=== PATIENT | female | born 1950 | race African-American/Black ===

== ENCOUNTER 2020-11-20 15:11 | Outpatient (CLI) | payer MEDICARE, SELFPAY | END 2020-11-20 15:12 | disposition home or self-care (01) | PROVIDERS: PCP Internal Medicine Infectious Disease; Visit Provider Internal Medicine Infectious Disease | DX: H91.93 Unspecified hearing loss, bilateral (principal) | CPT/HCPCS: 92557; 92567 ==

== ENCOUNTER 2022-06-07 03:56 | Inpatient (IN) | payer OTHER, SELFPAY ==
[2022-06-07] VITALS (21 sets, daily range): BP systolic 117–186; BP diastolic 50–90; PULSE 50–75; RESP 12–22; TEMP 36.4–36.6; O2SAT 98–100
--- NOTE | ~2022-06-07 | MR_ITS ---
EXAMINATION: MR brain/brain stem wo con DATE: 06/07/2022 12:39 INDICATION: Stroke TECHNIQUE: Magnetic resonance imaging (MRI) of the brain and brainstem was performed without intraven ous contrast. Sequences included sagittal and axial T1-weighted SE, axial diffusion-weighted FS SE, a xial T2*-weighted GRE, axial T2-weighted FLAIR Propeller, and axial T2-weighted Propeller. Apparent d iffusion coefficient (ADC) maps were created. COMPARISON: CTA brain/carotid dated 06/07/2022. FINDINGS: There is a focal acute infarction posterior limb left internal capsule. No associated hemor rhage. No significant mass effect. No ventriculomegaly or midline shift. There are scattered mild per iventricular and subcortical white matter changes, most likely related to small vessel ischemic disea se (microangiopathy). Structures of the posterior fossa including 7/8th cranial nerve complexes are n ormal. Orbits are symmetric without disconjugate gaze. Midline sagittal images demonstrate a normal c orpus callosum and craniovertebral junction. No significant abnormality of the sinuses. IMPRESSION: 1. Acute left lacunar infarction involving posterior limb of the internal capsule. No associated hemo rrhage or mass effect. 2: Chronic age-related findings. Reviewed, dictated and finalized at location A. IMPRESSION: 1. Acute left lacunar infarction involving posterior limb of the internal capsu le. No associated hemorrhage or mass effect. 2: Chronic age-related findings.
--- NOTE | ~2022-06-07 | XR_ITS ---
EXAMINATION: XR chest 1V portable 06/07/2022 04:34 INDICATION: CVA PROCEDURE: AP portable chest COMPARISON: 05/11/2017 FINDINGS: The lungs are clear. The cardiomediastinal silhouette is within normal limits. There are no pleural effusions. There is no pneumothorax suspected. IMPRESSION: 1: NO ACUTE CARDIOPULMONARY DISEASE. Reviewed, dictated and finalized at location A.
--- NOTE | ~2022-06-07 | CT_ITS ---
EXAMINATION: CTA brain carotid DATE: 06/07/2022 09:07 CDT INDICATION: Stroke. TECHNIQUE: Computed tomographic angiography (CTA) of the head was performed without and with 100 mL O mnipaque-350 intravenous contrast. CTA of the neck was performed with intravenous contrast. The dose- length product was 1681.67 mGy-cm. Maximum intensity projection and volume rendered 3D-reconstruction s were created by the technologist on a separate workstation. Automated exposure control and iterativ e reconstruction technique were employed. COMPARISON: None. FINDINGS: HEAD CTA: Brain parenchymal volume is normal for age. No acute intracranial hemorrhage, infarction, m ass or mass effect. No ventriculomegaly or midline shift. Basilar cisterns are patent. No depressed s kull fractures. No large partial occlusion, significant stenosis, aneurysm or vascular malformation. NECK CTA: No significant stenosis, dissection or vascular injury. There is 0% stenosis of the proximal right internal carotid artery relative to normal distal artery l umen diameter (NASCET criteria). There is 0% stenosis of the proximal left internal carotid artery re lative to normal distal artery lumen diameter. IMPRESSION: 1: No acute intracranial abnormality. 2: No significant vascular abnormality of the neck or head. No significant carotid stenosis. Reviewed, dictated and finalized at location A. IMPRESSION: 1: No acute intracranial abnormality. 2: No significant vascular abnormality of the neck or head. No significant arthur tid stenosis.
--- NOTE | ~2022-06-07 | XR_ITS ---
Right foot Technique: AP, oblique, and lateral views were obtained. Clinical History: Foreign body Findings: No acute fracture or dislocation is seen. Osseous alignment is anatomic. Joint spaces are p reserved without erosive or degenerative change. Soft tissues are unremarkable. Impression: Unremarkable right foot radiographs. No radiopaque foreign body seen. Reviewed, dictated and finalized at [facility]. Impression: Unremarkable right foot radiographs. No radiopaque foreign body seen.
--- NOTE | ~2022-06-07 | XR_ITS ---
MODIFIED ESOPHAGRAM HISTORY: Dysphagia. TECHNIQUE: Modified barium esophagram was performed by speech pathologist under radiologist fluorosco pic guidance. This was recorded on tape. The exam was reviewed on 06/09/2022 13:05 CDT. The DAP for this procedure was 0.8 Gycm2. Fluoroscopy time is 1.3 minutes. FINDINGS: Lateral projection of the cervical spine demonstrates normal alignment. There is prominen t ventral osteophytes at C6-7. During pharyngeal stage of swallowing there is reduced tongue base ret raction with residue in the vallecula and piriform sinuses. No evidence for penetration or aspiration .. IMPRESSION: 1: No evidence for laryngeal penetration or aspiration. 2: Please refer to speech pathologist report for additional detail. Reviewed, dictated and finalized at location A.
--- NOTE | 2022-06-07 04:14 | ECG_ITS ---
Measurements Intervals [place] Rate: 62 P: 49 VA: 176 QRS: -15 QRSD: 98 T: 28 QT: 435 QTc: 443 Interpretive Statements SINUS RHYTHM POSSIBLE LEFT ATRIAL ENLARGEMENT BORDERLINE T WAVE ABNORMALITY- INFERIOR LEADS BASELINE ARTIFACT- I, II, III, AVR, AVL, AVF, V1 BORDERLINE ECG NO PREVIOUS ECG AVAILABLE FOR COMPARISON Electronically Signed On 06-07-2022 8:10:16 CDT by Derrick Rees D.O.
[2022-06-07 04:28] LABS: Basophils Percent Auto 0.7 % (0.2-1.2); Eosinophils Absolute Auto 0.2 K/mm3 (0-0.3); Eosinophils Percent Auto 4.4 % (0-4.4); Hematocrit 36.7 % (37.0-47.0); Immature Granulocyte Absolute 0.01 K/mm3 (0.00-0.031); Immature Granulocyte Percent A 0.2 % (0-0.5); Lymphocytes Absolute Auto 2.52 K/mm3 (0.9-3.2); Mean Corpuscular HGB Conc 32.7 g/dl (32-36); Mean Corpuscular Hemoglobin 26.8 pg (26-34); Mean Corpuscular Volume 82.1 fl (80-100); Mean Platelet Volume 9.3 fl (7.4-10.4); Monocytes Absolute Auto 0.4 K/mm3 (0.1-0.6); Monocytes Percent Auto 8.2 % (2.6-8.5); Neutrophils Absolute Auto 1.2 K/mm3 (1.3-6.7); Neutrophils Percent Auto 27.5 % (45.5-73.1); Platelet Count Result 233 k/mm3 (150-375); Red Blood Count 4.47 M/mm3 (4.2-5.4); Red Cell Distribution Width 13.2 % (11.5-14.5); White Blood Count 4.3 K/mm3 (4.5-10.0)
[2022-06-07 04:38] LABS: Ethanol < 10 mg/dL (<10)
[2022-06-07 04:39] LABS: Alanine Aminotransferase 19 U/L (6-35); Albumin Level 4.2 g/dL (3.5-5.1); Alkaline Phosphatase 61 U/L (38-126); Anion Gap 3 mmol/L (8-16); Aspartate Amino Transferase 33 U/L (14-36); Bilirubin,Total 0.8 mg/dL (0.2-1.3); Blood Urea Nitrogen 20 mg/dL (7-17); Calcium 9.1 mg/dL (8.4-10.2); Carbon Dioxide 33 mmol/L (22-30); Chloride 102 mmol/L (98-107); Estimated Glomerular Filt Rate > 60; Glucose 103 mg/dL (65-110); Potassium 3.9 mmol/L (3.4-5.0); Sodium 138 mmol/L (137-145)
[2022-06-07 04:42] LABS: Prothrombin Time 13.1 Seconds (11.1-14.7)
--- NOTE | 2022-06-07 04:44 | ED.GENADULT ---
HPI - General Adult General Chief complaint: Suspected CVA <Rojelio Talley MD - Last Filed: 06/07/22 19:04> Stated complaint: right sided weakness <Rojelio Talley MD - Last Filed: 06/07/22 19:04> Time Seen by Provider: 06/07/22 04:07 <Rojelio Talley MD - Last Filed: 06/07/22 19:04> History of Present Illness HPI narrative: This is a 71-year-old female presenting ED with stroke-like symptoms. Patient woke up at 2:30 a.m. and went to the restroom to get cleaned up for work. She then started to have weakness and numbness on the right side of her body and felt like she was unable to control her tongue. She then woke up her who called EMS and she was brought to hospital as a stroke activation. Patient denies any other physical planes outside of the right-sided weakness. <Rojelio Talley MD - Last Filed: 06/07/22 19:04> Related Data Home medications: Home Medications Medication Instructions Recorded Confirmed ritonavir 100 mg tablet (Norvir) 100 mg PO DAILY 04/20/19 06/07/22 darunavir ethanolate 800 mg tablet 800 mg PO DAILY 06/07/22 06/07/22 (Prezista) emtricitabine 200 mg-tenofovir 1 tablet PO DAILY 06/07/22 06/07/22 alafenamide fumarate 25 mg tablet (Descovy) escitalopram oxalate 10 mg tablet 10 mg PO DAILY 06/07/22 06/07/22 rosuvastatin 20 mg tablet 20 mg PO HS 06/07/22 06/07/22 <Rojelio Talley MD - Last Filed: 06/07/22 19:04> Allergies/adverse reactions: Allergies Allergy/AdvReac Type Severity Reaction Status Date / Time Bleach (Sodium Hypochlorite) Allergy Severe difficulty Verified 06/07/22 10:45 breathing, hoarseness and watery eyes <Rojelio Talley MD - Last Filed: 06/07/22 19:04> PMFSH Past Medical History Medical History: Medical History ASCUS with positive high risk HPV High cholesterol HIV (human immunodeficiency virus infection) <Rojelio Talley MD - Last Filed: 06/07/22 19:04> Social History Social History: Social History Smoking status: Never smoker Alcohol intake: never Substance use: never Lack of Transportation: No Lack of Food: Never True Current Housing: Decline to Answer Concerned About Future Housing: Decline to Answer Difficulty Paying Gas/Electric Bills: Decline to Answer Difficulty Paying for Meds: Decline to Answer Currently Unemployed: Decline to Answer Education: Decline to Answer Difficulty w/ Childcare or Family Care: Decline to Answer Spiritual care concerns: No <Rojelio Talley MD - Last Filed: 06/07/22 19:04> Exam Narrative: APPEARANCE: No apparent distress. Head: atraumatic. EYES: EOMI, NOSE: Atraumatic NECK: Trachea midline RESPIRATORY: No increased rate of breathing CARDIOVASCULAR: RRR, ABDOMINAL: Non-distended MUSCULOSKELETAl: No obvious deformities NEURO: Alert. Moving 4/4 extremities SKIN:: Warm, dry. Normal color PSYCHIATRIC: Normal affect NIH Stroke Scale/Score (NIHSS) from [email or web address] on 06/07/2022 All calculations should be rechecked by clinician prior to use RESULT SUMMARY: 4 points NIH Stroke Scale INPUTS: 1A: Level of consciousness ?> 0 = Alert; keenly responsive 1B: Ask month and age ?> 0 = Both questions right 1C: 'Blink eyes' & 'squeeze hands' ?> 0 = Performs both tasks 2: Horizontal extraocular movements ?> 0 = Normal 3: Visual robbins ?> 0 = No visual loss 4: Facial palsy ?> 0 = Normal symmetry 5A: Left arm motor drift ?> 0 = No drift for 10 seconds 5B: Right arm motor drift ?> 1 = Drift, but doesn't hit bed 6A: Left leg motor drift ?> 0 = No drift for 5 seconds 6B: Right leg motor drift ?> 2 = Some effort against gravity 7: Limb Ataxia ?> 0 = No ataxia 8: Sensation ?> 1 = Mild-moderate loss: less sharp/more dull 9: Language/aphasia ?> 0 = Normal; no aphasia 10: Dysarthria ?> 0 = Normal 11: Extinction
[2022-06-07 04:51] LABS: Troponin I < 0.012 ng/mL (0.000-0.034)
[2022-06-07] MEDS: ASPIRIN 81 MG CHEWABLE TABLET 324 MG PO (06:36)
--- NOTE | 2022-06-07 10:40 | ADMGEN ---
This patient, Nancy Cherry, was admitted to [facility] Surg Room 313-01. Patient/family oriented to hospital policies and general routines including ID bracelet, bed and alarms, visiting hours, pain management, procedures, bathroom and other care routines, personal items, smoking policy, room service/diet, and visiting hours. Information on how to activate the Rapid Response Team has been discussed. Patient/Family are encouraged to report perceived risks to care and to ask questions if they do not understand what they are told or what they should do.
[2022-06-07 11:44] LABS: Cholesterol 294 mg/dL (0-200); HDL Direct 78 mg/dL; Triglycerides 112 mg/dL (<150)
[2022-06-07 11:55] LABS: LDL Cholesterol Direct 159 mg/dL
--- NOTE | 2022-06-07 12:25 | PM.IMHP ---
H&P: HPI History of Present Illness Date/Time: 06/07/22 12:25 Chief Complaint: right sided weakness and slurred speech Narrative: Patient was slow to respond but noted she noticed right sided weakness and numbness at about 230 am while she woke up to prepare for work. She also noted lightheadedness and fall but denies any syncope, vomiting, abd pain, diarrhea or dysuria. Evaluation in the ER showed BP 141/81, prolonged aptt, CT head no acute intracranial abnormality and no significant vascular abnormality, LDL 159. Patient was admitted for further evaluation and care. At bedside she noted symptoms have markedly improved Review of Systems Review of Systems: All systems reviewed & are unremarkable except as noted in HPI and below PMFSH Past Medical History Medical History ASCUS with positive high risk HPV High cholesterol HIV (human immunodeficiency virus infection) Social History Social History Smoking status: Never smoker Alcohol intake: never Substance use: never Lack of Transportation: No Lack of Food: Never True Current Housing: Decline to Answer Concerned About Future Housing: Decline to Answer Difficulty Paying Gas/Electric Bills: Decline to Answer Difficulty Paying for Meds: Decline to Answer Currently Unemployed: Decline to Answer Education: Decline to Answer Difficulty w/ Childcare or Family Care: Decline to Answer Spiritual care concerns: No Meds Home Medications and Allergies Home Medications Medication Instructions Recorded Confirmed Type ritonavir 100 mg tablet (Norvir) 100 mg PO DAILY 04/20/19 06/07/22 History ibandronate 150 mg tablet 150 mg PO MONTHLY #3 tabs 02/17/22 06/07/22 Rx darunavir ethanolate 800 mg tablet 800 mg PO DAILY 06/07/22 06/07/22 History (Prezista) emtricitabine 200 mg-tenofovir 1 tablet PO DAILY 06/07/22 06/07/22 History alafenamide fumarate 25 mg tablet (Descovy) escitalopram oxalate 10 mg tablet 10 mg PO DAILY 06/07/22 06/07/22 History rosuvastatin 20 mg tablet 20 mg PO HS 06/07/22 06/07/22 History Allergies Allergy/AdvReac Type Severity Reaction Status Date / Time Bleach (Sodium Hypochlorite) Allergy Severe difficulty Verified 06/07/22 10:45 breathing, hoarseness and watery eyes Vital Signs Vital Signs - 24 hr 06/07/22 04:22 06/07/22 04:32 06/07/22 03:50 Pulse Rate 72 71 72 Respiratory Rate 22 H 17 22 H Blood Pressure 162/90 H 154/87 H 162/90 H Pulse Oximetry 100 100 100 Oxygen Delivery Room Air 06/07/22 04:00 06/07/22 04:46 06/07/22 05:01 Pulse Rate 74 75 73 Respiratory Rate 12 20 18 Blood Pressure 186/84 H 163/81 H 173/75 H Pulse Oximetry 100 100 100 Oxygen Delivery 06/07/22 05:16 06/07/22 08:27 06/07/22 08:27 Pulse Rate 65 60 60 Respiratory Rate 14 18 Blood Pressure 163/85 H 118/52 L Pulse Oximetry 100 100 Oxygen Delivery 06/07/22 07:16 06/07/22 07:31 06/07/22 07:46 Pulse Rate 60 60 60 Respiratory Rate 13 15 15 Blood Pressure 144/70 H 124/50 L 117/61 Pulse Oximetry 98 98 100 Oxygen Delivery 06/07/22 08:01 06/07/22 08:16 06/07/22 08:32 Pulse Rate 59 L 59 L 66 Respiratory Rate 13 16 17 Blood Pressure 123/51 L 118/52 L 146/78 H Pulse Oximetry 100 100 100 Oxygen Delivery 06/07/22 09:01 06/07/22 09:15 06/07/22 10:21 Pulse Rate 62 58 L 60 Respiratory Rate 15 20 20 Blood Pressure 144/86 H 141/81 H 141/81 H Pulse Oximetry 100 100 98 Oxygen Delivery 06/07/22 11:07 Pulse Rate Respiratory Rate Blood Pressure Pulse Oximetry Oxygen Delivery Room Air Exam Narrative: GEN: Healthy appearing, well-developed, NAD. PSYCH: Good Judgment. AOx3. Normal memory, mood, and affect. HEENT: -Head: NC/AT; -Eyes: No discharge or redness; -Ears: External ears are normal. -Nose: Normal nares. -Mouth and throat: MMM. Normal gums, mucosa
--- NOTE | 2022-06-07 12:36 | PCPTNOTE ---
Patient has bedrests orders, called Dr. Gramajo to get the bedrests orders cancelled, he said he would.
[2022-06-07 12:45] LABS: Hemoglobin A1C 5.4 % (<5.7)
--- NOTE | 2022-06-07 14:03 | PCSTNOTE ---
Patient seen for bedside swallowing evaluation, positioned upright in bed with head of bed elevated. present at bedside. Oral peripheral examination reveals right sided labial and lingual weakness. Range of motion WNL. Patient is able to cough and clear throat voluntarily. Trials of food and liquid given include thin liquids by spoon and straw, mildly thickened liquids by cup, and pureed by spoon. Patient able to feed self but RUE is weak. Coughing after thin liquids by straw indicating possible aspiration on thin liquids. No signs of aspiration noted with moderately thick liquids by cup or pureed food by straw. Other food consistencies were not trialed because patient stated that she wants pureed food for the time being. Communication skills noted to be impaired. Order for speech language communication evaluation requested. Recommendation: pureed diet with mildly thickened liquids (level 2). Speech therapy to address swallowing deficits. Swallowing precaution recommendations placed in chart. Thank you for the referral of this patient.
[2022-06-07] MEDS: ASPIRIN 300 MG SUPPOSITORY RECTAL (14:05)
[2022-06-08] VITALS (9 sets, daily range): BP systolic 132–141; BP diastolic 54–75; PULSE 51–65; RESP 14–16; TEMP 36.1–36.4; O2SAT 100
--- NOTE | 2022-06-08 | ECHO_ITS ---
Patient Info Name: Nancy Cherry Age: 71 years : 1950 Gender: Female Ht: 66 in Wt: 140 lbs BSA: 1.72 m2 HR: 78 bpm BP: 132 / 75 mmHg Technical Quality: Good Exam Date: 06/08/2022 1:31 PM Exam Location: [facility] Exam Room: [facility] Patient Status: Inpatient Admit Date: 06/08/2022 Staff Ordering Physician: Nella Miller DO Drawer Maker: Rachel Chang RDCS Attending Provider: Barry Cabrera MD Referring Physician: Angela MILLER; Exam Type: CA echo doppler w bubble study Study Info Indications - stroke Complete two-dimensional, color flow and Doppler transthoracic echocardiogram is performed with agitated saline. Contrast/Agitated Saline Contrast/Ag. Saline: Agitated Saline Amount: 20.00 ml Existing IV Access: Yes IV Access Condition: patent with no signs of infiltration Summary 1. Left ventricular chamber dimension is normal. 2. Left ventricular systolic function is normal, estimated at 60-65%. 3. There is mild concentric increased left ventricular wall thickness. 4. The left ventricular diastolic function is grade I diastolic dysfunction. 5. E/e' 6 is not elevated. 6. The mitral valve has mildly calcified annulus. 7. No pulmonary hypertension, estimated pulmonary arterial systolic pressure is 34 mmHg. Left Ventricle E/e' 6 is not elevated. Left ventricular chamber dimension is normal. Left ventricular systolic function is normal, estimated at 60-65%. There is mild concentric increased left ventricular wall thickness. The left ventricular diastolic function is grade I diastolic dysfunction. Right Ventricle Right ventricular chamber dimension is normal. Right ventricular systolic function is normal. Left Atria Left atrial chamber dimension is normal. Right Atria Right atrial chamber dimension is normal. Atrial Septum Agitated saline injection with and without valsalva maneuver opacified right side cardiac chambers without shunt to left side cardiac chambers. Intact interatrial septum visualized by 2D, color flow and agitated saline imaging. Aortic Valve The aortic valve is trileaflet. There is no aortic valve stenosis. There is no aortic valve regurgitation. Pulmonic Valve There is no pulmonic regurgitation. Mitral Valve The mitral valve has mildly calcified annulus. There is no mitral valve stenosis. There is no mitral valve regurgitation. Tricuspid Valve There is no tricuspid valve regurgitation. No pulmonary hypertension, estimated pulmonary arterial systolic pressure is 34 mmHg. Pericardium/Pleural There is no pericardial effusion. Inferior Vena Cava Normal inferior vena cava with >50% collapse upon inspiration consistent with normal right atrial pressure, 5 mmHg. Aorta The aortic root size at the sinus of Valsalva is normal. Left Ventricular Outflow Tract Name Value Normal LVOT 2D LVOT Diameter 2.0 cm LVOT Doppler LVOT Peak Gradient 6 mmHg LVOT Mean Gradient 3 mmHg LVOT VTI 23 cm
[2022-06-08] MEDS: ASPIRIN 81 MG CHEWABLE TABLET PO (09:44)
[2022-06-08] MEDS: ENOXAPARIN 40 MG/0.4 ML SYRINGE SUB-Q (09:44)
--- NOTE | 2022-06-08 11:23 | WPDNEURCNPN ---
Assessment and Plan Assessment and plan (1) Acute CVA (cerebrovascular accident): Code(s): I63.9 - Cerebral infarction, unspecified Status: Acute (2) HIV (human immunodeficiency virus infection): Code(s): B20 - Human immunodeficiency virus [HIV] disease Status: Acute Plan 1 left hemispheric lacunar stroke 2. History of TB and HIV with lymphadenopathy 3 MRI is negative otherwise so she will not benefit from any spinal fluid studies for definitely need a surface echocardiogram with the bubble study and also4 follow-up on long-term basis with medical doctor while started on aspirin during this hospitalization Consult date: 06/08/22 HPI: Nancy Cherry is a 71 year old female Admitted to the hospital through the emergency room with the possibility of cerebrovascular accident and complaints of right-sided weakness. As per the information available patient woke up at 2:30 a.m. and went to the restroom to get cleaned up for work when she started to have weakness and numbness on the right side of her body and felt as if she was unable to control her tongue EMS were called to the scene and she was brought to the hospital as a stroke activation. Patient has been taking decide to REM 10 mg daily, rosuvastatin 20 mg daily, descovy 25 mg daily and prezista 1 tablet daily. She does have ongoing history of 1. HIV infection in 2. Hypercholesteremia and positive HPV she is a never smoker number alcohol intaker. Her initial vital signs were stable except blood pressure 162/90. Initial CT scan of the head was negative for the bleed and CTA was also negative for any territorial involvement EKG revealed no atrial fibrillation her initial CBC was normal BMP was normal and all other routine lab studies were normal with hemoglobin A1c 5.4 triglyceride 112 but cholesterol 294 with LDL of 159 but HDL 78, MRI of the brain has been done which documented acute left lacunar infarction involving the posterior limb of the right internal capsule without any other enciso and head neck CTA as mentioned before was negative Review of Systems Review of Systems: All systems reviewed & are unremarkable except as noted in HPI and below PMFSH Past Medical History Medical History ASCUS with positive high risk HPV High cholesterol HIV (human immunodeficiency virus infection) Social History Social History Smoking status: Never smoker Alcohol intake: never Substance use: never Lack of Transportation: No Lack of Food: Never True Current Housing: Decline to Answer Concerned About Future Housing: Decline to Answer Difficulty Paying Gas/Electric Bills: Decline to Answer Difficulty Paying for Meds: Decline to Answer Currently Unemployed: Decline to Answer Education: Decline to Answer Difficulty w/ Childcare or Family Care: Decline to Answer Spiritual care concerns: No Meds Home Medications and Allergies Home Medications Medication Instructions Recorded Confirmed Type ritonavir 100 mg tablet (Norvir) 100 mg PO DAILY 04/20/19 06/07/22 History ibandronate 150 mg tablet 150 mg PO MONTHLY #3 tabs 02/17/22 06/07/22 Rx darunavir ethanolate 800 mg tablet 800 mg PO DAILY 06/07/22 06/07/22 History (Prezista) emtricitabine 200 mg-tenofovir 1 tablet PO DAILY 06/07/22 06/07/22 History alafenamide fumarate 25 mg tablet (Descovy) escitalopram oxalate 10 mg tablet 10 mg PO DAILY 06/07/22 06/07/22 History rosuvastatin 20 mg tablet 20 mg PO HS 06/07/22 06/07/22 History Allergies Allergy/AdvReac Type Severity Reaction Status Date / Time Bleach (Sodium Hypochlorite) Allergy Severe difficulty Verified 06/07/22 10:45 breathing, hoarseness and watery eyes Vital Signs Vital Signs - 24 hr 06/07/22 17:40 06/07/22 12:00 06/07/22 21:29 Temperature 36.6 C 36.4 C Pulse Rate 50 L 61 63 Respi
--- NOTE | 2022-06-08 13:23 | PM.IMPN ---
Progress Note: A&P Assessment and Plan (1) Acute CVA (cerebrovascular accident): Code(s): I63.9 - Cerebral infarction, unspecified Status: Acute Plan Assessment and plan Right-sided weakness Right facial droop Dysarthria improving MRI brain completed , ECHO completed NPO until evaluated by ST, OT, PT MBS ordered ASA and statin neurology consulted HIV start home meds ? non compliance to medications ? 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 compliant with treatment Review of Systems Review of Systems: no specific complaints Exam Narrative: GEN: Healthy appearing, well-developed CV: RRR, no m/r/g. LUNGS: CTAB, no w/r/c. ABD: Soft, NT/ND, NBS, no masses or organomegaly. : N/A SKIN: Warm, well perfused. No skin rashes or abnormal lesions. MSK: Normal gait. No deformities. EXT: No clubbing, cyanosis, or edema. NEURO: alert and oriented x 4, right facial droop. Power 4/5 right sided extremities and 5/5 left sided extremities Objective Data Vital Signs Vital Signs: Vital Signs - 24 hr 06/07/22 17:40 06/07/22 21:29 06/07/22 20:00 Temperature 36.6 C 36.4 C Pulse Rate 50 L 63 56 L Respiratory Rate 18 14 Blood Pressure 119/75 133/60 Pulse Oximetry 100 99 Oxygen Delivery 06/08/22 00:00 06/08/22 04:00 06/08/22 05:44 Temperature 36.1 C L Pulse Rate 57 L 51 L 65 Respiratory Rate 14 Blood Pressure 132/75 Pulse Oximetry 100 Oxygen Delivery 06/08/22 09:11 06/08/22 08:00 06/08/22 08:00 Temperature Pulse Rate 65 Respiratory Rate Blood Pressure Pulse Oximetry Oxygen Delivery Room Air Room Air 06/08/22 12:00 Temperature Pulse Rate 65 Respiratory Rate Blood Pressure Pulse Oximetry Oxygen Delivery Intake/Output Intake/Output: Intake & Output 06/05/22 06/06/22 06/07/22 06/08/22 23:59 23:59 23:59 23:59 Intake Total 200 Balance 200 Meds/Results Medications: Active Medications Generic Name Dose Route Start Last Admin Trade Name Freq PRN Reason Stop Dose Admin Aspirin 81 mg 06/08/22 08:00 06/08/22 09:44 Aspirin 81 Mg Chewable Tablet PO 81 mg DAILY@0800 QUOC Administration Enoxaparin Sodium 40 mg 06/08/22 09:00 06/08/22 09:44 Enoxaparin 40 Mg/0.4 Ml Syringe SUB-Q 40 mg DAILY QUOC Administration Perflutren Lipid Microsphere 0 ml 06/07/22 11:23 Perflutren Lipid Microspheres 1.5 Ml Vial Diluted To 10 Ml Total Volume IV PUSH 06/09/22 11:25 ONCE PRN adequate visualization Protocol Perflutren Lipid Microsphere 0 ml 06/07/22 20:11 Perflutren Lipid Microspheres 1.5 Ml Vial Diluted To 10 Ml Total Volume IV PUSH 06/09/22 20:11 ONCE PRN adequate visualization Protocol Radiology Results: ITS Impressions Chest X-Ray 06/07/22 07:58 IMPRESSION: 1: NO ACUTE CARDIOPULMONARY DISEASE. Head/Neck CTA 06/07/22 09:06 IMPRESSION: 1: No acute intracranial abnormality. 2: No significant vascular abnormality of the neck or head. No significant carotid stenosis. Brain MRI 06/07/22 12:48 IMPRESSION: 1. Acute left lacunar infarction involving posterior limb of the internal capsule. No associated hemorrhage or mass effect. 2: Chronic age-related findings.
[2022-06-08] MEDS: ROSUVASTATIN 10 MG TABLET 20 MG PO (21:22)
[2022-06-09] VITALS (9 sets, daily range): BP systolic 120–136; BP diastolic 60–72; PULSE 55–63; RESP 13–18; TEMP 36.3–36.7; O2SAT 99–100
[2022-06-09] MEDS: ASPIRIN 325 MG TABLET PO (09:15)
[2022-06-09] MEDS: ENOXAPARIN 40 MG/0.4 ML SYRINGE SUB-Q (09:15)
[2022-06-09] MEDS: ESCITALOPRAM OXALATE 10 MG TABLET PO (09:15)
--- NOTE | 2022-06-09 09:32 | PCSTNOTE ---
Please refer to the Modified Barium Swallow Evaluation in the EMR.
--- NOTE | 2022-06-09 09:34 | PCSTNOTE ---
Previous ST orders discontinued; new, updated, orders placed, still 3-5x weekly but addressing both dysphagia/dysarthria goals now with new goals added to plan of care.
--- NOTE | 2022-06-09 14:22 | PM.IMPN ---
Progress Note: A&P Assessment and Plan (1) Acute CVA (cerebrovascular accident): Code(s): I63.9 - Cerebral infarction, unspecified Status: Acute Assessment and Plan: see below Plan Assessment and plan Right-sided weakness ongoing Right facial droop better Dysarthria improving MRI brain completed positive or acute lacunar infarct ECHO completed ef 60 % grade1 diastolic chf MBS purred diet ordered ASA and statin neurology consulted PT/ OT /ST Skin dryness add steroid creme R foot pain order XRay of R foot ? foreign body HIV start home meds ? non compliance to medications ? 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 compliant with treatment Review of Systems Review of Systems: Pt complains of weakness in her leg other complaints of dry skin and pain in her r foot (sole of foot) Exam Narrative: GEN: Healthy appearing, well-developed CV: RRR, no m/r/g. LUNGS: CTAB, no w/r/c. ABD: Soft, NT/ND, NBS, no masses or organomegaly. : N/A SKIN: Warm, well perfused. No skin rashes or abnormal lesions. MSK: Normal gait. No deformities. EXT: No clubbing, cyanosis, or edema. NEURO: alert and oriented x 4, right facial droop. Power 4/5 right sided extremities and 5/5 left sided extremities Objective Data Vital Signs Vital Signs: Vital Signs - 24 hr 06/08/22 16:00 06/08/22 22:00 06/08/22 20:00 Temperature 36.4 C L Pulse Rate 63 64 65 Respiratory Rate 15 Blood Pressure 141/57 H Pulse Oximetry 100 Oxygen Delivery 06/09/22 00:00 06/09/22 04:00 06/09/22 06:00 Temperature 36.3 C L Pulse Rate 55 L 58 L 59 L Respiratory Rate 13 Blood Pressure 120/70 Pulse Oximetry 100 Oxygen Delivery 06/09/22 08:00 06/09/22 12:03 06/09/22 13:32 Temperature Pulse Rate 61 63 Respiratory Rate Blood Pressure Pulse Oximetry Oxygen Delivery Room Air Intake/Output Intake/Output: Intake & Output 06/06/22 06/07/22 06/08/22 06/09/22 23:59 23:59 23:59 23:59 Intake Total 200 220 480 Balance 200 220 480 Meds/Results Medications: Active Medications Generic Name Dose Route Start Last Admin Trade Name Zuri PRN Reason Stop Dose Admin Aspirin 325 mg 06/09/22 08:00 06/09/22 09:15 Aspirin 325 Mg Tablet PO 325 mg DAILY@0800 QUOC Administration Enoxaparin Sodium 40 mg 06/08/22 09:00 06/09/22 09:15 Enoxaparin 40 Mg/0.4 Ml Syringe SUB-Q 40 mg DAILY QUOC Administration Escitalopram Oxalate 10 mg 06/09/22 09:00 06/09/22 09:15 Escitalopram Oxalate 10 Mg Tablet PO 10 mg DAILY QUOC Administration Miscellaneous Information 1 each 06/08/22 00:01 [Prezista] 800 Mg Tablet Is Nonformulary. Can Patient Use Home Supply? XX 07/08/22 00:00 CLARIFY QUOC Miscellaneous Information 1 each 06/08/22 00:01 [Descovy] 200-25 Mg Tablet Is Nonformulary. Can Patient Use Home Supply? XX 07/08/22 00:00 CLARIFY QUOC Miscellaneous Information 1 each 06/08/22 00:01 (Ritonavir [Norvir] 100 Mg Tablet) Is Nonformulary. Can Patient Use Home Supply? XX 07/08/22 00:00 CLARIFY QUOC Miscellaneous Information 1 each 06/08/22 00:01 (Ibandronate 150 Mg Tablet) Is Nonformulary. Due Once A Month- When Due? Can She Use Home XX 07/08/22 00:00 CLARIFY QUOC Non-Formulary Medication 800 mg 06/09/22 09:00 Darunavir Ethanolate [Prezista] PO 07/09/22 08:59 DAILY QUOC Non-Formulary Medication 1 tablet 06/09/22 09:00 Emtricitabine-Tenofovir Alafen [Descovy] PO 07/09/22 08:59 DAILY QUOC Non-Formulary Medication 150 mg 07/08/22 09:00 Ibandronate PO 08/07/22 08:59 MONTHLY QUOC Non-Formulary Medication 100 mg 06/09/22 09:00
[2022-06-09] MEDS: ROSUVASTATIN 10 MG TABLET 20 MG PO (20:36)
[2022-06-09] MEDS: HYDROCORTISONE 1% 30 GM CREAM 1 APPLIC TOPICAL (20:37)
[2022-06-10] VITALS (7 sets, daily range): BP systolic 146; BP diastolic 67–68; PULSE 52–69; RESP 14–16; TEMP 35.8–36.6; O2SAT 99–100
--- NOTE | 2022-06-10 07:57 | PC.NURSE ---
Patient over the majority over the course of the night was slightly sinus bradycardia, sitting at approximately upper 50's for heart rate most of the night. However, at approximately 05:00 on 06/10/2022 charge Dwight (Keyanna Jordan) noticed patient's heart rate dropped to what appeared to be 24 for heart rate. Went to check and assess patient, and patient's heart rate increased to within normal limits.
[2022-06-10] MEDS: ENOXAPARIN 40 MG/0.4 ML SYRINGE SUB-Q (09:01)
[2022-06-10] MEDS: ASPIRIN 325 MG TABLET PO (09:01)
[2022-06-10] MEDS: ESCITALOPRAM OXALATE 10 MG TABLET PO (09:01)
[2022-06-10] MEDS: HYDROCORTISONE 1% 30 GM CREAM 1 APPLIC TOPICAL (09:01)
--- NOTE | 2022-06-10 13:20 | PM.DS ---
DS: Admitting Diagnosis Discharge Date 06/10/2022 Admitting Diagnosis right-sided weakness and slurred speech DS: Discharge Diagnosis Discharge Diagnosis (1) Acute CVA (cerebrovascular accident): Code(s): I63.9 - Cerebral infarction, unspecified Status: Acute DS: Summary Hospital Course Hospital Course: #Right-sided weakness ongoing #Right facial droop better #Dysarthria improving At about 2:30 a.m. I will see woke up to prepare for work associated lightheadedness and fall. Evaluation the ER with blood pressure 141/[address] head with no acute intracranial abnormality and no significant vascular abnormality. LDL 159. Patient was admitted for further evaluation. MRI brain completed positive for acute lacunar infarct In posterior limb of left internal capsule. ECHO completed ef 60 % grade1 diastolic chf MBS purred diet Continue aspirin and statin with Crestor. neurology consulted PT/ OT /ST Will continue therapy at [facility] telemetry with sinus rhythm Skin dryness add steroid creme R foot pain x-ray foot without any evidence of foreign body. She had an old injury several years ago and has a scar tissue in there. 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 foreign body #HIV continued on home medication. She reports he has been compliant with the medication. She also reports she had been undetectable for several years ? 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 non compliance to medications HLD statin DVT prophylaxis Sq lovenox # Disposition: Going to [facility] for further rehabilitation. Time Spent with Patient Time attestation: Total time spent providing and/or coordinating discharge services: 60 minutes Exam Narrative: GEN: Healthy appearing, well-developed CV: RRR, no m/r/g. LUNGS: CTAB, no w/r/c. ABD: Soft, NT/ND, NBS, no masses or organomegaly. : N/A SKIN: Warm, well perfused. No skin rashes or abnormal lesions. MSK: Normal gait. No deformities. EXT: No clubbing, cyanosis, or edema. NEURO: alert and oriented x 4, right facial droop. Power 4/5 right sided extremities and 5/5 left sided extremities DS: Data Imaging Radiologist's impression: ITS Impressions Chest X-Ray 06/07/22 07:58 IMPRESSION: 1: NO ACUTE CARDIOPULMONARY DISEASE. Head/Neck CTA 06/07/22 09:06 IMPRESSION: 1: No acute intracranial abnormality. 2: No significant vascular abnormality of the neck or head. No significant carotid stenosis. Brain MRI 06/07/22 12:48 IMPRESSION: 1. Acute left lacunar infarction involving posterior limb of the internal capsule. No associated hemorrhage or mass effect. 2: Chronic age-related findings. Modified Barium Swallow 06/09/22 13:05 IMPRESSION: 1: No evidence for laryngeal penetration or aspiration. 2: Please refer to speech pathologist report for additional detail. Foot X-Ray 06/10/22 06:26 Impression: Unremarkable right foot radiographs. No radiopaque foreign body seen. Discharge Plan Discharge Attending physician on discharge: Rajat Murray Consulting providers: Elvira Fortune Discharging Clinician: Rajat Murray Anticipated Discharge Date/Time: 06/10/22 13:18 Patient Disposition: Inpatient Rehab Facility Activity: as tolerated Diet: as tolerated, regular, other - see discharge instructions and no preference Discharge Instructions: soft and bite size level 6 diet Patient Instructions: Ischemic Stroke (DC), Self Care Measures After a Stroke (DC), Stroke (DC) Stand Alone Forms: General Discharge Information Follow-up/Referrals: Yomi,Val Machado [Primary Care Provider] - 1 Week Elvira Fortune MD [Physician] - 4 Weeks Discharge Medications: New aspirin 325 mg Tablet 325 mg PO DAILY@0800 Qty: 30 0RF Continued ritonavir [Norvir] 100 mg tablet 100 mg PO DAILY ibandronate 150 mg tablet
--- NOTE | 2022-06-10 15:30 | PC.NURSE ---
On 06/10/22, the student, Romi Anne, provided care and completed [facility] documentation on this patient. I have reviewed the student's documentation and agree with the findings.
[2022-06-15 14:37] LABS: Reference Lab Test Name Mixing Study
== END 2022-06-10 15:20 | DRG 65 ==
LOC: ANHED 07:25 → ANH3MEDSUR 09:42
PROVIDERS: Emergency Medicine; Internal Medicine; Admitting Provider Family Medicine; Emergency Provider Emergency Medicine; PCP Internal Medicine Infectious Disease; Visit Provider Internal Medicine
DX: I63.81 Other cerebral infarction due to occlusion or stenosis of small artery (principal); G81.91 Hemiplegia, unspecified affecting right dominant side; R47.1 Dysarthria and anarthria; R29.810 Facial weakness; R29.704 NIHSS score 4; Z21 Asymptomatic human immunodeficiency virus [HIV] infection status; E78.5 Hyperlipidemia, unspecified; M25.571 Pain in right ankle and joints of right foot; L85.3 Xerosis cutis; Z79.899 Other long term (current) drug therapy
CPT/HCPCS: 36415; 70496; 70498; 70551; 71045; 73630; 80053; 80061; 80307; 83036; 84484; 85025; 85610; 85730; 92522; 92610; 92611; 93005; 93306; 96372; 96374; 96375; 96376; 97110; 97112; 97116; 97162; 97165; 97530; 97535; 99285; A9270; G0378; J0131; J1650; Q9967

== ENCOUNTER 2022-07-09 19:49 | Emergency (ER) | payer OTHER, SELFPAY ==
--- NOTE | ~2022-07-09 | XR_ITS ---
EXAMINATION: XR chest 2V 07/10/2022 00:06 INDICATION: History of TB. Shortness of breath. PROCEDURE: 2 view chest COMPARISON: 06/07/2022 FINDINGS: The lungs are clear. The cardiomediastinal silhouette is within normal limits. There are no pleural effusions. There is no pneumothorax suspected. IMPRESSION: 1: NO ACUTE CARDIOPULMONARY DISEASE. Reviewed, dictated and finalized at location A.
--- NOTE | ~2022-07-09 | CT_ITS ---
EXAMINATION: CT soft tissue neck chest w DATE: 07/10/2022 00:33 INDICATION: Right axillary and supraclavicular lymphadenopathy. TECHNIQUE: Computed tomography (CT) of the neck and chest was performed with 100 cc Omnipaque 350 int ravenous contrast. The dose-length product was 418.87 mGy-cm. Automated exposure control and iterativ e reconstruction technique were employed. COMPARISON: None FINDINGS: There are enlarged right supraclavicular lymph nodes one of which is necrotic measuring 1.4 cm. No abnormality of the mucosal or parapharyngeal spaces. No significant vascular abnormality. The re are enlarged right axillary lymph nodes, largest measuring 1.9 cm. No mediastinal or hilar lymphad enopathy. No significant vascular abnormality. Heart size normal. No significant pleural or pericardi al effusion. No endobronchial lesions. Mild emphysema. No focal airspace consolidation. No pneumothor ax. No acute bone or joint abnormality. IMPRESSION: 1. Enlarged right supraclavicular and axillary lymph nodes, suspicious for metastatic disease. There is a 1.5 cm necrotic lymph node in the supraclavicular location. Correlate for history of malignancy. Reviewed, dictated and finalized at location A. IMPRESSION: 1. Enlarged right supraclavicular and axillary lymph nodes, suspicious for meta static disease. There is a 1.5 cm necrotic lymph node in the supraclavicular lo cation. Correlate for history of malignancy.
--- NOTE | ~2022-07-09 | CT_ITS ---
EXAMINATION: CT brain wo con DATE: 07/10/2022 00:31 INDICATION: Severe right-sided headache. TECHNIQUE: Computed tomography (CT) of the head was performed without intravenous contrast. The dose- length product was 605.33 mGy-cm. Automated exposure control and iterative reconstruction technique w ere employed. COMPARISON: CT dated 06/07/2022 FINDINGS: There is a subacute left lacunar infarction. No ventriculomegaly or midline shift. Basilar cisterns are patent. No evidence for acute hemorrhage, mass effect or mass. Basilar cisterns are sandoval nt. Paranasal sinuses and mastoids are pneumatized. No depressed skull fractures. IMPRESSION: 1. Maturing subacute left lacunar infarction. Reviewed, dictated and finalized at location A.
[2022-07-09 20:10] VITALS: BP 146/74; PULSE 72; RESP 18; TEMP 36.6; O2SAT 100
[2022-07-09 22:29] VITALS: BP 153/84; BP 153/85; PULSE 62; RESP 18; O2SAT 100
[2022-07-09 22:31] VITALS: BP 164/85; PULSE 67; RESP 26; O2SAT 100
--- NOTE | 2022-07-09 22:51 | ECG_ITS ---
Measurements Intervals [place] Rate: 54 P: 52 NV: 187 QRS: -5 QRSD: 98 T: 0 QT: 446 QTc: 425 Interpretive Statements SINUS BRADYCARDIA NONSPECIFIC T-WAVE ABNORMALITY BORDERLINE ECG COMPARED TO ECG 06/07/2022 04:57:28 NO SIGNIFICANT CHANGE Electronically Signed On 07-10-2022 7:22:07 CDT by Loco Membreno M.D.
--- NOTE | 2022-07-09 22:54 | ED.GENADULT ---
HPI - General Adult General Chief complaint: Unspecified Stated complaint: swollen lymph node Time Seen by Provider: 07/09/22 22:43 History of Present Illness HPI narrative: 71-year-old female here for evaluation of multiple medical complaints. Patient states that she was recently discharged from the nursing and rehab after she suffered an acute stroke at the end of May. She is still having some residual aphasia and weakness on the left side. States that she was doing well until about 3 days ago when she started to develop a right-sided headache/ear pain, pressure in her neck and back. She saw her primary care doctor who ordered carotid duplex ultrasounds but she has not yet had these completed. States that today the pain worsened, and that the lump on the right side of her neck and under her axilla increased in size and became tender to palpation which prompted her ED evaluation. She does have a history of TB? For which she was treated and hospitalized. She also has a history of HIV and does take antiretrovirals. Patient is somewhat of a poor historian. Related Data Home Medications Medication Instructions Recorded Confirmed ritonavir 100 mg tablet (Norvir) 100 mg PO DAILY 04/20/19 06/07/22 darunavir ethanolate 800 mg tablet 800 mg PO DAILY 06/07/22 06/07/22 (Prezista) emtricitabine 200 mg-tenofovir 1 tablet PO DAILY 06/07/22 06/07/22 alafenamide fumarate 25 mg tablet (Descovy) escitalopram oxalate 10 mg tablet 10 mg PO DAILY 06/07/22 06/07/22 Allergies Allergy/AdvReac Type Severity Reaction Status Date / Time Bleach (Sodium Hypochlorite) Allergy Severe difficulty Verified 06/07/22 10:45 breathing, hoarseness and watery eyes Review of Systems Review of Systems: All systems reviewed & are unremarkable except as noted in HPI and below PMFSH Past Medical History Medical History ASCUS with positive high risk HPV High cholesterol HIV (human immunodeficiency virus infection) Family History Family History Other Unknown family medical history Social History Social History Smoking status: Never smoker Alcohol intake: never Substance use: never Lack of Transportation: No Lack of Food: Never True Current Housing: Decline to Answer Concerned About Future Housing: Decline to Answer Difficulty Paying Gas/Electric Bills: Decline to Answer Difficulty Paying for Meds: Decline to Answer Currently Unemployed: Decline to Answer Education: Decline to Answer Difficulty w/ Childcare or Family Care: Decline to Answer Spiritual care concerns: No Exam Narrative: APPEARANCE: Uncomfortable appearing. Head: Normocephalic and atraumatic. EYES: PERRLA/EOMI, conjunctivae clear NOSE: No nasal drainage EARS: The right TM is cloudy in appearance, there is some tenderness to palpation to the right mastoid but no overlying cellulitis. The left TM is slightly injected, there is no mastoid tenderness on the left. External ear normal in appearance THROAT: Oropharynx is clear. Mucous membranes are moist. NECK: There is a firm, tender 2 x 2 centimeter mass in the right supraclavicular region, there is lymphadenopathy in the right axilla that is also tender to palpation RESPIRATORY: Airway patent, respirations nonlabored. Clear to auscultation bilaterally, no rales, rhonchi, wheezing. CARDIOVASCULAR: Regular rate and rhythm without murmurs, rubs, or gallops. ABDOMINAL: Normoactive bowel sounds. Soft, nontender, nondistended. No rebound tenderness or guarding. MUSCULOSKELETAL: Extremities are warm and well-perfused. Moves all extremities well. No edema. NEURO: Normal speech. No focal neurologic deficits. SKIN: Skin is warm and dry. No rashes. PSYCHIATRIC: Normal affect/mood. Course Vital Signs Vital signs: Vi
[2022-07-09 23:16] LABS: Basophils Percent Auto 0.4 % (0.2-1.2); Eosinophils Absolute Auto 0.3 K/mm3 (0-0.3); Eosinophils Percent Auto 5.7 % (0-4.4); Hematocrit 35.5 % (37.0-47.0); Hemoglobin 11.5 g/dL (12.0-15.0); Immature Granulocyte Absolute 0.01 K/mm3 (0.00-0.031); Immature Granulocyte Percent A 0.2 % (0-0.5); Lymphocytes Absolute Auto 1.69 K/mm3 (0.9-3.2); Lymphocytes Percent Auto 37.1 % (18.3-44.2); Mean Corpuscular HGB Conc 32.4 g/dl (32-36); Mean Corpuscular Volume 83.3 fl (80-100); Mean Platelet Volume 9.4 fl (7.4-10.4); Monocytes Absolute Auto 0.5 K/mm3 (0.1-0.6); Monocytes Percent Auto 9.9 % (2.6-8.5); Neutrophils Absolute Auto 2.1 K/mm3 (1.3-6.7); Neutrophils Percent Auto 46.7 % (45.5-73.1); Platelet Count Result 237 k/mm3 (150-375); Red Blood Count 4.26 M/mm3 (4.2-5.4); White Blood Count 4.6 K/mm3 (4.5-10.0)
[2022-07-09 23:27] LABS: Alanine Aminotransferase 17 U/L (6-35); Albumin Level 4.3 g/dL (3.5-5.1); Alkaline Phosphatase 63 U/L (38-126); Anion Gap 3 mmol/L (8-16); Aspartate Amino Transferase 30 U/L (14-36); Bilirubin,Total 0.7 mg/dL (0.2-1.3); Blood Urea Nitrogen 14 mg/dL (7-17); Carbon Dioxide 31 mmol/L (22-30); Chloride 104 mmol/L (98-107); Estimated CRCL calculation 65 ml/min; Estimated Glomerular Filt Rate > 60; Glucose 101 mg/dL (65-110); Magnesium 2.2 mg/dL (1.6-2.3); Potassium 4.1 mmol/L (3.4-5.0); Sodium 138 mmol/L (137-145)
[2022-07-09 23:38] LABS: Troponin I < 0.012 ng/mL (0.000-0.034)
[2022-07-10 00:08] VITALS: BP 152/83; PULSE 59; RESP 14; O2SAT 100
[2022-07-10 00:11] LABS: Monoscreen Negative (Negative); Negative Monotest Control Negative (Negative); Positive Monotest Control Positive (Positive)
[2022-07-10] MEDS: CLINDAMYCIN 600 MG/D5W 50 ML 600 MG/50 ML PIGGYBACK 100 MG IVPB (03:30)
[2022-07-10] MEDS: ACETAMINOPHEN 325 MG TABLET 650 MG PO (03:30)
[2022-07-10 03:31] VITALS: BP 128/79; PULSE 54; RESP 15; O2SAT 97
[2022-07-10 04:59] VITALS: BP 119/66; PULSE 56; RESP 14; O2SAT 99
[2022-07-10 08:22] LABS: Influenza A QL RT-PCR Negative (Negative); Influenza B QL RT-PCR Negative (Negative); SARS-CoV-2 RNA PCR Negative (Negative)
[2022-07-14 19:06] LABS: Absolute CD4 Count 281 cells/uL (490-1740); Lymphocytes, Absolute 1766 cells/uL (850-3900); Percent CD4 Cells 16 % (30-61)
== END 2022-07-10 05:00 | disposition home or self-care (01) ==
PROVIDERS: Emergency Provider Physician Assistant; PCP Internal Medicine Infectious Disease
DX: H66.91 Otitis media, unspecified, right ear (principal); I69.320 Aphasia following cerebral infarction; I69.354 Hemiplegia and hemiparesis following cerebral infarction affecting left non-dominant side; E78.00 Pure hypercholesterolemia, unspecified; Z21 Asymptomatic human immunodeficiency virus [HIV] infection status; Z79.899 Other long term (current) drug therapy; R00.1 Bradycardia, unspecified; R94.31 Abnormal electrocardiogram [ECG] [EKG]; R59.9 Enlarged lymph nodes, unspecified; R87.810 Cervical high risk human papillomavirus (HPV) DNA test positive
CPT/HCPCS: 36415; 70450; 70491; 71046; 71260; 80053; 83735; 84484; 85025; 86308; 86361; 87636; 93005; 96365; 99284; A9270; Q9967

== ENCOUNTER 2022-07-21 11:15 | Outpatient (CLI) | payer OTHER, SELFPAY ==
--- NOTE | ~2022-07-21 | US_ITS ---
EXAMINATION: US soft tissue head and neck DATE: 07/21/2022 11:36 INDICATION: Lymphadenopathy of head and neck. TECHNIQUE: Multiple grayscale and Doppler ultrasound images of the head and neck were obtained. COMPARISON: CT neck 07/09/2022, CTA neck 06/07/22 FINDINGS: There are no pathologically enlarged lymph nodes in the patient's area of concern in right neck. IMPRESSION: 1. No pathologically enlarged lymph nodes in the patient's area of concern in right neck. Reviewed, dictated and finalized at location A. IMPRESSION: 1. No pathologically enlarged lymph nodes in the patient's area of concern in r ight neck.
== END 2022-07-21 11:16 ==
LOC: MICIMG 11:15
PROVIDERS: PCP Family Medicine; Visit Provider Nurse Practitioner Family
DX: R59.0 Localized enlarged lymph nodes (principal)
CPT/HCPCS: 76536

== ENCOUNTER 2023-06-05 13:16 | Emergency (ER) | payer OTHER, SELFPAY ==
--- NOTE | ~2023-06-05 | XR_ITS ---
EXAM: XR shoulder RT min 2V, XR scapula RT DATE: 06/05/2023 14:41 HISTORY: fall, pain . COMPARISON: None available. FINDINGS: Decreased mineralization. No fracture or dislocation. No lytic or blastic lesion. Mild acr omioclavicular and glenohumeral joint osteoarthritis. No erosion or periosteal change. Soft tissues w ithin normal limits. IMPRESSION: No acute osseous finding in the right shoulder or right scapula. Reviewed, dictated and finalized at location K. IMPRESSION: No acute osseous finding in the right shoulder or right scapula.
--- NOTE | ~2023-06-05 | XR_ITS ---
EXAM: XR forearm RT 2V DATE: 06/05/2023 14:41 HISTORY: laceration to posterior forearm . COMPARISON: None available. FINDINGS: Decreased mineralization. No fracture or dislocation. No lytic or blastic lesion. Mild deg enerative changes in the wrist and elbow. No erosion or periosteal change. Posterior forearm lacerati on. IMPRESSION: No acute osseous finding in the right forearm. Reviewed, dictated and finalized at location K.
[2023-06-05 13:21] VITALS: BP 163/68; PULSE 71; RESP 18; TEMP 36.6; O2SAT 100
--- NOTE | 2023-06-05 14:27 | ED.WOUNDLAC ---
HPI - Wound/Laceration General Chief Complaint: Wound/Laceration Stated Complaint: Laceration Right Arm Time Seen by Provider: 06/05/23 14:09 History of Present Illness HPI narrative: 72-year-old female with history of hypertension, CVA, HIV presents to emergency department for laceration to right forearm. Patient states around in today she was bending over a trash can with retraction stepped up from under her and caused her to fall backwards. States she landed on a glass bottle and caused a laceration to her right forearm. States she fell back and hit her right shoulder is reporting pain behind her shoulder and her proximal humerus. Denies head injury, neck pain, back pain, other injuries acquired. Last tetanus unknown. Bleeding controlled. She is not anticoagulated. Related Data Home Medications Medication Instructions Recorded Confirmed ritonavir 100 mg tablet (Norvir) 100 mg PO DAILY 04/20/19 03/03/23 darunavir 800 mg tablet (Prezista) 800 mg PO DAILY 06/07/22 03/03/23 emtricitabine 200 mg-tenofovir 1 tablet PO DAILY 06/07/22 03/03/23 alafenamide fumarate 25 mg tablet (Descovy) Allergies Allergy/AdvReac Type Severity Reaction Status Date / Time Bleach (Sodium Hypochlorite) Allergy Severe difficulty Verified 03/03/23 10:07 breathing, hoarseness and watery eyes Review of Systems Review of Systems: CONSTITUTIONAL: Denies fever, chills, or sweats. EYES: Denies visual changes, redness, or discharge. ENT: Denies rhinorrhea, congestion, sore throat, or otalgia. CARDIOVASCULAR: Denies chest pain, palpitations, or edema. RESPIRATORY: Denies cough or dyspnea. GASTROINTESTINAL: Denies abdominal pain, nausea, vomiting, or diarrhea. GENITOURINARY: Denies dysuria or hematuria. SKIN: See HPI MUSCULOSKELETAL: Denies back pain, joint pain, or myalgia. NEUROLOGIC: Denies headache, numbness, or weakness. PSYCHIATRIC: Denies anxiety or depression. [facility] Past Medical History Medical History ASCUS with positive high risk HPV High cholesterol HIV (human immunodeficiency virus infection) Family History Family History Other Unknown family medical history Social History Social History Smoking packs per day: 0 Smoking cigarettes per day: 0.0 Smoking status: Never smoker Second hand tobacco smoke exposure: No Alcohol intake: never Substance use: never Substance use type: does not use Lack of Transportation: No Lack of Food: Never True Current Housing: I Have Housing Concerned About Future Housing: No Difficulty Paying Gas/Electric Bills: No Difficulty Paying for Meds: No Currently Unemployed: No Education: High School Diploma/GED Difficulty w/ Childcare or Family Care: No Living arrangements: with family Spiritual care concerns: No Exam Narrative: GENERAL: Well-appearing, well-nourished, and in no acute distress. HEAD: Normocephalic, atraumatic. EYES: PERRLA and EOMI. ENT: Nares clear, no rhinorrhea or epistaxis. Mucous membranes moist. NECK: Supple. CHEST: Clear to auscultation. No respiratory distress. HEART: Regular rate and rhythm. No murmur heard. Normal peripheral pulses. ABDOMEN: Soft, nontender, nondistended, normal active bowel sounds. EXTREMITIES: Tenderness to the right scapula without overlying deformity, edema or ecchymosis. Tenderness to the proximal humerus without overlying edema, ecchymosis or obvious deformity. Full active and passive range of motion of the shoulder. Radial pulse 2 +. Sensation intact. SKIN: 3 cm laceration with a skin flap to dorsum of the right proximal forearm. Bleeding controlled. No deep structures or foreign bodies visualized. NEURO: No focal deficits. Alert and oriented x3 Course Vital Signs Vital signs: Vital Signs Temp
[2023-06-05] MEDS: TETANUS,DIPHTHERIA,AC PERTUSSIS ADULT (0.5 ML) BOOSTRIX IM (16:42)
[2023-06-05] MEDS: CEPHALEXIN 500 MG CAPSULE PO (16:43)
== END 2023-06-05 16:56 | disposition home or self-care (01) ==
PROVIDERS: Emergency Provider Physician Assistant; PCP Family Medicine
DX: S51.811A Laceration without foreign body of right forearm, initial encounter (principal); S40.011A Contusion of right shoulder, initial encounter; Z23 Encounter for immunization; I10 Essential (primary) hypertension; E78.00 Pure hypercholesterolemia, unspecified; Z21 Asymptomatic human immunodeficiency virus [HIV] infection status; Z86.73 Personal history of transient ischemic attack (TIA), and cerebral infarction without residual deficits; Z79.899 Other long term (current) drug therapy; W01.110A Fall on same level from slipping, tripping and stumbling with subsequent striking against sharp glass, initial encounter
CPT/HCPCS: 12002; 73010; 73030; 73090; 90471; 90715; 99284; A9270

== ENCOUNTER 2023-07-20 08:06 | Outpatient (CLI) | payer OTHER, SELFPAY ==
[2023-07-20 08:52] LABS: LDL Cholesterol Direct 108 mg/dL
== END 2023-07-20 08:07 | disposition home or self-care (01) ==
LOC: ANHLAB 08:08
PROVIDERS: PCP Family Medicine; Visit Provider Student in an Organized Health Care Education/Training Program
DX: I63.9 Cerebral infarction, unspecified (principal)
CPT/HCPCS: 36415; 83721

== ENCOUNTER 2023-08-14 15:10 | Observation (INO) | payer OTHER, SELFPAY ==
[2023-08-14] VITALS (22 sets, daily range): BP systolic 148–176; BP diastolic 75–94; PULSE 52–68; RESP 14–22; TEMP 36.7–36.9; O2SAT 95–100; BMI 20.5; BMI 21.8
--- NOTE | ~2023-08-14 | XR_ITS ---
XR shoulder RT min 2V 08/15/2023 18:50 INDICATION: Right shoulder pain PROCEDURE: 2 views right shoulder COMPARISON: No prior studies for comparison. FINDINGS: Fracture, dislocation or subluxation is not identified. There is mild polyarticular osteoar thritis. The soft tissues appear within normal limits. No foreign bodies are identified. IMPRESSION: 1: NO ACUTE BONE OR JOINT ABNORMALITY IDENTIFIED. Reviewed, dictated and finalized at location A.
--- NOTE | ~2023-08-14 | MR_ITS ---
EXAMINATION: MR cervical spine wo con DATE: 08/17/2023 10:46 INDICATION: Neck pain. Cervical radiculopathy. TECHNIQUE: Magnetic resonance imaging (MRI) of the cervical spine was performed without intravenous c ontrast. COMPARISON: None FINDINGS: There is 8 degrees dextrocurvature of cervical spine. There is kyphosis of cervical spine. There is mild chronic anterior wedging of C7 vertebral body. There is moderately decreased disc heigh t at C2-C3, severely decreased disc height at C3-C4, and moderately decreased disc height from C4-C5 through C6-C7. The spinal cord signal intensity is normal, but motion artifact decreases sensitivity. The following disc levels are specifically discussed: C2-C3: There is a central extrusion. There is mild bilateral uncovertebral joint osteoarthritis. Ther e is moderate right and mild left facet joint osteoarthritis. There is mild bilateral neural foramina l stenosis. There is mild central canal stenosis. C3-C4: The disc is bulging. There is severe bilateral uncovertebral joint osteoarthritis. There is mi ld bilateral facet joint osteoarthritis. There is moderate bilateral neural foraminal stenosis. There is mild central canal stenosis. C4-C5: The disc is bulging. There is severe bilateral uncovertebral joint osteoarthritis. There is mi ld bilateral facet joint osteoarthritis. There is moderate bilateral neural foraminal stenosis. There is mild central canal stenosis. C5-C6: The disc is bulging. There is severe bilateral uncovertebral joint osteoarthritis. There is mi ld bilateral facet joint osteoarthritis. There is mild right and moderate left neural foraminal steno sis. There is mild central canal stenosis. C6-C7: The disc is bulging. There is severe bilateral uncovertebral joint osteoarthritis. There is mo derate right and severe left facet joint osteoarthritis. There is mild bilateral neural foraminal avel nosis. There is mild central canal stenosis. C7-T1: There is a left central extrusion. There is no uncovertebral joint osteoarthritis. There is se elaine bilateral facet joint osteoarthritis. There is mild bilateral neural foraminal stenosis. There i s mild central canal stenosis. IMPRESSION: 1. Severe cervical spondylosis. Reviewed, dictated and finalized at location A.
--- NOTE | ~2023-08-14 | MR_ITS ---
EXAMINATION: MR lumbar spine wo con DATE: 08/17/2023 10:55 INDICATION: Low back pain with radicular symptoms. TECHNIQUE: Magnetic resonance imaging (MRI) of the lumbar spine was performed without intravenous con trast. Sequences included sagittal T2-weighted FSE, sagittal T2-weighted FS FSE, sagittal T1-weighted FSE, and axial T2-weighted FSE. COMPARISON: None FINDINGS: There is 3 mm anterolisthesis of L5 on S1. Vertebral body heights are normal. There is mild ly decreased disc height at L3-L4. The distal spinal cord signal intensity is normal. The conus medul teodora is at T12. The following disc levels are specifically discussed: L1-L2: The disc does not extend beyond the endplate margin. There is moderate bilateral facet joint o steoarthritis. There is no neural foraminal stenosis. There is no central canal stenosis. L2-L3: There is a right foraminal protrusion. There is mild bilateral facet joint osteoarthritis. The re is mild right neural foraminal stenosis. There is no central canal stenosis. L3-L4: The disc is bulging and has an annular fissure. There is severe right and mild left facet join t osteoarthritis. There is moderate right and mild left neural foraminal stenosis. There is mild cent ral canal stenosis. L4-L5: The disc is bulging and has an annular fissure. There is severe bilateral facet joint osteoart hritis. There is moderate bilateral neural foraminal stenosis. There is mild central canal stenosis. L5-S1: The disc is bulging. There is severe bilateral facet joint osteoarthritis. There is mild bilat eral neural foraminal stenosis. There is mild central canal stenosis. There is moderate stenosis of t he lateral recesses. IMPRESSION: 1. Moderate lumbar spondylosis. Reviewed, dictated and finalized at location A.
--- NOTE | ~2023-08-14 | CT_ITS ---
CT ANGIOGRAM NECK AND HEAD History: Strokelike symptoms. Technique: Axial noncontrast imaging of the brain was performed. Serial spiral axial images through t he head and neck were then obtained during arterial phase IV injection of 100 cc of Omnipaque 350. 3- D postprocessing and MIP images were then reconstructed on the remote workstation. Dose reduction elzbieta hnique was used on this scan by utilizing automated exposure control and iterative reconstruction elzbieta hnique. The dose-length product (DLP) was 1579.84 mGy-cm. COMPARISON: 07/09/2022 CTA neck findings: Bilateral vertebral arteries are patent. Bilateral common carotid, internal carot id, and external carotid arteries are patent. No stenosis or large vessel occlusion. No aneurysm. The proximal right internal carotid artery demonstrates 0% stenosis relative to the normal distal artery lumen diameter. The proximal left internal carotid artery demonstrates 0% stenosis relative to the n ormal distal artery lumen diameter. CTA head findings: Distal vertebral arteries, basilar artery, and posterior cerebral arteries are pat ent. Distal internal carotid arteries, middle cerebral arteries, and anterior cerebral arteries are p atent. No stenosis or large vessel occlusion. No aneurysm seen. Axial noncontrast imaging of the brain is unremarkable. No acute infarct, internal hemorrhage or mass lesion. Celestin-white differentiation preserved. No mass effect or midline shift. Ventricles and subara chnoid spaces are nondilated. Paranasal sinuses and mastoid air cells are clear. Calvarium intact. Impression: No significant abnormality seen. Reviewed, dictated and finalized at [facility]. Impression: No significant abnormality seen.
--- NOTE | ~2023-08-14 | MR_ITS ---
EXAMINATION: MR brain/brain stem wo/w con DATE: 08/15/2023 12:12 INDICATION: Strokelike symptoms. TECHNIQUE: Magnetic resonance imaging (MRI) of the brain and brainstem was performed without and with 11 mL MultiHance intravenous contrast. COMPARISON: Brain MRI 06/07/2022, head CT 08/14/2023 FINDINGS: There are punctate foci of old microhemorrhage in right frontal lobe and right temporal occ ipital region. There are scattered areas of nonspecific increased T2-weighted signal intensity in the cerebral white matter. There is no intracranial hemorrhage or abnormal mass lesion. The orbits are n ormal. The paranasal sinuses are clear. There are trace mastoid effusions. IMPRESSION: 1. Mild nonspecific cerebral white matter disease, which likely represents chronic small vessel ische karla disease. 2. Punctate foci of old microhemorrhage in the brain, which may be seen with amyloid angiopathy or ch ronic hypertensive encephalopathy. Reviewed, dictated and finalized at location E. IMPRESSION: 1. Mild nonspecific cerebral white matter disease, which likely represents flat sheet maker cate small vessel ischemic disease. 2. Punctate foci of old microhemorrhage in the brain, which may be seen with am yloid angiopathy or chronic hypertensive encephalopathy.
--- NOTE | ~2023-08-14 | XR_ITS ---
Clinical Indication: Right-sided weakness PA and lateral views of the chest: Comparison: 07/10/2022 Findings: The lungs are clear, without evidence of focal consolidation or pleural effusion. Cardiome diastinal silhouette is within normal limits. Bones and soft tissues are unremarkable. Impression: Normal chest. Reviewed, dictated and finalized at [facility]. Impression: Normal chest.
--- NOTE | 2023-08-14 16:37 | ECG_ITS ---
SEE SCANNED COPY FOR CONFIRMED REPORT MTDD
--- NOTE | 2023-08-14 16:40 | ED.NEUROSD ---
HPI - Neuro Symptoms/Deficit General Chief Complaint: Neuro Symptoms/Deficit Stated Complaint: Right Side Tingling Time Seen by Provider: 08/14/23 15:42 History of Present Illness HPI Narrative: Patient is a 72-year-old female with history of HIV, prior CVA with right-sided deficits here today with concern for new neurologic deficits on her right side. History is somewhat difficult to obtain however she states that 5 days ago she started having some shooting pain sensation in her right lower leg. She noted that over the last 5 days she has had progressive worsening episodes of these symptoms which progressed to involve both her right arm and her right neck. She additionally notes that she is having some numbness and heaviness on her right arm and leg. She does note that from her prior stroke she has had some continued heaviness in her right leg however does not believe she had any sensory deficits at that time. She has seen Dr. Fortune in the past for her prior stroke. She currently denies headache but has experienced 1 throughout the week this week. Related Data Home Medications Medication Instructions Recorded Confirmed ritonavir 100 mg tablet (Norvir) 100 mg PO DAILY 04/20/19 03/03/23 darunavir 800 mg tablet (Prezista) 800 mg PO DAILY 06/07/22 03/03/23 emtricitabine 200 mg-tenofovir 1 tablet PO DAILY 06/07/22 03/03/23 alafenamide fumarate 25 mg tablet (Descovy) ibandronate 150 mg tablet mg PO 08/14/23 Allergies Allergy/AdvReac Type Severity Reaction Status Date / Time Bleach (Sodium Hypochlorite) Allergy Severe difficulty Verified 08/14/23 15:18 breathing, hoarseness and watery eyes Review of Systems Review of Systems: All systems reviewed & are unremarkable except as noted in HPI and below PMFSH Past Medical History Medical History ASCUS with positive high risk HPV High cholesterol HIV (human immunodeficiency virus infection) Family History Family History Other Unknown family medical history Social History Social History Smoking packs per day: 0 Smoking cigarettes per day: 0.0 Smoking status: Never smoker Second hand tobacco smoke exposure: No Alcohol intake: never Substance use: never Substance use type: does not use Lack of Transportation: No Lack of Food: Never True Current Housing: I Have Housing Concerned About Future Housing: No Difficulty Paying Gas/Electric Bills: No Difficulty Paying for Meds: No Currently Unemployed: No Education: High School Diploma/GED Difficulty w/ Childcare or Family Care: No Living arrangements: with family Spiritual care concerns: No Exam Narrative: GENERAL: Well-appearing, well-nourished, and in no acute distress. HEAD: Normocephalic, atraumatic. EYES: PERRLA and EOMI. ENT: Nares clear. Mucous membranes moist. NECK: Supple. CHEST: Clear to auscultation. No respiratory distress. HEART: Regular rate and rhythm. Normal peripheral pulses. ABDOMEN: Soft, nontender, nondistended. EXTREMITIES: Normal range of motion. No edema. SKIN: Warm, dry, no rash. NEURO: No facial droop, no sensory deficits over the face. Subjective decrease in sensation over the right arm and right leg compared to the left side. No upper or lower extremity drift is appreciated. Subjective weakness present in the right leg which is at her baseline. Alert and oriented x3. PSYCH: Normal mood and affect. Course Course Emergency Course: Chart review performed, patient here with right-sided numbness and tingling for the last 2 days as well as a headache. Stroke in May, was admitted to this facility at that time. Triage vitals show hypertension, otherwise within normal limits. Reviewed a note from Dr. Fortune from 03/03/23, at that time they described right
[2023-08-14 17:01] LABS: Basophils Percent Auto 0.7 % (0.2-1.2); Eosinophils Absolute Auto 0.2 K/mm3 (0-0.3); Hematocrit 38.1 % (37.0-47.0); Hemoglobin 12.3 g/dL (12.0-15.0); Lymphocytes Absolute Auto 2.22 K/mm3 (0.9-3.2); Lymphocytes Percent Auto 52.5 % (18.3-44.2); Mean Corpuscular HGB Conc 32.3 g/dl (32-36); Mean Corpuscular Hemoglobin 27.3 pg (26-34); Mean Corpuscular Volume 84.5 fl (80-100); Mean Platelet Volume 9.7 fl (7.4-10.4); Monocytes Absolute Auto 0.3 K/mm3 (0.1-0.6); Monocytes Percent Auto 7.6 % (2.6-8.5); Neutrophils Absolute Auto 1.5 K/mm3 (1.3-6.7); Neutrophils Percent Auto 35.2 % (45.5-73.1); Platelet Count Result 234 k/mm3 (150-375); Red Blood Count 4.51 M/mm3 (4.2-5.4); Red Cell Distribution Width 13.2 % (11.5-14.5); White Blood Count 4.2 K/mm3 (4.5-10.0)
[2023-08-14 17:02] LABS: Appearance Urine Clear (Clear); Bilirubin Urine Negative (Negative); Blood Urine Negative (Negative); Color Urine Yellow (Yellow); Glucose Urine UA Negative (Negative); Ketones Urine Negative (Negative); Leukocyte Esterase Ur Negative LEU/UL (Negative); Nitrate Urine Negative (Negative); Protein Urine Negative (Negative); Urobilinogen Urine 0.2 mg/dL (<2.0)
[2023-08-14 17:11] LABS: Alanine Aminotransferase 20 U/L (6-35); Albumin Level 4.3 g/dL (3.5-5.1); Alkaline Phosphatase 63 U/L (38-126); Anion Gap 4 mmol/L (4-12); Aspartate Amino Transferase 36 U/L (14-36); Bilirubin,Total 0.7 mg/dL (0.2-1.3); Blood Urea Nitrogen 19 mg/dL (7-17); Calcium 9.3 mg/dL (8.4-10.2); Carbon Dioxide 31 mmol/L (22-30); Chloride 102 mmol/L (98-107); Estimated CRCL calculation 53 ml/min; Estimated Glomerular Filt Rate > 60; Ethanol < 10 mg/dL (<10); Glucose 70 mg/dL (65-110); INR 0.9; Potassium 3.7 mmol/L (3.4-5.0); Prothrombin Time 12.6 Seconds (11.1-14.7); Sodium 137 mmol/L (137-145)
[2023-08-14 17:12] LABS: Partial Thromboplastin Time 28.6 Seconds (22.3-36.8)
[2023-08-14 17:23] LABS: Troponin I < 0.012 ng/mL (0.000-0.034)
[2023-08-14 17:23] LABS: Add Urine Microscopic? NO; Specific Grav Ur 1.004 (1.001-1.035)
--- NOTE | 2023-08-14 19:21 | PC.NURSE ---
Report received from DIANA Alex. Assumed care of patient at this time.
[2023-08-14] MEDS: amLODIPine BESYLATE 5 MG TABLET PO (20:27)
--- NOTE | 2023-08-14 20:58 | PC.NURSE ---
Patient ambulated to the bathroom and back to her room with a steady unassisted gait.
[2023-08-14] MEDS: ACETAMINOPHEN 500 MG TABLET 1000 MG PO (21:08)
--- NOTE | 2023-08-14 21:15 | ADMGEN ---
This patient, Nancy Cherry, was admitted to Medical Room 251-01. Patient/family oriented to hospital policies and general routines including ID bracelet, bed and alarms, visiting hours, pain management, procedures, bathroom and other care routines, personal items, smoking policy, room service/diet, and visiting hours. Information on how to activate the Rapid Response Team has been discussed. Patient/Family are encouraged to report perceived risks to care and to ask questions if they do not understand what they are told or what they should do.
[2023-08-14 22:24] LABS: Glucose Point of Care 92 mg/dl (65-105)
--- NOTE | 2023-08-14 23:48 | PM.IMHP ---
H&P: HPI History of Present Illness Date/Time: 08/14/23 23:48 Chief Complaint: Will right shoulder and arm pain Narrative: 72-year-old female with a past medical history of essential hypertension, HIV, CVA, hyperlipidemia and osteoporosis who presented to the ER with a complaint of right-sided arm pain. The patient has chronic right-sided weakness after CVA May 2022. She has 3/5 eyeletter strength on the right and 4/5 strength on plantar and dorsiflexion on the right foot. She states that she had some mild memory issues before the stroke but these have gotten significantly worse over the last year. Subsequently she has difficulty remembering delineation of symptoms duration and intensity. In the ER triage she had reported that she has been having a generalized headache for 1 week. She states that she has been having frequent headaches ever since she had her stroke last year. She does not think that have changed from baseline. She denies any significant vision changes by on exam the patient has marked crowding of her intra-ocular lenses bilateral he with significant cataracts noted. She denies any double vision. She has not had any trouble speaking, dizziness or lightheadedness. From what I can gather she has not noticed any change in the strength of her right her upper or lower extremity. She reports that she has been having pain in her right shoulder that is worse with elevation of her right arm in every plane. The pain is worse with palpation of her right shoulder joint. It is accompanied by sharp stabbing radicular-type pain down her arm. The pain seems variable to between moderate and severe in intensity. She reports that Tylenol she received in the ER helped her pain significantly. It is unclear if she has attempted [id number] medications at home. She reports that her shoulder pain is worse with cleaning of vigorous movements. She denies any neck pain or stiffness. She states that she does have some pain occasionally down the back of her left leg. This sounds more like a muscle spasm as she states that her leg gets caught in the flexed position and she has to wait several minutes for the pain to go away before she can straighten her leg out. This pain is not coinciding at the same time as her arm pain in seems to be at separate intervals and intensities than her arm pain. She has chronic weakness in both her right hand in leg ever since her stroke in March of 2023. She denies any recent falls. She is compliant with her HIV medications. She has no recall of what her medications are even when nursing staff tried to list them from the external med history. As such all of the patient's medications were reconciled by review of external medication reconciliation. The patient was noted to be hypertensive in the ER. She states that she does not check her blood pressures at home. She knows that she was on blood pressure medications in the past but cannot recall wire when they were discontinued. According to discharge summary from her prior hospitalization she was discharged on Norvasc 5 mg daily. She last followed up with Dr. Fortune in February of 2023. She reports that she has been having tooth pain on the right upper jaw but this improved after Tylenol as well. The patient told the ER that symptoms have been going on for 2 days. But on further questioning seems patient has been having intermittent headaches since her prior stroke. In it appears that her radicular pain has been going on for at least several days if not several weeks. At the time of my evaluation the patient initially stated that she was 60 years old then corrected herself that she was 68 years old. Patient is actually 72. She states that she raised 6 children and gave to another child that . She cannot recall exactly how many of her children are in the [place] or living in [place] verses still living in [facility]. She was at a relatively young age. She canno
[2023-08-15] VITALS (11 sets, daily range): BP systolic 125–131; BP diastolic 61–79; PULSE 58–73; RESP 16–20; TEMP 36.4–36.6; O2SAT 100
[2023-08-15 03:59] LABS: Folic Acid 17.5 ng/mL (2.76->20)
[2023-08-15 08:05] LABS: Glucose Point of Care 90 mg/dl (65-105)
[2023-08-15] MEDS: GABAPENTIN 300 MG CAPSULE PO (09:18)
[2023-08-15] MEDS: amLODIPine BESYLATE 5 MG TABLET PO (09:18)
[2023-08-15] MEDS: FLUTICASONE PROPIONATE 0.05% NA SPR 16 GM BTL (*BKC) 2 SPRAY NASAL (09:19)
[2023-08-15] MEDS: ENOXAPARIN 40 MG/0.4 ML SYRINGE SUB-Q (09:19)
[2023-08-15] MEDS: ASPIRIN 325 MG TABLET PO (09:21)
--- NOTE | 2023-08-15 09:35 | PC.NURSE ---
patient has 3 non-formulary medications that I have asked her to have a family member bring in. Patient to let me know if they are able to
--- NOTE | 2023-08-15 11:20 | PC.NURSE ---
pt taken down for MRI
--- NOTE | 2023-08-15 12:15 | PC.NURSE ---
returned to room from MRI
--- NOTE | 2023-08-15 16:38 | PM.IMPN ---
Progress Note: A&P Assessment and Plan (1) Radicular pain of right upper extremity: Code(s): M79.2 - Neuralgia and neuritis, unspecified Status: Acute (2) Hypertension: Qualifiers: Hypertension type: primary hypertension Qualified Code(s): I10 - Essential (primary) hypertension Code(s): I10 - Essential (primary) hypertension Status: Acute (3) Hyperlipidemia: Qualifiers: Hyperlipidemia type: unspecified Qualified Code(s): E78.5 - Hyperlipidemia, unspecified Code(s): E78.5 - Hyperlipidemia, unspecified Status: Acute (4) HIV (human immunodeficiency virus infection): Qualifiers: HIV symptom status: asymptomatic, with no history of HIV-related illness Qualified Code(s): Z21 - Asymptomatic human immunodeficiency virus [HIV] infection status Code(s): B20 - Human immunodeficiency virus [HIV] disease Status: Acute (5) Memory loss: Code(s): R41.3 - Other amnesia Status: Acute (6) Right leg pain: Code(s): M79.604 - Pain in right leg Status: Acute Plan The patient is having burning pain in her right shoulder, right arm and right leg. She had significant improvement in her shoulder symptoms with Tylenol. CTA of the head and neck showing no significant abnormalities. The patient has been started on gabapentin 300 mg p.o. t.i.d. for radicular symptoms. The right leg pain was more consistent with muscle spasm. The patient already on cyclobenzaprine prn which was continued. Concern for CVA so brain MRI ordered but showing no acute findings. She does have punctate foci of old microhemorrhage whcih can be from chronic HTN encephalopathy or angiopathy. Possibly HTN induced No direct imaging of the cervical spine so will add MR c-spine. B12 and folic acid levels normal Neurology consulted BP elevated on admission. Norvasc started with good results. Follow. The patient is reporting significant issues with memory loss. She is currently alert orient x3 but with some mild cognitive impairment or mild dementia. Consider adding Aricept or Namenda but will defer to neurology Patient does have HIV. According to recent notes patient's viral load is nondetectable. Doubt her above symptoms related to infectious process. Will continue antivirals. DVT prophylaxis - lovenox code status - full Subjective Date/time seen: 08/15/23 16:38 Interval history: 72yo female with hx of CVA with residual right sided weakness, HIV and HTN here for right sided pain. Patient initally states pain starts in her right foot and travels up to her right arm. She clarifies this with pain in the right foot and stiffness when leg is bent that improves with stretching of the right leg. Also with right arm pain that starts in the hand and radates to the right side of the neck. No n/v/d. no dysuria/hematuria. no cough. Exam Narrative: AF 97.7 128/74 61 17 100% ra Gen - NARD Chest - CTA bilaterally, nml RR CV - RRR S1/S2 Abd - Soft, NT/ND, Positive BS Ext - No pedal edema Neuro - Alert and oriented. STRINGER Psych - Nml mood and affect Skin - Warm and dry Objective Data Vital Signs Vital Signs: Vital Signs - 24 hr 08/14/23 17:03 08/14/23 17:15 08/14/23 17:32 Temperature Pulse Rate 57 L 61 62 Respiratory Rate 17 15 16 Blood Pressure Pulse Oximetry 100 Oxygen Delivery 08/14/23 17:46 08/14/23 18:00 08/14/23 18:15 Temperature Pulse Rate 62 62 61 Respiratory Rate 22 H 17 14 Blood Pressure Pulse Oximetry Oxygen Delivery 08/14/23 18:30 08/14/23 18:51 08/14/23 19:03 Temperature Pulse Rate 68 55 L 57 L Respiratory Rate 20 16 15 Blood Pressure Pulse Oximetry Oxygen Delivery 08/14/23 19:09 08/14/23 19:44 08/14/23 20:27 Temperature Pulse Rate 59 L 65 57 L Respiratory Rate 15 15 16 Blood Pressure 159/84 H 161/79 H 148/91 H Pulse Oximetry 100 100 Oxygen Delivery 08/14/23 21:02 08/14/23
[2023-08-15 17:44] LABS: Glucose Point of Care 77 mg/dl (65-105)
[2023-08-15] MEDS: GABAPENTIN 100 MG CAPSULE PO (17:49)
--- NOTE | 2023-08-15 18:14 | WPDNEURCNPN ---
Assessment and Plan Assessment and plan (1) Radicular pain of right upper extremity: Code(s): M79.2 - Neuralgia and neuritis, unspecified Status: Acute (2) Right leg pain: Code(s): M79.604 - Pain in right leg Status: Acute (3) Numbness on right side: Code(s): R20.0 - Anesthesia of skin Status: Acute (4) HIV (human immunodeficiency virus infection): Qualifiers: HIV symptom status: asymptomatic, with no history of HIV-related illness Qualified Code(s): Z21 - Asymptomatic human immunodeficiency virus [HIV] infection status Code(s): B20 - Human immunodeficiency virus [HIV] disease Status: Acute (5) Left-sided cerebrovascular accident (CVA): Code(s): I63.9 - Cerebral infarction, unspecified Status: Acute (6) Pain in right shoulder: Code(s): M25.511 - Pain in right shoulder Status: Acute Plan Clinically I did not find any significant focal abnormalities. MRI of the brain did not show any abnormalities. Affect the infarct noted in the left internal capsular area has also improved. Out suggest as follows 1. Except the right shoulder 2. Pain management with gabapentin muscle relaxants anti-inflammatory 3. Physical therapy for cervical spine and right shoulder lumbar spine 4. MRI of the cervical and lumbar spine 5. I reviewed the results of the MRI of the brain and a CT angiogram of the head and neck and noted that there were no significant new findings noted. 6. Neurology will follow up Consult date: 08/15/23 HPI: Nancy Cherry is a 72 year old female history of CVA in May of 2022 with residual right-sided weakness from which she made a recovery. She was seen by Dr. Fortune on 07/20/2023.. She developed numbness in the right lower limb were 5-6 days ago. Thereafter she has not developed numbness and pain in the right disc arm and she describes this to be ongoing problem previous he was brought to the hospital yesterday and has CT angiogram and a CT scan of the brain which did not show any significant abnormalities. She has been admitted for further observation and treatment. See complaints of headache for last 1 week and this is more on the right side. She denies any numbness in the face or on her trunk. Patient is a poor historian and seems to have some difficulty with explaining herself quite poorly but clear upon further trying it appears she is mostly concerned about her right arm and less about the right leg. She does have history of lower back pain on of the past. She also history of HIV and apparently this is being treated with the appropriate and medications and she is under control. Review of Systems Review of Systems: No recent trauma or febrile illness. All systems reviewed & are unremarkable except as noted in HPI and below PMFSH Past Medical History Medical History (Updated 08/15/23 @ 18:25 by Timi Kwon MD) ASCUS with positive high risk HPV High cholesterol History of CVA (cerebrovascular accident) (05/2022) Acute left lacunar infarct posterior limb of internal capsule with residual right-sided hand and leg weakness without residual sensation deficit HIV (human immunodeficiency virus infection) Left-sided cerebrovascular accident (CVA) Pain in right shoulder Surgical History Surgical History History of colposcopy with cervical biopsy Family History Family History Other Unknown family medical history Social History Social History Social History: The patient is from [facility] originally. [place] but she is not sure exactly when. She moved after she met her who was a [employer] missionary and moved here to be with him. She raised 6 children and had a 7th child that young. She reports that some of he
[2023-08-15 20:19] LABS: Cholesterol 286 mg/dL (0-200); HDL Direct 86 mg/dL; Triglycerides 153 mg/dL (<150)
[2023-08-15 20:29] LABS: LDL Cholesterol Direct 141 mg/dL
[2023-08-15] MEDS: ATORVASTATIN 40 MG TABLET 80 MG PO (20:47)
[2023-08-16] VITALS (9 sets, daily range): BP systolic 125–163; BP diastolic 62–88; PULSE 52–76; RESP 16–18; TEMP 36.7–36.8; O2SAT 100
[2023-08-16 08:26] LABS: Basophils Percent Auto 0.5 % (0.2-1.2); Eosinophils Absolute Auto 0.2 K/mm3 (0-0.3); Eosinophils Percent Auto 3.9 % (0-4.4); Hematocrit 39.5 % (37.0-47.0); Hemoglobin 12.6 g/dL (12.0-15.0); Immature Granulocyte Absolute 0.01 K/mm3 (0.00-0.031); Immature Granulocyte Percent A 0.2 % (0-0.5); Lymphocytes Absolute Auto 1.65 K/mm3 (0.9-3.2); Lymphocytes Percent Auto 40.3 % (18.3-44.2); Mean Corpuscular HGB Conc 31.9 g/dl (32-36); Mean Corpuscular Hemoglobin 27.3 pg (26-34); Mean Corpuscular Volume 85.5 fl (80-100); Mean Platelet Volume 9.3 fl (7.4-10.4); Monocytes Absolute Auto 0.3 K/mm3 (0.1-0.6); Monocytes Percent Auto 7.8 % (2.6-8.5); Neutrophils Absolute Auto 1.9 K/mm3 (1.3-6.7); Neutrophils Percent Auto 47.3 % (45.5-73.1); Platelet Count Result 226 k/mm3 (150-375); Red Blood Count 4.62 M/mm3 (4.2-5.4); Red Cell Distribution Width 13.2 % (11.5-14.5); White Blood Count 4.1 K/mm3 (4.5-10.0)
[2023-08-16 09:16] LABS: Alanine Aminotransferase 16 U/L (6-35); Alkaline Phosphatase 55 U/L (38-126); Anion Gap 1 mmol/L (4-12); Aspartate Amino Transferase 33 U/L (14-36); Bilirubin,Total 0.8 mg/dL (0.2-1.3); Blood Urea Nitrogen 17 mg/dL (7-17); Carbon Dioxide 31 mmol/L (22-30); Chloride 104 mmol/L (98-107); Estimated CRCL calculation 59 ml/min; Estimated Glomerular Filt Rate > 60; Glucose 115 mg/dL (65-110); Potassium 3.8 mmol/L (3.4-5.0); Sodium 136 mmol/L (137-145)
[2023-08-16] MEDS: amLODIPine BESYLATE 5 MG TABLET PO (09:24)
[2023-08-16] MEDS: CHOLECALCIFEROL 1,000 UNITS TABLET 1000 UNITS PO (09:25)
[2023-08-16] MEDS: ENOXAPARIN 40 MG/0.4 ML SYRINGE SUB-Q (09:25)
[2023-08-16] MEDS: ASPIRIN 325 MG TABLET PO (09:25)
[2023-08-16] MEDS: GABAPENTIN 100 MG CAPSULE PO ×3 (09:25→17:10)
[2023-08-16] MEDS: EZETIMIBE 10 MG TABLET PO (09:25)
[2023-08-16] MEDS: FLUTICASONE PROPIONATE 0.05% NA SPR 16 GM BTL (*BKC) 2 SPRAY NASAL (09:26)
[2023-08-16] MEDS: ACETAMINOPHEN 500 MG TABLET 1000 MG PO ×2 (09:39→18:42)
--- NOTE | 2023-08-16 18:01 | PM.IMPN ---
Progress Note: A&P Assessment and Plan (1) Radicular pain of right upper extremity: Code(s): M79.2 - Neuralgia and neuritis, unspecified Status: Acute Assessment and Plan: The patient is having burning pain in her right shoulder, right arm and right leg. She had significant improvement in her shoulder symptoms with Tylenol. CTA of the head and neck showing no significant abnormalities. The patient has been started on gabapentin 300 mg p.o. t.i.d. for radicular symptoms. Concern for CVA so brain MRI ordered but showing no acute findings. She does have punctate foci of old microhemorrhage which can be from chronic HTN encephalopathy or angiopathy. Possibly HTN induced MR c-spine and L-spine ordered but unable to be performed today. B12 and folic acid levels normal PT/OT ordered Neurology consulted and apprecaite their input Continue ASA and Lipitor (2) Hypertension: Qualifiers: Hypertension type: primary hypertension Qualified Code(s): I10 - Essential (primary) hypertension Code(s): I10 - Essential (primary) hypertension Status: Acute Assessment and Plan: BP elevated on admission. Norvasc started with good results. BP more stable. Follow. (3) Right leg pain: Code(s): M79.604 - Pain in right leg Status: Acute Assessment and Plan: The right leg pain was more consistent with muscle spasm. The patient already on cyclobenzaprine prn which was continued. The numbness to the right medial foot is chronic related to an injury many years ago Right leg pain better. (4) Memory loss: Code(s): R41.3 - Other amnesia Status: Acute Assessment and Plan: The patient is reporting significant issues with memory loss. She is currently alert orient x3 but with some mild cognitive impairment or mild dementia. Consider adding Aricept or Namenda but will defer to neurology (5) HIV (human immunodeficiency virus infection): Qualifiers: HIV symptom status: asymptomatic, with no history of HIV-related illness Qualified Code(s): Z21 - Asymptomatic human immunodeficiency virus [HIV] infection status Code(s): B20 - Human immunodeficiency virus [HIV] disease Status: Acute Assessment and Plan: Patient does have HIV. According to recent notes patient's viral load is nondetectable. Doubt her above symptoms related to infectious process. Will continue antivirals. (6) Hyperlipidemia: Qualifiers: Hyperlipidemia type: unspecified Qualified Code(s): E78.5 - Hyperlipidemia, unspecified Code(s): E78.5 - Hyperlipidemia, unspecified Status: Acute Assessment and Plan: TG 153, TChol 286, LDL 141, HDL 86. She is compliant with Lipitor Add Zetia Plan VitD level mildly low - replace DVT prophylaxis - lovenox code status - full Subjective Date/time seen: 08/16/23 18:01 Interval history: 72yo female with hx of CVA with residual right sided weakness, HIV and HTN here for right sided pain. Right leg pain improved. She is complaining of numbness medial right foot after an injury 10 years ago. The right UE without change and still with pain to the shoulder Exam Narrative: AF 98.3 126/63 76 16 100% ra Gen - NARD Chest - CTA bilaterally, nml RR CV - RRR S1/S2 Abd - Soft, NT/ND, Positive BS Ext - No pedal edema Neuro - Alert and oriented. 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 2+ radial pulses. decreased sensation to the right finger tips when compared to left Psych - Nml mood and affect. in good spirits Skin - Warm and dry Objective Data Vital Signs Vital Signs: Vital Signs - 24 hr 08/15/23 19:19 08/15/23 20:00 08/15/23 20:00 Temperature 97.5 F L Pulse Rate 65 60 Respiratory Rate 18 Blood Pressure 131/61 Pulse Oximetry 100 Oxygen Delivery Room Air 08/16/23 00:00 08/16/23 04:00 08/16/23 06:00 Temperature 98.2 F Pulse Rate 53 L 52 L 68 Respiratory Rate 18 Blood Pr
--- NOTE | 2023-08-16 18:40 | WPDNEUROPN ---
Progress Note: A&P Assessment and Plan (1) Pain in right shoulder: Code(s): M25.511 - Pain in right shoulder Status: Acute (2) Left-sided cerebrovascular accident (CVA): Code(s): I63.9 - Cerebral infarction, unspecified Status: Acute (3) Right leg pain: Code(s): M79.604 - Pain in right leg Status: Acute (4) Radicular pain of right upper extremity: Code(s): M79.2 - Neuralgia and neuritis, unspecified Status: Acute (5) Numbness on right side: Code(s): R20.0 - Anesthesia of skin Status: Acute Plan The patient continues to be symptomatic particular in the right arm around the shoulder area. X-ray of the right shoulder did not show anything unusual but does show some most arthritic changes which may reconsider except for her age. The numbness in the right lower limb is now confined to the right knee. I suspect that she has some arthritic symptoms however the possibility of a radiculopathy is a consideration considering that she has history of chronic lower back pain and she also has some pain going down the right arm. An MRI of the cervical and lumbosacral spine had been scheduled. I would suggest increase the dose of gabapentin to 300 mg 3 times a day but hold if she becomes drowsy. She can not continue with the physical therapy and other treatment modalities as previously discussed. Subjective Date/time seen: 08/16/23 18:40 Interval history: The patient is a 72-year-old Afro-[place] female with history of numbness in the right upper and lower limb. She continues to have difficulties with the right arm particularly around the right shoulder area and now pain in the right knee area. She also has chronic lower back pain. She is able to move her neck around. No additional new symptoms reported. No difficulty speech or swallowing. Patient does have a history of a stroke in May of 2022 and has had a right-sided weakness from which she has made a fair recovery. Review of Systems Review of Systems: All systems reviewed & are unremarkable except as noted in HPI and below Exam Narrative: Patient alert and oriented x3, cranial nerves individual testing are intact. No aphasia or dysarthria. Normal strength in both upper and lower limbs. Range of movement of cervical spine and shoulder does not show any significant limitation. No additional new findings were seen. No asymmetry of the reflexes or tone on both upper or lower limbs were noted. Objective Data Vital Signs Vital Signs: Vital Signs - 24 hr 08/15/23 19:19 08/15/23 20:00 08/15/23 20:00 Temperature 36.4 C L Pulse Rate 65 60 Respiratory Rate 18 Blood Pressure 131/61 Pulse Oximetry 100 Oxygen Delivery Room Air 08/16/23 00:00 08/16/23 04:00 08/16/23 06:00 Temperature 36.8 C Pulse Rate 53 L 52 L 68 Respiratory Rate 18 Blood Pressure 125/62 Pulse Oximetry 100 Oxygen Delivery 08/16/23 08:00 08/16/23 11:18 08/16/23 09:25 Temperature Pulse Rate 62 Respiratory Rate Blood Pressure Pulse Oximetry Oxygen Delivery Room Air Room Air 08/16/23 11:40 08/16/23 12:00 08/16/23 14:00 Temperature 36.8 C Pulse Rate 62 73 Respiratory Rate 16 Blood Pressure 126/63 Pulse Oximetry 100 Oxygen Delivery Room Air 08/16/23 16:00 Temperature Pulse Rate 76 Respiratory Rate Blood Pressure Pulse Oximetry Oxygen Delivery Intake/Output Intake/Output: Intake & Output 08/13/23 08/14/23 08/15/23 08/16/23 23:59 23:59 23:59 23:59 Intake Total 1260 700 Output Total 1450 500 Balance -190 200 Meds/Results Medications: Active Medications Generic Name Dose Route Start Last Admin Trade Name Freq PRN Reason Stop Dose Admin Acetaminophen 1,000 mg 08/15/23 01:46 08/16/23 09:39 Acetaminophen 500 Mg Tablet PO 1,000 mg Q6H PRN Administration Mild Pain (1-3) or Fever Amlodipine Besylate 5 mg 08/15/23 09:00
[2023-08-16] MEDS: GABAPENTIN 300 MG CAPSULE PO (21:07)
[2023-08-16] MEDS: ATORVASTATIN 40 MG TABLET 80 MG PO (21:07)
[2023-08-17] VITALS: PULSE 59
[2023-08-17 04:00] VITALS: PULSE 65
[2023-08-17] MEDS: GABAPENTIN 300 MG CAPSULE PO ×2 (05:22→13:08)
[2023-08-17 05:34] VITALS: BP 143/91; PULSE 60; RESP 18; TEMP 36.3; O2SAT 100
--- NOTE | 2023-08-17 06:44 | PHAR ---
VERIFIED: All bottles were near full #30. Sent back to [facility] for inpatient use. Darunavir 800 mg tablet TAKE 1 TABLET BY MOUTH EVERYDAY WITH FOOD Emtricitabine-Tenofovir Alafen [Descovy] 200-25 mg tablet TAKE 1 TABLET BY MOUTH EVERY DAY DIRECTED Ritonavir [Norvir] 100 mg tablet TAKE 1 TABLET BY MOUTH EVERY DAY DIRECTED
[2023-08-17 08:00] VITALS: PULSE 61
[2023-08-17] MEDS: FLUTICASONE PROPIONATE 0.05% NA SPR 16 GM BTL (*BKC) 2 SPRAY NASAL (08:57)
[2023-08-17] MEDS: ENOXAPARIN 40 MG/0.4 ML SYRINGE SUB-Q (09:01)
[2023-08-17] MEDS: CHOLECALCIFEROL 1,000 UNITS TABLET 1000 UNITS PO (09:01)
[2023-08-17] MEDS: EZETIMIBE 10 MG TABLET PO (09:01)
[2023-08-17] MEDS: ASPIRIN 325 MG TABLET PO (09:01)
[2023-08-17] MEDS: amLODIPine BESYLATE 5 MG TABLET PO (09:01)
[2023-08-17 12:00] VITALS: PULSE 70
[2023-08-17 14:00] VITALS: BP 137/64; PULSE 66; RESP 16; TEMP 36.7; O2SAT 100
--- NOTE | 2023-08-17 14:41 | PM.DS ---
DS: Admitting Diagnosis Discharge Date 08/17/23 Admitting Diagnosis Right sided arm/leg pain DS: Discharge Diagnosis Discharge Diagnosis (1) Radicular pain of right upper extremity: Code(s): M79.2 - Neuralgia and neuritis, unspecified Status: Acute (2) Hypertension: Qualifiers: Hypertension type: primary hypertension Qualified Code(s): I10 - Essential (primary) hypertension Code(s): I10 - Essential (primary) hypertension Status: Acute (3) Right leg pain: Code(s): M79.604 - Pain in right leg Status: Acute (4) Memory loss: Code(s): R41.3 - Other amnesia Status: Acute (5) HIV (human immunodeficiency virus infection): Qualifiers: HIV symptom status: asymptomatic, with no history of HIV-related illness Qualified Code(s): Z21 - Asymptomatic human immunodeficiency virus [HIV] infection status Code(s): B20 - Human immunodeficiency virus [HIV] disease Status: Acute (6) Hyperlipidemia: Qualifiers: Hyperlipidemia type: unspecified Qualified Code(s): E78.5 - Hyperlipidemia, unspecified Code(s): E78.5 - Hyperlipidemia, unspecified Status: Acute DS: Summary Hospital Course Reason for hospitalization: 72yo female with hx of CVA with residual right sided weakness, HIV and HTN here for right sided pain. Please see H&P for details. Hospital Course: The patient was having burning pain in her right shoulder, right arm and right leg.? She had significant improvement in her shoulder symptoms with Tylenol. CTA of the head and neck showing no significant abnormalities. Neurology consulted. The patient was started on gabapentin for radicular symptoms. Concern for CVA so brain MRI ordered but showing no acute findings. She does have punctate foci of old microhemorrhage which can be from chronic HTN encephalopathy or angiopathy. Possibly HTN induced. MRI cervical spine showing severe cervical spondylosis. MRI lumbar spine showing moderate lumbar spondylosis. B12 and folic acid levels normal. BP elevated on admission. Norvasc started with good results. BP more stable. PT/OT ordered. Continued on ASA and Lipitor. TG 153, TChol 286, LDL 141, HDL 86. She is compliant with Lipitor. We added Zetia. The right leg pain was more consistent with muscle spasm. The patient already on cyclobenzaprine prn which was continued. The numbness to the right medial foot is chronic related to an injury many years ago. The patient is reporting significant issues with memory loss.? She is currently alert and oriented but with some mild cognitive impairment or mild dementia.?Patient has HIV. According to recent notes, patient's viral load is nondetectable. Stable. We continued her antivirals. She worked with PT/OT. She overall did well and was able to be discharged home on 08/17/23. Discussed with neurology Status at Discharge Cognitive/behavioral status at discharge: stable Time Spent with Patient Time attestation: Total time spent providing and/or coordinating discharge services: 35 minutes Time spent: Greater than 30 minutes Exam Narrative: AF 98.0 137/64 66 16 100% ra Gen - NARD Chest - CTA bilaterally, nml RR CV - RRR S1/S2 Abd - Soft, NT/ND, Positive BS Ext - No pedal edema Neuro - Alert and appropriate. Psych - Nml mood and affect Skin - Warm and dry Discharge Plan Discharge Attending physician on discharge: Simone Bradley Consulting providers: Timi Kwon Discharging Clinician: Simone Bradley Anticipated Discharge Date/Time: 08/17/23 14:53 Patient Disposition: Home, Self-Care Activity: as tolerated Diet: heart healthy Discharge Instructions: Check blood pressure 1 to 2 times a day. Record and bring into your doctor for review. Call your doctor if your blood pressure is greater than 180/110. Take precautions to avoid falls. Rise slowly from a lying or sitting position. Pause before sta
== END 2023-08-17 16:17 | disposition home or self-care (01) ==
LOC: ANHED 16:11 → ANH2MED 21:05
PROVIDERS: Psychiatry & Neurology Neurology; Admitting Provider Internal Medicine; Emergency Provider Student in an Organized Health Care Education/Training Program; PCP Family Medicine; Visit Provider Internal Medicine
DX: M79.2 Neuralgia and neuritis, unspecified (principal); M79.604 Pain in right leg; M25.511 Pain in right shoulder; R41.3 Other amnesia; E78.00 Pure hypercholesterolemia, unspecified; I10 Essential (primary) hypertension; I69.351 Hemiplegia and hemiparesis following cerebral infarction affecting right dominant side; M81.0 Age-related osteoporosis without current pathological fracture; R87.810 Cervical high risk human papillomavirus (HPV) DNA test positive; E55.9 Vitamin D deficiency, unspecified; Z21 Asymptomatic human immunodeficiency virus [HIV] infection status; Z79.899 Other long term (current) drug therapy
CPT/HCPCS: 36415; 70496; 70498; 70553; 71046; 72141; 72148; 73030; 80053; 80061; 80307; 81003; 82306; 82607; 82746; 82948; 84443; 84484; 85025; 85610; 85730; 93005; 96372; 97110; 97116; 97161; 97165; 97530; 99285; A9270; A9577; G0378; J1650; Q9967

== ENCOUNTER 2023-12-28 00:21 | Day surgery (SDC) | payer OTHER, SELFPAY ==
[2023-12-20 08:38] VITALS: BMI 21.3
[2023-12-28] MEDS: LACTATED RINGERS 1,000 ML 150 ML IV CONT (12:40)
[2023-12-28 12:41] VITALS: BP 147/60; PULSE 60; RESP 18; TEMP 36.2; O2SAT 97; BMI 20.4
--- NOTE | 2023-12-28 12:45 | WPDANESEPPF ---
Anes - Initial Pre Proc Eval Procedure: Operation Date: 12/28/23 13:30 Proposed Procedures p Screening Colonoscopy - Donnell Koch MD Date/Time: 12/28/23 12:45 Surgeon: Donnell Koch MD Pre Op Diagnosis: neoplasm screening Patient Data Age: 72 Gender: F Height: 1.68 m Weight: 57.4 kg Last Vital Signs Temp 97.1 F L 12/28/23 12:41 Pulse 60 12/28/23 12:41 Resp 18 12/28/23 12:41 BP 147/60 H 12/28/23 12:41 Pulse Ox 97 12/28/23 12:41 O2 Del Method Room Air 12/28/23 12:41 Allergies Allergy/AdvReac Type Severity Reaction Status Date / Time No Known Allergies Allergy Verified 12/28/23 12:21 Home Medications Medication Instructions Recorded Confirmed Type ritonavir 100 mg tablet (Norvir) 100 mg PO DAILY 04/20/19 12/28/23 History emtricitabine 200 mg-tenofovir 1 tablet PO DAILY 06/07/22 12/28/23 History alafenamide fumarate 25 mg tablet (Descovy) atorvastatin 80 mg tablet 80 mg PO HS #30 tabs 06/16/22 12/28/23 Rx cyclobenzaprine 5 mg tablet 5 mg PO TID PRN Muscle spasms 08/14/23 12/28/23 History darunavir 800 mg tablet 800 mg PO DAILY 08/14/23 12/28/23 History fluticasone propionate 50 2 spray intranasal DAILY 08/14/23 12/28/23 History mcg/actuation nasal spray,suspension ibandronate 150 mg tablet 150 mg PO MONTHLY 08/14/23 12/28/23 History cholecalciferol (vitamin D3) 25 1,000 unit PO DAILY #30 tabs 08/17/23 12/28/23 Rx mcg (1,000 unit) tablet (Vitamin D3) ezetimibe 10 mg tablet (Zetia) 10 mg PO QAM #30 tabs 08/17/23 12/28/23 Rx gabapentin 300 mg capsule 300 mg PO Q8HR #90 caps 08/17/23 12/28/23 Rx (Neurontin) amlodipine 5 mg tablet (Norvasc) 2.5 mg PO QAM 12/20/23 12/28/23 History aspirin 325 mg tablet 81 mg PO DAILY@0800 12/20/23 12/28/23 History Patient hx anesthesia problems: none Family hx anesthesia problems: none Results Review: All pre-operative results and documents have been reviewed as part of the pre-operative evaluation. [facility] Past Medical History Medical History (Updated 08/15/23 @ 18:25 by Timi Kwon MD) ASCUS with positive high risk HPV High cholesterol History of CVA (cerebrovascular accident) (05/2022) Acute left lacunar infarct posterior limb of internal capsule with residual right-sided hand and leg weakness without residual sensation deficit HIV (human immunodeficiency virus infection) Left-sided cerebrovascular accident (CVA) Pain in right shoulder Surgical History Surgical History History of colposcopy with cervical biopsy Family History Family History Other Unknown family medical history Social History Social History Social History: The patient is from [facility] originally. [place] but she is not sure exactly when. She moved after she met her who was a [employer] missionary and moved here to be with him. She raised 6 children and had a 7th child that young. She reports that some of her children her living here in some of them are in [place]. It is unclear if she still has 1 child living in [facility] or if she is referring to her child at had previously . 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 She is a lifelong nonsmoker and never drink alcohol. She denies illicit substance use. Code status: Full code Smoking status: Never smoker Second hand tobacco smoke exposure: No Alcohol intake: never Substance use: never Substance use type: does not use Do You Feel Safe in your Home?: Yes Lack of Transportation: No Lack of Food: Sometimes True Current Housing: I Have Housing Concerned About Future Housing: No Difficulty Paying Gas/Electric Bills: YES Difficulty Paying
--- NOTE | 2023-12-28 12:52 | PM.HPGS ---
History of Present Illness History of Present Illness Consent: Risks, benefits, and alternatives have been discussed and questions answered. Patient agrees to proceed with procedure. Chief complaint: neoplasm screening Narrative: Nancy Cherry is a 72 year old female here for screening colonoscopy Review of Systems Review of Systems: All systems reviewed & are unremarkable except as noted in HPI and below PMFSH Past Medical History Medical History (Updated 12/28/23 @ 12:52 by Donnell Koch MD) ASCUS with positive high risk HPV Colon cancer screening High cholesterol History of CVA (cerebrovascular accident) (05/2022) Acute left lacunar infarct posterior limb of internal capsule with residual right-sided hand and leg weakness without residual sensation deficit HIV (human immunodeficiency virus infection) Left-sided cerebrovascular accident (CVA) Pain in right shoulder Surgical History Surgical History History of colposcopy with cervical biopsy Family History Family History Other Unknown family medical history Social History Social History Social History: The patient is from [facility] originally. She moved [place] the [place] but she is not sure exactly when. She moved after she met her who was a S[employer] missionary and moved here to be with him. She raised 6 children and had a 7th child that young. She reports that some of her children her living here in some of them are in [place]. It is unclear if she still has 1 child living in [facility] or if she is referring to her child at had previously . 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 She is a lifelong nonsmoker and never drink alcohol. She denies illicit substance use. Code status: Full code Smoking status: Never smoker Second hand tobacco smoke exposure: No Alcohol intake: never Substance use: never Substance use type: does not use Do You Feel Safe in your Home?: Yes Lack of Transportation: No Lack of Food: Sometimes True Current Housing: I Have Housing Concerned About Future Housing: No Difficulty Paying Gas/Electric Bills: YES Difficulty Paying for Meds: YES Currently Unemployed: No Education: High School Diploma/GED Difficulty w/ Childcare or Family Care: No Living arrangements: with family Spiritual care concerns: No Meds Home Medications and Allergies Home Medications Medication Instructions Recorded Confirmed Type ritonavir 100 mg tablet (Norvir) 100 mg PO DAILY 04/20/19 12/28/23 History emtricitabine 200 mg-tenofovir 1 tablet PO DAILY 06/07/22 12/28/23 History alafenamide fumarate 25 mg tablet (Descovy) atorvastatin 80 mg tablet 80 mg PO HS #30 tabs 06/16/22 12/28/23 Rx cyclobenzaprine 5 mg tablet 5 mg PO TID PRN Muscle spasms 08/14/23 12/28/23 History darunavir 800 mg tablet 800 mg PO DAILY 08/14/23 12/28/23 History fluticasone propionate 50 2 spray intranasal DAILY 08/14/23 12/28/23 History mcg/actuation nasal spray,suspension ibandronate 150 mg tablet 150 mg PO MONTHLY 08/14/23 12/28/23 History cholecalciferol (vitamin D3) 25 1,000 unit PO DAILY #30 tabs 08/17/23 12/28/23 Rx mcg (1,000 unit) tablet (Vitamin D3) ezetimibe 10 mg tablet (Zetia) 10 mg PO QAM #30 tabs 08/17/23 12/28/23 Rx gabapentin 300 mg capsule 300 mg PO Q8HR #90 caps 08/17/23 12/28/23 Rx (Neurontin) amlodipine 5 mg tablet (Norvasc) 2.5 mg PO QAM 12/20/23 12/28/23 History aspirin 325 mg tablet 81 mg PO DAILY@0800 12/20/23 12/28/23 History Allergies Allergy/AdvReac Type Severity Reaction Status Date / Time No Known Allergies Allergy Verified 12/28/23 12:21 Vital Signs Vital Signs - 24 hr 12/28/23 12:4
[2023-12-28 13:08] VITALS: BP 109/53; PULSE 58; RESP 18; O2SAT 100
[2023-12-28 13:18] VITALS: BP 113/53; PULSE 59; RESP 20; O2SAT 100
[2023-12-28 13:28] VITALS: BP 125/58; PULSE 62; RESP 20; O2SAT 100
== END 2023-12-28 13:45 | disposition home or self-care (01) ==
PROVIDERS: PCP Family Medicine; Visit Provider Internal Medicine Gastroenterology
PROC: 0DJD8ZZ Inspection of Lower Intestinal Tract, Via Natural or Artificial Opening Endoscopic (ICD-10-PCS; CPT 45378; principal; 2023-12-28 13:30)
DX: Z12.11 Encounter for screening for malignant neoplasm of colon (principal); E78.00 Pure hypercholesterolemia, unspecified; B20 Human immunodeficiency virus [HIV] disease; Z79.82 Long term (current) use of aspirin; Z79.83 Long term (current) use of bisphosphonates; Z98.890 Other specified postprocedural states; Z86.79 Personal history of other diseases of the circulatory system
CPT/HCPCS: G0121; J2003; J2704; J7120

== ENCOUNTER 2024-05-17 15:31 | Outpatient (CLI) | payer OTHER, SELFPAY | END 2024-05-17 15:32 | disposition home or self-care (01) | LOC: MICIMG 15:35 | PROVIDERS: PCP Family Medicine; Visit Provider Family Medicine | DX: Z12.31 Encounter for screening mammogram for malignant neoplasm of breast (principal) | CPT/HCPCS: 77063; 77067 ==

== ENCOUNTER 2024-06-30 17:03 | Emergency (ER) | payer OTHER, SELFPAY ==
--- NOTE | ~2024-06-30 | CT_ITS ---
CORRECTED REPORT corrected exam description to CT abdomen and pelvis [facility] 07/01/2024 This report was recreated on 07/01/2024. Original report was CT abdomen and pelvis [facility] Ordering provider: Eliza Donohue APRN History: 73 years Female with . abdominal pain . Comparison: None. Technique: CT abdomen and pelvis without IV and without oral contrast. Automated exposure control and iterative reconstruction technique were employed. The dose- length product was 191.32 mGy-cm. Findings: VISUALIZED LOWER CHEST: Normal. UPPER ABDOMINAL ORGANS: Liver: Normal. Gallbladder: Normal. Spleen: Normal. Stomach/duodenum: Normal. Pancreas: Normal. Adrenals: Normal. Kidneys: Calcification in the right renal hilum is most likely vascular. Stone is less likely. Follow-up advised. PELVIC ORGANS: The bladder is underfilled. BOWEL AND MESENTERY: Colon: No evidence of diverticulitis. Fecal material is loaded in the colon. Normal appendix. Small Bowel: Normal. No obstruction. Peritoneum/mesentery: No free air. Trace of free fluid seen in the right side of the pelvis. No mesenteric lymphadenopathy. RETROPERITONEUM: Mild atheromatous disease of the abdominal aorta. No retroperitoneal lymphadenopathy. MUSCULOSKELETAL: Superficial soft tissues: The superficial soft tissues are normal. Bones: Age appropriate degenerative changes of the spine. IMPRESSION: 1. No evidence of appendicitis, diverticulitis or intestinal obstruction. 2. Calcification in the right renal hilum most likely vascular. Follow-up advised. 3. Constipation. Reviewed, dictated and finalized at location A. MTDD IMPRESSION: 1. No evidence of appendicitis, diverticulitis or intestinal obstruction. 2. Calcification in the right renal hilum most likely vascular. Follow-up advi sed. 3. Constipation.
--- OUTSIDE RECORDS SUMMARY | 2024-06-30 17:06 | XMS_ITS | Clinical Summary ---
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 Name Role Phone Unavailable Primary Care Provider Unavailabl e Social History Tobacco Use Types Packs/Day Years Used Date Smoking Tobacco: Never Assessed Comments Unknown Sex and Gender Information Value Date Recorded Sex Assigned at Not on file Legal Sex Female 9:17 AM CDT Gender Identity Not on file Sexual Orientation Not on file Plan of Treatment Health Maintenance Due Date Last Done Comments Colorectal Cancer Screening Colonoscopy (10 Years) 1952 Hepatitis C 1970 DTaP, Tdap and Td Vaccines ( 1 - Tdap) 12/30/1971 Mammogram Screening 1992 Zoster Vaccines (1 of 2) 2002 Annual Medicare Wellness Visit 2017 Dexa Scan (General) 2017 Pneumococcal Vaccine: 65+ Ye ars (1 of 1 - PCV) 2017 COVID-19 Vaccine ( - 2023-2 5 season) 2023 RSV Immunization or 60+ Years (1 - 1-dose 75+ series) 12/30/2027 Meningococcal B Vaccine Aged Out No l onger eligible based on patient's age to complete this topic Meningococcal Vaccine Aged Out No caleb pacsual eligible based on patient's age to complete this topic RSV Immunizations Under 20 Months Aged Out No longer eligible based on patient's age to complete this topic Insurance [employer]
--- OUTSIDE RECORDS SUMMARY | 2024-06-30 17:06 | XMS_ITS | CONTINUITY OF CARE DOCUMENT ---
Author Name ryan davis Address Unknown Organization [facility] Address [address] [place] [address] Phone [phone] Care Team Providers Care Laundrette Owner Name Role Phone Tawanna FLOWERS, Leah Unavailable NE TORRES MD Unavailable [phone] NE TORRES MD Unavailable [phone] INSURANCE PROVIDERS Payer name Policy type / Coverage type [place] red [employer] [facility] Other [id number]
--- OUTSIDE RECORDS SUMMARY | 2024-06-30 17:06 | XMS_ITS | Continuity of Care Document ---
Author Organization [facility] Address [address] [place] [address] Phone Care Team Providers Care Convention Services Manager Name Role Phone Josefina Gordillo OT Unavailable Unavailable Procedures Procedure Date Doc neg elder mal no plan PRES/ABSN URINE INCON ASSESS OT Evaluation Moderate Complexity Therapeutic Activities Neuromuscular Re-Ed Therapeutic Exercise Doc neg elder mal no plan PRES/ABSN URINE INCON ASSESS PT Evaluation High Complexity Therapeutic Activities Advance Directives Directive Yes / No Effective Date File Name No Information Encounters Encounter Description Practice Location Reason(s) For Visit Diagnoses Date Provider Providers Copied on Encounter [facility] [address], [id number], tel:[phone] [place] No Information Jun- 3 Rand Whiteside . [address], [id number], [place] tel:[phone] [place] No Information 0 3 Rand Whiteside . Referring Provider: Nirmal Caban, [address] [place], [address]. tel:[phone], [id number], tel:[phone] [place] No Information Apr-0 3 Antelmo Matos , [place], [place]. Referring Provider: Nirmal Caban, [address] [facility], [place], [address]. tel:[phone] Family History Family Member Type Diagnosis Age At Onset No Information Payers Payer name Insurance type Covered constitution party ID Tiff khanna(s) [employer] CI [id number] Social History Type Description Quantity Date Captured Comments Sex Female Smoking Status No Information Chief Complaint And Reason For Visit No Information Reason For Referral Reason For Referral No Information Plan Of Treatment Date Type Action Status Referral Ordered: Depression: Depression management program timeframe: 1 Day. (related to Depression) ordered Referral Ordered: Clinical Psychology (related to Depression) ordered Referral Ordered: Referrals: Specialist. Evaluate and Treat (related to Adjustment disorder with depressed mood) ordered Referral Ordered: Depression: Depression management program timeframe: 1 Day. (related to Depression) ordered Referral Ordered: Clinical Psychology (related to Depression) ordered Referral Ordered: Referrals: Specialist. Evaluate and Treat (related to Adjustment disorder with depressed mood) ordered History Of Present Illness Encounter Date Complaint History Of Prese nt Illness No Information Functional Status Date Functional Assessmen t No Information Instructions Date Instruction Additional Infor mation No Information Assessments Type Assessment Date No Information Patient Care Teams Name Effective Dates (start - stop) Status Members No Information
[2024-06-30 17:07] VITALS: BP 180/74; PULSE 65; RESP 14; TEMP 36.2; O2SAT 100
--- OUTSIDE RECORDS SUMMARY | 2024-06-30 17:07 | XMS_ITS | Data Portability ---
Author Organization [facility] CLAUDIAJuan Address [address] [place] [address] Care Team Providers Care Lacer And Tier Name Role Phone SHARADJOSEFA Mortgage Funder [phone] CHALO GARCIA Family Medicine Assessment No assessment recorded. Plan of Treatment Reminders Order Date Submit Date Provider Last Modified By Organization Details Last Modified Time Details Appointments ANY 15 2024 02:15P Vanda Celaya MD Not available Not available Not available Lab CBC w/ auto diff 2023 024 [facility], [address] [facility] [address] [facility] [address], [place], [address], 01/06/2024 09:48:16 CMP, serum or plasma 2023 024 [facility], [address] [facility] [address], [address], [place], [address], 12/15/2023 06:20:33 HIV-1 RNA, quantitat [place], PCR, serum or plasma 2023 024 [facility], [address] [facility], [address], [place], [address], 12/15/2023 16:13:24 cd4 T-cells, blood 2023 024 [facility], [address] [facility], [address], [place], [address], 12/15/2023 06:20:34 RPR (rapid plasma reagin), serum 2023 024 DEAN VENTURA, [address], [address], [place], [address], 12/15/2023 06:20:35 chlamydia trachomat is + neisseria gonorrhoe ae + trichomon as vaginalis rRNA panel, OLIVE+probe 2023 024 DEAN VENTURA, [facility][note 3][facility] [address], [address], [place], [address], 12/15/2023 06:20:33 hepatitis B surface Ab, quantitat angeles, serum 2023 024 DEAN VILLANUEVA, [facility][note 3][address], [address], [place], [address], 12/15/2023 06:20:35 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, qual, blood 2023 024 DEAN VENTURA, [address] [place], [place] [address]juan [address], [address], [place], [address], 12/15/2023 14:13:26 HIV-1 RNA, quantitat [place], PCR, serum or plasma 2022 024 DEAN VENTURA, [facility][note 3]Marilnyn hernandezjuan [address], [address], [place], [address], 06/16/2023 15:11:37 cd4 T-cells, blood 2022 023 DEAN VENTURA, [facility][note 3][address], [address], [place], [address], 02/10/2023 13:10:39 HIV-1 RNA, quantitat ang[place], PCR, serum or plasma 2022 023 DEAN VENTURALOLA, [facility][note 3][facility] [address], [address], [place], [address], 02/09/2023 19:08:36 RPR (rapid plasma reagin), serum 2022 023 [facility], [address], [address], [place], [address], 02/10/2023 13:10:39 chlamydia trachomat is + neisseria gonorrhoe ae + trichomon as vaginalis DNA panel, OLIVE+probe , unspecifi ed specimen 2022 023 DEAN [facility], [address] [place], [place] [address]juan [address], [address], [place], [address], 02/10/2023 13:10:38 Hepatitis C IgG Ab, qual, serum 2022 023 [facility], [address] [place], [place] [address]juan [address], [address], [place], [address], 02/10/2023 13:10:37 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, qual, blood 2022 023 [facility], [address] [address] [address], [address], [place], [address], 02/10/2023 13:10:37 lipid panel, serum 2021 022 dariuszmaikel VILLANUEVA, [address] [place], [place] [address]juan [address], [address], [place], [address], 07/31/2022 11:55:45 Referral gastroent erologist referral - Screening colonosco py, please 2022 024 laurel Hastings MD, [address], [address], [place], [address], 01/18/2024 16:34:49 cardiolog ist referral - HTN with a recent CVA 2022 023 [facility], [address], [address], [place], [address], 02/08/2023 13:21:26 sleep medicine referral - Snorer, recent CVA 2022 023 laurel Garduno MD, [address], [place], [address], 04/15/2023 09:11:25 otolaryng ologist referral - Tinnitus and hoarsenes s post CVA 2022 023 [facility], [address], [place], [address], 2023 12:10:12 dermatolo gist referral - HIV disease, chronic rash 2021 [facility] ([facility] , [address] [facility] , [facility] [address], [place], [address], 04/23/2022 15:49:37 gynecolog ist referral 2021 laurel Juárez, [address], [place], [address], Ph [phone] 04/15/2023 09:11:25 Procedures None recorded. Surgeries None recorded. Imaging None recorded. Medication Orders ibandrona te 150 mg tablet 2022 023 [facility] [id number] In [facility], [address], [place], [address], 02/08/2023 14:16:57 ciproflox acin 0.3 % eye drops 2021 [id number], [address], [place], [place], [id number], 07/31/2022 11:51:45 rosuvasta tin 40 mg tablet 2021 [facility][id number], [address] [place], [place], [id number], 07/31/2022 13:42:08 Patient TargetsNo targets recorded. Patient Instructions Encounter Date Encounter Id Patient Instructions Last Modified By Organization Details Last Modified Time 01/02/2022 [id number] pinkeye: care instructions oajao Not available 01/02/2022 10:50:16 tetanus and diphtheria booster: care instructions oajao Not available 01/02/2022 10:36:04 acquired immunodeficiency syndrome (AIDS): care instructions oajao Not available 01/02/2022 10:50:16 Rosuvastatin 40 Labs in 6 weeks WARD NURSE Dermatology (Third referral) Follow up in 8 weeks oajao Not available 01/02/2022 10:48:13 07/31/2022 [id number] snoring: care instructions oajao Not available 07/31/2022 12:13:14 Labs Sleep medic ine Cardiology Stop Rosuvastatin Continue Atorvastatin ENT Follow up in 7-8 weeks (Post cardiology, labs) oajao Not available 07/31/2022 13:47:28 Detailed visit oajao Not available 0 07/31/2022 13:47:13 02/08/2023 [id number] Note from the neurologist Dermatology, sleep medicine and ENT as referred Cardiology (Pending) Labs Follow up with WARD NURSE Follow up in 6 weeks (30 minutes) Addendum Colonoscopy oaclauo Not available 02/08/2023 14:59:56 She has given me verbal permission to send a copy of her labs to her PCP. oajao Not available 02/08/2023 14:21:57 03/09/2023 [id number] Follow up with y our PCP Labs March, Sleep medicine? ENT? Follow up in 5 months and PRN oajao Not available 03/09/2023 16:38:02 Compliance was discussed oajao Not available 03/09/2023 16:37:40 12/13/2023 [id number] Labs Referral to the Dermatology from her PCP MMG/Colonoscopy as ordered by her PCP Follow up in 6 months and PRN oajao Not available 12/13/2023 10:10:17 She voiced rock rn about probably switching back her primary care needs back to this office, since her rash does not seem to be well managed. I have discouraged switching providers back and forth. laurel Not available 12/13/2023 10:41:34 Reason for Referral Chemistry Laboratory Technician Referral for Sc reening for malignant neoplasm of cervix Referring Physician: Carter Celaya, Internal Medicine, Encounter Date: 01/02/2022 Blood Bank Manager Referral for P ruritic rash HIV disease, chronic rash HIV disease, chronic rash Referring Physician: Carter Celaya, Internal Medicine, Encounter Date: 01/02/2022 Sleep Medicine Referral for Snoring Snorer, recent CVA Snorer, recent CVA Referring Physician: Carter Celaya Internal Medicine, Encounter Date: 07/31/2022 Senior Relationship Manager Referral for Hi story of cerebrovascular accident HTN with a recent CVA HTN with a recent CVA Referring Physician: Carter Celaya Internal Medicine, Encounter Date: 07/31/2022 Film Processor Referral fo r Chronic hoarseness Tinnitus and hoarseness post CVA Tinnitus and hoarseness post CVA Referring Physician: Carter Celaya Internal Medicine, Encounter Date: 07/31/2022 Bronc Breaker Referral for Screening for malignant neoplasm of colon Screening colonoscopy, please Screening colonoscopy, please Referring Physician: Carter Celaya Internal Medicine, Encounter Date: 02/08/2023 Results Created Date Observation Date Name Description Value Unit Range Abnormal Flag Note LastModifiedBy Organization Detail LastModifiedTime 02/17/20 22 02/17/2022 LIPID PANEL cholesterol, total 205 mg/dL 100-19 9 above high normal Not Available [facility] ([facility]) [address] [facility], [place], [address], 02/17/2022 06:11:48 02/17/20 22 02/17/2022 LIPID PANEL triglyceride s 63 mg/dL 0-149 Not Available [facility] ([facility]) [address] [facility], [place], [address], 02/17/2022 06:11:48 02/17/20 22 02/17/2022 LIPID PANEL HDL cholesterol 62 mg/dL >39 Not Available [facility] ([facility]) [address] [place], [address], 02/17/2022 06:11:48 02/17/20 22 02/17/2022 LIPID PANEL VLDL cholesterol wild 11 mg/dL 5-40 Not Available [facility] ([facility]) [address] [place], [address], 02/17/2022 06:11:48 02/17/20 22 02/17/2022 LIPID PANEL LDL chol calc ([facility]) 132 mg/dL 0-99 above high normal Not Available [facility] ([facility]) [address] [place], [address], 02/17/2022 06:11:48 08/04/19 23 08/05/2022 CT, NG, TRICH VAG BY OLIVE chlamydia by OLIVE NEGATI VE negati ve Not Available [facility] ([facility]) [address] [place], [address], 08/05/2022 08:28:32 08/04/19 23 08/05/2022 CT, NG, TRICH VAG BY OLIVE gonococcus by OLIVE NEGATI VE negati ve Not Available [facility] ([facility]) [address] [place], [address], 08/05/2022 08:28:32 08/04/19 23 08/05/2022 CT, NG, TRICH VAG BY OLIVE trich vag by OLIVE NEGATI VE negati ve Not Available [facility] ([facility]) [address] [place], [address], 08/05/2022 08:28:32 08/04/19 23 08/04/2022 LIPID PANEL cholesterol, total 186 mg/dL 100-19 9 Not Available [facility] ([facility]) [address] [place], [address], 08/05/2022 08:28:33 08/04/19 23 08/04/2022 LIPID PANEL triglyceride s 105 mg/dL 0-149 Not Available [facility] ([facility]) [address] [place], [address], 08/05/2022 08:28:33 08/04/19 23 08/04/2022 LIPID PANEL HDL cholesterol 72 mg/dL >39 Not Available [facility] ([facility]) [address] [place], [address], 08/05/2022 08:28:33 08/04/19 23 08/04/2022 LIPID PANEL VLDL cholesterol wild 19 mg/dL 5-40 Not Available [facility] ([facility]) [address] [place], [address], 08/05/2022 08:28:33 08/04/19 23 08/04/2022 LIPID PANEL LDL chol calc ([facility]) 95 mg/dL 0-99 Not Available [facility] ([facility]) [address] [place], [address], 08/05/2022 08:28:33 08/04/19 23 08/04/2022 COMP. METAB OLIC PANEL (14) glucose 93 mg/dL 70-99 Not Available [facility] ([facility]) [address] [place], [address], 08/05/2022 08:28:33 08/04/19 23 08/04/2022 COMP. METAB OLIC PANEL (14) BUN 11 mg/dL 8-27 Not Available [facility] ([facility]) [address] [place], [address], 08/05/2022 08:28:33 08/04/19 23 08/04/2022 COMP. METAB OLIC PANEL (14) creatinine 0.88 mg/dL 0.57-1 .00 Not Available [facility] ([facility]) [address], [place], [address], 08/05/2022 08:28:33 08/04/19 23 08/04/2022 COMP. METAB OLIC PANEL (14) eGFR 71 mL/mi n/1.7 3 >59 Not Available [facility] ([facility]) [address], [place], [address], 08/05/2022 08:28:33 08/04/19 23 08/04/2022 COMP. METAB OLIC PANEL (14) BUN/creatini ne ratio 13 12-28 Not Available [facility] ([facility]) [address] [facility], [place], [address], 08/05/2022 08:28:33 08/04/19 23 08/04/2022 COMP. METAB OLIC PANEL (14) sodium 138 mmol/ L 134-14 4 Not Available [facility] ([facility]) [address] [facility], [place], [address], 08/05/2022 08:28:33 08/04/19 23 08/04/2022 COMP. METAB OLIC PANEL (14) potassium 4.3 mmol/ L 3.5-5. 2 Not Available [facility] ([facility]) [address] [facility], [place], [address], 08/05/2022 08:28:33 08/04/19 23 08/04/2022 COMP. METAB OLIC PANEL (14) chloride 99 mmol/ L 96-106 Not Available [facility] ([facility] [facility]) [address] [facility], [place], [address], 08/05/2022 08:28:33 08/04/19 23 08/04/2022 COMP. METAB OLIC PANEL (14) carbon dioxide, total 28 mmol/ L 20-29 Not Available [facility] ([place] [facility]) [address] [facility], [place], [address], 08/05/2022 08:28:33 08/04/19 23 08/04/2022 COMP. METAB OLIC PANEL (14) calcium 9.3 mg/dL 8.7-10 .3 Not Available [facility] ([facility]) [address] [facility], [place], [address], 08/05/2022 08:28:33 08/04/19 23 08/04/2022 COMP. METAB OLIC PANEL (14) protein, total 6.5 g/dL 6.0-8. 5 Not Available [facility] ([facility]) [address] [facility], [place], [address], 08/05/2022 08:28:33 08/04/19 23 08/04/2022 COMP. METAB OLIC PANEL (14) albumin 4.0 g/dL 3.8-4. 8 Not Available [facility] ([facility]) [address] [facility], [place], [address], 08/05/2022 08:28:33 08/04/19 23 08/04/2022 COMP. METAB OLIC PANEL (14) globulin, total 2.5 g/dL 1.5-4. 5 Not Available [facility] ([facility]) [address] [facility], [place], [address], 08/05/2022 08:28:33 08/04/19 23 08/04/2022 COMP. METAB OLIC PANEL (14) A/G ratio 1.6 1.2-2. 2 Not Available [facility] ([facility]) [address] [place], [address], 08/05/2022 08:28:33 08/04/19 23 08/04/2022 COMP. METAB OLIC PANEL (14) bilirubin, total 0.5 mg/dL 0.0-1. 2 Not Available [facility] ([facility]) [address] [facility], [place], [address], 08/05/2022 08:28:33 08/04/19 23 08/04/2022 COMP. METAB OLIC PANEL (14) alkaline phosphatase 75 IU/L 44-121 Not Available [facility] ([facility]) [address] [facility], [place], [address], 08/05/2022 08:28:33 08/04/19 23 08/04/2022 COMP. METAB OLIC PANEL (14) AST (SGOT) 23 IU/L 0-40 Not Available [facility] ([facility]) [address] [facility], [place], [address], 08/05/2022 08:28:33 08/04/19 23 08/04/2022 COMP. METAB OLIC PANEL (14) ALT (SGPT) 13 IU/L 0-32 Not Available [facility] ([facility]) [address] [facility], [place], [address], 08/05/2022 08:28:33 08/04/19 23 08/03/2022 HELPE R T-LYM PH-CD 4 WBC 4.2 x10e3 /uL 3.4-10 .8 Not Available [facility] ([facility]) [address] [facility], [place], [address], 08/05/2022 08:28:35 08/04/19 23 08/03/2022 HELPE R T-LYM PH-CD 4 RBC 4.52 x10e6 /uL 3.77-5 .28 Not Available [facility] ([facility]) [address] [facility], [place], [address], 08/05/2022 08:28:35 08/04/19 23 08/03/2022 HELPE R T-LYM PH-CD 4 hemoglobin 12.2 g/dL 11.1-1 5.9 Not Available [facility] ([facility]) [address] [facility], [place], [address], 08/05/2022 08:28:35 08/04/19 23 08/03/2022 HELPE R T-LYM PH-CD 4 hematocrit 36.2 % 34.0-4 6.6 Not Available [facility] ([facility]) [address] [facility], [place], [address], 08/05/2022 08:28:35 08/04/19 23 08/03/2022 HELPE R T-LYM PH-CD 4 MCV 80 fL 79-97 Not Available [facility] ([facility]) [address] [place], [address], 08/05/2022 08:28:35 08/04/19 23 08/03/2022 HELPE R T-LYM PH-CD 4 MCH 27.0 pg 26.6-3 3.0 Not Available [facility] ([facility]) [address] [facility], [place], [address], 08/05/2022 08:28:35 08/04/1908/03/2022 HELPE R T-LYM PH-CD 4 MCHC 33.7 g/dL 31.5-3 5.7 Not Available [facility] ([facility]) [address] [place], [address], 08/05/2022 08:28:35 08/04/19 23 08/03/2022 HELPE R T-LYM PH-CD 4 RDW 13.4 % 11.7-1 5.4 Not Available [facility] ([facility]) [address] [place], [address], 08/05/2022 08:28:35 08/04/19 23 08/03/2022 HELPE R T-LYM PH-CD 4 platelets 235 x10e3 /uL 150-45 0 Not Available [facility] ([facility]) [address] [place], [address], 08/05/2022 08:28:35 08/04/19 23 08/03/2022 HELPE R T-LYM PH-CD 4 neutrophils 38 % notest ab. Not Available [facility] ([facility]) [address], [place], [address], 08/05/2022 08:28:35 08/04/19 23 08/03/2022 HELPE R T-LYM PH-CD 4 lymphs 43 % notest ab. Not Available [facility] ([facility]) [address], [place], [address], 08/05/2022 08:28:35 08/04/19 23 08/03/2022 HELPE R T-LYM PH-CD 4 monocytes 11 % notest ab. Not Available [facility] ([facility]) [address] [facility], [place], [address], 08/05/2022 08:28:35 08/04/19 23 08/03/2022 HELPE R T-LYM PH-CD 4 eos 7 % notest ab. Not Available [facility] ([facility]) [address] [facility], [place], [address], 08/05/2022 08:28:35 08/04/19 23 08/03/2022 HELPE R T-LYM PH-CD 4 basos 1 % notest ab. Not Available [facility] ([facility]) [address] [facility], [place], [address], 08/05/2022 08:28:35 08/04/19 23 08/03/2022 HELPE R T-LYM PH-CD 4 neutrophils (absolute) 1.6 x10e3 /uL 1.4-7. 0 Not Available [facility] ([facility]) [address] [facility], [place], [address], 08/05/2022 08:28:35 08/04/19 23 08/03/2022 HELPE R T-LYM PH-CD 4 lymphs (absolute) 1.9 x10e3 /uL 0.7-3. 1 Not Available [facility] ([facility]) [address] [facility], [place], [address], 08/05/2022 08:28:35 08/04/19 23 08/03/2022 HELPE R T-LYM PH-CD 4 monocytes(ab solute) 0.5 x10e3 /uL 0.1-0. 9 Not Available [facility] ([facility]) [address] [facility], [place], [address], 08/05/2022 08:28:35 08/04/19 23 08/03/2022 HELPE R T-LYM PH-CD 4 eos (absolute) 0.3 x10e3 /uL 0.0-0. 4 Not Available [facility] ([facility]) [address] [place], [address], 08/05/2022 08:28:35 08/04/19 23 08/03/2022 HELPE R T-LYM PH-CD 4 baso (absolute) 0.0 x10e3 /uL 0.0-0. 2 Not Available [facility] ([facility]) [address] [place], [address], 08/05/2022 08:28:35 08/04/19 23 08/03/2022 HELPE R T-LYM PH-CD 4 immature granulocytes 0 % notest ab. Not Available [facility] ([facility]) [address] [place], [address], 08/05/2022 08:28:35 08/04/19 23 08/03/2022 HELPE R T-LYM PH-CD 4 immature grans (abs) 0.0 x10e3 /uL 0.0-0. 1 Not Available [facility] ([facility]) [address] [place], [address], 08/05/2022 08:28:35 08/04/19 23 08/04/2022 HELPE R T-LYM PH-CD 4 absolute cd 4 helper 355 /uL 359-15 19 below low normal Not Available [facility] ([facility]) [address] [facility], [place], [address], 08/05/2022 08:28:35 08/04/1908/04/2022 HELPE R T-LYM PH-CD 4 % cd 4 pos. lymph. 18.7 % 30.8-5 8.5 below low normal Not Available [facility] ([facility]) [address] [place], [address], 08/05/2022 08:28:35 08/04/1908/04/2022 RNA, REAL TIME PCR (NON- GRAPH ) HIV-1 RNA by PCR <20 copie s/mL HIV-1 RNA detec randi The repor table range for this assay is 20 to 10,00 0,000 copie s HIV-1 RNA/m L. Not Available [facility] ([facility]) [address] [facility], [place], [address], 08/05/2022 08:28:35 08/04/1908/04/2022 RNA, REAL TIME PCR (NON- GRAPH ) log10 HIV-1 RNA TNP log10 copy/ mL Unabl e to calcu late resul t since non-n umeri c resul t obtai gamal for compo nent test. Not Available [facility] ([facility]) [address] [facility], [place], [address], 08/05/2022 08:28:35 08/04/1908/03/2022 URINA LYSIS , COMPL ETE specific gravity 1.006 1.005- 1.030 Not Available [facility] ([facility]) [address] [place], [address], 08/05/2022 08:28:36 08/04/1908/03/2022 URINA LYSIS , COMPL ETE pH 8.0 5.0-7. 5 above high normal Not Available [facility] ([facility]) [address] [place], [address], 08/05/2022 08:28:36 08/04/19 23 08/03/2022 URINA LYSIS , COMPL ETE urine-color YELLOW yellow Not Available [facility] ([facility]) [address] [facility], [place], [address], 08/05/2022 08:28:36 08/04/19 23 08/03/2022 URINA LYSIS , COMPL ETE appearance CLEAR clear Not Available [facility] ([facility]) [address] [facility], [place], [address], 08/05/2022 08:28:36 08/04/19 23 08/03/2022 URINA LYSIS , COMPL ETE WBC esterase NEGATI VE negati ve Not Available [facility] ([facility]) [address] [facility], [place], [address], 08/05/2022 08:28:36 08/04/19 23 08/03/2022 URINA LYSIS , COMPL ETE protein NEGATI VE negati ve/tra ce Not Available [facility] ([facility]) [address] [facility], [place], [address], 08/05/2022 08:28:36 08/04/19 23 08/03/2022 URINA LYSIS , COMPL ETE glucose NEGATI VE negati ve Not Available [facility] ([facility]) [address] [facility], [place], [address], 08/05/2022 08:28:36 08/04/19 23 08/03/2022 URINA LYSIS , COMPL ETE ketones NEGATI VE negati ve Not Available [facility] ([facility]) [address] [facility], [place], [address], 08/05/2022 08:28:36 08/04/19 23 08/03/2022 URINA LYSIS , COMPL ETE occult blood NEGATI VE negati ve Not Available [facility] ([facility]) [address] [facility], [place], [address], 08/05/2022 08:28:36 08/04/19 23 08/03/2022 URINA LYSIS , COMPL ETE bilirubin NEGATI VE negati ve Not Available [facility] ([facility]) [address] [facility], [place], [address], 08/05/2022 08:28:36 08/04/19 23 08/03/2022 URINA LYSIS , COMPL ETE urobilinogen ,semi-qn 0.2 mg/dL 0.2-1. 0 Not Available [facility] ([facility]) [address] [facility], [place], [address], 08/05/2022 08:28:36 08/04/19 23 08/03/2022 URINA LYSIS , COMPL ETE nitrite, urine NEGATI VE negati ve Not Available [facility] ([facility]) [address] [facility], [place], [address], 08/05/2022 08:28:36 08/04/19 23 08/03/2022 URINA LYSIS , COMPL ETE microscopic examination COMMEN T Micro scopi c follo ws if indic ated. Not Available [facility] ([facility]) [address] [facility], [place], [address], 08/05/2022 08:28:36 08/04/19 23 08/03/2022 URINA LYSIS , COMPL ETE microscopic examination SEE BELOW: Micro scopi c was indic ated and was perfo rmed. Not Available [facility] ([facility]) [address] [facility], [place], [address], 08/05/2022 08:28:36 08/04/1908/04/2022 RPR, RFX QN RPR/C ONFIR M TP RPR NON REACTI VE nonrea ctive Not Available [facility] ([facility]) [address] [facility], [place], [address], 08/05/2022 08:28:37 08/04/19 23 08/04/2022 MICRO SCOPI C EXAMI NATIO N WBC NONE SEEN /hpf 0-5 Not Available [facility] ([facility]) [address] [facility], [place], [address], 08/05/2022 08:28:34 08/04/19 23 08/04/2022 MICRO SCOPI C EXAMI NATIO N RBC NONE SEEN /hpf 0-2 Not Available [facility] ([facility]) [address] [facility], [place], [address], 08/05/2022 08:28:34 08/04/19 23 08/04/2022 MICRO SCOPI C EXAMI NATIO N epithelial cells (non renal) NONE SEEN /hpf 0-10 Not Available [facility] ([facility]) [address] [facility], [place], [address], 08/05/2022 08:28:34 08/04/19 23 08/04/2022 MICRO SCOPI C EXAMI NATIO N casts NONE SEEN /lpf nonese en Not Available [facility] ([facility]) [address] [facility], [place], [address], 08/05/2022 08:28:34 08/04/19 23 08/04/2022 MICRO SCOPI C EXAMI NATIO N bacteria NONE SEEN nonese en/few Not Available [facility] ([facility]) [address] [facility], [place], [address], 08/05/2022 08:28:34 02/09/20 23 02/09/2023 RNA, REAL TIME PCR (NON- GRAPH ) HIV-1 RNA by PCR 80680 copie s/mL The repor table range for this assay is 20 to 10,00 0,000 copie s HIV-1 RNA/m L. Not Available [facility] ([facility]) [address] [facility], [place], [address], 02/09/2023 19:08:36 02/09/20 23 02/09/2023 RNA, REAL TIME PCR (NON- GRAPH ) log10 HIV-1 RNA 4.914 log10 copy/ mL Not Available [facility] ([facility]) [address] [facility], [place], [address], 02/09/2023 19:08:36 02/09/2002/09/2023 HCV ANTIB ADRIEN hep C virus Ab NON REACTI VE nonrea ctive HCV antib adrien alone does not diffe renti ate betwe en previ ously resol sarahi infec tion and activ e infec tion. Equiv ocal and React angeles HCV antib adrien resul ts shoul d be follo wed up with an HCV RNA test to suppo rt the diagn osis of activ e HCV infec tion. Not Available [facility] ([facility]) [address] [facility], [place], [address], 02/10/2023 13:10:37 02/09/20 23 02/09/2023 QUANT IFERO N-TB GOLD PLUS quantiferon incubation INCUBA TION PERFOR MED. Not Available [facility] ([facility]) [address] [facility], [place], [address], 02/10/2023 13:10:37 02/09/2002/09/2023 QUANT IFERO N-TB GOLD PLUS quantiferon criteria COMMEN T Quant iFERO N-TB Gold Plus is a quali tativ e indir ect test for M tuber culos is infec tion (incl uding disea se) and is inten ded for use in conju nctio n with risk asses sment , radio graph y, and other medic al and diagn ostic evalu ation s. The Quant iFERO N-TB Gold Plus resul t is deter mined by subtr actin g the Nil value from eithe r TB antig en (Ag) value . The Mitog en tube serve s as a contr ol for the test. Not Available [facility] ([facility]) [address] [facility], [place], [address], 02/10/2023 13:10:37 02/09/20 23 02/10/2023 QUANT IFERO N-TB GOLD PLUS quantiferon- TB gold plus NEGATI VE negati ve No respo nse to M beni barriosos is antig ens detec randi. Infec tion with M tuber sophieos is is unlik felicia, but high risk indiv idual s shoul d be consi dered for addit ional testi ng (ATS/ IDSA/ CDC Clini wild Pract ice Guide lines , 2017) . The refer ence range is an Antig en minus Nil resul t of <0.35 IU/mL . Chemi lumin escen ce immun oassa y metho dolog y Not Available [facility] ([facility]) [address] [place], [address], 02/10/2023 13:10:37 02/09/20 23 02/10/2023 QUANT IFERO N-TB GOLD PLUS quantiferon TB1 Ag value 0.06 IU/mL Not Available [facility] ([facility]) [address] [place], [address], 02/10/2023 13:10:37 02/09/20 23 02/10/2023 QUANT IFERO N-TB GOLD PLUS quantiferon TB2 Ag value 0.07 IU/mL Not Available [facility] ([facility]) [address] [place], [address], 02/10/2023 13:10:37 02/09/20 23 02/10/2023 QUANT IFERO N-TB GOLD PLUS quantiferon nil value 0.07 IU/mL Not Available [facility] ([facility]) [address] [place], [address], 02/10/2023 13:10:37 02/09/20 23 02/10/2023 QUANT IFERO N-TB GOLD PLUS quantiferon mitogen value >10.00 IU/mL Not Available [facility] ([facility]) [address] [place], [address], 02/10/2023 13:10:37 11/02/10/2023 CT, NG, TRICH VAG BY OLIVE chlamydia by OLIVE NEGATI VE negati ve Not Available [facility] ([facility]) [address] [place], [address], 02/10/2023 13:10:38 02/09/2002/10/2023 CT, NG, TRICH VAG BY OLIVE gonococcus by OLIVE NEGATI VE negati ve Not Available [facility] ([facility]) [address] [place], [address], 02/10/2023 13:10:38 02/09/2002/10/2023 CT, NG, TRICH VAG BY OLIVE trich vag by OLIVE NEGATI VE negati ve Not Available [facility] ([facility]) [address] [place], [address], 02/10/2023 13:10:38 02/09/20 23 02/09/2023 HELPE R T-LYM PH-CD 4 absolute cd 4 helper 318 /uL 359-15 19 below low normal Not Available [facility] ([facility]) [address] [place], [address], 02/10/2023 13:10:39 02/09/20 23 02/09/2023 HELPE R T-LYM PH-CD 4 % cd 4 pos. lymph. 21.2 % 30.8-5 8.5 below low normal Not Available [facility] ([facility]) [address] [place], [address], 02/10/2023 13:10:39 02/09/20 23 02/09/2023 HELPE R T-LYM PH-CD 4 WBC 4.8 x10e3 /uL 3.4-10 .8 Not Available [facility] ([facility]) [address] [place], [address], 02/10/2023 13:10:39 02/09/20 23 02/09/2023 HELPE R T-LYM PH-CD 4 RBC 4.64 x10e6 /uL 3.77-5 .28 Not Available [facility] ([facility]) [address] [facility], [place], [address], 02/10/2023 13:10:39 02/09/2002/09/2023 HELPE R T-LYM PH-CD 4 hemoglobin 12.0 g/dL 11.1-1 5.9 Not Available [facility] ([facility]) [address] [facility], [place], [address], 02/10/2023 13:10:39 02/09/20 23 02/09/2023 HELPE R T-LYM PH-CD 4 hematocrit 37.1 % 34.0-4 6.6 Not Available [facility] ([facility]) [address] [facility], [place], [address], 02/10/2023 13:10:39 02/09/2002/09/2023 HELPE R T-LYM PH-CD 4 MCV 80 fL 79-97 Not Available [facility] ([facility]) [address] [place], [address], 02/10/2023 13:10:39 02/09/20 23 02/09/2023 HELPE R T-LYM PH-CD 4 MCH 25.9 pg 26.6-3 3.0 below low normal Not Available [facility] ([facility]) [address] [facility], [place], [address], 02/10/2023 13:10:39 02/09/20 23 02/09/2023 HELPE R T-LYM PH-CD 4 MCHC 32.3 g/dL 31.5-3 5.7 Not Available [facility] ([facility]) [address] [place], [address], 02/10/2023 13:10:39 02/09/20 23 02/09/2023 HELPE R T-LYM PH-CD 4 RDW 12.7 % 11.7-1 5.4 Not Available [facility] ([facility]) [address] [facility], [place], [address], 02/10/2023 13:10:39 02/09/20 23 02/09/2023 HELPE R T-LYM PH-CD 4 platelets 263 x10e3 /uL 150-45 0 Not Available [facility] ([facility]) [address] [facility], [place], [address], 02/10/2023 13:10:39 02/09/20 23 02/09/2023 HELPE R T-LYM PH-CD 4 neutrophils 58 % notest ab. Not Available [facility] ([facility]) [address] [facility], [place], [address], 02/10/2023 13:10:39 02/09/20 23 02/09/2023 HELPE R T-LYM PH-CD 4 lymphs 31 % notest ab. Not Available [facility] ([facility]) [address] [facility], [place], [address], 02/10/2023 13:10:39 02/09/20 23 02/09/2023 HELPE R T-LYM PH-CD 4 monocytes 8 % notest ab. Not Available [facility] ([facility]) [address] [facility], [place], [address], 02/10/2023 13:10:39 02/09/20 23 02/09/2023 HELPE R T-LYM PH-CD 4 eos 3 % notest ab. Not Available [facility] ([facility]) [address] [facility], [place], [address], 02/10/2023 13:10:39 02/09/20 23 02/09/2023 HELPE R T-LYM PH-CD 4 basos 0 % notest ab. Not Available [facility] ([facility]) [address] [facility], [place], [address], 02/10/2023 13:10:39 02/09/20 23 02/09/2023 HELPE R T-LYM PH-CD 4 neutrophils (absolute) 2.8 x10e3 /uL 1.4-7. 0 Not Available [facility] ([facility]) [address] [place], [address], 02/10/2023 13:10:39 02/09/20 23 02/09/2023 HELPE R T-LYM PH-CD 4 lymphs (absolute) 1.5 x10e3 /uL 0.7-3. 1 Not Available [facility] ([facility]) [address] [place], [address], 02/10/2023 13:10:39 02/09/20 23 02/09/2023 HELPE R T-LYM PH-CD 4 monocytes(ab solute) 0.4 x10e3 /uL 0.1-0. 9 Not Available [facility] ([facility]) [address] [place], [address], 02/10/2023 13:10:39 02/09/20 23 02/09/2023 HELPE R T-LYM PH-CD 4 eos (absolute) 0.2 x10e3 /uL 0.0-0. 4 Not Available [facility] ([facility]) [address] [place], [address], 02/10/2023 13:10:39 02/09/20 23 02/09/2023 HELPE R T-LYM PH-CD 4 baso (absolute) 0.0 x10e3 /uL 0.0-0. 2 Not Available [facility] ([facility]) [address] [place], [address], 02/10/2023 13:10:39 02/09/20 23 02/09/2023 HELPE R T-LYM PH-CD 4 immature granulocytes 0 % notest ab. Not Available [facility] ([facility]) [address] [place], [address], 02/10/2023 13:10:39 02/09/20 23 02/09/2023 HELPE R T-LYM PH-CD 4 immature grans (abs) 0.0 x10e3 /uL 0.0-0. 1 Not Available [facility] ([facility]) [address] [facility], [place], [address], 02/10/2023 13:10:39 02/09/2002/09/2023 RPR, RFX QN RPR/C ONFIR M TP RPR NON REACTI VE nonrea ctive Not Available [facility] ([facility]) [address] [place], [address], 02/10/2023 13:10:39 06/14/19 24 06/16/2023 RNA, REAL TIME PCR (NON- GRAPH ) HIV-1 RNA by PCR <20 copie s/mL HIV-1 RNA detec randi The repor table range for this assay is 20 to 10,00 0,000 copie s HIV-1 RNA/m L. Not Available [facility] ([facility]) [address] [facility], [place], [address], 06/16/2023 15:11:37 06/14/19 24 06/16/2023 RNA, REAL TIME PCR (NON- GRAPH ) log10 HIV-1 RNA TNP log10 copy/ mL Unabl e to calcu late resul t since non-n umeri c resul t obtai gamal for compo nent test. Not Available [facility] ([facility]) [address] [facility], [place], [address], 06/16/2023 15:11:37 12/13/19 24 12/15/2023 CT, NG, TRICH VAG BY OLIVE chlamydia by OLIVE NEGATI VE negati ve Not Available [facility] ([facility]) [address] [place], [address], 12/15/2023 06:20:33 12/13/19 24 12/15/2023 CT, NG, TRICH VAG BY OLIVE gonococcus by OLIVE NEGATI VE negati ve Not Available [facility] ([facility]) [address] [facility], [place], [address], 12/15/2023 06:20:33 12/13/19 24 12/15/2023 CT, NG, TRICH VAG BY OLIVE trich vag by OLIVE NEGATI VE negati ve Not Available [facility] ([facility]) [address] [place], [address], 12/15/2023 06:20:33 12/13/19 24 12/14/2023 COMP. METAB OLIC PANEL (14) glucose 115 mg/dL 70-99 above high normal Not Available [facility] ([facility]) [address] [facility], [place], [address], 12/15/2023 06:20:33 12/13/19 24 12/14/2023 COMP. METAB OLIC PANEL (14) BUN 10 mg/dL 8-27 Not Available [facility] ([facility]) [address] [place], [address], 12/15/2023 06:20:33 12/13/19 24 12/14/2023 COMP. METAB OLIC PANEL (14) creatinine 0.88 mg/dL 0.57-1 .00 Not Available [facility] ([facility]) [address] [place], [address], 12/15/2023 06:20:33 12/13/19 24 12/14/2023 COMP. METAB OLIC PANEL (14) eGFR 71 mL/mi n/1.7 3 >59 Not Available [facility] ([facility]) [address] [place], [address], 12/15/2023 06:20:33 12/13/19 24 12/14/2023 COMP. METAB OLIC PANEL (14) BUN/creatini ne ratio 11 12-28 below low normal Not Available [facility] ([facility]) [address] [place], [address], 12/15/2023 06:20:33 12/13/19 24 12/14/2023 COMP. METAB OLIC PANEL (14) sodium 145 mmol/ L 134-14 4 above high normal Not Available [facility] ([facility]) [address] [place], [address], 12/15/2023 06:20:33 12/13/19 24 12/14/2023 COMP. METAB OLIC PANEL (14) potassium 4.6 mmol/ L 3.5-5. 2 Not Available [facility] ([facility]) [address] [place], [address], 12/15/2023 06:20:33 12/13/19 24 12/14/2023 COMP. METAB OLIC PANEL (14) chloride 100 mmol/ L 96-106 Not Available [facility] ([facility]) [address] [place], [address], 12/15/2023 06:20:33 12/13/19 24 12/14/2023 COMP. METAB OLIC PANEL (14) carbon dioxide, total 27 mmol/ L 20-29 Not Available [facility] ([facility]) [address] [place], [address], 12/15/2023 06:20:33 12/13/19 24 12/14/2023 COMP. METAB OLIC PANEL (14) calcium 9.2 mg/dL 8.7-10 .3 Not Available [facility] ([facility]) [address] [place], [address], 12/15/2023 06:20:33 12/13/19 24 12/14/2023 COMP. METAB OLIC PANEL (14) protein, total 6.9 g/dL 6.0-8. 5 Not Available [facility] ([facility]) [address] [place], [address], 12/15/2023 06:20:33 12/13/19 24 12/14/2023 COMP. METAB OLIC PANEL (14) albumin 4.2 g/dL 3.9-4. 9 Not Available [facility] ([facility]) [address] [facility], [place], [address], 12/15/2023 06:20:33 12/13/19 24 12/14/2023 COMP. METAB OLIC PANEL (14) globulin, total 2.7 g/dL 1.5-4. 5 Not Available [facility] ([facility]) [address] [facility], [place], [address], 12/15/2023 06:20:33 12/13/19 24 12/14/2023 COMP. METAB OLIC PANEL (14) bilirubin, total 0.4 mg/dL 0.0-1. 2 Not Available [facility] ([facility]) [address] [facility], [place], [address], 12/15/2023 06:20:33 12/13/19 24 12/14/2023 COMP. METAB OLIC PANEL (14) alkaline phosphatase 78 IU/L 44-121 Not Available [facility] ([facility]) [address] [facility], [place], [address], 12/15/2023 06:20:33 12/13/19 24 12/14/2023 COMP. METAB OLIC PANEL (14) AST (SGOT) 31 IU/L 0-40 Not Available [facility] ([facility]) [address] [facility], [place], [address], 12/15/2023 06:20:33 12/13/19 24 12/14/2023 COMP. METAB OLIC PANEL (14) ALT (SGPT) 23 IU/L 0-32 Not Available [facility] ([facility]) [address] [facility], [place], [address], 12/15/2023 06:20:33 12/13/19 24 12/13/2023 HELPE R T-LYM PH-CD 4 WBC 4.0 x10e3 /uL 3.4-10 .8 Not Available [facility] ([facility]) [address] [facility], [place], [address], 12/15/2023 06:20:34 12/13/19 24 12/13/2023 HELPE R T-LYM PH-CD 4 RBC 4.88 x10e6 /uL 3.77-5 .28 Not Available [facility] ([facility]) [address] [facility], [place], [address], 12/15/2023 06:20:34 12/13/19 24 12/13/2023 HELPE R T-LYM PH-CD 4 hemoglobin 13.1 g/dL 11.1-1 5.9 Not Available [facility] ([facility]) [address] [facility], [place], [address], 12/15/2023 06:20:34 12/13/19 24 12/13/2023 HELPE R T-LYM PH-CD 4 hematocrit 40.4 % 34.0-4 6.6 Not Available [facility] ([facility]) [address] [facility], [place], [address], 12/15/2023 06:20:34 12/13/19 24 12/13/2023 HELPE R T-LYM PH-CD 4 MCV 83 fL 79-97 Not Available [facility] ([facility]) [address] [facility], [place], [address], 12/15/2023 06:20:34 12/13/19 24 12/13/2023 HELPE R T-LYM PH-CD 4 MCH 26.8 pg 26.6-3 3.0 Not Available [facility] ([facility]) [address] [facility], [place], [address], 12/15/2023 06:20:34 12/13/19 24 12/13/2023 HELPE R T-LYM PH-CD 4 MCHC 32.4 g/dL 31.5-3 5.7 Not Available [facility] ([facility]) [address] [facility], [place], [address], 12/15/2023 06:20:34 12/13/19 24 12/13/2023 HELPE R T-LYM PH-CD 4 RDW 12.5 % 11.7-1 5.4 Not Available [facility] ([facility]) [address] [facility], [place], [address], 12/15/2023 06:20:34 12/13/19 24 12/13/2023 HELPE R T-LYM PH-CD 4 platelets 296 x10e3 /uL 150-45 0 Not Available [facility] ([facility]) [address] [facility], [place], [address], 12/15/2023 06:20:34 12/13/19 24 12/13/2023 HELPE R T-LYM PH-CD 4 neutrophils 39 % notest ab. Not Available [facility] ([facility]) [address] [facility], [place], [address], 12/15/2023 06:20:34 12/13/19 24 12/13/2023 HELPE R T-LYM PH-CD 4 lymphs 36 % notest ab. Not Available [facility] ([facility]) [address] [facility], [place], [address], 12/15/2023 06:20:34 12/13/19 24 12/13/2023 HELPE R T-LYM PH-CD 4 monocytes 9 % notest ab. Not Available [facility] ([facility]) [address] [place], [address], 12/15/2023 06:20:34 12/13/19 24 12/13/2023 HELPE R T-LYM PH-CD 4 eos 14 % notest ab. Not Available [facility] ([facility]) [address] [place], [address], 12/15/2023 06:20:34 12/13/19 24 12/13/2023 HELPE R T-LYM PH-CD 4 basos 1 % notest ab. Not Available [facility] ([facility]) [address] [facility], [place], [address], 12/15/2023 06:20:34 12/13/19 24 12/13/2023 HELPE R T-LYM PH-CD 4 neutrophils (absolute) 1.6 x10e3 /uL 1.4-7. 0 Not Available [facility] ([facility]) [address] [facility], [place], [address], 12/15/2023 06:20:34 12/13/19 24 12/13/2023 HELPE R T-LYM PH-CD 4 lymphs (absolute) 1.4 x10e3 /uL 0.7-3. 1 Not Available [facility] ([facility]) [address] [facility], [place], [address], 12/15/2023 06:20:34 12/13/19 24 12/13/2023 HELPE R T-LYM PH-CD 4 monocytes(ab solute) 0.4 x10e3 /uL 0.1-0. 9 Not Available [facility] ([facility]) [address] [place], [address], 12/15/2023 06:20:34 12/13/19 24 12/13/2023 HELPE R T-LYM PH-CD 4 eos (absolute) 0.6 x10e3 /uL 0.0-0. 4 above high normal Not Available [facility] ([facility]) [address] [place], [address], 12/15/2023 06:20:34 12/13/19 24 12/13/2023 HELPE R T-LYM PH-CD 4 baso (absolute) 0.0 x10e3 /uL 0.0-0. 2 Not Available [facility] ([facility]) [address] [facility], [place], [address], 12/15/2023 06:20:34 12/13/19 24 12/13/2023 HELPE R T-LYM PH-CD 4 immature granulocytes 1 % notest ab. Not Available [facility] ([facility]) [address] [place], [address], 12/15/2023 06:20:34 12/13/19 24 12/13/2023 HELPE R T-LYM PH-CD 4 immature grans (abs) 0.0 x10e3 /uL 0.0-0. 1 Not Available [facility] ([facility]) [address] [place], [address], 12/15/2023 06:20:34 12/13/19 24 12/14/2023 HELPE R T-LYM PH-CD 4 absolute cd 4 helper 284 /uL 359-15 19 below low normal Not Available [facility] ([facility]) [address] [facility], [place], [address], 12/15/2023 06:20:34 12/13/19 24 12/14/2023 HELPE R T-LYM PH-CD 4 % cd 4 pos. lymph. 20.3 % 30.8-5 8.5 below low normal Not Available [facility] ([facility]) [address] [facility], [place], [address], 12/15/2023 06:20:34 12/13/19 24 12/14/2023 HEPAT ITIS B SURF AB QUANT hepatitis B surf Ab quant <3.5 mIU/m L immuni ty>10 below low normal Statu s of Immun ity Anti- HBs Level ----- ----- ----- --- ----- ----- ---- Incon siste nt with Immun ity 0.0 - 10.0 Consi stent with Immun ity >10.0 Not Available [facility] ([facility]) [address] [facility], [place], [address], 12/15/2023 06:20:35 12/13/19 24 12/14/2023 RPR, RFX QN RPR/C ONFIR M TP RPR NON REACTI VE nonrea ctive Not Available [facility] ([facility]) [address] [facility], [place], [address], 12/15/2023 06:20:35 12/13/19 24 12/14/2023 QUANT IFERO N-TB GOLD PLUS quantiferon incubation INCUBA TION PERFOR MED. Not Available [facility] ([facility]) [address] [facility], [place], [address], 12/15/2023 14:13:26 12/13/19 24 12/14/2023 QUANT IFERO N-TB GOLD PLUS quantiferon criteria COMMEN T Quant iFERO N-TB Gold Plus is a quali tativ e indir ect test for M tuber culos is infec tion (incl uding disea se) and is inten ded for use in conju nctio n with risk asses sment , radio graph y, and other medic al and diagn ostic evalu ation s. The Quant iFERO N-TB Gold Plus resul t is deter mined by subtr actin g the Nil value from eithe r TB antig en (Ag) value . The Mitog en tube serve s as a contr ol for the test. Not Available [facility] ([facility]) [address] [facility], [place], [address], 12/15/2023 14:13:26 12/13/19 24 12/15/2023 QUANT IFERO N-TB GOLD PLUS quantiferon- TB gold plus NEGATI VE negati ve No respo nse to M tuber culos is antig ens detec randi. Infec tion with M tuber culos is is unlik felicia, but high risk indiv idual s shoul d be consi dered for addit ional testi ng (ATS/ IDSA/ CDC Clini wild Pract ice Guide lines , 2017) . The refer ence range is an Antig en minus Nil resul t of <0.35 IU/mL . Chemi lumin escen ce immun oassa y metho dolog y Not Available [facility] ([facility]) [address] [place], [address], 12/15/2023 14:13:26 12/13/19 24 12/15/2023 QUANT IFERO N-TB GOLD PLUS quantiferon TB1 Ag value 0.03 IU/mL Not Available [facility]) [address] [place], [address], 12/15/2023 14:13:12/13/19 24 12/15/2023 QUANT IFERO N-TB GOLD PLUS quantiferon TB2 Ag value 0.02 IU/mL Not Available [facility]) [address] [place], [address], 12/15/2023 14:13:26 12/13/19 24 12/15/2023 QUANT IFERO N-TB GOLD PLUS quantiferon nil value 0.01 IU/mL Not Available [facility] ([facility]) [address] [place], [address], 12/15/2023 14:13:26 12/13/19 24 12/15/2023 QUANT IFERO N-TB GOLD PLUS quantiferon mitogen value >10.00 IU/mL Not Available [facility] ([facility]) [address] [place], [address], 12/15/2023 14:13:26 12/13/19 24 12/15/2023 RNA, REAL TIME PCR (NON- GRAPH ) HIV-1 RNA by PCR 50 copie s/mL The repor table range for this assay is 20 to 10,00 0,000 copie s HIV-1 RNA/m L. Not Available [facility] ([facility]) [address] [place], [address], 12/15/2023 16:13:24 12/13/19 24 12/15/2023 RNA, REAL TIME PCR (NON- GRAPH ) log10 HIV-1 RNA 1.699 log10 copy/ mL Not Available [facility] ([facility]) [address] [facility], [place], [address], 12/15/2023 16:13:24 06/30/19 25 06/29/2024 Strep tococ cus pyoge perfecto Ag [Pres ence] in Throa t by Immun ofluo resce nce streptococcu s pyogenes Ag [presence] in throat by immunofluore scence Negati ve text: negati ve normal Not Available Not Available 06/29/2024 22:52:21 06/30/19 25 06/29/2024 Strep tococ cus pyoge perfecto Ag [Pres ence] in Throa t by Immun ofluo resce nce reagent lot number [id number] normal Not Available Not Available 06/20 22:52:21 06/30/19 25 06/29/2024 Strep tococ cus pyoge perfecto Ag [Pres ence] in Throa t by Immun ofluo resce nce internal control result Labora tory data interp retati on normal Not Available Not Available 22:52:21 06/30/19 25 06/29/2024 Influ rolly virus A and B and SARS- CoV+S ARS-C oV-2 (COVI D-19) Ag panel - Upper respi rator y speci men by Rapid immun oassa y influenza virus A Ag [presence] in specimen by immunofluore scence Negati ve text: negati ve normal Not Available Not Available 06/29/2024 22:52:21 06/30/19 25 06/29/2024 Influ rolly virus A and B and SARS- CoV+S ARS-C oV-2 (COVI D-19) Ag panel - Upper respi rator y speci men by Rapid immun oassa y influenza virus B Ag [presence] in specimen by immunofluore scence Negati ve text: negati ve normal Not Available Not Available 06/29/2024 22:52:21 06/30/19 25 06/29/2024 Influ rolly virus A and B and SARS- CoV+S ARS-C oV-2 (COVI D-19) Ag panel - Upper respi rator y speci men by Rapid immun oassa y sars-cov+joseluis s-cov-2 (covid-19) Ag [presence] in respiratory system specimen by rapid immunoassay Negati ve text: negati ve normal Not Available Not Available 06/29/2024 22:52:21 06/30/1906/29/2024 Influ rolly virus A and B and SARS- CoV+S ARS-C oV-2 (COVI D-19) Ag panel - Upper respi rator y speci men by Rapid immun oassa y reagent lot number [id number] normal Not Available Not Available 06/20 22:52:21 06/30/19 25 06/29/2024 Influ rolly virus A and B and SARS- CoV+S ARS-C oV-2 (COVI D-19) Ag panel - Upper respi rator y speci men by Rapid immun oassa y internal control result Labora tory data interp retati on normal Not Available Not Available 22:52:21 06/08/19 23 06/07/2022 XR, chest No observ ation record ed. [address], [address], 07/31/2022 12:02:40 06/08/19 23 06/07/2022 CT, angio gram, carot id arter ies, w/ contr ast No observ ation record ed. [address] [address], [place], [address], 07/31/2022 12:02:40 06/08/19 23 06/07/2022 MRI, brain + brain stem, w/o contr ast No observ ation record ed. [address] [address], [place], [address], 07/31/2022 12:02:40 06/09/19 23 06/08/2022 trans -thor acic echoc ardio gram (TTE) (PROC ) No observ ation record ed. [address], [place], [address], 07/31/2022 12:02:40 06/10/19 23 06/09/2022 evalu ation of oral and phary ngeal swall owing funct ion (PROC ) No observ ation record ed. [address], [place], [address], 07/31/2022 12:02:40 06/11/19 23 06/10/2022 XR, foot No observ ation record ed. [address], [place], [address], 07/31/2022 12:02:40 07/11/19 23 07/10/2022 CT, head, w/o contr ast No observ ation record ed. [address], [place], [address], 07/31/2022 12:02:39 07/11/19 23 07/09/2022 CT, cervi wild spine , w/o contr ast No observ ation record ed. [address], [place], [address], 07/31/2022 12:02:39 07/11/19 23 07/10/2022 XR, chest No observ ation record ed. [address], [place], [address], 07/31/2022 12:02:39 12/31/19 23 12/30/2022 MAMMO , scree lucho, bilat eral No observ ation record ed. [address], [address], 02/08/2023 12:49:25 Result Notes None recorded. Problems Name Problem SNOMED Code Status Onset Date Resolution Date Notes Provider Name and Address Organization Details Recorded Time Osteoporos is 78112733 Active 2017 Not Available [facility] 3 07:23:32 Degenerati on of lumbar interverte bral disc 64724515 Active 2018 Not Available [facility] 3 07:23:32 Lumbosacra l radiculopa thy 7677226 Active 2019 Not Available [facility] 3 07:23:32 Contusion of finger 12667615 Active Not Available [facility] 3 07:23:32 Lumbar radiculopa thy 799918533 Active 2021 Not Available [facility] 3 07:23:32 Pain of right shoulder joint 4744185731831 9100 Active 2021 Not Available [facility] 3 07:23:32 SARS-CoV-2 antigen vaccine declined 3653958120 Active 2021 Not Available [facility] 3 07:23:32 History of cerebrovas cular accident 257917266 Active 2022 Not Available [facility] 3 07:23:32 Right hemiparesi s 963990869 Active 2022 Not Available [facility] 3 07:23:32 Influenza vaccinatio n declined 456006745 Active 2022 Carter Celaya MD Attn: Accounting ,[address] [place], [address] , [facility] 3 14:18:06 Memory impairment 456344656 Active Not Available [facility] 3 07:23:32 Genital herpes simplex 53521187 Active Not Available [facility] 3 07:23:32 Disorder of lipid metabolism 558165216 Active Not Available [facility] 3 07:23:32 Eruption 332367145 Active Not Available [facility] 3 07:23:32 Hip pain 81346439 Active Not Available [facility] 3 07:23:32 Low back pain 078202012 Active Not Available [facility] 3 07:23:32 Kidney disease 95273405 Active Not Available [facility] 3 07:23:32 Pure hyperchole sterolemia 655710180 Active Not Available [facility] 3 07:23:32 Human immunodefi ciency virus infection 41120560 Active Not Available [facility] 3 07:23:32 Problem Notes None recorded. Procedures Surgical History Date Name Laterality Status Provider Name and Address Organization Details Recorded Time 1 Date of Last Pap Smear completed Carter Celaya MD Attn: Accounting,[address] [place] [facility], [place], [address], [facility] 05/01/2020 11:03:42 0 Date of Last Mammogram completed Carter Celaya MD Attn: Accounting,[address] [place], [address], [facility] 05/01/2020 11:04:12 4 colonoscopy completed Carter Celaya MD Attn: Accounting,[address] [place], [address], [facility] 11/21/2019 11:09:55 Imaging Results Imaging Date Name Status LastModified by Organization Details LastModified Time 06/07/2022 XR, chest completed [address] [place] [address], [id number], 07/31/2022 12:02:40 06/07/2022 CT, angiogram, carotid arteries, w/ contrast completed [address] [place] [address], [id number], 07/31/2022 12:02:40 06/07/2022 MRI, brain + brain stem, w/o contrast completed [address] [place] [address], [id number], 07/31/2022 12:02:40 06/08/2022 trans-thoracic echocardiogram (TTE) (PROC) completed [address] [place] [address], [id number], 07/31/2022 12:02:40 06/09/2022 evaluation of oral and pharyngeal swallowing function (PROC) completed [address], [address], 07/31/2022 12:02:40 06/10/2022 XR, foot completed [address], [address], 07/31/2022 12:02:40 07/10/2022 CT, head, w/o contrast completed [address], [address], 07/31/2022 12:02:39 07/09/2022 CT, cervical spine, w/o contrast completed [address], [address], 07/31/2022 12:02:39 07/10/2022 XR, chest completed [address], [address], 07/31/2022 12:02:39 12/30/2022 MAMMO, screening, bilateral completed [address], [address], 02/08/2023 12:49:25 Procedure Notes None recorded. Medical Equipment None Reported. Allergies Allergen ID Allergen Name Allergen Category Reaction Reaction Severity Criticality Documentation Date Start Date Code Code System Note Provider Name and Address Organization Details Recorded Time [id number] No known allergy (situatio n) Not available Not available Not available Not available 02/08/2023 [id number] SNOMED Not Available Not Available Not Available No known drug allergies Medications Name Sig Start Date Stop Date Status Note LastModified by Organization Details LastModified Time Prescript ion - Renewal 08/05 completed Not Available Not Available Not Available amoxicill in 500 mg capsule TAKE 1 CAPSULE BY MOUTH 3 TIMES A DAY FOR 5 DAYS 07/31 completed Not Available Not Available Not Available atorvasta tin 80 mg tablet TAKE 1 TABLET BY MOUTH EVERY DAY active Not Available Not Available No t Available azelastin e 0.05 % eye drops 07/22 completed Not Available Not Available Not Available aspirin 325 mg tablet TAKE 1 TABLET BY MOUTH DAILY AT 0800 active Not Available Not Available No t Available pravastat in 40 mg tablet Take 1 tablet every day by oral route as directed for 90 days. 03/28 completed Not Available Not Available Not Available ofloxacin 0.3 % eye drops 07/31 completed Not Available Not Available Not Available hydrocodo ne 5 mg-acetam inophen 325 mg tablet 01/24 completed Not Available Not Available Not Available atovaquon e 250 mg-progua nil 100 mg tablet One po daily, start 2 days before travel, continue while away and for 7 days after she returns. (30 day foreign trip) 07/22 completed Not Available Not Available Not Available prednison e 20 mg tablet 07/22 completed Not Available Not Available Not Available permethri n 5 % topical cream 07/31 completed Not Available Not Available Not Available clindamyc in HCl 150 mg capsule 11/20 completed Not Available Not Available Not Available penicilli n V potassium 500 mg tablet TAKE 1 TABLET BY MOUTH TWICE A DAY DIRECTED FOR 10 DAYS 07/22 completed Not Available Not Available Not Available amlodipin e 2.5 mg tablet TAKE 1 TABLET BY MOUTH EVERY MORNING active Not Available Not Available No t Available acetamino phen 300 mg-codein e 30 mg tablet 01/24 completed Not Available Not Available Not Available amlodipin e 5 mg tablet TAKE 1 TABLET BY MOUTH EVERY DAY IN THE MORNING 12/12 completed Not Available Not Available Not Available sulfameth oxazole 800 mg-trimet hoprim 160 mg tablet Take 1 tablet every day by oral route as directed for 30 days. 03/28 completed Not Available Not Available Not Available acetamino phen ER 650 mg tablet,ex tended release Take 1 tablet every 8 hours by oral route as needed for 30 days. 08/05 completed Not Available Not Available Not Available ofloxacin 0.3 % ear drops ADMINIST ER 5 DROPS INTO THE LEFT EAR DAILY FOR 8 DAYS 07/31 completed Not Available Not Available Not Available ciproflox acin 0.3 % eye drops INSTILL 1 DROP INTO AFFECTED EYE(S) BY OPHTHALM IC ROUTE EVERY 2 HOURSWHI LE AWAKE FOR 2 DAYS THEN 1 DROP EVERY 4 HRS WHILE AWAKE FOR 5 DAYS 07/31 completed Not Available Not Available Not Available imiquimod 5 % topical cream packet 08/05 completed Not Available Not Available Not Available cephalexi n 500 mg capsule TAKE ONE CAPSULE BY MOUTH EVERY 6HR UNTIL ALL TAKEN 12/12 completed Not Available Not Available Not Available oseltamiv ir 75 mg capsule 05/09 completed Not Available Not Available Not Available triamcino lone acetonide 0.1 % topical ointment APPLY TOPICALL Y TO THE AFFECTED AREA TWICE DAILY 02/08 completed Not Available Not Available Not Available clotrimaz ole-betam ethasone 1 %-0.05 % topical cream APPLY TO AFFECTED AREA TWICE A DAY active Not Available Not Available No t Available polymyxin B sulfate 10,000 unit-trim ethoprim 1 mg/mL eye drops ADMINIST ER 2 DROPS INTO THE LEFT EYE 4 (FOUR) TIMES A DAY FOR 7 DAYS 07/31 completed Not Available Not Available Not Available gabapenti n 300 mg capsule TAKE 1 CAPSULE BY MOUTH EVERY 8 HOURS active Not Available Not Available No t Available hydroxyzi ne HCl 25 mg tablet 08/05 completed Not Available Not Available Not Available acyclovir 200 mg capsule 05/01 completed Not Available Not Available Not Available clobetaso l 0.05 % topical ointment APPLY TO AFFECTED AREA TWICE A DAY active Not Available Not Available No t Available estradiol 0.01% (0.1 mg/gram) vaginal cream INSERT 1 GRAM VAGINALL Y 3 TIMES A WEEK 01/02 completed Not Available Not Available Not Available cefdinir 300 mg capsule TAKE 1 CAPSULE BY MOUTH TWICE A DAY FOR 10 DAYS 07/31 completed Not Available Not Available Not Available fluticaso ne propionat e 50 mcg/actua tion nasal spray,aixa pension SPRAY 2 SPRAYS INTO EACH NOSTRIL EVERY DAY active Not Available Not Available No t Available amoxicill in 875 mg-potass ium clavulana te 125 mg tablet TAKE 1 TABLET BY MOUTH TWICE A DAY FOR 10 DAYS 02/08 completed Not Available Not Available Not Available escitalop mildred 10 mg tablet TAKE 1 TABLET BY MOUTH DAILY 02/08 completed I don't take it: Not Available Not Available Not Available ezetimibe 10 mg tablet TAKE 1 TABLET BY MOUTH EVERY DAY IN THE MORNING active Not Available Not Available No t Available cyclobenz aprine 5 mg tablet TAKE 1 TABLET BY MOUTH THREE TIMES A DAY NEEDED FOR MUSCLE SPASMS 12/12 completed Not Available Not Available Not Available rosuvasta tin 10 mg tablet Take 1 tablet every day by oral route around the clock for 90 days. 10/14 completed Not Available Not Available Not Available rosuvasta tin 20 mg tablet TAKE 1 TABLET BY MOUTH EVERY DAY AT BEDTIME active She has chosen to take Lipitor instead Not Available Not Available Not Available rosuvasta tin 40 mg tablet Take 1 tablet every day by oral route at dinner for 90 days. 07/31 completed On Atorvast atin Not Available Not Available Not Available memantine 5 mg tablet TAKE 1 TABLET BY MOUTH TWICE A DAY active Not Available Not Available No t Available Truvada 200 mg-300 mg tablet one po daily 02/16 completed Not Available Not Available Not Available ibandrona te 150 mg tablet TAKE 1 TABLET BY MOUTH MONTHLY DIRECTED FOR 90 DAYS 2024 active Not Available Not Available Not Avai lable cholecalc iferol (vitamin D3) 25 mcg (1,000 unit) tablet TAKE 1 TABLET BY MOUTH EVERY DAY active Not Available Not Available No t Available ritonavir 100 mg tablet TAKE 1 TABLET BY MOUTH EVERY DAY 2024 active Not Available Not Available Not Avai lable darunavir 800 mg tablet TAKE 1 TABLET BY MOUTH EVERY DAY WITH FOOD. STORE AT ROOM TEMPERAT URE. 2024 active Not Available Not Available Not Avai lable Descovy 200 mg-25 mg tablet TAKE 1 TABLET BY MOUTH EVERY DAY DIRECTED FOR HIV 2024 active Not Available Not Available Not Avai lable Juluca 50 mg-25 mg tablet Take 1 tablet every day by oral route as directed for 30 days. 05/09 completed Virologi c failure Not Available Not Available Not Available Women's 50 Plus Multivita min 10/14 completed Not Available Not Available Not Available Fluzone Quad (PF) 60 mcg (15 mcg x 4)/0.5 mL IM syringe 01/24 completed Not Available Not Available Not Available Afluria Qd 2019- (36 mos up)(PF)60 mcg (15 mcg x4)/0.5 mL IM syringe PHARMACY ADMINIST ERED 02/19 completed Not Available Not Available Not Available Vitals Date Recorded Body height Body mass index (BMI) Body weight Heart rate Oxygen saturation Oxygen saturation in Arterial blood by Pulse oximetry Respiratory rate Body temperature Systolic blood pressure Diastolic blood pressure Provider Name and Address Organization Details Last Updated DateTime 2 167.64 cm 21.3 kg/m2 54255.4 7 g 74 /min 99 % 99 % 14 /min 98.5 [degF] 130 mm[Hg] 70 mm[Hg] Janet Nassar MA [facility] 2 10:09:05 Date Recorded Body height Body mass index (BMI) Body weight Respiratory rate Heart rate Oxygen saturation Oxygen saturation in Arterial blood by Pulse oximetry Systolic blood pressure Diastolic blood pressure Provider Name and Address Organization Details Last Updated DateTime 3 167.64 cm 21.6 kg/m2 33156.3 8 g 14 /min 66 /min 99 % 99 % 130 mm[Hg] 70 mm[Hg] Janet Nassar MA [facility] 3 11:53:15 Date Recorded Body height Body mass index (BMI) Body weight Oxygen saturation Oxygen saturation in Arterial blood by Pulse oximetry Heart rate Respiratory rate Systolic blood pressure Diastolic blood pressure Provider Name and Address Organization Details Last Updated DateTime 3 167.64 cm 21.3 kg/m2 18218.1 9 g 100 % 100 % 72 /min 16 /min 140 mm[Hg] 70 mm[Hg] Janet Nassar MA [facility] 3 12:35:35 Date Recorded Body height Body mass index (BMI) Body weight Oxygen saturation Oxygen saturation in Arterial blood by Pulse oximetry Heart rate Systolic blood pressure Diastolic blood pressure Provider Name and Address Organization Details Last Updated DateTime 3 167.64 cm 21.6 kg/m2 10792.6 6 g 100 % 100 % 74 /min 120 mm[Hg] 60 mm[Hg] Janet Nassar MA [place] [facility] 3 11:44:27 Date Recorded Body height Body mass index (BMI) Body weight Heart rate Oxygen saturation Oxygen saturation in Arterial blood by Pulse oximetry Respiratory rate Body temperature Systolic blood pressure Diastolic blood pressure Provider Name and Address Organization Details Last Updated DateTime 4 167.64 cm 21.5 kg/m2 20257.8 6 g 72 /min 100 % 100 % 14 /min 97.8 [degF] 140 mm[Hg] 70 mm[Hg] Janet Nassar MA [facility] 4 09:49:51 Social History Question Answer Notes LastModified by Organizat ion Details LastModified Time Tobacco Smoking Status Never Smoker June ALICIA Hanson, [place] [facility] 02/09/2014 11:54:51 What Is Your Level Of Alcohol Consumption? None Information not available 12/13/2023 What Is Your Level Of Caffeine Consumption? Occasional Information not available 12/13/2023 Do You Or Have You Ever Used E-cigarettes Or Vape? Never Used Electronic Cigarettes Information not available 01/24/2019 Date Of 1st HIV Medical Visit 02/09/2014 Information not available 08/04/2019 [facility] Slide Cap On Charges 0 Information not available 08/05/2021 HIV Dx By [facility] No Informatio n not available 01/24/2019 [facility]W HIV Risk Counseling #1 12/13/2023 Information not available 12/13/2023 Depression Screen/Follow Up Plan 11/21/2019 Information not available 11/21/2019 Hep B Status Completed Series Hep B Surface Ag Neg Information not available 01/24/2019 RW Visit Frequency 3 Months Information not available 08/25/2019 Dental Visit 1 03/23/2022 Informatio n not available 12/13/2023 RW URN [id number] Information no t available 03/28/2014 [facility]WE End Date 09/18/2020 RW Part B Information not available 12/19/2019 [facility] Status Active Information no t available 03/28/2014 Silk Screener / Phone # Lashawn Parkinson ([phone]) Information not available 12/04/2020 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 12/13/2023 Information not available 12/13/2023 Do You Use Protection During Sex? No Information not available 02/09/2014 Are You Sexually Active? No Information not available 02/09/2014 Do You Or Have You Ever Used Smokeless Tobacco? Never Used Smokeless Tobacco Information not available 01/24/2019 How Much Tobacco Do You Smoke? No Information not available 08/05/2016 Do You Use Any Illicit Or Recreational Drugs? No Information not available 12/13/2023 Has Tobacco Cessation Counseling Been Provided? Yes Information not available 12/13/2023 On What Date Was Tobacco Cessation Counseling Provided? 12/13/2023 Information not available 12/13/2023 How Many Years Have You Smoked Tobacco? 0 Information not available 08/05/2016 Do You Or Have You Ever Used Any Other Forms Of Tobacco Or Nicotine? No Information not available 02/08/2023 Sex: Unknown Functional Status None recorded. Mental Status None recorded. Family History Nothing Reported. Medical History Condition Response Other Y Headaches Y High Cholesterol Y Gynecological History Statement/Question Response Date of Last Pap Smear 04/25/2020 Date of Last Mammogram 12/21/2019 Obstetrics History GPAL:G 0 P 0 0 0 0 Immunizations Vaccine Type Date Status Note Provider Nam e and Address Organization Details Recorded Time Influenza, split virus, quadrivalent, preservative 8 completed Not Available [facility] 12/31/2022 07:23:33 Influenza, split virus, quadrivalent, preservative 9 completed Not Available [facility] 12/31/2022 07:23:33 Influenza, split virus, quadrivalent, preservative 0 completed Not Available [facility] 03/09/2023 11:18:02 SARS-COV-2 (COVID-19) vaccine, UNSPECIFIED 1 completed Not Available [facility] 03/09/2023 11:18:02 SARS-COV-2 (COVID-19) vaccine, UNSPECIFIED 1 completed Not Available [facility] 12/31/2022 07:23:33 Influenza, split virus, quadrivalent, preservative 1 completed Not Available [facility] 12/31/2022 07:23:33 Influenza, high-dose, quadrivalent, PF 1 completed Not Available [facility] 12/31/2022 07:23:33 COVID-19, mRNA, LNP-S, PF, 30 mcg/0.3 mL dose 1 completed Not Available [facility] 12/31/2022 07:23:33 Influenza, split virus, quadrivalent, PF 0 completed Not Available [facility] 12/31/2022 07:23:34 MMR 0 completed Not Available [facility] 12/31/2022 07:23:33 COVID-19, mRNA, LNP-S, PF, 30 mcg/0.3 mL dose 1 completed Not Available [facility] 12/31/2022 07:23:33 Influenza, high-dose, quadrivalent, PF 2 completed Not Available [facility] 12/31/2022 07:23:33 Tdap 0 completed Not Available [facility] 12/31/2022 07:23:33 varicella 0 completed Not Available [facility] 12/31/2022 07:23:34 Hep A, adult 0 completed Not Available [facility] 12/31/2022 07:23:34 varicella 0 completed Not Available [facility] 12/31/2022 07:23:34 MMR 0 completed Not Available [facility] 12/31/2022 07:23:33 Hep B, adult 6 completed Not Available [facility] 12/31/2022 07:23:34 COVID-19, mRNA, LNP-S, PF, 30 mcg/0.3 mL dose 1 completed Not Available [facility] 12/31/2022 07:23:33 COVID-19, mRNA, LNP-S, PF, 100 mcg/0.5mL dose or 50 mcg/0.25mL dose 1 completed Not Available [facility] 12/31/2022 07:23:33 influenza, unspecified formulation 2 completed Not Available [facility] 12/31/2022 07:23:33 zoster recombinant 4 completed Carter Celaya MD Attn: Accounting[address] [facility], [place], [address], [place] [facility] 12/13/2023 09:52:52 Influenza, adjuvanted, quadrivalent, PF 3 completed Carter Celaya MD Attn: Accounting[address] [facility], [place], [address], [place] [facility] 12/13/2023 09:52:52 Tdap 4 completed Carter Celaya MD Attn: Accounting[address] [facility], [place], [address], [place] [facility] 12/13/2023 09:52:52 Influenza, high-dose, trivalent, PF 4 completed Carter Celaya MD Attn: Accounting[address] [facility], [place], [address], [place] [facility] 12/13/2023 09:52:52 pneumococcal polysaccharide PPV23 8 completed Not Available [facility] 04/08/2019 02:44:14 Influenza, high-dose, trivalent, PF 5 completed Not Available [facility] 12/31/2022 07:23:34 pneumococcal polysaccharide PPV23 2 completed Not Available [facility] 12/31/2022 07:23:33 Tdap 2 completed Not Available [facility] 12/31/2022 07:23:34 Hep B, adult 2 completed Not Available [facility] 12/31/2022 07:23:34 Hep B, adult 2 completed Not Available [facility] 12/31/2022 07:23:34 influenza, intradermal, quadrivalent, preservative free 6 completed Not Available [facility] 12/31/2022 07:23:33 Tdap 2 completed Carter Celaya MD Attn: Accounting,[address], [place], [address], [facility] 01/02/2022 12:03:58 Influenza, split virus, quadrivalent, preservative 7 completed Not Available [facility] 12/31/2022 07:23:33 Pneumococcal conjugate PCV 13 6 completed Not Available [facility] 04/08/2019 02:51:04 Past Encounters Encounter ID Performer Location Encounter Start Date Encounter Closed Date Diagnosis/Indication Diagnosis SNOMED-CT Code Diagnosis ICD10 Code Diagnosis Note [id number] June ALICIA Hanson (Adult Med) [address] [place] [id number] 02/09/2014 11:33:19 02/09/2014 12:42:57 Pure hypercholesterolemia 815820880 Take meds as prescribed Human immunodeficiency virus infection 82054907 Lab results ar pending Fully compliant Continue medication s [id number] MD Wiliam Stephens (Adult Med) [address] [place] [phone] 06/08/2014 10:55:42 06/08/2014 17:08:22 Human immunodeficiency virus infection 24453869 Fully compliant, she denies sexual activity and her is aware of her HIV diagnosis and her wanted her to get rechecked at another doctor. Her Pap smear was done 05/24/2014 and it was abnormal. Her labs were reviewed with her, she should continue her current regimen of Norvir/Pre zista/Truv ada for her HIV, as well as Bactrim DS for PCP prophylaxi s. 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 Harmon [id number] MD Wiliam Stephens (Adult Med) [address] [place] [id number] 05/01/2015 12:15:16 05/01/2015 13:26:54 Human immunodeficiency virus infection 23836827 B97.35 Labs are stable, her once a year follow up is unacceptab le and I have encouraged her to keep her scheduled follow up appointmen ts. The main issue appears to be taking time off from work, I have given her a note for work. Disorder o f lipid metabolism 878754555 E78.9 She admits that she has not been compliant, the importance of taking her pravastain was discussed Human immunodeficiency virus counseling 699102419 Z71.7 Discussed Screening for malignant neoplasm of breast 275473599 Z12.39 [id number] MD Wiliam Stephens (Adult Med) [address] [place] [id number] 07/05/2015 10:36:07 07/05/2015 12:38:35 Eruption 044663528 R21 She has not taken her Pravastati n for about a week, her itchy rash now involves the nape of her neck as well as both upper extremitie s. The rash is macular and itchy. The differenti al diagnosis includes her medication s or an infection. She thinks that it is round worms from her recent overseas trip, I am not convinced. She also uses hair dye, which may explain the rash in the nape of her neck but not her forearms, she feels well otherwise. I will initiate a therapeuti c trial with Lotrisone and have her seen by the dermatolog ist. Disorder o f lipid metabolism 225037777 E78.9 Restart Pravastain [id number] MD Wiliam Stephens (Adult Med) [address] [place] [id number] 08/30/2015 09:47:20 08/30/2015 10:51:23 Hip pain 50456456 M25.551 Low back pain 619073376 M54.5 Human immunodeficiency virus infection 90583772 B97.35 Labs are stable, on Truvada/No rvir/Prezi sta, her renal insufficie ncy requires that her Truvada be changed to Descovy, this was explained to the patient. Continue Bactrim for PCP prophylaxi s. Kidney disease 18189258 N08 Possibly from her Truvada, she was reassured. [id number] MD Wiliam Stephens () [address] [place] [phone] 02/17/2016 11:31:31 02/17/2016 12:50:54 Human immunodeficiency virus infection 42274420 B97.35 Labs are stable, on Descovy/No rvir/Prezi sta, continue Bactrim for PCP prophylaxi s and ensure that her CD4 count remains above 200. Low back pain 450578042 M54.5 Active or passive immunization 107472587 Z23 She is non immune despite a completion of Hepatitis B series, I will attempt a higher dose. Kidney disease 44877173 N08 Improvemen t noted. Disorder o f lipid metabolism 623941653 E78.9 Restart Pravastain , patient education was done, she was warned of the risks of CVS events Human immunodeficiency virus counseling 267339632 Z71.7 Discussed, she has notified her who according to her he has refused to get tested. She was reminded of the testing centers. She denies sexual activity and states that she has abstained ever since she was diagnosed with HIV. Noncomplia nce with medication regimen 648769157 Z91.14 [id number] MD Wiliam Stephens (Adult Med) [address] [place] [id number] 08/05/2016 09:57:50 08/05/2016 11:18:37 Human immunodeficiency virus infection 74035338 B20 Labs are acceptable , on Descovy/No rvir/Prezi sta, continue Bactrim for PCP prophylaxi s as her CD4 is less than 200. Disorder o f lipid metabolism 581153854 E78.9 Restart Pravastain , patient education was done, she was warned of her increased risk of CVS events Dry skin dermatitis 2600 14839 L85.3 [id number] MD Wiliam Stephens () [address] [place] [phone] 10/22/2017 10:56:45 10/22/2017 12:03:22 Human immunodeficiency virus infection 99042831 B20 I have repeated her HIV test, she had not only a positive HIV antibody and Western Blot but also an HIV-1 RNA PCR of 218,410 and a T cell count of 150 09/30/2011 Low back pain 789838598 M54.5 This is chronic and it is unclear if this caused by her TFV, her xrays done 09/09/2015 with degenerati ve changes and narrowing of L5 and S1. Diabetes m ellitus screening 842714082 Z13.1 Administra tion of pneumococcal vaccine 42699723 Z23 Screening for malignant neoplasm of breast 565917189 Z12.39 Ordered by WARD NURSE Abdirahman streeter weight loss 353217694 R63.4 In [facility] she has only lost 3 lbs, her weight when she establishe d care was 118 lbs [id number] MD [facility] () [address] [place] [address] 0 03/14/2018 10:16:49 03/21/2018 11:09:44 Human immunodeficiency virus infection 46089169 B20 StableSwit ch to Juluca if Hep B serology is negative, side effects were discussed. She will then need to stop her Descovy/Pr ezista/Nor vir Hepatitis B screening required 897057244 Z78.9 Osteoporosis 25349714 M8 1.0 Foot pain 28522399 M79.6 71 Disorder o f lipid metabolism 414137334 E78.9 Restart Pravastain , patient education was done, she was warned of her increased risk of CVS events [id number] MD Wiliam Stephens ([facility]) [address] [place] [address] 0 07/22/2018 11:58:11 07/25/2018 08:40:50 Human immunodeficiency virus infection 74212464 B20 StableNega tive Hep B serology Continue Julrachael Continue Bactrim for now even though her Tcells are above 200, in the past she has had the Tcells go below and above 200 even with an undetectab le HIV VL. Low back pain 665618684 M54.5 This is chronic and it is unclear if this was caused by her TFV, her xrays done 09/09/2015 with degenerati ve changes and narrowing of L5 and S1. Degenerati on of lumbar intervertebral disc 51976534 M51.36 Disorder o f lipid metabolism 252474042 E78.9 Restart Pravastain . Osteoporosis 82797574 M8 1.0 Screening for malignant neoplasm of breast 071403960 Z12.39 Ordered by WARD NURSE Elevated blood-pressure reading without diagnosis of hypertension 090015483 R03.0 Monitor blood pressureNo [facility], later [facility] today [id number] MD Wiliam Stephens (Adult Med) [address] [place] [address] [phone] 01/24/2019 12:26:29 01/24/2019 14:33:34 Venereal disease screening 864401199 Z11.3 Human immunodeficiency virus infection 52896521 B20 StableHIV 30, this most likely represents a blip.CD4 224 Negative Hep B serology Continue Juluca Stop Bactrim for now as her Tcells are once again above 200, although in the past she has had the Tcells oscillate even with an undetectab le HIV VL. Depression screening 171 704677 Z13.31 Disorder o f lipid metabolism 971550389 E78.9 Uncontroll ed on Pravastain .Start Pravastati n Osteoporosis 45330051 M8 1.0 Pain of ri ght ankle joint 5321377191 1831875 M25.571 Gastroesop hageal reflux disease 323958498 K21.9 Eruption 259516219 R21 Her skin is dry and emollients should help Urinary symptoms 7188426 08 R39.9 [id number] MD Wiliam Stephens () [address] [place] [address] [phone] 03/28/2019 10:56:29 03/28/2019 12:06:38 Human immunodeficiency virus infection 06200452 B20 Previously undetectab le.Her HIV VL was 30, it is now 60, this was most likely felt to be due to blip. I am concerned that the low level viremia may be failure CD4 390 Negative Hep B serology Continue Juluca Stop Bactrim for now as her T cells are once again above 200, although in the past she has had the T cells oscillate even with an undetectab le HIV VL. Check Genosure and recheck HIV VL, she may need a regimen change. Disorder o f lipid metabolism 941255908 E78.9 Uncontroll ed on Rosuvastat in, if that is what she is really taking. [id number] MD Wiliam Stephens (Adult Med) [address] [place] [address] [phone] 05/09/2019 11:38:35 05/10/2019 09:06:04 Human immunodeficiency virus infection 89994959 B20 Previously undetectab le HIV VL, her HIV VL was 30, 60 and now 80. This was initially felt to be due to blip. I am now more concerned that the low level viremia may be failure CD4 390 Negative Hep B serology Stop Juluca Restart Descovy/No rvir/Prezi sta Detailed discussion about the side effects including but not limited to renal and metabolic abnormalit ies. [id number] MD Wiliam Stephens (Adult Med) [address] [place] [address] [phone] 11/21/2019 10:57:59 11/21/2019 12:08:23 Human immunodeficiency virus infection 72706273 B20 CD4 274/HIV VL 128The interrupti on may explain her detectable VL Screening for malignant neoplasm of breast 397414776 Z12.39 Ordered by WARD NURSE Disorder o f lipid metabolism 054775019 E78.9 Uncontroll ed on Rosuvastat in, if that is what she is really taking. Lumbosacra l radiculopathy 6110941 M54.17 Pain in right foot 37464 51349 92868 M79.671 Screening for malignant neoplasm of cervix 976582528 Z12.4 [id number] MD Wiliam Stephens (Adult Med) [address] [place] [address] [phone] 0 02/20/2020 12:02:48 02/20/2020 12:59:01 Tuberculosis screening 387793273 Z11.7 Pruritic rash 01329606 L 28.2 She has a chronic macular rash all over with dark pigmentati on of her forehead, I am concerned about a drug rash, a drug photosensi tivity or Eczema.I will refer her back to the dermatolog ist and try and get a note from her previous consultati on.Trial of triamcinol one 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 Recheck and consider changing the dose. Human immunodeficiency virus infection 77633729 B20 CD4 272/HIV VL 20Stable on Prezista/N orvir/Desc ovy [id number] MD Wiliam Stephens (Adult Med) [address] [place] [address] [phone] 05/06/2020 07:53:58 05/07/2020 07:45:04 Disorder of lipid metabolism 292719490 E78.9 Uncontroll ed on Rosuvastat in 10 mg, I will increase the dose to 20 mg dose Human immunodeficiency virus infection 38416460 B20 CD4 252/HIV VL 40Stable on Prezista/N orvir/Desc ovy Eruption 763808288 R21 Her skin is dry and emollients should help [id number] MD Wiliam Stephens (Adult Med) [address] [place] [address] [phone] 0 10/14/2020 12:30:51 10/16/2020 12:04:50 Human immunodeficiency virus infection 83583653 B20 CD4 252/HIV VL 40Stable on Prezista/N orvir/Desc ovyLabs Screening for malignant neoplasm of breast 193995941 Z12.39 Ordered by WARD NURSE Lumbar radiculopathy 128 178091 M54.16 She has an abnormal MRI from 12/2019PT was discussed, it appears that she prefers interventi onal pain management Pain in right foot 47056 02316 60902 M79.671 Ankle pain 934833847 M25 .579 Abdominal pain 25651982 R10.9 Colonoscop y 11/14/2017U S [id number] MD Wiliam Stephens (Adult Med) [address] [place] [address] [phone] 11/05/2020 12:11:14 11/05/2020 13:13:54 Human immunodeficiency virus infection 06365057 B20 CD4 314/HIV VL 40Stable on Prezista/N orvir/Desc ovy Eruption 528945491 R21 Antibiotic prophylaxis indicated 433720397 Z78.9 Foreign tr tresa education 263504088 Z71.84 Discussed Acute pharyngitis 448617 003 J02.9 Unable to check for Strep in the office, I will treat her empiricall y.She will need to follow up if there is no improvemen t Hearing loss 58534351 H9 1.93 [id number] MD Wiliam Stephens (Adult Med) [address] [place] [address] [phone] 07/22/2021 11:56:37 07/23/2021 10:02:33 Human immunodeficiency virus infection 41404135 B20 CD4 310/HIV VL 20Previous ly stable on Prezista/N orvir/Desc ovy, she needs to restart her regimen EUFEMIA Pure hypercholesterolemia 325967220 E78.00 Compliance was discussed Noncomplia nce with medication regimen 618223790 Z91.14 She needs to restart her meds EUFEMIA Screening for malignant neoplasm of breast 080988470 Z12.39 Immunization advised 310 476662 Z71.9 Pain of ri ght shoulder joint 5123088959 4244267 M25.511 Lumbar radiculopathy 128 724276 M54.16 She has an abnormal MRI from 12/2019She has been to PTPain management ? 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 Disorder o f lipid metabolism 487979504 E78.9 Uncontroll ed on Rosuvastat in 20 mg, I will increase the dose to 40 mg dose Human immunodeficiency virus infection 36196917 B20 CD4 200 HIV VL <20 (11/03/2021 )CD4 310/HIV VL 20Stable on Prezista/N orvir/Desc ovy. Acute conjunctivitis 537 24785 H10.33 SARS-CoV-2 antigen vaccine declined 6370721647 Z28.21 [id number] MD Wiliam Stephens (Adult Med) [address] [place] [address] [phone] 0 07/31/2022 11:40:10 08/03/2022 16:35:15 Follow-up visit 125193477 Z09 History of cerebrovascular accident 772469044 Z86.73 Snoring 66284375 R06.83 Human immunodeficiency virus infection 12463207 B20 CD4 200 HIV VL <20 (11/03/2021 )CD4 310/HIV VL 20Stable on Prezista/N orvir/Desc ovy. Right hemiparesis 721250 009 G81.90 Chronic hoarseness 54386 38361 105 R49.0 Bilateral tinnitus 40932 97801 102 H93.13 [id number] MD Wiliam Stephens (Adult Med) [address] [place] [address] [phone] 02/08/2023 12:18:56 02/09/2023 09:45:39 Human immunodeficiency virus infection 58468239 B20 CD4 355, HIV VL <20 on 08/03/2022L abs OV 07/31/2022 D4 200 HIV VL <20 (11/03/2021 )CD4 310/HIV VL 20Stable on Prezista/N orvir/Desc ovy. Medication review done by doctor 138141343 Z76.89 Reviewed.S he has discontinu ed her Escitalopr am on her own. 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 Medication monitoring 39 0600616 Z51.81 [id number] MD Wiliam Stephens () [address] [place] [phone] 12/13/2023 09:37:48 12/15/2023 11:04:58 Human immunodeficiency virus infection 11209844 B20 HIV VL <20Continu e Prezista/N orvir/Desc ovy.Labs OV 03/09/2023 Labs 02/08/2023 CD4 318, HIV VL 30454Ekdkd iance was reinforced Continue Prezista/N orvir/Desc ovy.Labs in ~ 6 weeks OV 02/08/2023 CD4 355, HIV VL <20 on 08/03/2022L abs OV 07/31/2022 D4 200 HIV VL <20 (11/03/2021 )CD4 310/HIV VL 20Stable on Prezista/N orvir/Desc ovy. Medication monitoring 39 6812660 Z51.81 Pruritic rash 59344282 L 28.2 Dermatolog y follow upPrevious Katlyn has a chronic macular rash all over with dark pigmentati on of her forehead, I am concerned about a drug rash, drug photosensi tivity or Eczema.I will refer her to the dermatolog ist, she can discontinu e the Triamcinol one as it has been ineffectiv e. Health Concerns Section Related Observation LastModified by Organization Detai ls LastModified Time None Recorded Concern Status LastModified by Organization Details LastModified Time None Recorded Advance Directives Directive None Recorded Payers Encounter Date Sequence Insurance Name Policy Number Policy Price Covered Member ID Price Member ID Guarantor Name 01/02/2022 1 *SELF PAY* Li cesar A Fodge 07/31/2022 1 *SELF PAY* Li cesar A Fodge 02/08/2023 1 *SELF PAY* Li cesar A Fodge 03/09/2023 1 *SELF PAY* Li cesar A Fodge 12/13/2023 1 *SELF PAY* Li cesar A Fodge Notes Date Note Type Note Provider Name and Address Organization Details Recorded Time 01/02/2022 text/html HIVReported bypatient.Baseline LabsCD4:200; viral load:<20 I just have a problem with my voice, it went off It doesn't do anything Dr Collado could not see me because there was no referral It was sticking together, white things coming out You told me to go to physical therapy, whenever I go, they ask me for a lot of money which I don't have She presents with hoarseness since the beginning of this week and this morning her eyes were matted shut with a white discharge. She has twice been referred to the boat captain and presents again with her chronic rash with no improvement after using Triamcinolone. Fully compliant with her HIV regimen and she is not sexually active. Carter Celaya MD Attn: [address] [facility], [place], [address], [place] 01/02/2022 12:10:52 07/31/2022 text/html HIVReported bypatient.Baseline LabsCD4:281 (07/09/2022); viral load:<20 (11/03/2021) Follow up My always telling me that I snore hard I had a stroke on the right I went back for the biopsy at [place], they said it has gone down When I was at [place], they said one of the medicines I am taking for HIV is too strong for the cholesterol drug to work My ear? Ms Cherry returns, in the interim, she had a CVA with right sided weakness and she was admitted to . She was back in the ER and she appears to be following up with a PCP, Dr Garcia. She also appears to have had an enlarged LN +/- ear infection for which she responded to oral antibiotics. According to her, when she went for an US guided biopsy, she was told that it has resolved. She has an appointment with the neurologist and her major issues are intermittent popping and ringing in her ears as well as persistent hoarseness especially in the morning. She states that initially after her central event, she fell and could not move her right side or speak well, there has been improvement in her R. sided weakness and her speech. She snores but there are no reported apneic episodes. She comes in with both Atorvastatin and Rosuvastatin and states that she has been taking both and was told that one of her HIV medications was intefering with her cholesterol medications. Her other medications include Aspirin, Ibandronate, Prezista, Descovy and Norvir. She is sure that she does not take Escitalopram Carter Celaya MD Attn: Accounting[address] [facility], [place], [address], [facility] 07/31/2022 13:48:18 02/08/2023 text/html HIVReported bypatient.Baseline LabsCD4:355; viral load:<20; RPR:NR Constitutionalweigh t loss:2 HIV care only They told me that they cannot take [place] Why is the skin so dry? Is there anything you can give me? Is there anything better? Ms Cherry has in the interim been following up with her PCP, Dr Garcia.She apparently could not see any of the specialists she was referred to on the last visit as they are out of network. In the interim, she has developed palpitations and intermittent SOB for which her PCP has apparently referred her to a batch or continuous still operator. Her skin issues persist and her records confirm that she may have been referred to [facility] for possible atopic dermatitis and also for lymphadenopathy. She has been fully compliant with her HIV regimen and she is not sexually active. She wonders if there is a better regimen and if there is anything she can take to enhance her desire for sex. She would also like to know about her colonoscopy. Carter Celaya MD Attn: Accounting[address] [facility], [place], [address], [facility] 02/08/2023 15:00:08 03/09/2023 text/html HIVReported bypatient.Baseline LabsCD4:318; viral load:80831; RPR:NR HIV care only Appointment Heada carina and tiredness Ms Cherry has now been more compliant with her HIV regimen. After we received her labs, she told the nurse on 02/10/2023 that she had been less than fully compliant and today, she said that her PCP may have mentioned that one of her HIV medications may be causing an increase in her cholesterol levels causing her to change her regimen from the morning to the evening or vice versa. Carter Celaya MD Attn: Accounting[address] [facility], [place], [address], [facility] 03/09/2023 16:39:36 12/13/2023 text/html HIVReported bypatient.Baseline LabsCD4:318; viral load:<[address] Garcia I have.. I I missed two times Ms Cherry returns, she has been following up with her PCP, Dr Garcia and may have missed two doses of her HIV regimen. Her memory has not been the same ever since her stroke and she reports her persistent itching and rash. She remembers seeing a boat captain at [facility] and she does not feel that the topical agent that she was recently prescribed is working. Carter Celaya MD Attn: [address]ing[address] [facility], [place], [address], [facility] 12/13/2023 10:42:03 OBGyn Episode No OBEpisode recorded.
--- NOTE | 2024-06-30 17:53 | ECG_ITS ---
Test Date: 2024-06-30 18:30:13 Measurements Intervals Woody Rate: 51 P: 55 RI: 166 QRS: -3 QRSD: 98 T: 68 QT: 434 QTc: 402 Interpretive Statements SINUS BRADYCARDIA POSSIBLE LEFT ATRIAL ENLARGEMENT DELAYED PRECORDIAL R/S TRANSITION MINIMAL Q WAVES- HIGH LATERAL LEADS BORDERLINE ECG No previous ECG available for comparison Electronically Signed On 06-30-2024 18:38:51 CDT by Derrick Rees D.O.
--- NOTE | 2024-06-30 17:54 | ED_ITS ---
HPI - Abdominal Pain General Chief Complaint: Abdominal Pain <Eliza Donohue FUEL EFFICIENT AUTOMOBILE DESIGNER - Last Filed: 06/30/24 17:57> Stated Complaint: Upper abdominal pain, Vomits after eating <Eliza Donohue APRN - Last Filed: 06/30/24 17:57> Time Seen by Provider: 06/30/24 17:45 <Eliza Donohue APRN - Last Filed: 06/30/24 17:57> Focused HPI: Patient is a 73-year-old female presents to the ER with abdominal pain that started approximately 5 days ago. She reports on Wednesday she was at work and started throwing up. Patient reports she has been unable to keep any food down since then and continues to throw up. She also endorses intermittent chills. Patient denies any urinary symptoms. She reports her last bowel movement was this morning and was normal for her. Patient reports the pain is intermittent sharp and radiates from her left upper and lower quadrant across her umbilicus to her right side. She denies any shortness of breath, chest pain, or back pain. GENERAL: Well-appearing, well-nourished, and in no acute distress. HEAD: Normocephalic, atraumatic. CHEST: Clear to auscultation. ?No respiratory distress. HEART: Regular rate and rhythm.? NEURO: ?Alert and oriented x3. Patient screened in triage and initial orders placed.? ?Additional care and disposition to be based upon?diagnostic testing and treatment. <Eliza Donohue APRN - Last Filed: 06/30/24 17:57> Focused HPI: Patient is a 73-year-old female presents to the ER with abdominal pain that started approximately 5 days ago. She reports on Wednesday she was at work and started throwing up. Patient reports she has been unable to keep any food down since then and continues to throw up. She also endorses intermittent chills. Patient denies any urinary symptoms. She reports her last bowel movement was this morning and was normal for her. Patient reports the pain is intermittent sharp and radiates from her left upper and lower quadrant across her umbilicus to her right side. She denies any shortness of breath, chest pain, or back pain. Reports she has been seen at urgent care twice this week for upper respiratory symptoms GENERAL: Well-appearing, well-nourished, and in no acute distress. HEAD: Normocephalic, atraumatic. CHEST: Clear to auscultation. ?No respiratory distress. HEART: Regular rate and rhythm.? NEURO: ?Alert and oriented x3. Patient screened in triage and initial orders placed.? ?Additional care and disposition to be based upon?diagnostic testing and treatment. <Cora Bowman PA-C - Last Filed: 07/01/24 00:07> Related Data Home Medications: Home Medications ?Medication ?Instructions ?Recorded ?Confirmed ?Last Taken ?Type ritonavir 100 mg tablet (Norvir) 100 mg PO DAILY 04/20/19 12/28/23 12/26/23 History emtricitabine 200 mg-tenofovir 1 tablet PO DAILY 06/07/22 12/28/23 12/26/23 History alafenamide fumarate 25 mg tablet (Descovy) cyclobenzaprine 5 mg tablet 5 mg PO TID PRN Muscle spasms 08/14/23 12/28/23 12/26/23 History darunavir 800 mg tablet 800 mg PO DAILY 08/14/23 12/28/23 12/26/23 History fluticasone propionate 50 2 spray intranasal DAILY 08/14/23 12/28/23 12/26/23 History mcg/actuation nasal spray,suspension ibandronate 150 mg tablet 150 mg PO MONTHLY 08/14/23 12/28/23 Unknown History amlodipine 5 mg tablet (Norvasc) 2.5 mg PO QAM 12/20/23 12/28/23 12/26/23 History aspirin 325 mg tablet 81 mg PO DAILY@0800 12/20/23 12/28/23 12/26/23 History <Eliza Donohue, FUEL EFFICIENT AUTOMOBILE DESIGNER - Last Filed: 06/30/24 17:57> Allergies/Adverse Reactions: Allergies Allergy/AdvReac Type Severity Reaction Status Date / Time No Known Allergies Allergy Verified 06/30/24 17:05 <Eliza Donohue FUEL EFFICIENT AUTOMOBILE DESIGNER - Last Filed: 06/30/24 17:57> Review of Systems 2 Review of Systems: CONSTITUTIONAL: Reports chills ENT: Reports congestion RESPIRATORY: Reports cough GASTROINTESTINAL: Reports abdominal pain, nausea, vomiting. Denies diarrhea. 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 [place] but she is not sure exactly when. She moved after she met her who was a Evangelical missionary and moved here to be with him. She raised 6 children and had a 7th child that young. She reports that some of her children her living here in some of them are in [place]. It is unclear if she still has 1 child living in [facility] or if she is referring to her child at had previously . 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 She is a lifelong nonsmoker and never drink alcohol. She denies illicit substance use. Code status: Full code Smoking status: Never smoker Second hand tobacco smoke exposure: No Alcohol intake: never Substance use: never Substance use type: does not use Do You Feel Safe in your Home?: Yes Lack of Transportation: No Lack of Food: Sometimes True Current Housing: I Have Housing Concerned About Future Housing: No Difficulty Paying Gas/Electric Bills: YES Difficulty Paying for Meds: YES Currently Unemployed: No Education: High School Diploma/GED Difficulty w/ Childcare or Family Care: No Living arrangements: with family Spiritual care concerns: No <Eliza Donohue APRN - Last Filed: 06/30/24 17:57> Exam 2 Narrative: GENERAL: Well-appearing, well-nourished, and in no acute distress. HEAD: Normocephalic, atraumatic. EYES: EOMI. CHEST: Clear to auscultation. No respiratory distress. No wheezes rales or rhonchi HEART: Regular rate and rhythm. No murmur heard. Normal peripheral pulses. ABDOMEN: Soft, nondistended, normal active bowel sounds. Mild tenderness to palpation in the epigastrium, without guarding EXTREMITIES: Normal range of motion. No edema. SKIN: Warm, dry, no rash. NEURO: No focal deficits. Alert and oriented x3. PSYCH: Normal mood and affect <Cora Bowman PA-C - Last Filed: 07/01/24 00:07> Course Course Emergency Course: Patient updated on her workup. She has had no episodes of vomiting in the ER. Her arm continues to improve. Reports she is ready for discharge <Cora Bowman PA-C - Last Filed: 07/01/24 00:07> Vital Signs Vital signs: Vital Signs Temperature 97.2 F L 06/30/24 17:07 Pulse Rate 65 06/30/24 17:07 Respiratory Rate 14 06/30/24 17:07 Blood Pressure 180/74 H 06/30/24 17:07 Pulse Oximetry 100 06/30/24 17:07 Temperature 97.2 F L 06/30/24 17:07 Pulse Rate 48 L 06/30/24 22:35 Respiratory Rate 15 06/30/24 22:35 Blood Pressure 155/102 H 06/30/24 22:35 Pulse Oximetry 100 06/30/24 22:35 <Eliza Donohue, FUEL EFFICIENT AUTOMOBILE DESIGNER - Last Filed: 06/30/24 17:57> Vital Signs Temperature 97.2 F L 06/30/24 17:07 Pulse Rate 65 06/30/24 17:07 Respiratory Rate 14 06/30/24 17:07 Blood Pressure 180/74 H 06/30/24 17:07 Pulse Oximetry 100 06/30/24 17:07 Temperature 97.2 F L 06/30/24 17:07 Pulse Rate 48 L 06/30/24 22:35 Respiratory Rate 15 06/30/24 22:35 Blood Pressure 155/102 H 06/30/24 22:35 Pulse Oximetry 100 06/30/24 22:35 <Cora Bowman PA-C - Last Filed: 07/01/24 00:07> MDM - Abdominal Pain MDM Narrative Medical decision making narrative: Patient presents the emergency department for abdominal pain, nausea, vomiting. She is afebrile and nontoxic appearing. Her vitals are stable. CBC and metabolic panel without concerning findings. Lipase is normal. Urine without evidence of infection. CT abdomen and pelvis shows no evidence of appendicitis, diverticulitis or intestinal obstruction. Shows constipation. Calcification in the right renal hilum, most likely vascular. Unfortunately during her CT scan her IV infiltrated and contrast was injected into her forearm. Patient's forearm was initially swollen, mildly tense. Her arm was elevated, ice packs applied. She continued to improve. She did not have pain out of proportion, paresthesias. She did have normal radial pulse. Her swelling has continued to improve, her compartments are soft. Patient updated on her workup. Agrees with plan of care. Reports feeling well currently and ready for discharge. She was given strict return precautions <Cora Bowman PA-C - Last Filed: 07/01/24 00:07> Differential Diagnosis Differential diagnosis: Likely calculus of kidney, constipation, diverticulitis, gastroenteritis and other (Viral syndrome, dehydration) <Cora Bowman PA-C - Last Filed: 07/01/24 00:07> Lab Data Attestation: I reviewed the patient's lab results. <Cora Bowman PA-C - Last Filed: 07/01/24 00:07> Result diagrams: 06/30/24 18:11 06/30/24 18:11 <Elizachristine Donohue, FUEL EFFICIENT AUTOMOBILE DESIGNER - Last Filed: 06/30/24 17:57> Labs: Lab Results 06/30/24 06/30/24 Range/Units 18:11 18:25 WBC 5.5 (4.5-10.0) K/mm3 RBC 4.81 (4.2-5.4) M/mm3 Hgb 12.8 (12.0-15.0) g/dL Hct 39.6 (37.0-47.0) % MCV 82.3 (80-100) fl MCH 26.6 (26-34) pg MCHC 32.3 (32-36) g/dl RDW 13.0 (11.5-14.5) % Plt Count 262 (150-375) k/mm3 MPV 9.5 (7.4-10.4) fl Immature Gran % (Auto) 0.4 (0-0.5) % Neut % (Auto) 51.5 (45.5-73.1) % Lymph % (Auto) 37.2 (18.3-44.2) % [place] % (Auto) 6.0 (2.6-8.5) % Eos % (Auto) 4.0 (0-4.4) % Baso % (Auto) 0.9 (0.2-1.2) % Lymph # (Auto) 2.04 (0.9-3.2) K/mm3 [place] # (Auto) 0.3 (0.1-0.6) K/mm3 Eos # (Auto) 0.2 (0-0.3) K/mm3 Baso # (Auto) 0.1 (0.0-0.1) K/mm3 Abs Immat Gran (auto) 0.02 (0.00-0.031) K/mm3 Absolute Neuts (auto) 2.8 (1.3-6.7) K/mm3 Absolute Nucleated RBC 0.000 (0.0-0.012) K/mm3 Nucleated RBC % 0.0 (0.0-0.2) % Sodium 138 (137-145) mmol/L Potassium 4.2 (3.4-5.0) mmol/L Chloride 101 (98-107) mmol/L Carbon Dioxide 30 (22-30) mmol/L Anion Gap 7 (4-12) mmol/L BUN 25 H (7-17) mg/dL Creatinine 0.78 (0.7-1.0) mg/dL Estim Creat Clear Calc 50 ml/min Estimated GFR > 60 (59 - ) Glucose 85 (65-110) mg/dL Calcium 9.2 (8.4-10.2) mg/dL Total Bilirubin 0.4 (0.2-1.3) mg/dL AST 44 H (14-36) U/L ALT 30 (6-35) U/L Alkaline Phosphatase 68 (38-126) U/L Troponin I < 0.012 (0.000-0.034) ng/mL Total Protein 8.0 (6.3-8.2) g/dL Albumin 4.3 (3.5-5.1) g/dL Lipase 92 (23-300) U/L Urine Color Yellow (Yellow) Urine Appearance Clear (Clear) Urine pH 6.5 (5.0-9.0) Ur Specific [place] 1.013 (1.001-1.035) Urine Protein Negative (Negative) mg/dL Urine Glucose (UA) Negative (Negative) mg/dL Urine Ketones Negative (Negative) mg/dL Ur Blood (Man) Negative (Negative) Urine Nitrate Negative (Negative) Urine Bilirubin Negative (Negative) Urine Urobilinogen 0.2 (<2.0) mg/dL Leukocyte Esterase Rfl Negative (Negative) ALANNAH/UL <Eliza Donohue, FUEL EFFICIENT AUTOMOBILE DESIGNER - Last Filed: 06/30/24 17:57> Lab Results 06/30/24 06/30/24 Range/Units 18:11 18:25 WBC 5.5 (4.5-10.0) K/mm3 RBC 4.81 (4.2-5.4) M/mm3 Hgb 12.8 (12.0-15.0) g/dL Hct 39.6 (37.0-47.0) % MCV 82.3 (80-100) fl MCH 26.6 (26-34) pg MCHC 32.3 (32-36) g/dl RDW 13.0 (11.5-14.5) % Plt Count 262 (150-375) k/mm3 MPV 9.5 (7.4-10.4) fl Immature Gran % (Auto) 0.4 (0-0.5) % Neut % (Auto) 51.5 (45.5-73.1) % Lymph % (Auto) 37.2 (18.3-44.2) % [place] % (Auto) 6.0 (2.6-8.5) % Eos % (Auto) 4.0 (0-4.4) % Baso % (Auto) 0.9 (0.2-1.2) % Lymph # (Auto) 2.04 (0.9-3.2) K/mm3 [place] # (Auto) 0.3 (0.1-0.6) K/mm3 Eos # (Auto) 0.2 (0-0.3) K/mm3 Baso # (Auto) 0.1 (0.0-0.1) K/mm3 Abs Immat Gran (auto) 0.02 (0.00-0.031) K/mm3 Absolute Neuts (auto) 2.8 (1.3-6.7) K/mm3 Absolute Nucleated RBC 0.000 (0.0-0.012) K/mm3 Nucleated RBC % 0.0 (0.0-0.2) % Sodium 138 (137-145) mmol/L Potassium 4.2 (3.4-5.0) mmol/L Chloride 101 (98-107) mmol/L Carbon Dioxide 30 (22-30) mmol/L Anion Gap 7 (4-12) mmol/L BUN 25 H (7-17) mg/dL Creatinine 0.78 (0.7-1.0) mg/dL Estim Creat Clear Calc 50 ml/min Estimated GFR > 60 (59 - ) Glucose 85 (65-110) mg/dL Calcium 9.2 (8.4-10.2) mg/dL Total Bilirubin 0.4 (0.2-1.3) mg/dL AST 44 H (14-36) U/L ALT 30 (6-35) U/L Alkaline Phosphatase 68 (38-126) U/L Troponin I < 0.012 (0.000-0.034) ng/mL Total Protein 8.0 (6.3-8.2) g/dL Albumin 4.3 (3.5-5.1) g/dL Lipase 92 (23-300) U/L Urine Color Yellow (Yellow) Urine Appearance Clear (Clear) Urine pH 6.5 (5.0-9.0) Ur Specific [place] 1.013 (1.001-1.035) Urine Protein Negative (Negative) mg/dL Urine Glucose (UA) Negative (Negative) mg/dL Urine Ketones Negative (Negative) mg/dL Ur Blood (Man) Negative (Negative) Urine Nitrate Negative (Negative) Urine Bilirubin Negative (Negative) Urine Urobilinogen 0.2 (<2.0) mg/dL Leukocyte Esterase Rfl Negative (Negative) ALANNAH/UL <Cora Bowman PA-C - Last Filed: 07/01/24 00:07> Imaging Data Radiologist's impression: ITS Impressions Abdomen CT 06/30/24 22:03 IMPRESSION: 1. No evidence of appendicitis, diverticulitis or intestinal obstruction. 2. Calcification in the right renal hilum most likely vascular. Follow-up advised. 3. Constipation. <Eliza Donohue APRN - Last Filed: 06/30/24 17:57> ITS Impressions Abdomen CT 06/30/24 22:03 IMPRESSION: 1. No evidence of appendicitis, diverticulitis or intestinal obstruction. 2. Calcification in the right renal hilum most likely vascular. Follow-up advised. 3. Constipation. <Cora Bowman PA-C - Last Filed: 07/01/24 00:07> ECG Data EKG #1: ECG completion date: 06/30/24 <Cora Bowman PA-C - Last Filed: 07/01/24 00:07> bradycardia, sinus rhythm, no ST changes, normal QT and no acute changes (compared to EKG 08/12 heart rate has decreased) <Cora Bowman PA-C - Last Filed: 07/01/24 00:07> Critical Care Time Critical Care Time Critical Care Time: No <Cora Bowman PA-C - Last Filed: 07/01/24 00:07> Discharge Plan Discharge Clinical Impression: Acute viral syndrome, Renal calcification Abdominal pain Qualifiers: Abdominal location: epigastric Qualified Code(s): R10.13 - Epigastric pain IV infiltration Qualifiers: Encounter type: initial encounter Qualified Code(s): T80.1XXA - Vascular complications following infusion, transfusion and therapeutic injection, initial encounter Constipation Qualifiers: Constipation type: unspecified constipation type Qualified Code(s): K59.00 - Constipation, unspecified <Eliza Donohue APRN - Last Filed: 06/30/24 17:57> Patient Disposition: Home <Elizachristine Donohue APRN - Last Filed: 06/30/24 17:57> Condition: Stable <Eliza Donohue APRN - Last Filed: 06/30/24 17:57> Instructions: Constipation (ED), Viral Syndrome (ED), Abdominal Pain (ED), IV Infiltration (ED) <Eliza Donohue APRN - Last Filed: 06/30/24 17:57> Additional Instructions: Return to the ER if you experience fever, abdominal pain with nausea and vomiting, you are unable to keep down liquids or solids, worsening swelling/pain in your arm, your arm feels numb or cold, or any other symptoms that are concerning to you Rest. Remain well hydrated. Take Colace daily for constipation. Miralax as needed. Ondansetron as needed for nausea. Elevate your arm and use heat and/or ice to the area Follow up with your primary care doctor The radiologist saw a possible calcification in your kidney which could be a kidney stone versus a vascular calcification. You may need some further imaging for clarification <Eliza Donohue APRN - Last Filed: 06/30/24 17:57> Patient Language: Azeri <Eliza Donohue APRN - Last Filed: 06/30/24 17:57> Prescriptions: New ondansetron 4 mg tablet,disintegrating 4 mg PO Q8H PRN (Reason: nausea and vomiting) Qty: 10 0RF No Action ritonavir [Norvir] 100 mg tablet 100 mg PO DAILY escitalopram oxalate [Lexapro] 10 mg tablet 10 mg PO DAILY Qty: 90 2RF ibandronate 150 mg tablet 150 mg PO MONTHLY fluticasone propionate 50 mcg/actuation spray,suspension 2 spray INTRANASAL DAILY cyclobenzaprine 5 mg tablet 5 mg PO TID PRN (Reason: Muscle spasms) darunavir 800 mg tablet 800 mg PO DAILY cholecalciferol (vitamin D3) [Vitamin D3] 25 mcg (1,000 unit) Tablet 1,000 unit PO DAILY Qty: 30 1RF gabapentin [Neurontin] 300 mg Capsule 300 mg PO Q8HR Qty: 90 1RF ezetimibe [Zetia] 10 mg Tablet 10 mg PO QAM Qty: 30 1RF Descovy 200-25 mg tablet 1 tablet PO DAILY aspirin 325 mg tablet 81 mg PO DAILY@0800 amlodipine [Norvasc] 5 mg tablet 2.5 mg PO QAM atorvastatin 80 mg Tablet 80 mg PO HS Qty: 30 0RF <Eliza Donohue APRN - Last Filed: 06/30/24 17:57> Follow-up/Referrals: Radha,Nirmal Caban MD [Primary Care Provider] - <Eliza Donohue APRN - Last Filed: 06/30/24 17:57>
[2024-06-30 18:28] LABS: Basophils Absolute Auto 0.1 K/mm3 (0.0-0.1); Basophils Percent Auto 0.9 % (0.2-1.2); Eosinophils Absolute Auto 0.2 K/mm3 (0-0.3); Hematocrit 39.6 % (37.0-47.0); Hemoglobin 12.8 g/dL (12.0-15.0); Immature Granulocyte Absolute 0.02 K/mm3 (0.00-0.031); Immature Granulocyte Percent A 0.4 % (0-0.5); Lymphocytes Absolute Auto 2.04 K/mm3 (0.9-3.2); Lymphocytes Percent Auto 37.2 % (18.3-44.2); Mean Corpuscular HGB Conc 32.3 g/dl (32-36); Mean Corpuscular Hemoglobin 26.6 pg (26-34); Mean Corpuscular Volume 82.3 fl (80-100); Mean Platelet Volume 9.5 fl (7.4-10.4); Monocytes Absolute Auto 0.3 K/mm3 (0.1-0.6); Neutrophils Absolute Auto 2.8 K/mm3 (1.3-6.7); Neutrophils Percent Auto 51.5 % (45.5-73.1); Platelet Count Result 262 k/mm3 (150-375); Red Blood Count 4.81 M/mm3 (4.2-5.4); White Blood Count 5.5 K/mm3 (4.5-10.0)
[2024-06-30 18:33] LABS: Add Urine Microscopic? NO; Appearance Urine Clear (Clear); Bilirubin Urine Negative (Negative); Blood Urine Negative (Negative); Color Urine Yellow (Yellow); Glucose Urine UA Negative (Negative); Ketones Urine Negative (Negative); Leukocyte Esterase Ur Negative LEU/UL (Negative); Nitrate Urine Negative (Negative); Protein Urine Negative (Negative); Specific Grav Ur 1.013 (1.001-1.035); Urobilinogen Urine 0.2 mg/dL (<2.0); pH Urine 6.5 (5.0-9.0)
[2024-06-30 18:45] LABS: Alanine Aminotransferase 30 U/L (6-35); Albumin Level 4.3 g/dL (3.5-5.1); Alkaline Phosphatase 68 U/L (38-126); Anion Gap 7 mmol/L (4-12); Aspartate Amino Transferase 44 U/L (14-36); Bilirubin,Total 0.4 mg/dL (0.2-1.3); Blood Urea Nitrogen 25 mg/dL (7-17); Calcium 9.2 mg/dL (8.4-10.2); Carbon Dioxide 30 mmol/L (22-30); Chloride 101 mmol/L (98-107); Estimated CRCL calculation 50 ml/min; Estimated Glomerular Filt Rate > 60; Glucose 85 mg/dL (65-110); Lipase 92 U/L (23-300); Potassium 4.2 mmol/L (3.4-5.0); Sodium 138 mmol/L (137-145)
[2024-06-30 18:55] LABS: Troponin I < 0.012 ng/mL (0.000-0.034)
--- OUTSIDE RECORDS SUMMARY | 2024-06-30 18:58 | XMS_ITS | Encounter Summary ---
Author Organization [facility] Healthcare Address [address] [place] [address] Care Team Providers Care Reclamation Furnace Operator Name Role Phone Carter Celaya MD Unavailable [phone] Nirmal Garcia MD Primary Care Provider [phone] Pawel Juárez MD Unavailable [phone] Reason for Visit * Reason Comments Abdominal Pain Left side abdominal pain Encounter Details Date Type Department Care Team (Late st Contact Info) Description 06/30/2024 3:45 PM CDT Office Visit [facility] at [address] [id number] Yuly Person NP [address] [facility] [address] [place] [address] Generalized abdominal tenderness without rebound tenderness (Primary Dx); Nausea and vomiting, unspecified vomiting type; Abdominal pain Social History Tobacco Use Types Packs/Day Years Used Date Smoking Tobacco: Never Passive Smoke Exposure: Never Smokeless Tobacco: Never Social Connection and Isolat ion Panel [NHANES] Answer Date Recorded In a typical week, how many times do you talk on the phone with family, friends, or neighbors? More than three times a week 06/25/2022 How often do you get togethe r with friends or relatives? More than three times a week 06/25/2022 How often do you attend [facility] or lutheran services? Never 06/25/2022 Do you belong to any clubs o r organizations such as congregational groups, unions, fraternal or athletic groups, or school groups? No 06/25/2022 How often do you attend meet ings of the clubs or organizations you belong to? Never 06/25/2022 Are you , , di vorced, , never , or living with a partner? 06/25/2022 AUDIT-C Answer Date Recorded Q1: How often do you have a drink containing alc ohol? Never 06/15/2023 Average Number of Drinks Not on file 024 Frequency of Binge Drinking Not on file 05/21 Overall Financial Resource Strain (CARDIA) Answe r Date Recorded How hard is it for you to pa y for the very basics like food, housing, medical care, and heating? Not hard at all 06/25/2022 PHQ-2 Answer Date Recorded PHQ-2 Total Score (If total score is 3 or more points, staff should administer the PHQ-9) 0 04/04/2024 PRAPARE - Transportation Answer Date Re corded In the past 12 months, has l ack of transportation kept you from medical appointments or from getting medications? No 08/2022 In the past 12 months, has l ack of transportation kept you from meetings, work, or from getting things needed for daily living? No 06/25/2022 Housing Stability Vital Sign Answer Homero e Recorded In the last 12 months, was t here a time when you were not able to pay the mortgage or rent on time? Yes 06/25/2022 In the last 12 months, how many places have you lived? 1 06/25/2022 In the last 12 months, was t here a time when you did not have a steady place to sleep or slept in a halfway (including now)? No 06/25/2022 PHQ-9 Answer Date Recorded PHQ-9 Total Score 4 05/31/2023 Personal Safety Answer Date Recorded Have you ever been in or are you currently in a harmful physical or emotional relationship or is someone making you feel afraid or unsafe? 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 Gender Identity Not on file Sexual Orientation Not on file documented as of this encounter Last Filed Vital Signs Vital Sign Reading Time Taken Comments Blood Pressure 147/78 06/30/2024 3:58 PM CDT Pulse 58 06/30/2024 3:58 PM CDT Temperature 37.1 C (98.8 F) 06/30/2024 3:58 PM CDT Respiratory Rate 20 06/30/2024 3:58 PM CDT Oxygen Saturation 96% 06/30/2024 3:58 PM CDT Inhaled Oxygen Concentration - - Weight 61.2 kg (135 lb) 06/30/2024 3:58 PM CDT Height - - Body Mass Index 23.17 04/04/2024 9:43 AM CRM MARKETING MANAGER documented in this encounter Patient Instructions * Patient Instructions* Yuly Person NP - 06/30/2024 3:45 PM CDT If you have no improvement or worsening of your symptoms, please follow up with your Primary Care Provider, [facility] and or Emergency Room. I strive to provide you with EXCELLENT service. You may receive a survey after your visit today. If you cannot rate your experience as EXCELLENT, please let us know how we can improve and better meet your needs. Thank you for choosing [facility]! It was my pleasure to see you today, I hope you feel better soon! Yuly Person RN TELEMETRY documented in this encounter Plan of Treatment Not on file documented as of this encounter Visit Diagnoses Diagnosis Generalized abdominal tenderness without rebound tenderness- Primary Nausea and vomiting, unspecified vomiting type Abdominal pain Abdominal pain, unspecified site documented in this encounter Historical Medications * This list may reflect changes made after this encounter. penicillin v potassium (VEETID) 500 mg tablet TAKE 2 TABLETS RIGHT NOW. THEN TAKE 1 TABLET EVERY 6 HOURS UNTIL GONE. 04/18/2024 escitalopram (LEXAPRO) 10 mg tablet Take 1 tablet (10 mg total) by mouth daily 06/05/2024 methylPREDNISolon e (MEDROL DOSEPACK) 4 mg Dosepack 06/30/2024 added in this encounter Care Teams Reclamation Furnace Operator Relationship Specialty Start Date End Date Nirmal Garcia MD [address] [place] [id number] PCP - General Family Medicine 01/27/22 Carter Celaya MD [address] [address] Referring Physician Infectious Diseases 10/23/21 Pawel Juárez MD [address] [facility] [address] [facility] [address] [place] [address] Referring Physician Obstetrics and Gynecology 11/30/23 documented as of this encounter
--- OUTSIDE RECORDS SUMMARY | 2024-06-30 18:58 | XMS_ITS | Clinical Summary ---
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 Average Glucose (eAG) with all Hemoglobin A1c results using the equation derived from a study of 507 normal and diabetic adults. Minority populations were underrepresented and children were not included. (Diabetes Care 31:9247-0468, 2008). The eAG is not equivalent to a fasting glucose. Blood 05/31/2023 11:0 8 AM CDT 05/31/2023 2:31 PM CDT us Nirmal Garcia MD LAB BLOOD ORDERABLES Final Result OLGADANY [address] Department of Laboratories [place] [id number] * Dexa Axial Skeleton Bone Density 1 or 2 Site (11/17/2017) Anatomical Region Laterality Modality Body N/A Radiographic Otilia ging us Pawel Juárez MD IMG DXA PROCEDURES Final Re sult from Last 3 Months or Most Recently Relevant to Health Maintenance Insurance [facility] Care Teams Wire Bound Box Machine Helper Relationship Specialty Start Date End Date Nirmal Garcia MD [address] [place] [address] PCP - General Family Medicine 01/27/22 Carter Celaya MD [address] [address] Referring Physician Infectious Diseases 10/23/21 Pawel Juárez MD [address] [address] Referring Physician Obstetrics and Gynecology 11/30/23
--- OUTSIDE RECORDS SUMMARY | 2024-06-30 18:58 | XMS_ITS | Referral Summary ---
Author Organization [facility] Building B Address [address] [place] [address] Care Team Providers Care Guyline Operator Name Role Phone Marcialmartine Carter Day MD Unavailable [phone] Nirmal Garcia MD Primary Care Provider [phone] Pawel Juárez MD Unavailable [phone] Encounters Date Type Department Care Team Description 06/30/2024 3:45 PM CDT Office Visit [facility] Medical [facility] Convenient Care at [address] [address] Yuly Person NP Generalized abdominal tenderness without rebound tenderness (Primary Dx); Nausea and vomiting, unspecified vomiting type; Abdominal pain 06/06/2024 Telephone [facility] Primary Care at [address] [address] Nirmal Garcia MD Referral Request 05/22/2024 Results Follow-Up [facility] Primary Care at [address] [address] Nirmal Garcia MD 04/20/2024 Telephone [facility] Primary Care at [address] [address] Nirmal Garcia MD Forms Request 04/20/2024 Telephone [facility] Primary Care at [address] [address] Nirmal Garcia MD Lab Results 04/19/2024 Telephone [facility] Medical [facility] Primary Care at [address] [phone] Nirmal Garcia MD Medical Question/Miscellaneou s 04/04/2024 10:24 AM COACH DRIVER - 04/04/2024 11:59 PM COACH DRIVER Hospital Encounter [address] [address] Hypertension, essential; Pure hypercholesterolemia; Vitamin D insufficiency Discharge Disposition: Discharge to home or self care 04/04/2024 10:45 AM COACH DRIVER Lab [facility] Outpatient Lab at [address] [phone] Hypertension, essential (Primary Dx) 04/04/2024 9:15 AM COACH DRIVER Office Visit [facility] Primary Care at [address] [phone] Nirmal Garcia MD Hypertension, essential (Primary Dx); Vitamin D insufficiency; Pure hypercholesterolemia; Breast cancer screening by mammogram; Gingival disease from Last 3 Months Allergies No known active allergies Medications Descovy [...] sprays into each nostril daily 1 each 4 Active cholecalciferol (VITAMIN D-3) 25 mcg [...] 05/30/2022 Assessment & Plan (05/30/2022 11:10 AM COACH DRIVER): Lexapro trial will try to get social work involved Advised to contact her son in [place], who has offered her to stay there [...] 01/30/2022 Assessment & Plan (01/30/2022 11:43 AM COACH DRIVER): Lungs sounded clear; recommending OTC cough med for now until I can review labs We are checking on derm referral for the rash. If flares again, we can restart triamcinolone We will look into ADAP as well (will need lunchroom worker information) Arthritis- trial of tylenol PRN (OTC)- [...] CDT): Started on Amlodipine 5 mg from [facility] in 07/2023. Experiencing bilateral ankle/feet swelling. Will decrease the Amlodipine to 2.5 mg and re-evaluate in 4 weeks. BP normal in office. Assessment & Plan (02/03/2023 4:11 PM COACH DRIVER): No arrhythmia on the EKG, however there is abnormality that may bespeak a blockage (can't say for sure). Given that and described symptoms with exertion, it is reasonable to get stress testing If symptoms recur, advised Nancy to go to the ER EUFEMIA Degeneration of lumbar intervertebral disc 07/22 Osteoporosis 03/14/2018 Overview (10/23/2021): Diagnosis coming through remotely but patient is unclear if she has weak bones. Will obtain record Resolved Problems Problem Noted Date Diagnosed Date Resolved Date Memory impairment 10/23/2021 10/23/2021 Kidney disease 10/23/2021 10/23/2021 Immunizations Immunization Administration Dates Next Due Hep [...] 06/05/2023, 2,09/27/2011,08/13 Varicella 09/13/2009,08/13/2009 ZOSTER Recombinant 11/20/2023 Social History Tobacco Use Types Packs/Day Years [...] often do you attend chur ch or amish services? Never 06/25/2022 Do you belong to any clubs o r organizations such as confucianist groups, unions, fraternal or athletic groups, or [...] place to sleep or slept in a mcfp (including now)? No 06/25/2022 PHQ-9 Answer Date [...] on file Legal Sex Female 12:40 PM COACH DRIVER Gender Identity Not on file Sexual Orientation Not on file Last Filed Vital Signs Vital Sign Reading [...] cm (5' 4 ) 04/04/2024 9:43 AM COACH DRIVER Body Mass Index 23.17 04/04/2024 9:43 AM COACH DRIVER Plan of Treatment Not on file Procedures Procedure Name Priority Date/Time Associated Diagnosis Comments HM MAMMOGRAPHY Routine 05/17/2024 3:23 PM COACH DRIVER EGFR Routine 04/04/2024 10:24 AM COACH DRIVER Hypertension, essential DIFFERENTIAL AUTO Routine 04/04/2024 10:24 AM COACH DRIVER Hypertension, essential VITAMIN D 25 HYDROXY Routine 04/04/2024 10:24 AM COACH DRIVER Vitamin D insufficiency THYROID FUNCTION CASCADE Routine 04/04/2024 10:24 AM COACH DRIVER Hypertension, essential LIPID PANEL Routine 04/04/2024 10:24 AM COACH DRIVER Pure hypercholesterolemia COMPREHENSIVE METABOLIC PANEL Routine 04/04/2024 10:24 AM COACH DRIVER Hypertension, essential CBC WITH AUTO DIFFERENTIAL Routine 04/04/2024 10:24 AM COACH DRIVER Hypertension, essential HM COLONOSCOPY Routine 12/28/2023 8:51 [...] Results * HM MAMMOGRAPHY (05/17/2024 3:23 PM COACH DRIVER) us Historical Provider HEALTH MAINTENANCE Final Result * eGFR (04/04/2024 10:24 AM COACH DRIVER) eGFR >90 >=60 mL/min/1. 73 m2 Comment: [...] reviewed 2021. Blood 04/04/2024 10:2 4 AM COACH DRIVER 04/04/2024 6:45 PM COACH DRIVER us Nirmal Garcia MD LAB BLOOD ORDERABLES Final Result [facility] [address] Department [place] [address] * Differential, auto (04/04/2024 10:24 AM COACH DRIVER) Neutrophil abs 1.5 1.5 - 6.5 K/cumm Imm gran abs 0.0 0.0 - 0.1 K/cumm [facility] Lymphocyte abs 1.8 0.8 - 3.3 K/cumm [facility] Monocyte abs 0.3 0.2 - 0.8 K/cumm [facility] Eosinophil abs 0.2 0.0 - 0.5 K/cumm [facility] Basophil abs 0.0 0.0 - 0.1 K/cumm [facility] Neutrophil pct 39.3 % [facility] Comment: Interpretive Data Percent cell count reference ranges are not reported, since discordance with absolute values may lead to misinterpretation of CBC data. Current Interpretive Data was last revised on 2017. Imm gran pct 0.3 % [facility] Comment: Interpretive Data Percent cell count reference ranges are not reported, since discordance with absolute values may lead to misinterpretation of CBC data. Current Interpretive Data was last revised on 2017. Lymphocyte pct 47.2 % [facility] Comment: Interpretive Data Percent cell count reference ranges are not reported, since discordance with absolute values may lead to misinterpretation of CBC data. Current Interpretive Data was last revised on 2017. Monocyte pct 8.4 % [facility] Comment: Interpretive Data Percent cell count reference ranges are not reported, since discordance with absolute values may lead to misinterpretation of CBC data. Current Interpretive Data was last revised on 2017. Eosinophil pct 4.3 % [facility] Comment: Interpretive Data Percent cell count reference ranges are not reported, since discordance with absolute values may lead to misinterpretation of CBC data. Current Interpretive Data was last revised on 2017. Basophil pct 0.5 % [facility] Comment: Interpretive Data Percent cell count reference ranges are not reported, since discordance with absolute values may lead to misinterpretation of CBC data. Current Interpretive Data was last revised on 2017. Blood 04/04/2024 10:2 4 AM COACH DRIVER 04/04/2024 6:34 PM COACH DRIVER Nirmal Garcia MD LAB BLOOD ORDERABLES Final Result Performing Organization Address City/[facility] Co de Phone Number YVONNE LOZADA [address] [address] [facility] [place] [address] * Thyroid Function [place] (04/04/2024 10:24 AM COACH DRIVER) Pathologist [facility] TSH 1.60 0.30 - 4.20 mcIUnit/mL Blood 04/04/2024 10:2 4 AM COACH DRIVER 04/04/2024 6:34 PM COACH DRIVER Nirmal Garcia MD LAB BLOOD ORDERABLES Final Result Performing Organization Address [facility] de Phone Number YVONNE LOZADA [address] [address] [facility] [place] [address] * (ABNORMAL) CBC with auto differential (04/04/2024 10:24 AM COACH DRIVER) Pathologist [facility] WBC 3.7(L) 3.8 - 9.9 K/cumm Hgb 12.2 11.9 - 15.5 g/dL [facility] Hct 38.8 35.6 - 45.5 % [facility] Plt 266 150 - 400 K/cumm [facility] MPV 10.1 9.1 - 12.3 fL [facility] RBC 4.63 3.90 - 5.20 M/cumm [facility] MCV 83.8 81.3 - 96.4 fL [facility] MCH 26.3(L) 27.1 - 33.3 pg [facility] MCHC 31.4(L) 32.3 - 35.7 g/dL [facility] RDW CV 13.3 11.1 - 14.9 % [facility] RDW SD 41.1 35.7 - 48.1 fL [facility] NRBC abs 0.00 0.00 - 0.01 K/cumm [facility] Blood 04/04/2024 10:2 4 AM COACH DRIVER 04/04/2024 6:34 PM COACH DRIVER Nirmal Garcia MD LAB BLOOD ORDERABLES Final Result YVONNE LOZADA [address] [address] [facility] [place] [address] * Vitamin D 25 hydroxy (04/04/2024 10:24 AM COACH DRIVER) Vitamin D 25-OH 34 30 - 80 ng/mL Blood 04/04/2024 10:2 4 AM COACH DRIVER 04/04/2024 6:34 PM COACH DRIVER Nirmal Garcia MD LAB BLOOD ORDERABLES Final Result Performing Organization Address [facility] Co de Phone Number YVONNE LOZADA [address] Department [place] [address] * (ABNORMAL) Lipid panel (04/04/2024 10:24 AM COACH DRIVER) Cholesterol 274(H) 30 - 199 mg/dL Comment: [...] revised on 2017. Triglycerides 70 <=149 mg/dL YVONNE LOZADA Comment: Interpretive Data Ages [...] NCEP Expert Panel. Circulation 2004;110:227 3. Leonardo Dc et al. ESSIE Cardiol. 2019July 20;5(5):540-548. doi: 10.1001/jamacardio.2020.0013 Current Interpretive Data was [...] last revised on 2017. Chol/HDL ratio 3 [facility] Blood 04/04/2024 10:2 4 AM COACH DRIVER 04/04/2024 6:34 PM COACH DRIVER us Nirmal Garcia MD LAB [place] [address] [address] Department [place] [address] * Comprehensive metabolic panel (04/04/2024 10:24 AM COACH DRIVER) Sodium 140 135 - 145 mmol/L Potassium, pl 4.1 3.3 - 4.9 mmol/L [facility] Chloride 103 97 - 110 mmol/L [facility] CO2 26 22 - 32 mmol/L [facility] Anion gap 11 2 - 15 mmol/L [facility] BUN 17 6 - 25 mg/dL [facility] Creatinine 0.67 0.60 - 1.10 mg/dL [facility] Glucose 90 70 - 199 mg/dL [facility] Comment: Interpretive Data Fasting glucose >/= 126 [...] classification and Diagnosis of Diabetes Diabetes Care 202; 46: S19-S40. Current interpretive data was last [...] [facility] Blood 04/04/2024 10:2 4 AM COACH DRIVER 04/04/2024 6:34 PM COACH DRIVER Result [facility] Nirmal Garcia MD LAB BLOOD ORDERABLES Final Result Performing Organization Address [facility] Co de Phone Number YVONNE [address] [address] Department [place] [address] * HM COLONOSCOPY (12/28/2023 8:51 AM CDT) Result [facility] Megan Rosas MD HEALTH MAINTENANCE Final Result * Hepatitis C [...] AM CDT 05/31/2023 2:31 PM CDT Result [facility] Nirmal Garcia MD LAB MICROBIOLOGY - GENERAL ORDERABLES Final Result Performing Organization Address [facility] Phone Number OLGADANY [address] [address] Department [place] [address] * (ABNORMAL) Hemoglobin A1c (05/31/2023 11:08 AM CDT) Hgb A1C 6.2(H) 4.0 - 5.6 % Estimated Average Glucose 131 mg/dL YVONNE LOZADA Comment: The ADA recommends reporting an estimated Average Glucose (eAG) with all Hemoglobin A1c results using the equation derived from a study of 507 normal and diabetic adults. Minority populations were underrepresented and children were not included. (Diabetes Care 31:4905-4245, 2008). The eAG is not equivalent to a fasting glucose. Blood 05/31/2023 11:0 8 AM CDT 05/31/2023 2:31 PM CDT us Nirmal Garcia MD LAB BLOOD ORDERABLES Final Result Performing Organization Address City/[place] Number [place] [address] [facility] Department [place] [address] * Dexa Axial Skeleton Bone Density 1 or 2 Site (11/17/2017) Anatomical Region Laterality Modality Body N/A Radiographic Otilia ging us Pawel Juárez MD IMG DXA PROCEDURES Final Re sult from Last 3 Months or Most Recently Relevant to Health Maintenance Insurance [facility] Member Subscriber Plan / Payer ( fective 2022-Present) Name:Nancy Cherry Relation to Subscriber:Self Name:Nancy Cherry Payer ID:[id number] (NAIC) Type:MEDICARE RISK OTHER Address: [address] [place] [id number] Care Teams Guyline Operator Relationship Specialty Start Date End Date Nirmal Garcia MD [address] [place] [address] PCP - General Family Medicine 01/27/22 Carter Celaya MD [address] [place] [address] Referring Physician Infectious Diseases 10/23/21 Pawel Juárez MD [address] [facility] [address] [address] Referring Physician Obstetrics and Gynecology 11/30/23
--- OUTSIDE RECORDS SUMMARY | 2024-06-30 18:58 | XMS_ITS | Clinical Summary ---
Author Organization [facility] Address [address] [place] [address] Care Team Providers Care Facilities Maintenance Manager Name Role Phone Unavailable Primary Care Provider [...] topic Meningococcal Vaccine Aged Out No caleb pascual eligible based on patient's age to complete this topic RSV Immunizations Under 20 Months Aged Out No longer eligible based on patient's age to complete this topic Insurance ESSENCE
--- OUTSIDE RECORDS SUMMARY | 2024-06-30 18:58 | XMS_ITS | Encounter Summary ---
Author Organization [facility] Healthcare Address [address] [place] [address] Care Team Providers Care Carpet Installer Name Role Phone Carter Celaya MD Unavailable [phone] Nirmal Garcia MD Primary Care Provider [phone] Pawel Juárez MD Unavailable [phone] Reason for Visit * Reason Onset Date Comments Referral Request 06/06/2024 Encounter Details Date Type Department Care Team (Late st Contact Info) Description 06/06/[address] [facility] Medical [facility] [place] [address] [place] [address] Nirmal Garcia MD [address] [place] [address] [address] [place] [address] Referral Request Social History Tobacco Use Types Packs/Day Years [...] 06/25/2022 How often do you attend chur or yazidi services? Never 06/25/2022 Do you belong to any clubs o r organizations such as restorationism groups, unions, fraternal or athletic groups, or [...] place to sleep or slept in a residential (including now)? 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 Faxed to number provided. * Telephone Encounter - Celi Petty - 06/06/2024 9:14 AM CDT Referral Provider Name: Timi Kwon M.D. Specialty: Neurology [address] [facility] [address] [facility] [address] Diagnosis Code/Symptom/Reason Patient is being seen: R41.3 Date of Appointment: Jun.05 NPI#: [id number] Tax ID#: [id number] Is insurance in chart up to date? Yes Additional Comments: Need an essence referral not Ambulatory. Please back date insurance referral to . Does message need to be routed? Yes-Action Needed documented in this encounter Plan of Treatment Not on file documented as of this encounter Visit Diagnoses Not on filedocumented in this encounter Care Teams Carpet Installer Relationship Specialty Start Date End Date Nirmal Garcia MD [address] [place] [address] PCP - General Family Medicine 01/27/22 Carter Celaya MD [facility] [address] Referring Physician Infectious Diseases 10/23/21 Pawel Juárez MD [address] [address] Referring Physician Obstetrics and Gynecology 11/30/23 documented as of this encounter
--- OUTSIDE RECORDS SUMMARY | 2024-06-30 18:59 | XMS_ITS | Continuity of Care Document ---
Author Organization [facility] Address [address] [facility] [address] [place] [address] Phone Care Team Providers Care Insurance Claims Processor Name Role Phone Josefina Gordillo OT Unavailable [...] Diagnoses Date Provider Providers Copied on Encounter [facility] [address], [id number], tel:[phone] [place] No Information Jun- 3 Rand Whiteside . [address], [id number], [place] tel:[phone] [place] No Information 0 3 Rand Whiteside . Referring Provider: Nirmal Caban, [address] [place], [address]. tel:[phone], [id number], tel:[phone] [place] No Information Apr-0 3 Antelmo Matos , [place], [place]. Referring Provider: Nirmal Caban, [address] [facility], [place], [address]. tel:[phone] Family History Family Member Type Diagnosis Age At Onset No Information Payers Payer name Insurance type Covered alliance party ID Tiff khanna(s) [employer] Insurance CI [id number] Social History Type Description Quantity Date Captured [...]
--- OUTSIDE RECORDS SUMMARY | 2024-06-30 18:59 | XMS_ITS | Encounter Summary ---
Author Organization [facility] Healthcare Address [address] [place] [address] Care Team Providers Care Chain Maker Hand Name Role Phone Carter Celaya MD Unavailable [phone] Nirmal Garcia MD Primary Care Provider [phone] Pawel Juárez MD Unavailable [phone] Encounter Details Date Type Department Care Team (Late st Contact Info) Description 05/22/2024 Results Follow-Up [facility] Primary Care at [address] [address] Nirmal Garcia MD [address] [facility] [address] [place] [address] Social History Tobacco Use Types Packs/Day Years [...] often do you attend chur ch or episcopalian services? Never 06/25/2022 Do you belong to any clubs o r organizations such as restorationist groups, unions, fraternal or athletic groups, or [...] place to sleep or slept in a longterm (including now)? 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 Gender Identity Not on file Sexual Orientation Not on file documented as of this encounter Plan of Treatment Not on file documented as of this encounter Visit Diagnoses Not on filedocumented in this encounter Care Teams Chain Maker Hand Relationship Specialty Start Date End Date Nirmal Garcia MD [address] [place] [address] PCP - General Family Medicine 01/27/22 Carter Celaya MD [address] [address] Referring Physician Infectious Diseases 10/23/21 Pawel Juárez MD [address] [facility] [address] [facility] [address] [place] [address] Referring Physician Obstetrics and Gynecology 11/30/23 documented as of this encounter
--- OUTSIDE RECORDS SUMMARY | 2024-06-30 18:59 | XMS_ITS | CONTINUITY OF CARE DOCUMENT ---
Author Name ryan davis Address Unknown Organization [facility] Address [address] [facility] [address] [place] [address] Phone [phone] Care Team Providers Care Technical Laboratory Asst Name Role Phone Tawanna FLOWERS, Leah Unavailable NE TORRES MD Unavailable NE TORRES MD Unavailable [phone] INSURANCE PROVIDERS Payer name Policy type / Coverage type [place] red democrat ID [facility] Other [id number]
[2024-06-30] MEDS: FAMOTIDINE 20 MG/2 ML VIAL IV PUSH (20:08)
[2024-06-30] MEDS: ONDANSETRON INJ 4 MG/2 ML VIAL IV PUSH (20:08)
[2024-06-30] MEDS: SODIUM CHLORIDE 0.9% IV 500 ML 999 ML IV CONT (20:08)
--- NOTE | 2024-06-30 21:41 | PC.NURSE ---
IV infiltrated at CT. (L) AC wrapped, elevated and ice applied. made aware
[2024-06-30 22:35] VITALS: BP 155/102; PULSE 48; RESP 15; O2SAT 100
== END 2024-07-01 00:20 | disposition home or self-care (01) ==
PROVIDERS: Registered Nurse; Emergency Provider Physician Assistant; PCP Family Medicine
DX: B34.9 Viral infection, unspecified (principal); K59.00 Constipation, unspecified; N28.89 Other specified disorders of kidney and ureter; R10.13 Epigastric pain; T80.89XA Other complications following infusion, transfusion and therapeutic injection, initial encounter; R22.32 Localized swelling, mass and lump, left upper limb; E78.00 Pure hypercholesterolemia, unspecified; Z21 Asymptomatic human immunodeficiency virus [HIV] infection status; Z86.73 Personal history of transient ischemic attack (TIA), and cerebral infarction without residual deficits; Z79.899 Other long term (current) drug therapy; Y84.8 Other medical procedures as the cause of abnormal reaction of the patient, or of later complication, without mention of misadventure at the time of the procedure
CPT/HCPCS: 36415; 74150; 74176; 80053; 81003; 83690; 84484; 85025; 93005; 96361; 96374; 96375; 99284; J2405; J7040

== ENCOUNTER 2024-07-19 05:23 | Emergency (ER) | payer OTHER, SELFPAY ==
--- NOTE | ~2024-07-19 | CT_ITS ---
CT of the Abdomen and Pelvis: Indication: Abdominal pain Technique: 2.5 mm axial scans were obtained through the abdomen and pelvis following intravenous adm inistration of 100 cc of Omnipaque 350. Dose reduction technique was used on this scan by utilizing a utomated exposure control and iterative reconstruction technique. The dose-length product (DLP) was 2 25.82 mGy-cm. COMPARISON: 06/30/2024 Findings: Scans through the lung bases are unremarkable. The liver, spleen, pancreas, gallbladder, adrenals and kidneys are within normal limits. No evidence of aortic aneurysm. No lymphadenopathy. No bowel obstruction or bowel wall thickening. There is no evidence to suggest acute appendicitis. Images through the pelvis were performed. Urinary bladder unremarkable. No pelvic mass seen. No ascit es. Impression: No significant abnormalities seen. Reviewed, dictated and finalized at [facility]. Impression: No significant abnormalities seen.
--- OUTSIDE RECORDS SUMMARY | 2024-07-19 05:26 | XMS_ITS | Data Portability ---
Author Organization [facility] CLAUDIAJuan Address [address] [place] [address] Care Team Providers Care Enterprise Application Administrator Name Role Phone SHARADJOSEFA Home Worker [phone] CHALO GARCIA Family Medicine Assessment No assessment recorded. Plan of Treatment Reminders Order Date Submit Date Provider Last Modified By Organization Details Last Modified Time Details Appointments ANY 15 2024 02:15P Vanda Celaya MD Not available Not available Not available Lab CBC w/ auto diff 2023 024 [facility], [address], [address], [place], [address], 01/06/2024 09:48:16 CMP, serum or plasma 2023 024 [place] [facility], [address] [facility] [address], [address], [place], [address], 12/15/2023 06:20:33 HIV-1 RNA, quantitat [place], PCR, serum or plasma 2023 024 [place] [facility], [address], [address], [place], [address], 12/15/2023 16:13:24 cd4 T-cells, blood 2023 024 [place] [facility], [address], [address], [place], [address], 12/15/2023 06:20:34 RPR (rapid plasma reagin), serum 2023 024 DEAN VENTURA, [address], [address], [place], [address], 12/15/2023 06:20:35 chlamydia trachomat is + neisseria gonorrhoe ae + trichomon as vaginalis rRNA panel, OLIVE+probe 2023 024 DEAN VENTURA, [facility] [address], [address], [place], [address], 12/15/2023 06:20:33 hepatitis B surface Ab, quantitat angeles, serum 2023 024 DEAN VILLANUEVA, [facility] [address], [address], [place], [address], 12/15/2023 06:20:35 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, qual, blood 2023 024 DEAN VENTURA, [address] [place], [place] [address]ju[address], [address], [place], [address], 12/15/2023 14:13:26 HIV-1 RNA, quantitat angeles, PCR, serum or plasma 2022 024 DEAN VENTURA, [facility] hernandezju[address], [address], [place], [address], 06/16/2023 15:11:37 cd4 T-cells, blood 2022 023 DEAN VENTURA, [facility] [address], [address], [place], [address], 02/10/2023 13:10:39 HIV-1 RNA, quantitat angeles, PCR, serum or plasma 2022 023 DEAN VENTURALOLA, [facility] [address], [address], [place], [address], 02/09/2023 19:08:36 RPR (rapid plasma reagin), serum 2022 023 [facility], [address], [address], [place], [address], 02/10/2023 13:10:39 chlamydia trachomat is + neisseria gonorrhoe ae + trichomon as vaginalis DNA panel, OLIVE+probe , unspecifi ed specimen 2022 023 [facility], [address] [place], [place] [address]ju[address], [address], [place], [address], 02/10/2023 13:10:38 Hepatitis C IgG Ab, qual, serum 2022 023 [facility], [address] [place], [place] [address]juan [address], [address], [place], [address], 02/10/2023 13:10:37 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, qual, blood 2022 023 [facility], [address] [address], [address], [place], [address], 02/10/2023 13:10:37 lipid panel, serum 2021 022 [email or web address] VILLANUEVA, [address] [place], [place] [address]juan [address], [address], [place], [address], 07/31/2022 11:55:45 Referral gastroent erologist referral - Screening colonosco py, please 2022 024 laurel Hastings MD, [address], [address], [place], [address], 01/18/2024 16:34:49 cardiolog ist referral - HTN with a recent CVA 2022 023 [facility], [address], [address], [place], [address], 02/08/2023 13:21:26 sleep medicine referral - Snorer, recent CVA 2022 023 laurel Garduno MD, [address], [place], [address], 04/15/2023 09:11:25 otolaryng ologist referral - Tinnitus and hoarsenes s post CVA 2022 023 [facility], [address], [place], [address], 2023 12:10:12 dermatolo gist referral - HIV disease, chronic rash 2021 [facility] ([facility]ermatology) , [address] [facility] , [facility] [address], [place], [address], 04/23/2022 15:49:37 gynecolog ist referral 2021 laurel Juárez, [address] [facility] [facility] [address], [place], [address], Ph [phone] 04/15/2023 09:11:25 Procedures None recorded. Surgeries None recorded. Imaging None recorded. Medication Orders ibandrona te 150 mg tablet 2022 023 [facility] [address] [facility], [address], [place], [address], 02/08/2023 14:16:57 ciproflox acin 0.3 % eye drops 2021 [id number], [address], [place], [place], [id number], 07/31/2022 11:51:45 rosuvasta tin 40 mg tablet 2021 [facility][id number], [address] [place], [place], [id number], 07/31/2022 13:42:08 Patient TargetsNo targets recorded. Patient Instructions Encounter Date Encounter Id Patient Instructions Last Modified By Organization Details Last Modified Time 01/02/2022 [id number] pinkeye: care instructions oajao Not available 01/02/2022 10:50:16 tetanus and diphtheria booster: care instructions oajao Not available 01/02/2022 10:36:04 acquired immunodeficiency syndrome (AIDS): care instructions oajao Not available 01/02/2022 10:50:16 Rosuvastatin 40 Labs in 6 weeks WET MACHINE CUTTER Dermatology (Third referral) Follow up in 8 weeks oajao Not available 01/02/2022 10:48:13 07/31/2022 [id number] snoring: care instructions oajao Not available 07/31/2022 12:13:14 Labs Sleep medic ine Cardiology Stop Rosuvastatin Continue Atorvastatin ENT Follow up in 7-8 weeks (Post cardiology, labs) oajao Not available 07/31/2022 13:47:28 Detailed visit oajao Not available 0 07/31/2022 13:47:13 02/08/2023 [id number] Note from the neurologist Dermatology, sleep medicine and ENT as referred Cardiology (Pending) Labs Follow up with WET MACHINE CUTTER Follow up in 6 weeks (30 minutes) Addendum Colonoscopy [place]o Not available 02/08/2023 14:59:56 She has given me verbal permission to send a copy of her labs to her PCP. oajao Not available 02/08/2023 14:21:57 03/09/2023 [id number] Follow up with y our PCP Labs March, Sleep medicine? ENT? Follow up in 5 months and PRN oajao Not available 03/09/2023 16:38:02 Compliance was discussed oajao Not available 03/09/2023 16:37:40 12/13/2023 [id number] Labs Referral to the Dermatology from her [...] Not available 12/13/2023 10:41:34 Reason for Referral Telecasting Engineer Referral for Sc reening for malignant neoplasm of cervix Referring Physician: Carter Celaya, Internal Medicine, Encounter Date: 01/02/2022 Steel Fixer Referral for P ruritic rash HIV disease, chronic rash HIV disease, chronic rash Referring Physician: Carter Celaya, Internal Medicine, Encounter Date: 01/02/2022 Sleep Medicine Referral for Snoring Snorer, recent CVA Snorer, recent CVA Referring Physician: Carter Celaya Internal Medicine, Encounter Date: 07/31/2022 Electrical Controls Technician Referral for Hi story of cerebrovascular accident HTN with a recent CVA HTN with a recent CVA Referring Physician: Carter Celaya Internal Medicine, Encounter Date: 07/31/2022 Sql Server Developer Referral fo r Chronic hoarseness Tinnitus and hoarseness post CVA Tinnitus and hoarseness post CVA Referring Physician: Carter Celaya Internal Medicine, Encounter Date: 07/31/2022 Custom Garment Designer Referral for Screening for malignant neoplasm of colon Screening colonoscopy, please Screening colonoscopy, please Referring Physician: Carter Celaya Internal Medicine, Encounter Date: 02/08/2023 Results Created Date Observation Date Name Description Value Unit Range Abnormal Flag Note LastModifiedBy Organization Detail LastModifiedTime 02/17/20 22 02/17/2022 LIPID PANEL cholesterol, total 205 mg/dL 100-19 9 above high normal Not Available [facility] ([facility]) [address] [facility] [address], [place], [address], 02/17/2022 06:11:48 02/17/20 22 02/17/2022 LIPID PANEL triglyceride s 63 mg/dL 0-149 Not Available [facility] ([facility]) [address] [facility], [place], [address], 02/17/2022 06:11:48 02/17/20 22 02/17/2022 LIPID PANEL HDL cholesterol 62 mg/dL >39 Not Available [facility] ([facility]) [address] [place], [address], 02/17/2022 06:11:48 02/17/20 22 02/17/2022 LIPID PANEL VLDL cholesterol wild 11 mg/dL 5-40 Not Available [facility] ([facility]) [address] [place], [address], 02/17/2022 06:11:48 02/17/20 22 02/17/2022 LIPID PANEL LDL chol calc ([facility]) 132 mg/dL 0-99 above high normal Not Available [facility] ([facility]) [address] [place], [address], 02/17/2022 06:11:48 08/04/19 23 08/05/2022 CT, NG, TRICH VAG BY OLIVE chlamydia by OLIVE NEGATI VE negati ve Not Available [facility] ([facility]) [address] [place], [address], 08/05/2022 08:28:32 08/04/19 23 08/05/2022 CT, NG, TRICH VAG BY OLIVE gonococcus by OLIVE NEGATI VE negati ve Not Available [facility] ([facility]) [address] [place], [address], 08/05/2022 08:28:32 08/04/19 23 08/05/2022 CT, NG, TRICH VAG BY OLIVE trich vag by OLIVE NEGATI VE negati ve Not Available [facility] ([facility]) [address] [place], [address], 08/05/2022 08:28:32 08/04/19 23 08/04/2022 LIPID PANEL cholesterol, total 186 mg/dL 100-19 9 Not Available [facility] ([facility]) [address] [place], [address], 08/05/2022 08:28:33 08/04/19 23 08/04/2022 LIPID PANEL triglyceride s 105 mg/dL 0-149 Not Available [facility] ([facility]) [address] [place], [address], 08/05/2022 08:28:33 08/04/19 23 08/04/2022 LIPID PANEL HDL cholesterol 72 mg/dL >39 Not Available [facility] ([facility]) [address] [place], [address], 08/05/2022 08:28:33 08/04/19 23 08/04/2022 LIPID PANEL VLDL cholesterol wild 19 mg/dL 5-40 Not Available [facility] ([facility]) [address] [place], [address], 08/05/2022 08:28:33 08/04/19 23 08/04/2022 LIPID PANEL LDL chol calc ([facility]) 95 mg/dL 0-99 Not Available [facility] ([facility]) [address] [place], [address], 08/05/2022 08:28:33 08/04/19 23 08/04/2022 COMP. METAB OLIC PANEL (14) glucose 93 mg/dL 70-99 Not Available [facility] ([facility]) [address] [place], [address], 08/05/2022 08:28:33 08/04/19 23 08/04/2022 COMP. METAB OLIC PANEL (14) BUN 11 mg/dL 8-27 Not Available [facility] ([facility]) [address] [place], [address], 08/05/2022 08:28:33 08/04/19 23 08/04/2022 COMP. METAB OLIC PANEL (14) creatinine 0.88 mg/dL 0.57-1 .00 Not Available [facility] ([place] [facility]) [address], [place], [address], 08/05/2022 08:28:33 08/04/19 23 08/04/2022 COMP. METAB OLIC PANEL (14) eGFR 71 mL/mi n/1.7 3 >59 Not Available [facility] ([facility]) [address], [place], [address], 08/05/2022 08:28:33 08/04/19 23 08/04/2022 COMP. METAB OLIC PANEL (14) BUN/creatini ne ratio 13 12-28 Not Available [facility] ([place] [facility]) [address], [place], [address], 08/05/2022 08:28:33 08/04/19 23 08/04/2022 COMP. METAB OLIC PANEL (14) sodium 138 mmol/ L 134-14 4 Not Available [facility] ([facility]) [address] [facility], [place], [address], 08/05/2022 08:28:33 08/04/19 23 08/04/2022 COMP. METAB OLIC PANEL (14) potassium 4.3 mmol/ L 3.5-5. 2 Not Available [facility] ([facility]) [address] [facility], [place], [address], 08/05/2022 08:28:33 08/04/19 23 08/04/2022 COMP. METAB OLIC PANEL (14) chloride 99 mmol/ L 96-106 Not Available [facility] ([place] [facility]) [address] [facility], [place], [address], 08/05/2022 08:28:33 08/04/19 23 08/04/2022 COMP. METAB OLIC PANEL (14) carbon dioxide, total 28 mmol/ L 20-29 Not Available [facility] ([place] [facility]) [address] [facility], [place], [address], 08/05/2022 08:28:33 08/04/19 23 08/04/2022 COMP. METAB OLIC PANEL (14) calcium 9.3 mg/dL 8.7-10 .3 Not Available [facility] ([facility]) [address] [facility], [place], [address], 08/05/2022 08:28:33 08/04/19 23 08/04/2022 COMP. METAB OLIC PANEL (14) protein, total 6.5 g/dL 6.0-8. 5 Not Available [facility] ([facility]) [address] [facility] [address], [place], [address], 08/05/2022 08:28:33 08/04/19 23 08/04/2022 COMP. METAB OLIC PANEL (14) albumin 4.0 g/dL 3.8-4. 8 Not Available [facility] ([facility]) [address] [facility], [place], [address], 08/05/2022 08:28:33 08/04/19 23 08/04/2022 COMP. METAB OLIC PANEL (14) globulin, total 2.5 g/dL 1.5-4. 5 Not Available [facility] ([facility]) [address] [facility], [place], [address], 08/05/2022 08:28:33 08/04/19 23 08/04/2022 COMP. METAB OLIC PANEL (14) A/G ratio 1.6 1.2-2. 2 Not Available [facility] ([facility]) [address] [facility] [place], [address], 08/05/2022 08:28:33 08/04/19 23 08/04/2022 COMP. METAB OLIC PANEL (14) bilirubin, total 0.5 mg/dL 0.0-1. 2 Not Available [facility] ([facility]) [address] [facility], [place], [address], 08/05/2022 08:28:33 08/04/19 23 08/04/2022 COMP. METAB OLIC PANEL (14) alkaline phosphatase 75 IU/L 44-121 Not Available [facility] ([facility]) [address] [facility], [place], [address], 08/05/2022 08:28:33 08/04/19 23 08/04/2022 COMP. METAB OLIC PANEL (14) AST (SGOT) 23 IU/L 0-40 Not Available [facility] ([facility]) [address] [facility], [place], [address], 08/05/2022 08:28:33 08/04/19 23 08/04/2022 COMP. METAB OLIC PANEL (14) ALT (SGPT) 13 IU/L 0-32 Not Available [facility] ([facility]) [address] [facility], [place], [address], 08/05/2022 08:28:33 08/04/19 23 08/03/2022 HELPE R T-LYM PH-CD 4 WBC 4.2 x10e3 /uL 3.4-10 .8 Not Available [facility] ([facility]) [address] [facility], [place], [address], 08/05/2022 08:28:35 08/04/19 23 08/03/2022 HELPE R T-LYM PH-CD 4 RBC 4.52 x10e6 /uL 3.77-5 .28 Not Available [facility] ([facility]) [address] [facility], [place], [address], 08/05/2022 08:28:35 08/04/19 23 08/03/2022 HELPE R T-LYM PH-CD 4 hemoglobin 12.2 g/dL 11.1-1 5.9 Not Available [facility] ([facility]) [address] [facility], [place], [address], 08/05/2022 08:28:35 08/04/19 23 08/03/2022 HELPE R T-LYM PH-CD 4 hematocrit 36.2 % 34.0-4 6.6 Not Available [facility] ([facility]) [address] [facility], [place], [address], 08/05/2022 08:28:35 08/04/19 23 08/03/2022 HELPE R T-LYM PH-CD 4 MCV 80 fL 79-97 Not Available [facility] ([facility]) [address] [place], [address], 08/05/2022 08:28:35 08/04/19 23 08/03/2022 HELPE R T-LYM PH-CD 4 MCH 27.0 pg 26.6-3 3.0 Not Available [facility] ([facility]) [address] [facility], [place], [address], 08/05/2022 08:28:35 08/04/1908/03/2022 HELPE R T-LYM PH-CD 4 MCHC 33.7 g/dL 31.5-3 5.7 Not Available [facility] ([facility]) [address] [place], [address], 08/05/2022 08:28:35 08/04/19 23 08/03/2022 HELPE R T-LYM PH-CD 4 RDW 13.4 % 11.7-1 5.4 Not Available [facility] ([facility]) [address] [place], [address], 08/05/2022 08:28:35 08/04/19 23 08/03/2022 HELPE R T-LYM PH-CD 4 platelets 235 x10e3 /uL 150-45 0 Not Available [facility] ([facility]) [address] [place], [address], 08/05/2022 08:28:35 08/04/19 23 08/03/2022 HELPE R T-LYM PH-CD 4 neutrophils 38 % notest ab. Not Available [facility] ([facility]) [address], [place], [address], 08/05/2022 08:28:35 08/04/19 23 08/03/2022 HELPE R T-LYM PH-CD 4 lymphs 43 % notest ab. Not Available [facility] ([facility]) [address], [place], [address], 08/05/2022 08:28:35 08/04/19 23 08/03/2022 HELPE R T-LYM PH-CD 4 monocytes 11 % notest ab. Not Available [facility] ([facility]) [address] [facility], [place], [address], 08/05/2022 08:28:35 08/04/19 23 08/03/2022 HELPE R T-LYM PH-CD 4 eos 7 % notest ab. Not Available [facility] ([facility]) [address] [facility], [place], [address], 08/05/2022 08:28:35 08/04/19 23 08/03/2022 HELPE R T-LYM PH-CD 4 basos 1 % notest ab. Not Available [facility] ([facility]) [address] [facility], [place], [address], 08/05/2022 08:28:35 08/04/19 23 08/03/2022 HELPE R T-LYM PH-CD 4 neutrophils (absolute) 1.6 x10e3 /uL 1.4-7. 0 Not Available [facility] ([facility]) [address] [facility], [place], [address], 08/05/2022 08:28:35 08/04/19 23 08/03/2022 HELPE R T-LYM PH-CD 4 lymphs (absolute) 1.9 x10e3 /uL 0.7-3. 1 Not Available [facility] ([facility]) [address] [facility], [place], [address], 08/05/2022 08:28:35 08/04/19 23 08/03/2022 HELPE R T-LYM PH-CD 4 monocytes(ab solute) 0.5 x10e3 /uL 0.1-0. 9 Not Available [facility] ([facility]) [address] [facility], [place], [address], 08/05/2022 08:28:35 08/04/19 23 08/03/2022 HELPE R T-LYM PH-CD 4 eos (absolute) 0.3 x10e3 /uL 0.0-0. 4 Not Available [facility] ([facility]) [address] [place], [address], 08/05/2022 08:28:35 08/04/19 23 08/03/2022 HELPE R T-LYM PH-CD 4 baso (absolute) 0.0 x10e3 /uL 0.0-0. 2 Not Available [facility] ([facility]) [address] [place], [address], 08/05/2022 08:28:35 08/04/19 23 08/03/2022 HELPE R T-LYM PH-CD 4 immature granulocytes 0 % notest ab. Not Available [facility] ([facility]) [address] [place], [address], 08/05/2022 08:28:35 08/04/19 23 08/03/2022 HELPE R T-LYM PH-CD 4 immature grans (abs) 0.0 x10e3 /uL 0.0-0. 1 Not Available [facility] ([facility]) [address] [place], [address], 08/05/2022 08:28:35 08/04/19 23 08/04/2022 HELPE R T-LYM PH-CD 4 absolute cd 4 helper 355 /uL 359-15 19 below low normal Not Available [facility] ([facility]) [address] [facility], [place], [address], 08/05/2022 08:28:35 08/04/1908/04/2022 HELPE R T-LYM PH-CD 4 % cd 4 pos. lymph. 18.7 % 30.8-5 8.5 below low normal Not Available [facility] ([facility]) [address] [facility] [place], [address], 08/05/2022 08:28:35 08/04/1908/04/2022 RNA, REAL TIME PCR (NON- GRAPH ) HIV-1 RNA by PCR <20 copie s/mL HIV-1 RNA detec randi The repor table range for this assay is 20 to 10,00 0,000 copie s HIV-1 RNA/m L. Not Available [facility] ([facility]) [address] [facility], [place], [address], 08/05/2022 08:28:35 08/04/1908/04/2022 RNA, REAL TIME PCR (NON- GRAPH ) log10 HIV-1 RNA TNP log10 copy/ mL Unabl e to calcu late resul t since non-n umeri c resul t obtai gamal for compo nent test. Not Available [facility] ([facility]) [address] [facility], [place], [address], 08/05/2022 08:28:35 08/04/1908/03/2022 URINA LYSIS , COMPL ETE specific gravity 1.006 1.005- 1.030 Not Available [facility] ([facility]) [address] [facility] [place], [address], 08/05/2022 08:28:36 08/04/1908/03/2022 URINA LYSIS , COMPL ETE pH 8.0 5.0-7. 5 above high normal Not Available [facility] ([facility]) [address] [facility] [place], [address], 08/05/2022 08:28:36 08/04/19 23 08/03/2022 URINA LYSIS , COMPL ETE urine-color YELLOW yellow Not Available [facility] ([facility]) [address] [facility], [place], [address], 08/05/2022 08:28:36 08/04/19 23 08/03/2022 URINA LYSIS , COMPL ETE appearance CLEAR clear Not Available [facility] ([facility]) [address] [facility], [place], [address], 08/05/2022 08:28:36 08/04/19 23 08/03/2022 URINA LYSIS , COMPL ETE WBC esterase NEGATI VE negati ve Not Available [facility] ([facility]) [address] [facility], [place], [address], 08/05/2022 08:28:36 08/04/19 23 08/03/2022 URINA LYSIS , COMPL ETE protein NEGATI VE negati ve/tra ce Not Available [facility] ([facility]) [address] [facility], [place], [address], 08/05/2022 08:28:36 08/04/19 23 08/03/2022 URINA LYSIS , COMPL ETE glucose NEGATI VE negati ve Not Available [facility] ([facility]) [address] [facility], [place], [address], 08/05/2022 08:28:36 08/04/19 23 08/03/2022 URINA LYSIS , COMPL ETE ketones NEGATI VE negati ve Not Available [facility] ([facility]) [address] [facility], [place], [address], 08/05/2022 08:28:36 08/04/19 23 08/03/2022 URINA LYSIS , COMPL ETE occult blood NEGATI VE negati ve Not Available [facility] ([facility]) [address] [facility], [place], [address], 08/05/2022 08:28:36 08/04/19 23 08/03/2022 URINA LYSIS , COMPL ETE bilirubin NEGATI VE negati ve Not Available [facility] ([facility]) [address] [facility], [place], [address], 08/05/2022 08:28:36 08/04/19 23 08/03/2022 URINA LYSIS , COMPL ETE urobilinogen ,semi-qn 0.2 mg/dL 0.2-1. 0 Not Available [facility] ([facility]) [address] [facility], [place], [address], 08/05/2022 08:28:36 08/04/19 23 08/03/2022 URINA LYSIS , COMPL ETE nitrite, urine NEGATI VE negati ve Not Available [facility] ([facility]) [address] [facility], [place], [address], 08/05/2022 08:28:36 08/04/19 23 08/03/2022 URINA LYSIS , COMPL ETE microscopic examination COMMEN T Micro scopi c follo ws if indic ated. Not Available [facility] ([facility]) [address] [facility], [place], [address], 08/05/2022 08:28:36 08/04/19 23 08/03/2022 URINA LYSIS , COMPL ETE microscopic examination SEE BELOW: Micro scopi c was indic ated and was perfo rmed. Not Available [facility] ([facility]) [address] [facility], [place], [address], 08/05/2022 08:28:36 08/04/1908/04/2022 RPR, RFX QN RPR/C ONFIR M TP RPR NON REACTI VE nonrea ctive Not Available [facility] ([facility]) [address] [facility], [place], [address], 08/05/2022 08:28:37 08/04/19 23 08/04/2022 MICRO SCOPI C EXAMI NATIO N WBC NONE SEEN /hpf 0-5 Not Available [facility] ([facility]) [address] [facility], [place], [address], 08/05/2022 08:28:34 08/04/19 23 08/04/2022 MICRO SCOPI C EXAMI NATIO N RBC NONE SEEN /hpf 0-2 Not Available [facility] ([facility]) [address] [facility], [place], [address], 08/05/2022 08:28:34 08/04/19 23 08/04/2022 MICRO SCOPI C EXAMI NATIO N epithelial cells (non renal) NONE SEEN /hpf 0-10 Not Available [facility] ([facility]) [address] [facility], [place], [address], 08/05/2022 08:28:34 08/04/19 23 08/04/2022 MICRO SCOPI C EXAMI NATIO N casts NONE SEEN /lpf nonese en Not Available [facility] ([facility]) [address] [facility], [place], [address], 08/05/2022 08:28:34 08/04/19 23 08/04/2022 MICRO SCOPI C EXAMI NATIO N bacteria NONE SEEN nonese en/few Not Available [facility] ([facility]) [address] [facility], [place], [address], 08/05/2022 08:28:34 02/09/20 23 02/09/2023 RNA, REAL TIME PCR (NON- GRAPH ) HIV-1 RNA by PCR 74107 copie s/mL The repor table range for this assay is 20 to 10,00 0,000 copie s HIV-1 RNA/m L. Not Available [facility] ([facility]) [address] [facility], [place], [address], 02/09/2023 19:08:36 02/09/20 23 02/09/2023 RNA, REAL TIME PCR (NON- GRAPH ) log10 HIV-1 RNA 4.914 log10 copy/ mL Not Available [facility] ([facility]) [address] [facility], [place], [address], 02/09/2023 19:08:36 02/09/2002/09/2023 HCV ANTIB ADRIEN hep [...] e HCV infec tion. Not Available [facility] ([facility]) [address] [facility], [place], [address], 02/10/2023 13:10:37 02/09/20 23 02/09/2023 QUANT IFERO N-TB GOLD PLUS quantiferon incubation INCUBA TION PERFOR MED. Not Available [facility] ([facility]) [address] [facility], [place], [address], 02/10/2023 13:10:37 02/09/2002/09/2023 QUANT IFERO N-TB GOLD [...] ol for the test. Not Available [facility] ([facility]) [address] [facility], [place], [address], 02/10/2023 13:10:37 02/09/20 23 02/10/2023 QUANT IFERO [...] y metho dolog y Not Available [facility] ([facility]) [address] [place], [address], 02/10/2023 13:10:37 02/09/20 23 02/10/2023 QUANT IFERO N-TB GOLD PLUS quantiferon TB1 Ag value 0.06 IU/mL Not Available [facility] ([facility]) [address] [place], [address], 02/10/2023 13:10:37 02/09/20 23 02/10/2023 QUANT IFERO N-TB GOLD PLUS quantiferon TB2 Ag value 0.07 IU/mL Not Available [facility] ([facility]) [address] [place], [address], 02/10/2023 13:10:37 02/09/20 23 02/10/2023 QUANT IFERO N-TB GOLD PLUS quantiferon nil value 0.07 IU/mL Not Available [facility] ([facility]) [address] [place], [address], 02/10/2023 13:10:37 02/09/20 23 02/10/2023 QUANT IFERO N-TB GOLD PLUS quantiferon mitogen value >10.00 IU/mL Not Available [facility] ([facility]) [address] [place], [address], 02/10/2023 13:10:37 11/02/10/2023 CT, NG, TRICH VAG BY OLIVE chlamydia by OLIVE NEGATI VE negati ve Not Available [facility] ([facility]) [address] [place], [address], 02/10/2023 13:10:38 02/09/2002/10/2023 CT, NG, TRICH VAG BY OLIVE gonococcus by OLIVE NEGATI VE negati ve Not Available [facility] ([facility]) [address] [place], [address], 02/10/2023 13:10:38 02/09/2002/10/2023 CT, NG, TRICH VAG BY OLIVE trich vag by OLIVE NEGATI VE negati ve Not Available [facility] ([facility]) [address] [place], [address], 02/10/2023 13:10:38 02/09/20 23 02/09/2023 HELPE R T-LYM PH-CD 4 absolute cd 4 helper 318 /uL 359-15 19 below low normal Not Available [facility] ([facility]) [address] [place], [address], 02/10/2023 13:10:39 02/09/20 23 02/09/2023 HELPE R T-LYM PH-CD 4 % cd 4 pos. lymph. 21.2 % 30.8-5 8.5 below low normal Not Available [facility] ([facility]) [address] [place], [address], 02/10/2023 13:10:39 02/09/20 23 02/09/2023 HELPE R T-LYM PH-CD 4 WBC 4.8 x10e3 /uL 3.4-10 .8 Not Available [facility] ([facility]) [address] [place], [address], 02/10/2023 13:10:39 02/09/20 23 02/09/2023 HELPE R T-LYM PH-CD 4 RBC 4.64 x10e6 /uL 3.77-5 .28 Not Available [facility] ([facility]) [address] [facility], [place], [address], 02/10/2023 13:10:39 02/09/2002/09/2023 HELPE R T-LYM PH-CD 4 hemoglobin 12.0 g/dL 11.1-1 5.9 Not Available [facility] ([facility]) [address] [facility], [place], [address], 02/10/2023 13:10:39 02/09/20 23 02/09/2023 HELPE R T-LYM PH-CD 4 hematocrit 37.1 % 34.0-4 6.6 Not Available [facility] ([facility]) [address] [facility], [place], [address], 02/10/2023 13:10:39 02/09/2002/09/2023 HELPE R T-LYM PH-CD 4 MCV 80 fL 79-97 Not Available [facility] ([facility]) [address] [place], [address], 02/10/2023 13:10:39 02/09/20 23 02/09/2023 HELPE R T-LYM PH-CD 4 MCH 25.9 pg 26.6-3 3.0 below low normal Not Available [facility] ([facility]) [address] [facility], [place], [address], 02/10/2023 13:10:39 02/09/20 23 02/09/2023 HELPE R T-LYM PH-CD 4 MCHC 32.3 g/dL 31.5-3 5.7 Not Available [facility] ([facility]) [address] [place], [address], 02/10/2023 13:10:39 02/09/20 23 02/09/2023 HELPE R T-LYM PH-CD 4 RDW 12.7 % 11.7-1 5.4 Not Available [facility] ([facility]) [address] [facility], [place], [address], 02/10/2023 13:10:39 02/09/20 23 02/09/2023 HELPE R T-LYM PH-CD 4 platelets 263 x10e3 /uL 150-45 0 Not Available [facility] ([facility]) [address] [facility], [place], [address], 02/10/2023 13:10:39 02/09/20 23 02/09/2023 HELPE R T-LYM PH-CD 4 neutrophils 58 % notest ab. Not Available [facility] ([facility]) [address] [facility], [place], [address], 02/10/2023 13:10:39 02/09/20 23 02/09/2023 HELPE R T-LYM PH-CD 4 lymphs 31 % notest ab. Not Available [facility] ([facility]) [address] [facility], [place], [address], 02/10/2023 13:10:39 02/09/20 23 02/09/2023 HELPE R T-LYM PH-CD 4 monocytes 8 % notest ab. Not Available [facility] ([facility]) [address] [facility], [place], [address], 02/10/2023 13:10:39 02/09/20 23 02/09/2023 HELPE R T-LYM PH-CD 4 eos 3 % notest ab. Not Available [facility] ([facility]) [address] [facility], [place], [address], 02/10/2023 13:10:39 02/09/20 23 02/09/2023 HELPE R T-LYM PH-CD 4 basos 0 % notest ab. Not Available [facility] ([facility]) [address] [facility], [place], [address], 02/10/2023 13:10:39 02/09/20 23 02/09/2023 HELPE R T-LYM PH-CD 4 neutrophils (absolute) 2.8 x10e3 /uL 1.4-7. 0 Not Available [facility] ([facility]) [address] [place], [address], 02/10/2023 13:10:39 02/09/20 23 02/09/2023 HELPE R T-LYM PH-CD 4 lymphs (absolute) 1.5 x10e3 /uL 0.7-3. 1 Not Available [facility] ([facility]) [address] [place], [address], 02/10/2023 13:10:39 02/09/20 23 02/09/2023 HELPE R T-LYM PH-CD 4 monocytes(ab solute) 0.4 x10e3 /uL 0.1-0. 9 Not Available [facility] ([facility]) [address] [place], [address], 02/10/2023 13:10:39 02/09/20 23 02/09/2023 HELPE R T-LYM PH-CD 4 eos (absolute) 0.2 x10e3 /uL 0.0-0. 4 Not Available [facility] ([facility]) [address] [place], [address], 02/10/2023 13:10:39 02/09/20 23 02/09/2023 HELPE R T-LYM PH-CD 4 baso (absolute) 0.0 x10e3 /uL 0.0-0. 2 Not Available [facility] ([facility]) [address] [place], [address], 02/10/2023 13:10:39 02/09/20 23 02/09/2023 HELPE R T-LYM PH-CD 4 immature granulocytes 0 % notest ab. Not Available [facility] ([facility]) [address] [place], [address], 02/10/2023 13:10:39 02/09/20 23 02/09/2023 HELPE R T-LYM PH-CD 4 immature grans (abs) 0.0 x10e3 /uL 0.0-0. 1 Not Available [facility] ([facility]) [address] [facility], [place], [address], 02/10/2023 13:10:39 02/09/2002/09/2023 RPR, RFX QN RPR/C ONFIR M TP RPR NON REACTI VE nonrea ctive Not Available [facility] ([facility]) [address] [place], [address], 02/10/2023 13:10:39 06/14/19 24 06/16/2023 RNA, REAL TIME PCR (NON- GRAPH ) HIV-1 RNA by PCR <20 copie s/mL HIV-1 RNA detec randi The repor table range for this assay is 20 to 10,00 0,000 copie s HIV-1 RNA/m L. Not Available [facility] ([facility]) [address] [facility], [place], [address], 06/16/2023 15:11:37 06/14/19 24 06/16/2023 RNA, REAL TIME PCR (NON- GRAPH ) log10 HIV-1 RNA TNP log10 copy/ mL Unabl e to calcu late resul t since non-n umeri c resul t obtai gamal for compo nent test. Not Available [facility] ([facility]) [address] [facility], [place], [address], 06/16/2023 15:11:37 12/13/19 24 12/15/2023 CT, NG, TRICH VAG BY OLIVE chlamydia by OLIVE NEGATI VE negati ve Not Available [facility] ([facility]) [address] [place], [address], 12/15/2023 06:20:33 12/13/19 24 12/15/2023 CT, NG, TRICH VAG BY OLIVE gonococcus by OLIVE NEGATI VE negati ve Not Available [facility] ([facility]) [address] [facility], [place], [address], 12/15/2023 06:20:33 12/13/19 24 12/15/2023 CT, NG, TRICH VAG BY OLIVE trich vag by OLIVE NEGATI VE negati ve Not Available [facility] ([facility]) [address] [place], [address], 12/15/2023 06:20:33 12/13/19 24 12/14/2023 COMP. METAB OLIC PANEL (14) glucose 115 mg/dL 70-99 above high normal Not Available [facility] ([facility]) [address] [facility], [place], [address], 12/15/2023 06:20:33 12/13/19 24 12/14/2023 COMP. METAB OLIC PANEL (14) BUN 10 mg/dL 8-27 Not Available [facility] ([facility]) [address] [place], [address], 12/15/2023 06:20:33 12/13/19 24 12/14/2023 COMP. METAB OLIC PANEL (14) creatinine 0.88 mg/dL 0.57-1 .00 Not Available [facility] ([facility]) [address] [place], [address], 12/15/2023 06:20:33 12/13/19 24 12/14/2023 COMP. METAB OLIC PANEL (14) eGFR 71 mL/mi n/1.7 3 >59 Not Available [facility] ([facility]) [address] [place], [address], 12/15/2023 06:20:33 12/13/19 24 12/14/2023 COMP. METAB OLIC PANEL (14) BUN/creatini ne ratio 11 12-28 below low normal Not Available [facility] ([facility]) [address] [place], [address], 12/15/2023 06:20:33 12/13/19 24 12/14/2023 COMP. METAB OLIC PANEL (14) sodium 145 mmol/ L 134-14 4 above high normal Not Available [facility] ([facility]) [address] [place], [address], 12/15/2023 06:20:33 12/13/19 24 12/14/2023 COMP. METAB OLIC PANEL (14) potassium 4.6 mmol/ L 3.5-5. 2 Not Available [facility] ([facility]) [address] [place], [address], 12/15/2023 06:20:33 12/13/19 24 12/14/2023 COMP. METAB OLIC PANEL (14) chloride 100 mmol/ L 96-106 Not Available [facility] ([facility]) [address] [place], [address], 12/15/2023 06:20:33 12/13/19 24 12/14/2023 COMP. METAB OLIC PANEL (14) carbon dioxide, total 27 mmol/ L 20-29 Not Available [facility] ([facility]) [address] [place], [address], 12/15/2023 06:20:33 12/13/19 24 12/14/2023 COMP. METAB OLIC PANEL (14) calcium 9.2 mg/dL 8.7-10 .3 Not Available [facility] ([facility]) [address] [place], [address], 12/15/2023 06:20:33 12/13/19 24 12/14/2023 COMP. METAB OLIC PANEL (14) protein, total 6.9 g/dL 6.0-8. 5 Not Available [facility] ([facility]) [address] [place], [address], 12/15/2023 06:20:33 12/13/19 24 12/14/2023 COMP. METAB OLIC PANEL (14) albumin 4.2 g/dL 3.9-4. 9 Not Available [facility] ([facility]) [address] [facility], [place], [address], 12/15/2023 06:20:33 12/13/19 24 12/14/2023 COMP. METAB OLIC PANEL (14) globulin, total 2.7 g/dL 1.5-4. 5 Not Available [facility] ([facility]) [address] [facility], [place], [address], 12/15/2023 06:20:33 12/13/19 24 12/14/2023 COMP. METAB OLIC PANEL (14) bilirubin, total 0.4 mg/dL 0.0-1. 2 Not Available [facility] ([facility]) [address] [facility], [place], [address], 12/15/2023 06:20:33 12/13/19 24 12/14/2023 COMP. METAB OLIC PANEL (14) alkaline phosphatase 78 IU/L 44-121 Not Available [facility] ([facility]) [address] [facility], [place], [address], 12/15/2023 06:20:33 12/13/19 24 12/14/2023 COMP. METAB OLIC PANEL (14) AST (SGOT) 31 IU/L 0-40 Not Available [facility] ([facility]) [address] [facility], [place], [address], 12/15/2023 06:20:33 12/13/19 24 12/14/2023 COMP. METAB OLIC PANEL (14) ALT (SGPT) 23 IU/L 0-32 Not Available [facility] ([facility]) [address] [facility], [place], [address], 12/15/2023 06:20:33 12/13/19 24 12/13/2023 HELPE R T-LYM PH-CD 4 WBC 4.0 x10e3 /uL 3.4-10 .8 Not Available [facility] ([facility]) [address] [facility], [place], [address], 12/15/2023 06:20:34 12/13/19 24 12/13/2023 HELPE R T-LYM PH-CD 4 RBC 4.88 x10e6 /uL 3.77-5 .28 Not Available [facility] ([facility]) [address] [facility], [place], [address], 12/15/2023 06:20:34 12/13/19 24 12/13/2023 HELPE R T-LYM PH-CD 4 hemoglobin 13.1 g/dL 11.1-1 5.9 Not Available [facility] ([facility]) [address] [facility], [place], [address], 12/15/2023 06:20:34 12/13/19 24 12/13/2023 HELPE R T-LYM PH-CD 4 hematocrit 40.4 % 34.0-4 6.6 Not Available [facility] ([facility]) [address] [facility], [place], [address], 12/15/2023 06:20:34 12/13/19 24 12/13/2023 HELPE R T-LYM PH-CD 4 MCV 83 fL 79-97 Not Available [facility] ([facility]) [address] [facility], [place], [address], 12/15/2023 06:20:34 12/13/19 24 12/13/2023 HELPE R T-LYM PH-CD 4 MCH 26.8 pg 26.6-3 3.0 Not Available [facility] ([facility]) [address] [facility], [place], [address], 12/15/2023 06:20:34 12/13/19 24 12/13/2023 HELPE R T-LYM PH-CD 4 MCHC 32.4 g/dL 31.5-3 5.7 Not Available [facility] ([facility]) [address] [facility], [place], [address], 12/15/2023 06:20:34 12/13/19 24 12/13/2023 HELPE R T-LYM PH-CD 4 RDW 12.5 % 11.7-1 5.4 Not Available [facility] ([facility]) [address] [facility], [place], [address], 12/15/2023 06:20:34 12/13/19 24 12/13/2023 HELPE R T-LYM PH-CD 4 platelets 296 x10e3 /uL 150-45 0 Not Available [facility] ([facility]) [address] [facility], [place], [address], 12/15/2023 06:20:34 12/13/19 24 12/13/2023 HELPE R T-LYM PH-CD 4 neutrophils 39 % notest ab. Not Available [facility] ([facility]) [address] [facility], [place], [address], 12/15/2023 06:20:34 12/13/19 24 12/13/2023 HELPE R T-LYM PH-CD 4 lymphs 36 % notest ab. Not Available [facility] ([facility]) [address] [facility], [place], [address], 12/15/2023 06:20:34 12/13/19 24 12/13/2023 HELPE R T-LYM PH-CD 4 monocytes 9 % notest ab. Not Available [facility] ([facility]) [address] [place], [address], 12/15/2023 06:20:34 12/13/19 24 12/13/2023 HELPE R T-LYM PH-CD 4 eos 14 % notest ab. Not Available [facility] ([facility]) [address] [place], [address], 12/15/2023 06:20:34 12/13/19 24 12/13/2023 HELPE R T-LYM PH-CD 4 basos 1 % notest ab. Not Available [facility] ([facility]) [address] [facility], [place], [address], 12/15/2023 06:20:34 12/13/19 24 12/13/2023 HELPE R T-LYM PH-CD 4 neutrophils (absolute) 1.6 x10e3 /uL 1.4-7. 0 Not Available [facility] ([facility]) [address] [facility], [place], [address], 12/15/2023 06:20:34 12/13/19 24 12/13/2023 HELPE R T-LYM PH-CD 4 lymphs (absolute) 1.4 x10e3 /uL 0.7-3. 1 Not Available [facility] ([facility]) [address] [facility], [place], [address], 12/15/2023 06:20:34 12/13/19 24 12/13/2023 HELPE R T-LYM PH-CD 4 monocytes(ab solute) 0.4 x10e3 /uL 0.1-0. 9 Not Available [facility] ([facility]) [address] [place], [address], 12/15/2023 06:20:34 12/13/19 24 12/13/2023 HELPE R T-LYM PH-CD 4 eos (absolute) 0.6 x10e3 /uL 0.0-0. 4 above high normal Not Available [facility] ([facility]) [address] [place], [address], 12/15/2023 06:20:34 12/13/19 24 12/13/2023 HELPE R T-LYM PH-CD 4 baso (absolute) 0.0 x10e3 /uL 0.0-0. 2 Not Available [facility] ([facility]) [address] [facility], [place], [address], 12/15/2023 06:20:34 12/13/19 24 12/13/2023 HELPE R T-LYM PH-CD 4 immature granulocytes 1 % notest ab. Not Available [facility] ([facility]) [address] [facility] [place], [address], 12/15/2023 06:20:34 12/13/19 24 12/13/2023 HELPE R T-LYM PH-CD 4 immature grans (abs) 0.0 x10e3 /uL 0.0-0. 1 Not Available [facility] ([facility]) [address] [facility] [place], [address], 12/15/2023 06:20:34 12/13/19 24 12/14/2023 HELPE R T-LYM PH-CD 4 absolute cd 4 helper 284 /uL 359-15 19 below low normal Not Available [facility] ([facility]) [address] [facility], [place], [address], 12/15/2023 06:20:34 12/13/19 24 12/14/2023 HELPE R T-LYM PH-CD 4 % cd 4 pos. lymph. 20.3 % 30.8-5 8.5 below low normal Not Available [facility] ([facility]) [address] [facility], [place], [address], 12/15/2023 06:20:34 12/13/19 24 12/14/2023 HEPAT ITIS B SURF AB QUANT hepatitis B surf Ab quant <3.5 mIU/m L immuni ty>10 below low normal Statu s of Immun ity Anti- HBs Level ----- ----- ----- --- ----- ----- ---- Incon siste nt with Immun ity 0.0 - 10.0 Consi stent with Immun ity >10.0 Not Available [facility] ([facility]) [address] [facility], [place], [address], 12/15/2023 06:20:35 12/13/19 24 12/14/2023 RPR, RFX QN RPR/C ONFIR M TP RPR NON REACTI VE nonrea ctive Not Available [facility] ([facility]) [address] [facility], [place], [address], 12/15/2023 06:20:35 12/13/19 24 12/14/2023 QUANT IFERO N-TB GOLD PLUS quantiferon incubation INCUBA TION PERFOR MED. Not Available [facility] ([facility]) [address] [facility], [place], [address], 12/15/2023 14:13:26 12/13/19 24 12/14/2023 QUANT IFERO [...] ol for the test. Not Available [facility] ([facility]) [address] [facility], [place], [address], 12/15/2023 14:13:26 12/13/19 24 12/15/2023 QUANT IFERO [...] y metho dolog y Not Available [facility] ([facility]) [address] [place], [address], 12/15/2023 14:13:26 12/13/19 24 12/15/2023 QUANT IFERO N-TB GOLD PLUS quantiferon TB1 Ag value 0.03 IU/mL Not Available [facility] ([facility]) [address] [place], [address], 12/15/2023 14:13:12/13/19 24 12/15/2023 QUANT IFERO N-TB GOLD PLUS quantiferon TB2 Ag value 0.02 IU/mL Not Available [facility] ([facility]) [address] [place], [address], 12/15/2023 14:13:26 12/13/19 24 12/15/2023 QUANT IFERO N-TB GOLD PLUS quantiferon nil value 0.01 IU/mL Not Available [facility] ([facility]) [address] [place], [address], 12/15/2023 14:13:26 12/13/19 24 12/15/2023 QUANT IFERO N-TB GOLD PLUS quantiferon mitogen value >10.00 IU/mL Not Available [facility] ([facility]) [address] [place], [address], 12/15/2023 14:13:26 12/13/19 24 12/15/2023 RNA, REAL TIME PCR (NON- GRAPH ) HIV-1 RNA by PCR 50 copie s/mL The repor table range for this assay is 20 to 10,00 0,000 copie s HIV-1 RNA/m L. Not Available [facility] ([facility]) [address] [place], [address], 12/15/2023 16:13:24 12/13/19 24 12/15/2023 RNA, REAL TIME PCR (NON- GRAPH ) log10 HIV-1 RNA 1.699 log10 copy/ mL Not Available [facility] ([facility]) [address] [facility], [place], [address], 12/15/2023 16:13:24 06/30/19 25 06/29/2024 Strep tococ [...] Rapid immun oassa y reagent lot number [id number] normal Not Available Not Available 06/20 22:52:21 06/30/19 25 06/29/2024 Influ rolly virus A and B and SARS- CoV+S ARS-C oV-2 (COVI D-19) Ag panel - Upper respi rator y speci men by Rapid immun oassa y internal control result Labora tory data interp retati on normal Not Available Not Available 22:52:21 06/08/19 23 06/07/2022 XR, chest No observ ation record ed. [address], [address], 07/31/2022 12:02:40 06/08/19 23 06/07/2022 CT, angio gram, carot id arter ies, w/ contr ast No observ ation record ed. [address] [address], [place], [address], 07/31/2022 12:02:40 06/08/19 23 06/07/2022 MRI, brain + brain stem, w/o contr ast No observ ation record ed. [address] [address], [place], [address], 07/31/2022 12:02:40 06/09/19 23 06/08/2022 trans -thor acic echoc ardio gram (TTE) (PROC ) No observ ation record ed. [address], [place], [address], 07/31/2022 12:02:40 06/10/19 23 06/09/2022 evalu ation of oral and phary ngeal swall owing funct ion (PROC ) No observ ation record ed. [address], [place], [address], 07/31/2022 12:02:40 06/11/19 23 06/10/2022 XR, foot No observ ation record ed. [address], [place], [address], 07/31/2022 12:02:40 07/11/19 23 07/10/2022 CT, head, w/o contr ast No observ ation record ed. [address], [place], [address], 07/31/2022 12:02:39 07/11/19 23 07/09/2022 CT, cervi wild spine , w/o contr ast No observ ation record ed. [address], [place], [address], 07/31/2022 12:02:39 07/11/19 23 07/10/2022 XR, chest No observ ation record ed. [address], [place], [address], 07/31/2022 12:02:39 12/31/19 23 12/30/2022 MAMMO , scree lucho, bilat eral No observ ation record ed. [address], [address], 02/08/2023 12:49:25 Result Notes None recorded. Problems Name Problem SNOMED Code Status Onset Date Resolution Date Notes Provider Name and Address Organization Details Recorded Time Osteoporos is 59786053 Active 2017 Not Available [facility] 3 07:23:32 Degenerati on of lumbar interverte bral disc 87710336 Active 2018 Not Available [facility] 3 07:23:32 Lumbosacra l radiculopa thy 8124091 Active 2019 Not Available [facility] 3 07:23:32 Contusion of finger 27108916 Active Not Available [facility] 3 07:23:32 Lumbar radiculopa thy 809439569 Active 2021 Not Available [facility] 3 07:23:32 Pain of right shoulder joint 4627710250495 9100 Active 2021 Not Available [facility] 3 07:23:32 SARS-CoV-2 antigen vaccine declined 6343028575 Active 2021 Not Available [facility] 3 07:23:32 History of cerebrovas cular accident 278230008 Active 2022 Not Available [facility] 3 07:23:32 Right hemiparesi s 670196784 Active 2022 Not Available [facility] 3 07:23:32 Influenza vaccinatio n declined 502519007 Active 2022 Carter Celaya MD Attn: Accounting ,[address] [place], [address] , [facility] 3 14:18:06 Memory impairment [id number] Active Not Available [facility] 3 07:23:32 Genital herpes simplex 85422858 Active Not Available [facility] 3 07:23:32 Disorder of lipid metabolism 453432742 Active Not Available [facility] 3 07:23:32 Eruption 044076048 Active Not Available [facility] 3 07:23:32 Pain of hip region 94128909 Active Not Available [facility] 3 07:23:32 Low back pain 637104794 Active Not Available [facility] 3 07:23:32 Kidney disease 79838122 Active Not Available [facility] 3 07:23:32 Pure hyperchole sterolemia 544491180 Active Not Available [facility] 3 07:23:32 Human immunodefi ciency virus infection 58756017 Active Not Available [facility] 3 07:23:32 Problem Notes None recorded. Procedures Surgical History Date Name Laterality Status Provider Name and Address Organization Details Recorded Time 1 Date of Last Pap Smear completed Carter Celaya MD Attn: Accounting,[address] [facility], [place], [address], [facility] 05/01/2020 11:03:42 0 Date of Last Mammogram completed Carter Celaya MD Attn: Accounting,[address] [place], [address], [facility] 05/01/2020 11:04:12 4 colonoscopy completed Carter Celaya MD Attn: Accounting,[address] [place], [address], [facility] 11/21/2019 11:09:55 Imaging Results Imaging Date Name Status LastModified by Organization Details LastModified Time 06/07/2022 XR, chest completed [address] [place] [address], [address], 07/31/2022 12:02:40 06/07/2022 CT, angiogram, carotid arteries, w/ contrast completed [address] [place] [address], [address], 07/31/2022 12:02:40 06/07/2022 MRI, brain + brain stem, w/o contrast completed [address] [place] [address], [address], 07/31/2022 12:02:40 06/08/2022 trans-thoracic echocardiogram (TTE) (PROC) completed [address] [place] [address], [address], 07/31/2022 12:02:40 06/09/2022 evaluation of oral and pharyngeal swallowing function (PROC) completed [address], [address], 07/31/2022 12:02:40 06/10/2022 XR, foot completed [address], [address], 07/31/2022 12:02:40 07/10/2022 CT, head, w/o contrast completed [address], [address], 07/31/2022 12:02:39 07/09/2022 CT, cervical spine, w/o contrast completed [address], [address], 07/31/2022 12:02:39 07/10/2022 XR, chest completed [address], [address], 07/31/2022 12:02:39 12/30/2022 MAMMO, screening, bilateral completed [address], [address], 02/08/2023 12:49:25 Procedure Notes None recorded. Medical Equipment None Reported. Allergies Allergen ID Allergen Name Allergen Category Reaction Reaction Severity Criticality Documentation Date Start Date Code Code System Note Provider Name and Address Organization Details Recorded Time 033961 No known allergy (situatio n) Not available Not available Not available Not available 02/08/2023 [id number] SNOMED Not Available Not Available Not [...] Avai lable darunavir 800 mg tablet TAKE ONE TABLET BY MOUTH EVERY DAY WITH FOOD. STORE AT ROOM TEMPERAT URE 2024 active Not Available Not Available Not [...] Available Not Available Not Available Afluria Qd (36 mos up)(PF)60 mcg (15 mcg x4)/0.5 [...] Updated DateTime 2 167.64 cm 21.3 kg/m2 42433.4 7 g 74 /min 99 % 99 % 14 /min 98.5 [degF] 130 mm[Hg] 70 mm[Hg] Janet Nassar MA [facility] 2 10:09:05 Date Recorded Body height Body mass index (BMI) Body weight Respiratory rate Heart rate Oxygen saturation Oxygen saturation in Arterial blood by Pulse oximetry Systolic blood pressure Diastolic blood pressure Provider Name and Address Organization Details Last Updated DateTime 3 167.64 cm 21.6 kg/m2 26019.3 8 g 14 /min 66 /min 99 % 99 % 130 mm[Hg] 70 mm[Hg] Janet Nassar MA [facility] 3 11:53:15 Date Recorded Body height Body mass index (BMI) Body weight Oxygen saturation Oxygen saturation in Arterial blood by Pulse oximetry Heart rate Respiratory rate Systolic blood pressure Diastolic blood pressure Provider Name and Address Organization Details Last Updated DateTime 3 167.64 cm 21.3 kg/m2 09593.1 9 g 100 % 100 % 72 /min 16 /min 140 mm[Hg] 70 mm[Hg] Janet Nassar MA [facility] 3 12:35:35 Date Recorded Body height Body mass index (BMI) Body weight Oxygen saturation Oxygen saturation in Arterial blood by Pulse oximetry Heart rate Systolic blood pressure Diastolic blood pressure Provider Name and Address Organization Details Last Updated DateTime 3 167.64 cm 21.6 kg/m2 20427.6 6 g 100 % 100 % 74 /min 120 mm[Hg] 60 mm[Hg] Janet Nassar MA [facility] - [facility] 3 11:44:27 Date Recorded Body height Body mass index (BMI) Body weight Heart rate Oxygen saturation Oxygen saturation in Arterial blood by Pulse oximetry Respiratory rate Body temperature Systolic blood pressure Diastolic blood pressure Provider Name and Address Organization Details Last Updated DateTime 4 167.64 cm 21.5 kg/m2 54017.8 6 g 72 /min 100 % 100 % 14 /min 97.8 [degF] 140 mm[Hg] 70 mm[Hg] Janet Nassar MA MS - [facility] 4 09:49:51 Social History Question Answer Notes LastModified by Organizat ion Details LastModified Time Tobacco Smoking Status Never Smoker June ALICIA Hanson MS - [facility] 02/09/2014 11:54:51 What Is Your [...] Information not available 08/05/2021 HIV Dx By [facility] No Informatio n not available 01/24/2019 RW HIV Risk Counseling #1 12/13/2023 Information not available 12/13/2023 Depression Screen/Follow Up Plan 11/21/2019 Information not available 11/21/2019 Hep B Status Completed Series Hep B Surface Ag Neg Information not available 01/24/2019 RW Visit Frequency 3 Months Information not available 08/25/2019 Dental Visit 1 03/23/2022 Informatio n not available 12/13/2023 RW URN [id number] Information no t available 03/28/2014 RWE End Date 09/18/2020 RW Part B Information not available 12/19/2019 [facility]WE Status Active Information no t available 03/28/2014 Lawn Caretaker / Phone # Lashawn Parkinson ([phone]) Information not available 12/04/2020 Lawn CaretakerClinical Specialist [facility] Information not available 10/20/2019 Risk Factor 1 [...] Reported. Medical History Condition Response Other Y High Cholesterol Y Headaches Y Gynecological History Statement/Question Response Date of Last Pap Smear 04/25/2020 Date of Last Mammogram 12/21/2019 Obstetrics History GPAL:G 0 P 0 0 0 0 Immunizations Vaccine Type Date Status Note Provider Nam e and Address Organization Details Recorded Time Influenza, split virus, quadrivalent, preservative 8 completed Not Available [facility] 12/31/2022 07:23:33 Influenza, split virus, quadrivalent, preservative 9 completed Not Available [facility] 12/31/2022 07:23:33 Influenza, split virus, quadrivalent, preservative 0 completed Not Available [facility] 03/09/2023 11:18:02 SARS-COV-2 (COVID-19) vaccine, UNSPECIFIED 1 completed Not Available [facility] 03/09/2023 11:18:02 SARS-COV-2 (COVID-19) vaccine, UNSPECIFIED 1 completed Not Available [facility] 12/31/2022 07:23:33 Influenza, split virus, quadrivalent, preservative 1 completed Not Available [facility] 12/31/2022 07:23:33 Influenza, high-dose, quadrivalent, PF 1 completed Not Available [facility] 12/31/2022 07:23:33 COVID-19, mRNA, LNP-S, PF, 30 mcg/0.3 mL dose 1 completed Not Available [facility] 12/31/2022 07:23:33 Influenza, split virus, quadrivalent, PF 0 completed Not Available [facility] 12/31/2022 07:23:34 MMR 0 completed Not Available [facility] 12/31/2022 07:23:33 COVID-19, mRNA, LNP-S, PF, 30 mcg/0.3 mL dose 1 completed Not Available [facility] 12/31/2022 07:23:33 Influenza, high-dose, quadrivalent, PF 2 completed Not Available [facility] 12/31/2022 07:23:33 Tdap 0 completed Not Available [facility] 12/31/2022 07:23:33 varicella 0 completed Not Available [facility] 12/31/2022 07:23:34 Hep A, adult 0 completed Not Available [facility] 12/31/2022 07:23:34 varicella 0 completed Not Available [facility] 12/31/2022 07:23:34 MMR 0 completed Not Available [facility] 12/31/2022 07:23:33 Hep B, adult 6 completed Not Available [facility] 12/31/2022 07:23:34 COVID-19, mRNA, LNP-S, PF, 30 mcg/0.3 mL dose 1 completed Not Available [facility] 12/31/2022 07:23:33 COVID-19, mRNA, LNP-S, PF, 100 mcg/0.5mL dose or 50 mcg/0.25mL dose 1 completed Not Available [facility] 12/31/2022 07:23:33 influenza, unspecified formulation 2 completed Not Available [facility] 12/31/2022 07:23:33 zoster recombinant 4 completed Carter Celaya MD Attn: Accounting[address] [facility], [place], [address], [place] [facility] 12/13/2023 09:52:52 Influenza, adjuvanted, quadrivalent, PF 3 completed Carter Celaya MD Attn: Accounting[address] [facility], [place], [address], [place] [facility] 12/13/2023 09:52:52 Tdap 4 completed Carter Celaya MD Attn: Accounting[address] [facility], [place], [address], [place] [facility] 12/13/2023 09:52:52 Influenza, high-dose, trivalent, PF 4 completed Carter Celaya MD Attn: Accounting[address] [facility], [place], [address], [place] [facility] 12/13/2023 09:52:52 pneumococcal polysaccharide PPV23 8 completed Not Available [facility] 04/08/2019 02:44:14 Influenza, high-dose, trivalent, PF 5 [...] MD Attn: Accounting,[address], [place], [address], [facility] 01/02/2022 12:03:58 Influenza, split virus, quadrivalent, preservative 7 completed Not Available [facility] 12/31/2022 07:23:33 Pneumococcal conjugate PCV 13 6 completed Not Available [facility] 04/08/2019 02:51:04 Past Encounters Encounter ID Performer Location Encounter Start Date Encounter Closed Date Diagnosis/Indication Diagnosis SNOMED-CT Code Diagnosis ICD10 Code Diagnosis Note [id number] June ALICIA Hanson (Adult Med) [address] [place] [phone] 02/09/2014 11:33:19 02/09/2014 12:42:57 Pure hypercholesterolemia 386477195 Take meds as prescribed Human immunodeficiency virus infection 48205116 Lab results ar pending Fully compliant Continue medication s [id number] MD Wiliam Stephens (Adult Med) [address] [place] [address] 06/08/2014 10:55:42 06/08/2014 17:08:22 Human immunodeficiency virus infection 77924484 Fully compliant, she denies sexual activity and [...] DS for PCP prophylaxi s. 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 Harmon [id number] MD Wiliam Stephens (Adult Med) [address] [place] [phone] 05/01/2015 12:15:16 05/01/2015 13:26:54 Human immunodeficiency virus infection 58985366 B97.35 Labs are stable, her once a year follow up is unacceptab le and I have encouraged her to keep her scheduled follow up appointmen ts. The main issue appears to be taking time off from work, I have given her a note for work. Disorder o f lipid metabolism 625891049 E78.9 She admits that she has not been compliant, the importance of taking her pravastain was discussed Human immunodeficiency virus counseling 727386355 Z71.7 Discussed Screening for malignant neoplasm of breast 842345052 Z12.39 [id number] MD Wiliam Stephens (Adult Med) [address] [place] [address] 0 07/05/2015 10:36:07 07/05/2015 12:38:35 Eruption 794060249 R21 She has not taken her Pravastati [...] dermatolog ist. Disorder o f lipid metabolism 982056664 E78.9 Restart Pravastain [id number] MD Wiliam Stephens (Adult Med) [address] [place] [address] 0 08/30/2015 09:47:20 08/30/2015 10:51:23 Pain of hip region 04997113 M25.551 Low back pain 289708782 M54.5 Human immunodeficiency virus infection 40258273 B97.35 Labs are stable, on Truvada/No rvir/Prezi sta, her renal insufficie ncy requires that her Truvada be changed to Descovy, this was explained to the patient. Continue Bactrim for PCP prophylaxi s. Kidney disease 56539212 N08 Possibly from her Truvada, she was reassured. [id number] MD Wiliam Stephens () [address] [place] [phone] 02/17/2016 11:31:31 02/17/2016 12:50:54 Human immunodeficiency virus infection 32381833 B97.35 Labs are stable, on Descovy/No rvir/Prezi sta, continue Bactrim for PCP prophylaxi s and ensure that her CD4 count remains above 200. Low back pain 384848629 M54.5 Active or passive immunization 784859835 Z23 She is non immune despite a completion of Hepatitis B series, I will attempt a higher dose. Kidney disease 02324584 N08 Improvemen t noted. Disorder o f lipid metabolism 644850617 E78.9 Restart Pravastain , patient education was done, she was warned of the risks of CVS events Human immunodeficiency virus counseling 069360945 Z71.7 Discussed, she has notified her who according to her he has refused to get tested. She was reminded of the testing centers. She denies sexual activity and states that she has abstained ever since she was diagnosed with HIV. Noncomplia nce with medication regimen 732378975 Z91.14 [id number] MD Wiliam Stephens (Adult Med) [address] [place] [address] 08/05/2016 09:57:50 08/05/2016 11:18:37 Human immunodeficiency virus infection 67962702 B20 Labs are acceptable , on Descovy/No rvir/Prezi sta, continue Bactrim for PCP prophylaxi s as her CD4 is less than 200. Disorder o f lipid metabolism 962756811 E78.9 Restart Pravastain , patient education was done, she was warned of her increased risk of CVS events Dry skin dermatitis 2600 70650 L85.3 [id number] MD Wiliam Stephens () [address] [place] [address] 10/22/2017 10:56:45 10/22/2017 12:03:22 Human immunodeficiency virus infection 21529815 B20 I have repeated her HIV test, she had not only a positive HIV antibody and Western Blot but also an HIV-1 RNA PCR of 218,410 and a T cell count of 150 09/30/2011 Low back pain 790829876 M54.5 This is chronic and it is unclear if this caused by her TFV, her xrays done 09/09/2015 with degenerati ve changes and narrowing of L5 and S1. Diabetes m ellitus screening 426844856 Z13.1 Administra tion of pneumococcal vaccine 18791489 Z23 Screening for malignant neoplasm of breast 208298898 Z12.39 Ordered by WET MACHINE CUTTER Abdirahman streeter weight loss 286646288 R63.4 In [facility] she has only lost 3 lbs, her weight when she establishe d care was 118 lbs [id number] MD [facility] () [address] [place] [address] 0 03/14/2018 10:16:49 03/21/2018 11:09:44 Human immunodeficiency virus infection 00286072 B20 StableSwit ch to Juluca if Hep B serology is negative, side effects were discussed. She will then need to stop her Descovy/Pr ezista/Nor vir Hepatitis B screening required 022307819 Z78.9 Osteoporosis 53217253 M8 1.0 Foot pain 41801375 M79.6 71 Disorder o f lipid metabolism 297848768 E78.9 Restart Pravastain , patient education was done, she was warned of her increased risk of CVS events [id number] MD Wiliam Stephens ([facility]) [address] [place] [address] 0 07/22/2018 11:58:11 07/25/2018 08:40:50 Human immunodeficiency virus infection 07267057 B20 StableNega tive Hep B serology Continue Juluca Continue Bactrim for now even though her Tcells are above 200, in the past she has had the Tcells go below and above 200 even with an undetectab le HIV VL. Low back pain 511377266 M54.5 This is chronic and it is unclear if this was caused by her TFV, her xrays done 09/09/2015 with degenerati ve changes and narrowing of L5 and S1. Degenerati on of lumbar intervertebral disc 20060665 M51.36 Disorder o f lipid metabolism 665826009 E78.9 Restart Pravastain . Osteoporosis 26398580 M8 1.0 Screening for malignant neoplasm of breast 092301808 Z12.39 Ordered by WET MACHINE CUTTER Elevated blood-pressure reading without diagnosis of hypertension 272560806 R03.0 Monitor blood pressureNo [facility] today [id number] MD Wiliam Stephens (Adult Med) [address] [place] [phone] 01/24/2019 12:26:29 01/24/2019 14:33:34 Venereal disease screening 341720647 Z11.3 Human immunodeficiency virus infection 23032160 B20 StableHIV 30, this most likely represents a blip.CD4 224 Negative Hep B serology Continue Juluca Stop Bactrim for now as her Tcells are once again above 200, although in the past she has had the Tcells oscillate even with an undetectab le HIV VL. Depression screening 171 589032 Z13.31 Disorder o f lipid metabolism 174649327 E78.9 Uncontroll ed on Pravastain .Start Pravastati n Osteoporosis 31653483 M8 1.0 Pain of ri ght ankle joint 8527598548 1555895 M25.571 Gastroesop hageal reflux disease 784699143 K21.9 Eruption 292082569 R21 Her skin is dry and emollients should help Urinary symptoms 1634808 08 R39.9 [id number] MD Wiliam Stephens () [address] [place] [address] 0 03/28/2019 10:56:29 03/28/2019 12:06:38 Human immunodeficiency virus infection 98715537 B20 Previously undetectab le.Her HIV VL was [...] regimen change. Disorder o f lipid metabolism 041133610 E78.9 Uncontroll ed on Rosuvastat in, if that is what she is really taking. [id number] MD Wiliam Stephens (Adult Med) [address] [place] [address] 05/09/2019 11:38:35 05/10/2019 09:06:04 Human immunodeficiency virus infection 39805722 B20 Previously undetectab le HIV VL, her [...] limited to renal and metabolic abnormalit ies. [id number] MD Wiliam Stephens (Adult Med) [address] [place] [address] 11/21/2019 10:57:59 11/21/2019 12:08:23 Human immunodeficiency virus infection 16404356 B20 CD4 274/HIV VL 128The interrupti on may explain her detectable VL Screening for malignant neoplasm of breast 101779635 Z12.39 Ordered by WET MACHINE CUTTER Disorder o f lipid metabolism 126921286 E78.9 Uncontroll ed on Rosuvastat in, if that is what she is really taking. Lumbosacra l radiculopathy 6622758 M54.17 Pain in right foot 08430 36675 65163 M79.671 Screening for malignant neoplasm of cervix 969629159 Z12.4 [id number] MD Wiliam Stephens (Adult Med) [address] [place] [address] 0 02/20/2020 12:02:48 02/20/2020 12:59:01 Tuberculosis screening 202774037 Z11.7 Pruritic rash 81168803 L 28.2 She has a chronic macular rash all over with dark pigmentati on of her forehead, I am concerned about a drug rash, a drug photosensi tivity or Eczema.I will refer her back to the dermatolog ist and try and get a note from her previous consultati on.Trial of triamcinol one Disorder o f lipid metabolism 417204939 E78.9 Uncontroll ed on Rosuvastat in, I am not sure why her lipid profile is worse if she has been compliant. Recheck and consider changing the dose. Human immunodeficiency virus infection 23144843 B20 CD4 272/HIV VL 20Stable on Prezista/N orvir/Desc ovy [id number] MD Wiliam Stephens (Adult Med) [address] [place] [address] 05/06/2020 07:53:58 05/07/2020 07:45:04 Disorder of lipid metabolism 988364222 E78.9 Uncontroll ed on Rosuvastat in 10 mg, I will increase the dose to 20 mg dose Human immunodeficiency virus infection 41007443 B20 CD4 252/HIV VL 40Stable on Prezista/N orvir/Desc ovy Eruption 930420142 R21 Her skin is dry and emollients should help [id number] MD Wiliam Stephens (Adult Med) [address] [place] [address] 10/14/2020 12:30:51 10/16/2020 12:04:50 Human immunodeficiency virus infection 34862263 B20 CD4 252/HIV VL 40Stable on Prezista/N orvir/Desc ovyLabs Screening for malignant neoplasm of breast 618066541 Z12.39 Ordered by WET MACHINE CUTTER Lumbar radiculopathy 128 558633 M54.16 She has an abnormal MRI from 12/2019PT was discussed, it appears that she prefers interventi onal pain management Pain in right foot 94439 57394 03137 M79.671 Ankle pain 491162338 M25 .579 Abdominal pain 31020749 R10.9 Colonoscop y 11/14/2017U S [id number] MD Wiliam Stephens (Adult Med) [address] [place] [address] 0 11/05/2020 12:11:14 11/05/2020 13:13:54 Human immunodeficiency virus infection 26878811 B20 CD4 314/HIV VL 40Stable on Prezista/N orvir/Desc ovy Eruption 602066421 R21 Antibiotic prophylaxis indicated 546254223 Z78.9 Foreign tr tresa education 504220494 Z71.84 Discussed Acute pharyngitis 482258 003 J02.9 Unable to check for Strep in the office, I will treat her empiricall y.She will need to follow up if there is no improvemen t Hearing loss 89252674 H9 1.93 [id number] MD Wiliam Stephens (Adult Med) [address] [place] [address] 07/22/2021 11:56:37 07/23/2021 10:02:33 Human immunodeficiency virus infection 47632537 B20 CD4 310/HIV VL 20Previous ly stable on Prezista/N orvir/Desc ovy, she needs to restart her regimen EUFEMIA Pure hypercholesterolemia 737958228 E78.00 Compliance was discussed Noncomplia nce with medication regimen 866405967 Z91.14 She needs to restart her meds EUFEMIA Screening for malignant neoplasm of breast 742775646 Z12.39 Immunization advised 310 360468 Z71.9 Pain of ri ght shoulder joint 4559422223 7140517 M25.511 Lumbar radiculopathy 128 386516 M54.16 She has an abnormal MRI from 12/2019She has been to PTPain management ? [id number] MD Wiliam Stephens (Adult Med) [address] [place] [address] 01/02/2022 09:58:48 01/06/2022 09:51:38 Administration of diphtheria, pertussis, and tetanus vaccine 834547358 Z23 Screening for malignant neoplasm of cervix 464393941 Z12.4 Pruritic rash 47762520 L 28.2 She has a chronic macular rash all over with dark pigmentati on of her forehead, I am concerned about a drug rash, drug photosensi tivity or Eczema.I will refer her to the dermatolog ist, she can discontinu e the Triamcinol one as it has been ineffectiv e. Disorder o f lipid metabolism 517489882 E78.9 Uncontroll ed on Rosuvastat in 20 mg, I will increase the dose to 40 mg dose Human immunodeficiency virus infection 50432343 B20 CD4 200 HIV VL <20 (11/03/2021 )CD4 310/HIV VL 20Stable on Prezista/N orvir/Desc ovy. Acute conjunctivitis 537 05346 H10.33 SARS-CoV-2 antigen vaccine declined 8257187660 Z28.21 [id number] MD Wiliam Stephens (Adult Med) [address] [place] [address]34[address] 0 07/31/2022 11:40:10 08/03/2022 16:35:15 Follow-up visit 702476917 Z09 History of cerebrovascular accident 981885043 Z86.73 Snoring 25409178 R06.83 Human immunodeficiency virus infection 88768550 B20 CD4 200 HIV VL <20 (11/03/2021 )CD4 310/HIV VL 20Stable on Prezista/N orvir/Desc ovy. Right hemiparesis 707429 009 G81.90 Chronic hoarseness 88826 86446 105 R49.0 Bilateral tinnitus 77504 75127 102 H93.13 [id number] Carter Celaya MD [facility] (Adult Med) [address] [place] [address] 0 02/08/2023 12:18:56 02/09/2023 09:45:39 Human immunodeficiency virus infection 55905787 B20 CD4 355, HIV VL <20 on 08/03/2022L abs OV 07/31/2022 D4 200 HIV VL <20 (11/03/2021 )CD4 310/HIV VL 20Stable on Prezista/N orvir/Desc ovy. Medication review done by doctor 500198298 Z76.89 Reviewed.S he has discontinu ed her Escitalopr am on her own. 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 (Adult Med) [address] [place] [address] 0 03/09/2023 11:17:06 03/10/2023 15:06:13 Human immunodeficiency virus infection 96024290 B20 Labs 02/08/2023 CD4 318, HIV VL [id number] iance was reinforced Continue Prezista/N orvir/Desc ovy.Labs in ~ 6 weeks OV 02/08/2023 CD4 355, HIV VL <20 on 08/03/2022L abs OV 07/31/2022 D4 200 HIV VL <20 (11/03/2021 )CD4 310/HIV VL 20Stable on Prezista/N orvir/Desc ovy. Medication monitoring 39 9818862 Z51.81 [id number] [address] [facility] () [address] [place] [address] 12/13/2023 09:37:48 12/15/2023 11:04:58 Human immunodeficiency virus infection 90766883 B20 HIV VL <20Continu e Prezista/N orvir/Desc ovy.Labs OV 03/09/2023 Labs 02/08/2023 CD4 318, HIV VL 27407Tuwkm iance was reinforced Continue Prezista/N orvir/Desc ovy.Labs in ~ 6 weeks OV 02/08/2023 CD4 355, HIV VL <20 on 08/03/2022L abs OV 07/31/2022 D4 200 HIV VL <20 (11/03/2021 )CD4 310/HIV VL 20Stable on Prezista/N orvir/Desc ovy. Medication monitoring 39 [id number] Z51.81 Pruritic rash [id number] L 28.2 Dermatolog y follow upPrevious Katlyn [...] She has twice been referred to the child specialist and presents again with her chronic rash with no improvement after using Triamcinolone. Fully compliant with her HIV regimen and she is not sexually active. Carter Celaya MD Attn: Accounting,[address] [facility], [place], [address], [place] - [place] 01/02/2022 12:10:52 07/31/2022 text/html HIVReported bypatient.Baseline LabsCD4:281 (07/09/2022); viral load:<20 (11/03/2021) Follow up My always telling me that I snore hard I had a stroke on the right I went back for the biopsy at [place], they said it has gone down When I was at [place], they said one of the medicines I [...] Carter Celaya MD Attn: Accounting,[address] [facility], [place], [address], [facility] - SI 07/31/2022 13:48:18 02/08/2023 text/html HIVReported bypatient.Baseline LabsCD4:355; viral load:<20; RPR:NR Constitutionalweigh t loss:2 HIV care only They told me that they cannot take Pattie Why is the skin so dry? Is [...] PCP has apparently referred her to a wig maker. Her skin issues persist and her records confirm that she may have been referred to [facility] for possible atopic dermatitis and also for lymphadenopathy. She has been fully compliant with her HIV regimen and she is not sexually active. She wonders if there is a better regimen and if there is anything she can take to enhance her desire for sex. She would also like to know about her colonoscopy. Carter Celaya MD Attn: Accounting,[address] [facility], [place], [address], [facility] SI 02/08/2023 15:00:08 03/09/2023 text/html HIVReported bypatient.Baseline LabsCD4:318; viral load:82255; RPR:NR HIV care only Appointment Heada carina [...] versa. Carter Celaya MD Attn: Accounting,[address] [facility], [place], [address], [facility] - SIF 03/09/2023 16:39:36 12/13/2023 text/html HIVReported bypatient.Baseline LabsCD4:318; [...] itching and rash. She remembers seeing a child specialist at [facility] and she does not feel that the topical agent that she was recently prescribed is working. Carter Celaya MD Attn: Accounting,[address] [facility], [place], [address], [place] - [place] 12/13/2023 10:42:03 OBGyn Episode No OBEpisode recorded.
--- OUTSIDE RECORDS SUMMARY | 2024-07-19 05:26 | XMS_ITS | Encounter Summary ---
Author Organization [facility] Address [address] [place] [address] Care Team Providers Care Local Intermodal Truck Driver Name Role Phone Carter Celaya MD Unavailable [phone] Nirmal Garcia MD Primary Care Provider [phone] Pawel Juárez MD Unavailable [phone] Encounter Details Date Type Department Care Team (Late st Contact Info) Description 05/22/2024 Results Follow-Up [facility] Primary Care at [address] [address] Nirmal Garcia MD [address] [facility] [address] [place] [address] Social History Tobacco Use Types [...] often do you attend chur ch or mormon services? 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 Gender Identity Not on file Sexual Orientation Not on file documented as of this encounter Plan of Treatment Not on file documented as of this encounter Visit Diagnoses Not on filedocumented in this encounter Care Teams Local Intermodal Truck Driver Relationship Specialty Start Date End Date Nirmal Garcia MD [address] [place] [address] PCP - General Family Medicine 01/27/22 Carter Celaya MD [address] [address] Referring Physician Infectious Diseases 10/23/21 Pawel Juárez MD [address] [facility] [address] [facility] [address] [place] [address] Referring Physician Obstetrics and Gynecology 11/30/23 documented as of this encounter
--- OUTSIDE RECORDS SUMMARY | 2024-07-19 05:26 | XMS_ITS | Clinical Summary ---
Author Organization [facility] Medical Office Building B Address [address] [place] [address] Care Team Providers Care Story Analyst Name Role Phone Carter Celaya MD Unavailable [phone] Nirmal Garcia MD Primary Care Provider [phone] Pawel Juárez MD Unavailable [phone] Allergies No known active allergies Medications Descovy 200-25 mg tablet Take 1 tablet by mouth daily 09/25/19 22 Active Prezista 800 mg tablet TAKE 1 TABLET BY MOUTH ONCE DAILY WITH FOOD. STORE AT ROOM TEMPERATURE 09/25/19 22 Active ritonavir (NORVIR) 100 mg tablet Take 1 tablet (100 mg total) by mouth daily 09/25/19 22 Active ibandronate (BONIVA) 150 mg tablet 05/09/19 24 Active aspirin 81 mg enteric coated tablet Take 1 tablet (81 mg total) by mouth daily Active cyclobenzaprin e (FLEXERIL) 5 mg tablet Take 1 tablet (5 mg total) by mouth 3 (three) times a day as needed for muscle spasms 30 tablet 05/31/19 24 Active fluticasone propionate (FLONASE) 50 mcg/actuation nasal sprayIndicatio ns:Nasal congestion Administer 2 sprays into each nostril daily 1 each 08/02/19 24 Active cholecalcifero l (VITAMIN D-3) 25 mcg (1,000 unit) tablet Take 1 tablet (1,000 Units total) by mouth daily 90 tablet 3 10/20/19 24 025 Active gabapentin (NEURONTIN) 300 mg capsule TAKE 1 CAPSULE BY MOUTH EVERY 8 HOURS Active memantine (NAMENDA) 5 mg tabletIndicati ons:Moderate to Severe Alzheimer's Type Dementia Take 1 tablet (5 mg total) by mouth 2 (two) times a day 60 tablet 11 11/30/19 24 025 Active amLODIPine (NORVASC) 2.5 mg tablet Take 1 tablet (2.5 mg total) by mouth every morning 90 tablet 3 12/07/19 24 025 Active clobetasoL (TEMOVATE) 0.05 % ointmentIndica tions:Rash Apply topically 2 (two) times a day 60 g 2 01/04/20 24 Active ezetimibe (ZETIA) 10 mg tablet Take 1 tablet (10 mg total) by mouth every morning 100 tablet 1 04/24/19 25 Active methylPREDNISo lone (MEDROL DOSEPACK) 4 mg Dosepack 07/01/19 25 Active escitalopram (LEXAPRO) 10 mg tablet Take 1 tablet (10 mg total) by mouth daily 06/06/19 25 Active penicillin v potassium (VEETID) 500 mg tablet TAKE 2 TABLETS RIGHT NOW. THEN TAKE 1 TABLET EVERY 6 HOURS UNTIL GONE. 04/18/19 25 Active atorvastatin (LIPITOR) 80 mg tablet TAKE 1 TABLET BY MOUTH EVERY DAY 100 tablet 1 07/15/19 25 Active atorvastatin (LIPITOR) 80 mg tablet TAKE 1 TABLET BY MOUTH EVERY DAY 100 tablet 1 01/15/20 24 025 Discontinued Active Problems Problem Noted Date Diagnosed Date [...] 05/30/2022 Assessment & Plan (05/30/2022 11:10 AM SIGNALS INTELLIGENCE SUPERINTENDENT): Lexapro trial will try to get social [...] 01/30/2022 Assessment & Plan (01/30/2022 11:43 AM SIGNALS INTELLIGENCE SUPERINTENDENT): Lungs sounded clear; recommending OTC cough med for now until I can review labs We are checking on derm referral for the rash. If flares again, we can restart triamcinolone We will look into ADAP as well (will need hearing aid dispenser information) Arthritis- trial of tylenol PRN (OTC)- [...] CDT): Started on Amlodipine 5 mg from [facility] in 07/2023. Experiencing bilateral ankle/feet swelling. Will decrease the Amlodipine to 2.5 mg and re-evaluate in 4 weeks. BP normal in office. Assessment & Plan (02/03/2023 4:11 PM SIGNALS INTELLIGENCE SUPERINTENDENT): No arrhythmia on the EKG, however there [...] Description 06/30/2024 3:45 PM CDT Office Visit [facility] at [address] [address] Yuly Person NP Generalized abdominal tenderness without rebound tenderness (Primary Dx); Nausea and vomiting, unspecified vomiting type; Abdominal pain 06/06/2024 Telephone [facility] Primary Care at [address] [address] Nirmal Garcia MD Referral Request 05/22/2024 Results Follow-Up [facility] Primary Care at [address] [address] Nirmal Garcia MD 04/20/2024 Telephone [facility] Primary Care at [address] [address] Nirmal Garcia MD Forms Request 04/20/2024 Telephone [facility] Primary Care at [address] [address] Nirmal Garcia MD Lab Results from Last 3 Months Immunizations Immunization Administration [...] often do you attend chur ch or samaritan services? Never 06/25/2022 Do you belong to any clubs o r organizations such as buddhist groups, unions, fraternal or athletic groups, or [...] place to sleep or slept in a fpc (including now)? No 06/25/2022 PHQ-9 Answer Date [...] on file Legal Sex Female 12:40 PM SIGNALS INTELLIGENCE SUPERINTENDENT Gender Identity Not on file Sexual Orientation [...] cm (5' 4 ) 04/04/2024 9:43 AM SIGNALS INTELLIGENCE SUPERINTENDENT Body Mass Index 23.17 04/04/2024 9:43 AM SIGNALS INTELLIGENCE SUPERINTENDENT Plan of Treatment Health Maintenance Due Date [...] Procedure Name Priority Date/Time Associated Diagnosis Comments CT ABDOMEN PELVIS WO CONTRAST Schedule Routine, Read Routine (OP Routine) 06/30/2024 MAMMOGRAPHY Routine 05/17/2024 3:23 PM SIGNALS INTELLIGENCE SUPERINTENDENT LIPID PANEL Routine 04/04/2024 10:24 AM SIGNALS INTELLIGENCE SUPERINTENDENT Pure hypercholesterolemia COLONOSCOPY Routine 12/28/2023 8:51 AM CDT HEPATITIS [...] Recently Relevant to Health Maintenance Results * CT Abdomen Pelvis WO Contrast (06/30/2024) Anatomical Region Laterality Modality Body N/A Computed Tomogra phy us Historical Provider IMG CT PROCEDURES Final R esult * HM MAMMOGRAPHY (05/17/2024 3:23 PM SIGNALS INTELLIGENCE SUPERINTENDENT) us Historical Provider HEALTH MAINTENANCE Final Result * (ABNORMAL) Lipid panel (04/04/2024 10:24 AM SIGNALS INTELLIGENCE SUPERINTENDENT) Cholesterol 274(H) 30 - 199 mg/dL Comment: [...] 3. Leonardo Dc et al. ESSIE Cardiol. 2020 July 20;5(5):540-548. doi: 10.1001/jamacardio.2020.0013 [...] last revised on 2017. Chol/HDL ratio 3 YVONNE LOZADA Blood 04/04/2024 10:2 4 AM SIGNALS INTELLIGENCE SUPERINTENDENT 04/04/2024 6:34 PM SIGNALS INTELLIGENCE SUPERINTENDENT Nirmal Garcia MD LAB BLOOD ORDERABLES Final Result YVONNE [address] Department [place] [address] * HM COLONOSCOPY (12/28/2023 8:51 [...] 8 AM CDT 05/31/2023 2:31 PM CDT Nirmal Garcia MD LAB MICROBIOLOGY - GENERAL ORDERABLES Final Result Performing Organization Address [facility] Co de Phone Number YVONNE [address] [employer] [place] [address] * (ABNORMAL) Hemoglobin A1c (05/31/2023 11:08 AM CDT) Hgb A1C 6.2(H) 4.0 - 5.6 % Estimated Average Glucose 131 mg/dL YVONNE Comment: The ADA recommends reporting an estimated Average Glucose (eAG) with all Hemoglobin A1c results using the equation derived from a study of 507 normal and diabetic adults. Minority populations were underrepresented and children were not included. (Diabetes Care 31:1124-5397, 2008). The eAG is not equivalent to a fasting glucose. Blood 05/31/2023 11:0 8 AM CDT 05/31/2023 2:31 PM CDT Nirmal Garcia MD LAB BLOOD ORDERABLES Final Result Performing Organization Address [facility] Co de Phone Number YVONNE [address] [employer] [place], [place] [id number] * Dexa Axial Skeleton Bone Density 1 or 2 Site (11/17/2017) Anatomical Region Laterality Modality Body N/A Radiographic Otilia ging Pawel Juárez MD IMG DXA PROCEDURES Final Re sult from Last 3 Months or Most Recently Relevant to Health Maintenance Insurance [facility] Care Teams Story Analyst Relationship Specialty Start Date End Date Nirmal Garcia MD [address] [place], [place] [id number] PCP - General Family Medicine 01/27/22 Carter Celaya MD [address] [address] Referring Physician Infectious Diseases 10/23/21 Pawel Juárez MD [address] [facility] [address] [place] [address] [place], [place] [address] Referring Physician Obstetrics and Gynecology 11/30/23
--- OUTSIDE RECORDS SUMMARY | 2024-07-19 05:26 | XMS_ITS | Referral Summary ---
Author Organization [facility] Medical Office Building B Address [address] [place] [address] Care Team Providers Care Plate Developer Name Role Phone Marcialmartine Carter Day MD Unavailable [phone] Nirmal Garcia MD Primary Care Provider [phone] Pawel Juárez MD Unavailable [phone] Encounters Date Type Department Care Team Description 06/30/2024 3:45 PM CDT Office Visit [facility] Medical [facility] at [address] [address] Yuly Person NP Generalized abdominal tenderness without rebound tenderness (Primary Dx); Nausea and vomiting, unspecified vomiting type; Abdominal pain 06/06/2024 Telephone [facility] Primary Care at [address] [address] Nirmal Garcia MD Referral Request 05/22/2024 Results Follow-Up [facility] Primary Care at [address] [address] Nirmal Garcia MD 04/20/2024 Telephone [facility] Primary Care at [address] [address] Nirmal Garcia MD Forms Request 04/20/2024 Telephone [facility] Primary Care at [address] [address] Nirmal Garcia MD Lab Results from Last 3 Months Allergies No known [...] (10 mg total) by mouth daily 06/06/19 Active penicillin v potassium (VEETID) 500 mg [...] 05/30/2022 Assessment & Plan (05/30/2022 11:10 AM FEED AND FARM MANAGEMENT ADVISER): Lexapro trial will try to get social work involved Advised to contact her son in [place], who has offered her to stay there [...] 01/30/2022 Assessment & Plan (01/30/2022 11:43 AM FEED AND FARM MANAGEMENT ADVISER): Lungs sounded clear; recommending OTC cough med for now until I can review labs We are checking on derm referral for the rash. If flares again, we can restart triamcinolone We will look into ADAP as well (will need belt puncher information) Arthritis- trial of tylenol PRN (OTC)- [...] CDT): Started on Amlodipine 5 mg from [facility] in 07/2023. Experiencing bilateral ankle/feet swelling. Will decrease the Amlodipine to 2.5 mg and re-evaluate in 4 weeks. BP normal in office. Assessment & Plan (02/03/2023 4:11 PM FEED AND FARM MANAGEMENT ADVISER): No arrhythmia on the EKG, however there [...] Polysaccharide PPV23 10/22/2017, Sars-CoV-2, Unspecified 08/04/2020 Tdap 06/05/2023,,09/27/2011,08/13 Varicella 09/13/2009,08/13/2009 ZOSTER Recombinant 11/20/2023 Social History [...] How often do you attend chur or zoroastrianism services? Never 06/25/2022 Do you belong to any clubs o r organizations such as mandaen groups, unions, fraternal or athletic groups, or [...] place to sleep or slept in a correction (including now)? No 06/25/2022 PHQ-9 Answer Date [...] on file Legal Sex Female 12:40 PM FEED AND FARM MANAGEMENT ADVISER Gender Identity Not on file Sexual Orientation [...] cm (5' 4 ) 04/04/2024 9:43 AM FEED AND FARM MANAGEMENT ADVISER Body Mass Index 23.17 04/04/2024 9:43 AM FEED AND FARM MANAGEMENT ADVISER Plan of Treatment Not on file Procedures Procedure Name Priority Date/Time Associated Diagnosis Comments CT ABDOMEN PELVIS WO CONTRAST Schedule Routine, Read Routine (OP Routine) 06/30/2024 MAMMOGRAPHY Routine 05/17/2024 3:23 PM FEED AND FARM MANAGEMENT ADVISER LIPID PANEL Routine 04/04/2024 10:24 AM FEED AND FARM MANAGEMENT ADVISER Pure hypercholesterolemia HM COLONOSCOPY Routine 12/28/2023 8:51 AM CDT [...] esult * HM MAMMOGRAPHY (05/17/2024 3:23 PM FEED AND FARM MANAGEMENT ADVISER) us Historical Provider HEALTH MAINTENANCE Final Result * (ABNORMAL) Lipid panel (04/04/2024 10:24 AM FEED AND FARM MANAGEMENT ADVISER) Cholesterol 274(H) 30 - 199 mg/dL Comment: [...] on 2017. Triglycerides 70 <=149 mg/dL YVONNE Comment: Interpretive Data Ages < or = [...] mg/dL High: >160 mg/dL Calculated using the Patterson LDL-C estimating equation. This equation was implemented on 2023. Prior to this date LDL-C was estimated using the Friedewald equation. Literature References: 1. Expert Panel on Integrated Guidelines for Cardiovascular Health and Risk Reduction in Children and Adolescents. Pediatrics 2011;128:S213 2. NCEP Expert Panel. Circulation 2004;110:227 3. Patterson M et al. ESSIE Cardiol. 2020 July 20;5(5):540-548. [...] revised on 2017. Chol/HDL ratio 3 YVONNE Blood 04/04/2024 10:2 4 AM FEED AND FARM MANAGEMENT ADVISER 04/04/2024 6:34 PM FEED AND FARM MANAGEMENT ADVISER Nirmal Garcia MD LAB BLOOD ORDERABLES Final Result YVONNE [address] Department [place] [address] * HM COLONOSCOPY (12/28/2023 8:51 [...] GENERAL ORDERABLES Final Result Performing Organization Address [facility] Phone Number YVONNE LOZADA [address] [facility] [place] [address] * (ABNORMAL) Hemoglobin A1c (05/31/2023 11:08 AM CDT) Hgb A1C 6.2(H) 4.0 - 5.6 % Estimated Average Glucose 131 mg/dL YVONNE Comment: The ADA recommends reporting an estimated Average Glucose (eAG) with all Hemoglobin A1c results using the equation derived from a study of 507 normal and diabetic adults. Minority populations were underrepresented and children were not included. (Diabetes Care 31:6085-1348, 2008). The eAG is not equivalent to a fasting glucose. Blood 05/31/2023 11:0 8 AM CDT 05/31/2023 2:31 PM CDT Nirmal Garcia MD LAB BLOOD ORDERABLES Final Result Performing Organization Address [facility] Phone Number YVONNE LOZADA [address] [place] [address] * Dexa Axial Skeleton Bone Density 1 or 2 Site (11/17/2017) Anatomical Region Laterality Modality Body N/A Radiographic Otilia ging Pawel Juárez MD IMG DXA PROCEDURES Final Re sult from Last 3 Months or Most Recently Relevant to Health Maintenance Insurance [facility] [place] [place] [id number] Care Teams Plate Developer Relationship Specialty Start Date End Date Nirmal Garcia MD [address] [place] [address] PCP - General Family Medicine 01/27/22 Carter Celaya MD [address] [address] Referring Physician Infectious Diseases 10/23/21 Pawel Juárez MD [address] [facility] [address] [facility] [address] [place], [place] [address] Referring Physician Obstetrics and Gynecology 11/30/23
--- OUTSIDE RECORDS SUMMARY | 2024-07-19 05:26 | XMS_ITS | Continuity of Care Document ---
Author Organization [facility] Address [address] [facility] [address] [place] [address] Phone Care Team Providers Care Plasma Table Operator Name Role Phone Josefina Gordillo OT Unavailable [...] Diagnoses Date Provider Providers Copied on Encounter [facility] [address], [id number], tel:[phone] [place] No Information Jun- 3 Rand Whiteside . [address], [id number], [place] tel:[phone] [place] No Information 0 3 Rand Whiteside . Referring Provider: Nirmal Caban, [address] [place], [address]. tel:[phone], [id number], tel:[phone] [place] No Information Apr-0 3 Antelmo Matos , [place], [place]. Referring Provider: Nirmal Caban, [address] [facility], [place], [address]. tel:[phone] Family History Family Member Type Diagnosis Age At Onset No Information Payers Payer name Insurance type Covered alliance party ID Tiff khanna(s) [employer] CI [id number] Social History Type Description Quantity Date Captured [...]
--- OUTSIDE RECORDS SUMMARY | 2024-07-19 05:26 | XMS_ITS | Clinical Summary ---
Author Organization [facility] Address [address] [place] [address] Care Team Providers Care Steam Conditioning Operator Name Role Phone Unavailable Primary Care Provider [...] 1 - Tdap) 12/30/1971 Mammogram Screening 1992 Pneumococcal Vaccine: 50+ Ye ars (1 of 1 - PCV) 2002 Zoster Vaccines (1 of 2) 2002 Annual Medicare Wellness Visit 2017 Dexa Scan (General) 2017 COVID-19 Vaccine ( - 2023-2 5 [...]
--- OUTSIDE RECORDS SUMMARY | 2024-07-19 05:26 | XMS_ITS | CONTINUITY OF CARE DOCUMENT ---
Author Name ryan davis Address Unknown Organization [facility] Address [address] [facility] [address] [place] [address] Phone [phone] Care Team Providers Care Farm Service Consultant Name Role Phone Tawanna FLOWERS, Leah Unavailable [phone] NE TORRES MD Unavailable [phone] NE TORRES MD Unavailable [phone] INSURANCE PROVIDERS Payer name Policy type / Coverage type [place] red republican ID [facility] Other [id number]
[2024-07-19 05:28] VITALS: BP 173/103; PULSE 86; RESP 16; O2SAT 100
--- NOTE | 2024-07-19 05:30 | ECG_ITS ---
Test Date: 2024-07-19 06:57:04 Measurements Intervals [place] Rate: 59 P: 49 DC: 172 QRS: 4 QRSD: 98 T: 43 QT: 439 QTc: 435 Interpretive Statements SINUS BRADYCARDIA BASELINE ARTIFACT- I, II, III, AVR, AVL ,AVF, V1-V6 BORDERLINE ECG Compared to ECG 06/30/2024 18:30:13 No significant changes Electronically Signed On 07-19-2024 08:03:42 CDT by Derrick Rees D.O.
--- NOTE | 2024-07-19 05:42 | ED_ITS ---
HPI - Abdominal Pain General Chief Complaint: Abdominal Pain Stated Complaint: abdominal pain and dizziness Time Seen by Provider: 07/19/24 05:26 History of Present Illness HPI narrative: 73-year-old female with a past medical history including HIV, prior stroke with minor residual right-sided deficits. Patient presents to the emergency room with chief complaint of vague abdominal cramping, burning pain, burning with urination, nausea without vomiting. Patient presented to the emergency department several weeks ago with similar complaints and was discharged home after unremarkable workup including unremarkable CT scan. Patient states she felt better at that time but is concerned that she is having darkened stools, abdominal cramping and nausea. This started approximately 1 week ago. No history of GI bleeding. She had an unremarkable colonoscopy this year. No fever, chills, chest pain, shortness a breath, headache, vision changes. No trauma or injury. She was otherwise in her normal state of health. No history of abdominal surgeries. Related Data Home Medications ?Medication ?Instructions ?Recorded ?Confirmed ?Last Taken ?Type ritonavir 100 mg tablet (Norvir) 100 mg PO DAILY 04/20/19 12/28/23 12/26/23 History emtricitabine 200 mg-tenofovir 1 tablet PO DAILY 06/07/22 12/28/23 12/26/23 History alafenamide fumarate 25 mg tablet (Descovy) cyclobenzaprine 5 mg tablet 5 mg PO TID PRN Muscle spasms 08/14/23 12/28/23 12/26/23 History darunavir 800 mg tablet 800 mg PO DAILY 08/14/23 12/28/23 12/26/23 History fluticasone propionate 50 2 spray intranasal DAILY 08/14/23 12/28/23 12/26/23 History mcg/actuation nasal spray,suspension ibandronate 150 mg tablet 150 mg PO MONTHLY 08/14/23 12/28/23 Unknown History amlodipine 5 mg tablet (Norvasc) 2.5 mg PO QAM 12/20/23 12/28/23 12/26/23 History aspirin 325 mg tablet 81 mg PO DAILY@0800 12/20/23 12/28/23 12/26/23 History Allergies Allergy/AdvReac Type Severity Reaction Status Date / Time No Known Allergies Allergy Verified 06/30/24 17:05 Review of Systems 2 Review of Systems: As reviewed above in HPI [facility] Past Medical History Medical History Colon cancer screening Pain in right shoulder Left-sided cerebrovascular accident (CVA) History of CVA (cerebrovascular accident) (05/2022) Acute left lacunar infarct posterior limb of internal capsule with residual right-sided hand and leg weakness without residual sensation deficit ASCUS with positive high risk HPV High cholesterol HIV (human immunodeficiency virus infection) Surgical History Surgical History History of colposcopy with cervical biopsy Family History Family History Other Unknown family medical history Social History Social History Social History: The patient is from [facility] originally. [place] but she is not sure exactly when. She moved after she met her who was a Baptism missionary and moved here to be with him. She raised 6 children and had a 7th child that young. She reports that some of her children her living here in some of them are in [place]. It is unclear if she still has 1 child living in [facility] or if she is referring to her child at had previously . 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 She is a lifelong nonsmoker and never drink alcohol. She denies illicit substance use. Code status: Full code Smoking status: Never smoker Second hand tobacco smoke exposure: No Alcohol intake: never Substance use: never Substance use type: does not use Do You Feel Safe in your Home?: Yes Lack of Transportation: No Lack of Food: Sometimes True Current Housing: I Have Housing Concerned About Future Housing: No Difficulty Paying Gas/Electric Bills: YES Difficulty Paying for Meds: YES Currently Unemployed: No Education: High School Diploma/GED Difficulty w/ Childcare or Family Care: No Living arrangements: with family Spiritual care concerns: No Exam 2 Narrative: GENERAL: [Well-appearing, well-nourished, and in no acute distress.] HEAD: [Normocephalic, atraumatic.] EYES: [PERRLA and EOMI.] ENT: Nares clear, no rhinorrhea or epistaxis. Mucous membranes moist. NECK: Supple. CHEST: [Clear to auscultation. No respiratory distress.] HEART: [Regular rate and rhythm]. No murmur heard. [Normal peripheral pulses.] ABDOMEN: [Soft, nondistended], [nontender], [No rigidity or guarding] EXTREMITIES: Normal range of motion. [No edema.] SKIN: Warm, dry, no rash. NEURO: [No focal deficits]. Alert and oriented [x3.] PSYCH: [Normal mood and affect.] Course Vital Signs Vital signs: Vital Signs Pulse Rate 86 07/19/24 05:28 Respiratory Rate 16 07/19/24 05:28 Blood Pressure 173/103 H 07/19/24 05:28 Pulse Oximetry 100 07/19/24 05:28 Pulse Rate 81 07/19/24 05:55 Respiratory Rate 16 07/19/24 05:55 Blood Pressure 164/83 H 07/19/24 05:55 Pulse Oximetry 99 07/19/24 05:55 MDM - Abdominal Pain MDM Narrative Medical decision making narrative: 73-year-old female, history of HIV, prior stroke with residual minor deficits on the right side. Patient presents to the emergency department with vague abdominal cramping, burning pain in the abdomen, dysuria. States that she has also been having some dark stools for about 1 week. Was here several weeks ago without any concerning workup findings and she was discharged home. She has normal vital signs aside from some elevated blood pressure reading which are largely unchanged from her chronic uncontrolled blood pressure. No tachycardia, hypoxia. She is overall well-appearing and not in any distress. Soft nontender nondistended abdomen. Differential includes gastroenteritis, gastritis, peptic ulcer disease, GI bleeding less likely but possible with a darkened stools. Low suspicion pancreatitis, appendicitis, cholecystitis, diverticulitis. Broad workup was ordered this time including CBC, CMP, lipase, urinalysis, CT scan of the abdomen and pelvis with contrast. She was given Bentyl for abdominal cramping pain, Pepcid, fluid bolus. Patient re-evaluated after interventions. Workup shows no leukocytosis or anemia. Normal platelet count. Electrolytes unremarkable. Normal renal function, normal glucose, normal LFTs. Unremarkable urinalysis. Normal lipase. CT scan shows no abnormalities. Patient is hemodynamically stable with normal lab values and unremarkable examination. She will be discharged home at this time with GI referral and started on Protonix for her concerns about her dark stools. No active bleeding at this time, normal hemoglobin. Patient given return precautions and discharge instructions. Medical Records Attestation: I reviewed the patient's medical records. Lab Data Attestation: I reviewed the patient's lab results. 07/19/24 05:51 07/19/24 05:51 Labs: Lab Results 07/19/24 07/19/24 Range/Units 05:51 06:30 WBC 3.9 L (4.5-10.0) K/mm3 RBC 4.53 (4.2-5.4) M/mm3 Hgb 12.0 (12.0-15.0) g/dL Hct 37.3 (37.0-47.0) % MCV 82.3 (80-100) fl MCH 26.5 (26-34) pg MCHC 32.2 (32-36) g/dl RDW 13.0 (11.5-14.5) % Plt Count 228 (150-375) k/mm3 MPV 9.5 (7.4-10.4) fl Immature Gran % (Auto) 0.5 (0-0.5) % Neut % (Auto) 48.1 (45.5-73.1) % Lymph % (Auto) 41.3 (18.3-44.2) % Vance % (Auto) 8.0 (2.6-8.5) % Eos % (Auto) 1.3 (0-4.4) % Baso % (Auto) 0.8 (0.2-1.2) % Lymph # (Auto) 1.60 (0.9-3.2) K/mm3 Vance # (Auto) 0.3 (0.1-0.6) K/mm3 Eos # (Auto) 0.1 (0-0.3) K/mm3 Baso # (Auto) 0.0 (0.0-0.1) K/mm3 Abs Immat Gran (auto) 0.02 (0.00-0.031) K/mm3 Absolute Neuts (auto) 1.9 (1.3-6.7) K/mm3 Absolute Nucleated RBC 0.000 (0.0-0.012) K/mm3 Nucleated RBC % 0.0 (0.0-0.2) % Sodium 140 (137-145) mmol/L Potassium 3.7 (3.4-5.0) mmol/L Chloride 105 (98-107) mmol/L Carbon Dioxide 28 (22-30) mmol/L Anion Gap 7 (4-12) mmol/L BUN 18 H (7-17) mg/dL Creatinine 0.78 (0.7-1.0) mg/dL Estim Creat Clear Calc Not Reportable Estimated GFR > 60 (59 - ) Glucose 100 (65-110) mg/dL Calcium 8.8 (8.4-10.2) mg/dL Total Bilirubin 0.6 (0.2-1.3) mg/dL AST 34 (14-36) U/L ALT 20 (6-35) U/L Alkaline Phosphatase 70 (38-126) U/L Total Protein 8.0 (6.3-8.2) g/dL Albumin 4.2 (3.5-5.1) g/dL Lipase 61 (23-300) U/L Urine Color Light yellow (Yellow) Urine Appearance Clear (Clear) Urine pH 5.5 (5.0-8.0) Ur Specific [place] <= 1.005 L (1.010-1.020) Urine Protein Negative (Negative) Urine Glucose (UA) Negative (Negative) Urine Ketones Negative (Negative) Ur Blood (Man) Negative (Negative) Urine Nitrate Negative (Negative) Urine Bilirubin Negative (Negative) Urine Urobilinogen 0.2 (0.2-1.0) mg/dL Leukocyte Esterase Rfl Negative (Negative) ALANNAH/UL Imaging Data Attestation: I personally reviewed and interpreted this imaging study as follows: My impression: Impressions Abdomen/Pelvis CT 07/19/24 06:46 Impression: No significant abnormalities seen. Radiologist's impression: ITS Impressions Abdomen/Pelvis CT 07/19/24 06:46 Impression: No significant abnormalities seen. Discharge Plan Discharge Clinical Impression: Abdominal pain, Dark stools Patient Disposition: Still a Patient Condition: Stable Instructions: Abdominal Pain (ED) Additional Instructions: All of your laboratory studies are within normal limits. Your CT scan shows no acute findings or any concern. Follow-up with the provided GI specialist regarding your abdominal pain and stools. Return with any new or worsening symptoms such as bleeding, worsening abdominal pain, intractable nausea, inability to tolerate oral intake. We will start you on a medication called Protonix if there is any persisting concerns of abdominal burning or bleeding. Patient Language: Portuguese Prescriptions: New pantoprazole [Protonix] [address] for susp in packet 40 mg PO DAILY Qty: 30 0RF No Action ritonavir [Norvir] 100 mg tablet 100 mg PO DAILY escitalopram oxalate [Lexapro] 10 mg tablet 10 mg PO DAILY Qty: 90 2RF ibandronate 150 mg tablet 150 mg PO MONTHLY fluticasone propionate 50 mcg/actuation spray,suspension 2 spray INTRANASAL DAILY cyclobenzaprine 5 mg tablet 5 mg PO TID PRN (Reason: Muscle spasms) darunavir 800 mg tablet 800 mg PO DAILY cholecalciferol (vitamin D3) [Vitamin D3] 25 mcg (1,000 unit) Tablet 1,000 unit PO DAILY Qty: 30 1RF gabapentin [Neurontin] 300 mg Capsule 300 mg PO Q8HR Qty: 90 1RF ezetimibe [Zetia] 10 mg Tablet 10 mg PO QAM Qty: 30 1RF Descovy 200-25 mg tablet 1 tablet PO DAILY aspirin 325 mg tablet 81 mg PO DAILY@0800 amlodipine [Norvasc] 5 mg tablet 2.5 mg PO QAM ondansetron 4 mg tablet,disintegrating 4 mg PO Q8H PRN (Reason: nausea and vomiting) Qty: 10 0RF atorvastatin 80 mg Tablet 80 mg PO HS Qty: 30 0RF Follow-up/Referrals: Radha,Nirmal Caban MD [Primary Care Provider] - Donnell Koch MD [Physician] - 1 Week (Abdominal pain, dark stools) Time of Disposition: 07:02
--- OUTSIDE RECORDS SUMMARY | 2024-07-19 05:52 | XMS_ITS | Clinical Summary ---
Author Organization [facility] Building [address] Address [address] [place] [address] Care Team Providers Care Accounts Payable Processor Name Role Phone Carter Celaya MD Unavailable [phone] Nirmal Garcia MD Primary Care Provider [phone] Pawel Juárez MD Unavailable [phone] Allergies No known active allergies Medications Descovy [...] 05/30/2022 Assessment & Plan (05/30/2022 11:10 AM INFORMATION SYSTEMS ADMINISTRATOR): Lexapro trial will try to get social work involved Advised to contact her son in [place], who has offered her to stay there [...] 01/30/2022 Assessment & Plan (01/30/2022 11:43 AM INFORMATION SYSTEMS ADMINISTRATOR): Lungs sounded clear; recommending OTC cough med for now until I can review labs We are checking on derm referral for the rash. If flares again, we can restart triamcinolone We will look into ADAP as well (will need credit risk manager information) Arthritis- trial of tylenol PRN (OTC)- [...] CDT): Started on Amlodipine 5 mg from [facility] in 07/2023. Experiencing bilateral ankle/feet swelling. Will decrease the Amlodipine to 2.5 mg and re-evaluate in 4 weeks. BP normal in office. Assessment & Plan (02/03/2023 4:11 PM INFORMATION SYSTEMS ADMINISTRATOR): No arrhythmia on the EKG, however there [...] Description 06/30/2024 3:45 PM CDT Office Visit [facility] at [address] [address] Yuly Person NP Generalized abdominal tenderness without rebound tenderness (Primary Dx); Nausea and vomiting, unspecified vomiting type; Abdominal pain 06/06/2024 Telephone [facility] at [address] [address] Nirmal Garcia MD Referral Request 05/22/2024 Results Follow-Up [facility] at [address] [address] Nirmal Garcia MD 04/20/2024 Telephone [facility] at [address] [address] Nirmal Garcia MD Forms Request 04/20/2024 Telephone [facility] at [address] [address] Nirmal Garcia MD Lab Results [...] often do you attend chur ch or catholic services? Never 06/25/2022 Do you belong to any clubs o r organizations such as yarsani groups, unions, fraternal or athletic groups, or [...] on file Legal Sex Female 12:40 PM INFORMATION SYSTEMS ADMINISTRATOR Gender Identity Not on file Sexual Orientation [...] cm (5' 4 ) 04/04/2024 9:43 AM INFORMATION SYSTEMS ADMINISTRATOR Body Mass Index 23.17 04/04/2024 9:43 AM INFORMATION SYSTEMS ADMINISTRATOR Plan of Treatment Health Maintenance Due Date [...] Routine) 06/30/2024 MAMMOGRAPHY Routine 05/17/2024 3:23 PM INFORMATION SYSTEMS ADMINISTRATOR LIPID PANEL Routine 04/04/2024 10:24 AM INFORMATION SYSTEMS ADMINISTRATOR Pure hypercholesterolemia COLONOSCOPY Routine 12/28/2023 8:51 AM [...] esult * HM MAMMOGRAPHY (05/17/2024 3:23 PM INFORMATION SYSTEMS ADMINISTRATOR) us Historical Provider HEALTH MAINTENANCE Final Result * (ABNORMAL) Lipid panel (04/04/2024 10:24 AM INFORMATION SYSTEMS ADMINISTRATOR) Cholesterol 274(H) 30 - 199 mg/dL Comment: [...] YVONNE LOZADA Blood 04/04/2024 10:2 4 AM INFORMATION SYSTEMS ADMINISTRATOR 04/04/2024 6:34 PM INFORMATION SYSTEMS ADMINISTRATOR Nirmal Garcia MD LAB BLOOD ORDERABLES Final Result YVONNE [address] [facility] [place] [address] * HM COLONOSCOPY (12/28/2023 8:51 [...] GENERAL ORDERABLES Final Result Performing Organization Address [facility] Co de Phone Number YVONNE [address] [employer] [place] [address] * (ABNORMAL) Hemoglobin A1c (05/31/2023 11:08 AM CDT) Hgb A1C 6.2(H) 4.0 - 5.6 % Estimated Average Glucose 131 mg/dL YVONNE Comment: The ADA recommends reporting an estimated Average Glucose (eAG) with all Hemoglobin A1c results using the equation derived from a study of 507 normal and diabetic adults. Minority populations were underrepresented and children were not included. (Diabetes Care 31:2954-3577, 2008). The eAG is not equivalent to a fasting glucose. Blood 05/31/2023 11:0 8 AM CDT 05/31/2023 2:31 PM CDT Nirmal Garcia MD LAB BLOOD ORDERABLES Final Result Performing Organization Address [facility] Co de Phone Number YVONNE [address] [employer] [place], [place] [id number] * Dexa Axial Skeleton Bone Density 1 or 2 Site (11/17/2017) Anatomical Region Laterality Modality Body N/A Radiographic Otilia ging Pawel Juárez MD IMG DXA PROCEDURES Final Re sult from Last 3 Months or Most Recently Relevant to Health Maintenance Insurance [employer] Care Teams Accounts Payable Processor Relationship Specialty Start Date End Date Nirmal Garcia MD [address] [place], [place] [id number] PCP - General Family Medicine 01/27/22 Carter Celaya MD [address] [address] Referring Physician Infectious Diseases 10/23/21 Pawel Juárez MD [address] [facility] [address] [place], [place] [address] Referring Physician Obstetrics and Gynecology 11/30/23
--- OUTSIDE RECORDS SUMMARY | 2024-07-19 05:52 | XMS_ITS | Clinical Summary ---
Author Organization [facility] Address [address] [place] [address] Care Team Providers Care Hat Brusher Machine Name Role Phone Unavailable Primary Care Provider [...]
--- OUTSIDE RECORDS SUMMARY | 2024-07-19 05:52 | XMS_ITS | Continuity of Care Document ---
Author Organization [facility] Address [address] [facility] [address] [place] [address] Phone Care Team Providers Care Grain Thresher Name Role Phone Josefina Gordillo OT Unavailable [...] Diagnoses Date Provider Providers Copied on Encounter [facility] [address], [id number], tel:[phone] [place] No Information Jun- 3 Rand Whiteside . [address], [id number], [place] tel:[phone] [place] No Information 0 3 Rand Whiteside . Referring Provider: Nirmal Caban, [address] [place], [address]. tel:[phone], [id number], tel:[phone] [place] No Information Apr-0 3 Antelmo Matos , [place], [place]. Referring Provider: Nirmal Caban, [address] [facility], [place], [address]. tel:[phone] Family History Family Member Type Diagnosis Age At Onset No Information Payers Payer name Insurance type Covered democrat ID Tiff khanna(s) [employer] CI [id number] Social History Type Description Quantity Date Captured [...]
--- OUTSIDE RECORDS SUMMARY | 2024-07-19 05:52 | XMS_ITS | Encounter Summary ---
Author Organization [facility] Healthcare Address [address] [place] [address] Care Team Providers Care Rn Social Work Name Role Phone Carter Celaya MD Unavailable [phone] Nirmal Garcia MD Primary Care Provider [phone] Pawel Juárez MD Unavailable [phone] Encounter Details Date Type Department Care Team (Late st Contact Info) Description 05/22/2024 Results Follow-Up [facility] Primary Care at [address] [address] Nirmal Garcia MD [address] [facility] [address] [place] [address] Social History Tobacco Use Types [...] often do you attend chur ch or alevism services? Never 06/25/2022 Do you belong to any clubs o r organizations such as baptism groups, unions, fraternal or athletic groups, or [...] on file Legal Sex Female 12:40 PM PROFESSOR OF EDUCATION Gender Identity Not on file Sexual Orientation Not on file documented as of this encounter Plan of Treatment Not on file documented as of this encounter Visit Diagnoses Not on filedocumented in this encounter Care Teams Rn Social Work Relationship Specialty Start Date End Date Nirmal Garcia MD [address] [place] [address] PCP - General Family Medicine 01/27/22 Carter Celaya MD [address] [address] Referring Physician Infectious Diseases 10/23/21 Pawel Juárez MD [address] [facility] [address] [facility] [address] [place] [address] Referring Physician Obstetrics and Gynecology 11/30/23 documented as of this encounter
--- OUTSIDE RECORDS SUMMARY | 2024-07-19 05:52 | XMS_ITS | Referral Summary ---
Author Organization [facility] Medical [facility] Building [address] Address [address] [place] [address] Care Team Providers Care Investments Manager Name Role Phone Marcialmartine Carter Day MD Unavailable [phone] Nirmal Garcia MD Primary Care Provider [phone] Pawel Juárez MD Unavailable [phone] Encounters Date Type Department Care Team Description 06/30/2024 3:45 PM CDT Office Visit [facility] Medical [facility] at [address] [id number] Yuly Person NP Generalized abdominal tenderness without rebound tenderness (Primary Dx); Nausea and vomiting, unspecified vomiting type; Abdominal pain 06/06/2024 Telephone [facility] Primary Care at [address] [id number] Nirmal Garcia MD Referral Request 05/22/2024 Results Follow-Up [facility] at [address] [phone] Nirmal Garcia MD 04/20/2024 Telephone [facility] Primary [facility] at [address] [address] Nirmal Garcia MD Forms Request 04/20/2024 Telephone [facility] Primary Care at [address] [address] Nirmal Garcia MD Lab Results [...] 05/30/2022 Assessment & Plan (05/30/2022 11:10 AM PRIZE FIGHTER): Lexapro trial will try to get social work involved Advised to contact her son in [place], who has offered her to stay there [...] 01/30/2022 Assessment & Plan (01/30/2022 11:43 AM PRIZE FIGHTER): Lungs sounded clear; recommending OTC cough med for now until I can review labs We are checking on derm referral for the rash. If flares again, we can restart triamcinolone We will look into ADAP as well (will need systems development manager information) Arthritis- trial of tylenol PRN [...] CDT): Started on Amlodipine 5 mg from [facility] in 07/2023. Experiencing bilateral ankle/feet swelling. Will decrease the Amlodipine to 2.5 mg and re-evaluate in 4 weeks. BP normal in office. Assessment & Plan (02/03/2023 4:11 PM PRIZE FIGHTER): No arrhythmia on the EKG, however there [...] How often do you attend chur or nondenominational services? Never 06/25/2022 Do you belong to any clubs o r organizations such as yazidism groups, unions, fraternal or athletic groups, or [...] place to sleep or slept in a skilled nursing (including now)? No 06/25/2022 PHQ-9 Answer Date [...] on file Legal Sex Female 12:40 PM PRIZE FIGHTER Gender Identity Not on file Sexual Orientation [...] cm (5' 4 ) 04/04/2024 9:43 AM PRIZE FIGHTER Body Mass Index 23.17 04/04/2024 9:43 AM PRIZE FIGHTER Plan of Treatment Not on file Procedures Procedure Name Priority Date/Time Associated Diagnosis Comments CT ABDOMEN PELVIS WO CONTRAST Schedule Routine, Read Routine (OP Routine) 06/30/2024 MAMMOGRAPHY Routine 05/17/2024 3:23 PM PRIZE FIGHTER LIPID PANEL Routine 04/04/2024 10:24 AM PRIZE FIGHTER Pure hypercholesterolemia HM COLONOSCOPY Routine 12/28/2023 8:51 [...] esult * HM MAMMOGRAPHY (05/17/2024 3:23 PM PRIZE FIGHTER) us Historical Provider HEALTH MAINTENANCE Final Result * (ABNORMAL) Lipid panel (04/04/2024 10:24 AM PRIZE FIGHTER) Cholesterol 274(H) 30 - 199 mg/dL Comment: [...] 3 YVONNE Blood 04/04/2024 10:2 4 AM PRIZE FIGHTER 04/04/2024 6:34 PM PRIZE FIGHTER Nirmal Garcia MD LAB BLOOD ORDERABLES Final Result YVONNE [address] [place] [address] * HM COLONOSCOPY (12/28/2023 8:51 [...] GENERAL ORDERABLES Final Result Performing Organization Address [facility] Phone Number YVONNE LOZADA [phone] [facility] [place] [address] * (ABNORMAL) Hemoglobin A1c (05/31/2023 11:08 AM CDT) Hgb A1C 6.2(H) 4.0 - 5.6 % Estimated Average Glucose 131 mg/dL YVONNE Comment: The ADA recommends reporting an estimated Average Glucose (eAG) with all Hemoglobin A1c results using the equation derived from a study of 507 normal and diabetic adults. Minority populations were underrepresented and children were not included. (Diabetes Care 31:4974-5710, 2008). The eAG is not equivalent to a fasting glucose. Blood 05/31/2023 11:0 8 AM CDT 05/31/2023 2:31 PM CDT Nirmal Garcia MD LAB BLOOD ORDERABLES Final Result Performing Organization Address [facility] Phone Number YVONNE LOZADA [phone] [place] [employer] [address] * Dexa Axial Skeleton Bone Density 1 or 2 Site (11/17/2017) Anatomical Region Laterality Modality Body N/A Radiographic Otilia ging Pawel Juárez MD IMG DXA PROCEDURES Final Re sult from Last 3 Months or Most Recently Relevant to Health Maintenance Insurance [facility] [place] [id number] Care Teams Investments Manager Relationship Specialty Start Date End Date Nirmal Garcia MD [address] [place] [address] PCP - General Family Medicine 01/27/22 Carter Celaya MD [address] [address] Referring Physician Infectious Diseases 10/23/21 Pawel Juárez MD [address] [facility] [address] [facility] [address] [place], [place] [id number] Referring Physician Obstetrics and Gynecology 11/30/23
[2024-07-19 05:55] VITALS: BP 164/83; PULSE 81; RESP 16; O2SAT 99
[2024-07-19 06:03] LABS: Basophils Percent Auto 0.8 % (0.2-1.2); Eosinophils Absolute Auto 0.1 K/mm3 (0-0.3); Eosinophils Percent Auto 1.3 % (0-4.4); Hematocrit 37.3 % (37.0-47.0); Immature Granulocyte Absolute 0.02 K/mm3 (0.00-0.031); Immature Granulocyte Percent A 0.5 % (0-0.5); Lymphocytes Percent Auto 41.3 % (18.3-44.2); Mean Corpuscular HGB Conc 32.2 g/dl (32-36); Mean Corpuscular Hemoglobin 26.5 pg (26-34); Mean Corpuscular Volume 82.3 fl (80-100); Mean Platelet Volume 9.5 fl (7.4-10.4); Monocytes Absolute Auto 0.3 K/mm3 (0.1-0.6); Neutrophils Absolute Auto 1.9 K/mm3 (1.3-6.7); Neutrophils Percent Auto 48.1 % (45.5-73.1); Platelet Count Result 228 k/mm3 (150-375); Red Blood Count 4.53 M/mm3 (4.2-5.4); White Blood Count 3.9 K/mm3 (4.5-10.0)
[2024-07-19 06:13] LABS: Alanine Aminotransferase 20 U/L (6-35); Albumin Level 4.2 g/dL (3.5-5.1); Alkaline Phosphatase 70 U/L (38-126); Anion Gap 7 mmol/L (4-12); Aspartate Amino Transferase 34 U/L (14-36); Bilirubin,Total 0.6 mg/dL (0.2-1.3); Blood Urea Nitrogen 18 mg/dL (7-17); Calcium 8.8 mg/dL (8.4-10.2); Carbon Dioxide 28 mmol/L (22-30); Chloride 105 mmol/L (98-107); Estimated Glomerular Filt Rate > 60; Glucose 100 mg/dL (65-110); Lipase 61 U/L (23-300); Potassium 3.7 mmol/L (3.4-5.0); Sodium 140 mmol/L (137-145)
[2024-07-19] MEDS: FAMOTIDINE 20 MG/2 ML VIAL IV PUSH (06:21)
[2024-07-19] MEDS: DICYCLOMINE HCL INJ 20 MG/2 ML VIAL IM (06:21)
[2024-07-19] MEDS: LACTATED RINGERS 1,000 ML 999 ML IV CONT (06:21)
[2024-07-19] MEDS: ONDANSETRON INJ 4 MG/2 ML VIAL IV PUSH (06:21)
[2024-07-19 06:53] LABS: Add Urine Microscopic? NO
[2024-07-19 06:54] LABS: Appearance Urine Clear (Clear); Color Urine Light Yellow (Yellow)
[2024-07-19 07:20] VITALS: BP 152/80; PULSE 76; RESP 18; TEMP 36.9; O2SAT 98
[2024-07-19 07:21] VITALS: BP 152/80; PULSE 76; RESP 18; TEMP 36.9; O2SAT 98
[2024-07-19 09:47] LABS: pH Urine 5.5 (5.0-9.0)
[2024-07-19 09:48] LABS: Blood Urine Negative (Negative); Glucose Urine UA Negative (Negative); Ketones Urine Negative (Negative); Nitrate Urine Negative (Negative); Protein Urine Negative (Negative); Specific Grav Ur <= 1.005 (1.001-1.035)
[2024-07-19 09:49] LABS: Bilirubin Urine Negative (Negative); Leukocyte Esterase Ur Negative LEU/UL (Negative); Urobilinogen Urine 0.2 mg/dL (<2.0)
== END 2024-07-19 07:23 | disposition home or self-care (01) ==
PROVIDERS: Emergency Provider Student in an Organized Health Care Education/Training Program; PCP Family Medicine
DX: R10.9 Unspecified abdominal pain (principal); R19.5 Other fecal abnormalities; I69.351 Hemiplegia and hemiparesis following cerebral infarction affecting right dominant side; E78.00 Pure hypercholesterolemia, unspecified; Z21 Asymptomatic human immunodeficiency virus [HIV] infection status; Z79.899 Other long term (current) drug therapy
CPT/HCPCS: 36415; 74177; 80053; 81003; 83690; 85025; 93005; 96361; 96372; 96374; 96375; 99284; J0500; J2405; J7120; Q9967

== ENCOUNTER 2024-12-11 11:05 | Outpatient (CLI) | payer OTHER, SELFPAY ==
--- OUTSIDE RECORDS SUMMARY | 2024-12-11 08:45 | XMS_ITS | Encounter Summary ---
Author Organization [facility] Healthcare Address [address] [place] [address] Care Team Providers Care Cna Pct Name Role Phone Carter Celaya MD Unavailable Pawel Juárez MD Unavailable [phone] Pascual Whittington MD Primary Care Provider Reason for Referral * Diagnostic Imaging (Routine) - Authorized Specialty Diagnoses / Procedures Referred By Contac t Referred To Contact Diagnoses Age-related osteoporosis without current pathological fracture Procedures Dexa Axial Skeleton Bone Density 1 Or 2 Site Pascual Whittington MD [address] [place] [id number] Phone: tel: fax: External Order Referral ID Status Reason Start Date Expiration Date V isits Requested Visits Authorized [id number] Authorized 12/11/2024 01/10/2026 1 1 Reason for Visit * Reason Comments Follow-up Pt is here for a 4 m o check up. Encounter Details Date Type Department Care Team (Late st Contact Info) Description 12/11/2024 8:45 AM CDT Office Visit [facility] Medical [facility] Primary Care at [address] [id number] Pascual Whittington MD [address] [place] [id number] Preventative health care (Primary Dx); Hypertension, essential; Asymptomatic HIV infection, with no history of HIV-related illness (HCC); History of CVA (cerebrovascular accident); MARTA (generalized anxiety disorder); Pre-diabetes; Age-related osteoporosis without current pathological fracture; Eczema, unspecified type; Pure hypercholesterolemia; Muscle cramps at night; Gastroesophageal reflux disease, unspecified whether esophagitis present Social History Tobacco Use Types Packs/Day Years Used Date Smoking Tobacco: Never Passive Smoke Exposure: Never Smokeless Tobacco: Never Social Connection and Isolation Panel Answer Date Recorded In a typical week, how many times do you talk on the phone with family, friends, or neighbors? More than three times a week 06/25/2022 How often do you get togethe r with friends or relatives? More than three times a week 06/25/2022 How often do you attend chur ch or buddhist services? Never 06/25/2022 Do you belong to any clubs o r organizations such as religion groups, unions, fraternal or athletic groups, or [...] points, staff should administer the PHQ-9) 0 12/11/2024 PRAPARE - Transportation Answer Date Re corded [...] place to sleep or slept in a long term (including now)? No 06/25/2022 PHQ-9 Answer Date [...] on file Legal Sex Female 12:40 PM [employer]OWER [employer] Gender Identity Not on file Sexual Orientation Not on file documented as of this encounter Last Filed Vital Signs Vital Sign Reading Time Taken Comments Blood Pressure 146/86 12/11/2024 8:44 AM CDT Pulse 80 12/11/2024 8:44 AM CDT Temperature 36.8 C (98.2 F) 12/11/2024 8:44 AM CDT Respiratory Rate - - Oxygen Saturation 98% 12/11/2024 8:44 AM CDT Inhaled Oxygen Concentration - - Weight 58.6 kg (129 lb 1.6 oz) 12/11/2024 8:44 A M CDT Height 162.6 cm (5' 4) 12/11/2024 8:44 AM CDT Body Mass Index 22.16 12/11/2024 8:44 AM CDT documented in this encounter Ordered Prescriptions Prescription Sig Dispense Quantity Refills Last Filled Start Date End Date triamcinolone (KENALOG) 0.1 % ointmentIndication s:skin rash Apply topically 2 (two) times a day 80 g 2 12/11/2024 documented in this encounter Progress Notes * Pascual Whittington MD - 12/11/2024 8:45 AM CDT Images from the original note were not included. This patient has verbally consented to recording this visit in order to utilize AI technology in generating this note. Assessment & Plan Adult Wellness Visit Routine wellness visit with discussion on medication management, bone density screening, and general health concerns. - Discuss medication management and adherence - Discuss general health concerns Right-sided post-stroke pain and muscle cramps Right-sided post-stroke pain and muscle cramps. Gabapentin prescribed by neurology is ineffective. Symptoms include stiffness and cramping at night. - Recommend mhjh-gdv-ayoqccd magnesium in the evening for muscle cramps Osteoporosis Osteoporosis managed with Boniva. Last bone density scan was in 2018. - Order bone density scan at [place] - Review Boniva medication history Essential hypertension Essential hypertension managed with amlodipine. Difficulty managing and organizing medications. - Discuss medication management and adherence Dermatitis Dermatitis with dry, aching skin. Previously used clobetasol 0.05% and triamcinolone, but triamcinolone was ineffective. Concerns about skin thinning with strong steroids. - Prescribe triamcinolone at a stronger dose - Discontinue clobetasol to prevent skin thinning Asymptomatic HIV infection Asymptomatic HIV infection managed with Descovy. Viral load is undetectable. General Health Maintenance Discussion about general health maintenance including bone density screening and uterine health post-65 years. - Order bone density scan at [place] - Discuss uterine health and screening post-65 years Assessment & Plan Preventative health care - New or chronic worsening conditions: GERD, abdominal epigastric pain, eczema - Mental health: no significant psychiatric/mental health conditions affecting her day to day functioning - Dental health: Recommend regular dental care and cleaning. Discussed importance of regular tooth brushing, flossing, and dental visits. - Nutrition: Recommend moderation in sodium/caffeine intake, saturated fat and cholesterol, caloricbalance, sufficient intake of fresh fruits, vegetables - Exercise: Recommend to exercise at least 30 minutes moderate to vigorous exercise most days of the week. (minimum 150 minutes weekly) - Immunizations: Age and sex appropriate immunizations reviewed and offered - Cervical Cancer screening: follows with OBGYN - Breast Cancer screening: Up to date - Colon cancer screening: Up to date - Lung cancer screening: not indicated - Bone desnity/osteoporosis screening:Recommended, order placed - control: post-menopausal Hypertension, essential BP Readings from Last 3 Encounters: 12/11/24 146/86 08/03/24 124/82 06/30/24 147/78 Chronic condition, suboptimally controlled Currently on Amlodipine 5 mg from [facility] in 07/2023. Experiencing bilateral ankle/feet swelling. decreased the Amlodipine to 2.5 mg on prior visit Unsure if or how much she is taking of her medication Will give her list of her medication and will confirm to us how/if she is taking her medication Asymptomatic HIV infection, with no history of HIV-related illness (HCC) HIV well-controlled with antiretroviral therapy: Descovy, Norvir, and Prezista. Viral load undetectable. Good adherence to regimen for many years reported and stated it has not been detectable for many years - Continue current antiretroviral therapy regimen with Descovy, Norvir, and Prezista. - Continue current management per Infectious diseases History of CVA (cerebrovascular accident) Hx of Stroke in 2022 with right side hemiparesis which has resolved, reports residual mood changes and nerve pain in the right leg and memory decline Gabapentin is used for nerve pain management. No significant physical weakness. Under neurologist care in [place]. She is on Memantine/namenda from neurology as well for memory decline - Continue gabapentin for nerve pain management. - continue on Atorvastatin 80 mg daily and Aspirin 81 mg daily The current medical regimen is effective; continue present plan and medications. Lab Results Component Value Date LDLCALC 86 08/03/2024 MARTA (generalized anxiety disorder) - Chronic condition, stable/controlled - Anxiety related to financial stress and medication management. - Currently on escitalopram 10 mg daily - Discuss role of escitalopram in managing anxiety. - Consider simplifying medication regimen to reduce confusion. The current medical regimen is effective; continue present plan and medications. Pre-diabetes - known prediabetes hx --> improved - recheck labs, order placed with results as shown below - managed via lifestyle/diet at this time The current medical regimen is effective; continue present plan and medications. Lab Results Component Value Date HGBA1C 5.8 (H) 08/03/2024 HGBA1C 6.2 (H) 05/31/2023 Age-related osteoporosis without current pathological fracture - Long-standing osteoporosis managed with bone density medication. - currently on Boniva - how long???, will try to see prescriber name and dates from pharamcy - relevant labs as shown below - will review records - Obtain bone density, order placed and provided order to do it at external facility/[place] Lab Results Component Value Date CALCIUM 9.1 08/03/2024 Lab Results Component Value Date 25HYDROVITD 35 08/03/2024 25HYDROVITD 34 04/04/2024 Orders: Dexa Axial Skeleton Bone Density 1 Or 2 Site; Future Eczema, unspecified type Chronic eczema with recurrent flare-ups. Currently using clobetasol, which is too strong for long-term use. Reports burning sensation when applied. Advised to use a less potent ointment. - Prescribe a different ointment for eczema management triamcinolone 0.1% ointment past visit, refill provided - Some of the concerns that she has is likely secondary to long-term use of strong anti steroid topical treatment - Review dermatology records to assess previous treatments. Orders: triamcinolone (KENALOG) 0.1 % ointment; Apply topically 2 (two) times a day Pure hypercholesterolemia Chronic condition, well controlled Cholesterol levels previously elevated. Currently on atorvastatin 80 mg dailyand aspirin, but not ezetimibe. Importance of cholesterol management emphasized due to stroke history. Confusion about medication regimen may affect adherence. - Continue atorvastatin and aspirin. - most recent labs as shown below The current medical regimen is effective; continue present plan and medications. Lab Results Component Value Date CHOL 186 08/03/2024 CHOL 274 (H) 04/04/2024 CHOL 238 (H) 05/31/2023 Lab Results Component Value Date HDL 76 08/03/2024 HDL 91 04/04/2024 HDL 74 05/31/2023 Lab Results Component Value Date LDLCALC 86 08/03/2024 LDLCALC 172 (H) 04/04/2024 LDLCALC 146 (H) 05/31/2023 Lab Results Component Value Date TRIG 138 08/03/2024 TRIG 70 04/04/2024 TRIG 89 05/31/2023 Muscle cramps at night Symptoms include stiffness and cramping at night. - Recommend jbsc-tez-rugovkv magnesium in the evening for muscle cramps Gastroesophageal reflux disease, unspecified whether esophagitis present Gastroesophageal reflux disease with epigastric pain and dark stools GERD with epigastric. Concerns about potential internal bleeding and cancer. Currently on pantoprazole, but adherence is uncertain. - Verify pantoprazole 40 mg use and adherence --> provide a list of her medications and she willcall and let me know if she is using it or not --> if not recommend restarting treatment with pantoprazole 40 mg daily - Consider referral to GI specialist if symptoms persist - Recommend abse-vfs-lnnncay Gas X for bloating Return in about 6 months (around 06/10/2025). Subjective/Objective Chief Complaint Patient presents with Follow-up Pt is here for a 4 mo check up. HPI Nancy Cherry is a 73 y.o. female who is here for follow up visit after recently establishing carewith tx. She has known conditions of prediabetes, hx of CVA, memory loss/decline, hyperlipidemia, hypertension, Osteoporosis, and eczema and GERD. History of Present Illness Nancy Cherry is a 73 year old female with osteoporosis and a history of stroke who presents for follow-up on bone density and management of multiple chronic conditions. She has been on Boniva for osteoporosis for several years but has not had a bone density scan [id number]. She is unsure if any were done at [facility] since then. She experienced a stroke affecting her right side, resulting in stiffness and pain that radiates upwards. She is taking gabapentin, possibly for pain, but is unsure of the indication and finds it ineffective. She experiences nighttime stiffness and cramps, which prevent movement. She has a history of gastrointestinal issues, including swelling and severe pain, previously managed with Pepcid. She now takes pantoprazole but is unsure of her current medication regimen. She reports dark stools and significant back pain associated with her stomach issues. She has persistent painful and dry skin rashes. She previously used clobetasol 0.05% cream, which she has finished, and reports that triamcinolone was ineffective. She is concerned about skin thinning from strong medications. She is on Descovy for HIV, which has been effective in maintaining undetectable viral loads. She also takes amlodipine for hypertension but finds it challenging to manage her medication regimen due to the number of medications prescribed. She experiences anxiety and is on Lexapro for management. She has a history of heartburn and excessive gas, causing significant discomfort and fullness. Please see the assessment and plan section for relevant conditions discussed, status of conditions,current and future management recommendations. Patient Care Team: Pascual Whittington MD as PCP - General (Family Medicine) Carter Celyaa MD as Referring Physician (Infectious Diseases) Pawel Juárez MD as Referring Physician (Obstetrics and Gynecology) Labs: Lab Results Component Value Date CHOL 186 08/03/2024 TRIG 138 08/03/2024 HDL 76 08/03/2024 Lab Results Component Value Date LDLCALC 86 08/03/2024 Lab Results Component Value Date TSH 2.18 08/03/2024 Lab Results Component Value Date HGBA1C 5.8 (H) 08/03/2024 HGBA1C 6.2 (H) 05/31/2023 Review of systems: Review of Systems Constitutional: Negative for chills, fatigue and fever. HENT: Negative for congestion and sore throat. Eyes: Negative for visual disturbance. Respiratory: Negative for cough, shortness of breath and wheezing. Cardiovascular: Negative for chest pain and leg swelling. Gastrointestinal: Positive for abdominal pain and vomiting. Negative for constipation, diarrhea andnausea. Bloating Genitourinary: Negative for difficulty urinating and dysuria. Musculoskeletal: Positive for myalgias (right sided cramps). Negative for gait problem. Skin: Positive for rash (left lower extremity). Negative for wound. Neurological: Negative for dizziness, facial asymmetry and speech difficulty. Psychiatric/Behavioral: Negative for agitation, behavioral problems, dysphoric mood and sleep disturbance. The patient is nervous/anxious (mild). Vitals: 12/11/24 0844 BP: 146/86 BP Location: Right arm Patient Position: Sitting Pulse: 80 Temp: 36.8 ??C (98.2 ??F) TempSrc: Temporal SpO2: 98% Weight: 58.6 kg (129 lb 1.6 oz) Height: 162.6 cm (5' 4) Wt Readings from Last 3 Encounters: 12/11/24 58.6 kg (129 lb 1.6 oz) 08/03/24 60.9 kg (134 lb 3.2 oz) 06/30/24 61.2 kg (135 lb) Body mass index is 22.16 kg/m??. Physical Exam Vitals reviewed. Constitutional: General: She is not in acute distress. Appearance: She is not ill-appearing. Comments: Pleasant HENT: Head: Normocephalic. Mouth/Throat: Mouth: Mucous membranes are moist. Eyes: Extraocular Movements: Extraocular movements intact. Cardiovascular: Rate and Rhythm: Normal rate and regular rhythm. Pulmonary: Effort: Pulmonary effort is normal. No respiratory distress. Breath sounds: Normal breath sounds. No stridor. No wheezing or rhonchi. Abdominal: General: Abdomen is flat. There is no distension. Palpations: Abdomen is soft. There is no mass. Tenderness: There is no abdominal tenderness. There is no guarding or rebound. Hernia: No hernia is present. Musculoskeletal: Right lower leg: No edema. Left lower leg: No edema. Skin: General: Skin is warm and dry. Findings: Rash present. Comments: Lichenification noted over neck and cubital fossa Neurological: General: No focal deficit present. Mental Status: She is alert and oriented to person, place, and time. Mental status is at baseline. Gait: Gait normal. Psychiatric: Attention and Perception: Attention normal. Mood and Affect: Mood normal. Speech: Speech normal. Behavior: Behavior normal. Behavior is cooperative. Thought Content: Thought content normal. Cognition and Memory: Memory is impaired. Judgment: Judgment normal. Pascaul Whittington MD Please note: Voice recognition software [employer] was used dictate and transcribe this document. Management Information Systems Director variances may occur. Despite proofreading, typographical errors may occur. j documented in this encounter Miscellaneous Notes * Assessment & Plan Note - Pascual Whittington MD - 12/11/2024 8:45 AM CDT Associated Problem(s): Hypertension, essential BP Readings from Last 3 Encounters: 12/11/24 146/86 08/03/24 124/82 06/30/24 147/78 Chronic condition, suboptimally controlled Currently on Amlodipine 5 mg from [facility] in 07/2023. Experiencing bilateral ankle/feet swelling. decreased the Amlodipine to 2.5 mg on prior visit Unsure if or how much she is taking of her medication Will give her list of her medication and will confirm to us how/if she is taking her medication * Assessment & Plan Note - Pascual Whittington MD - 12/11/2024 8:45 AM CDT Associated Problem(s): Human immunodeficiency virus infection (HCC) HIV well-controlled with antiretroviral therapy: Descovy, Norvir, and Prezista. Viral load undetectable. Good adherence to regimen for many years reported and stated it has not been detectable for many years - Continue current antiretroviral therapy regimen with Descovy, Norvir, and Prezista. - Continue current management per Infectious diseases * Assessment & Plan Note - Pascual Whittington MD - 12/11/2024 8:45 AM CDT Associated Problem(s): History of CVA (cerebrovascular accident) Hx of Stroke in 2022 with right side hemiparesis which has resolved, reports residual mood changes and nerve pain in the right leg and memory decline Gabapentin is used for nerve pain management. No significant physical weakness. Under neurologist care in [place]. She is on Memantine/namenda from neurology as well for memory decline - Continue gabapentin for nerve pain management. - continue on Atorvastatin 80 mg daily and Aspirin 81 mg daily The current medical regimen is effective; continue present plan and medications. Lab Results Component Value Date LDLCALC 86 08/03/2024 * Assessment & Plan Note - Pascual Whittington MD - 12/11/2024 8:45 AM CDT Associated Problem(s): MARTA (generalized anxiety disorder) - Chronic condition, stable/controlled - Anxiety related to financial stress and medication management. - Currently on escitalopram 10 mg daily - Discuss role of escitalopram in managing anxiety. - Consider simplifying medication regimen to reduce confusion. The current medical regimen is effective; continue present plan and medications. * Assessment & Plan Note - Pascual Whittington MD - 12/11/2024 8:45 AM CDT Associated Problem(s): Pre-diabetes - known prediabetes hx --> improved - recheck labs, order placed with results as shown below - managed via lifestyle/diet at this time The current medical regimen is effective; continue present plan and medications. Lab Results Component Value Date HGBA1C 5.8 (H) 08/03/2024 HGBA1C 6.2 (H) 05/31/2023 * Assessment & Plan Note - Pascual Whittington MD - 12/11/2024 8:45 AM CDT Associated Problem(s): Age-related osteoporosis without current pathological fracture - Long-standing osteoporosis managed with bone density medication. - currently on Boniva - how long???, will try to see prescriber name and dates from pharamcy - relevant labs as shown below - will review records - Obtain bone density, order placed and provided order to do it at external facility/[place] Lab Results Component Value Date CALCIUM 9.1 08/03/2024 Lab Results Component Value Date 25HYDROVITD 35 08/03/2024 25HYDROVITD 34 04/04/2024 Orders: Dexa Axial Skeleton Bone Density 1 Or 2 Site; Future * Assessment & Plan Note - Pascual Whittington MD - 12/11/2024 8:45 AM CDT Associated Problem(s): Eczema Chronic eczema with recurrent flare-ups. Currently using clobetasol, which is too strong for long-term use. Reports burning sensation when applied. Advised to use a less potent ointment. - Prescribe a different ointment for eczema management triamcinolone 0.1% ointment past visit, refill provided - Some of the concerns that she has is likely secondary to long-term use of strong anti steroid topical treatment - Review dermatology records to assess previous treatments. Orders: triamcinolone (KENALOG) 0.1 % ointment; Apply topically 2 (two) times a day * Assessment & Plan Note - Pascual Whittington MD - 12/11/2024 8:45 AM CDT Associated Problem(s): Pure hypercholesterolemia Chronic condition, well controlled Cholesterol levels previously elevated. Currently on atorvastatin 80 mg dailyand aspirin, but not ezetimibe. Importance of cholesterol management emphasized due to stroke history. Confusion about medication regimen may affect adherence. - Continue atorvastatin and aspirin. - most recent labs as shown below The current medical regimen is effective; continue present plan and medications. Lab Results Component Value Date CHOL 186 08/03/2024 CHOL 274 (H) 04/04/2024 CHOL 238 (H) 05/31/2023 Lab Results Component Value Date HDL 76 08/03/2024 HDL 91 04/04/2024 HDL 74 05/31/2023 Lab Results Component Value Date LDLCALC 86 08/03/2024 LDLCALC 172 (H) 04/04/2024 LDLCALC 146 (H) 05/31/2023 Lab Results Component Value Date TRIG 138 08/03/2024 TRIG 70 04/04/2024 TRIG 89 05/31/2023 documented in this encounter Plan of Treatment Scheduled Orders Name Type Priority Associated Diagnoses Orde r Schedule Dexa Axial Skeleton Bone Density 1 Or 2 Site Imaging Schedule Routine, Read Routine (OP Routine) Age-related osteoporosis without current pathological fracture Expected: 12/11/2024, Expires: 12/11/2025 documented as of this encounter Visit Diagnoses Diagnosis Preventative health care- Primary Routine general medical examination at a health care facility Hypertension, essential Unspecified essential hypertension Asymptomatic HIV infection, with no history of HIV-related illness (HCC) History of CVA (cerebrovascular accident) Transient ischemic attack (TIA), and cerebral infarction without residual deficits MARTA (generalized anxiety disorder) Generalized anxiety disorder Pre-diabetes Other abnormal glucose Age-related osteoporosis without current pathological fracture Eczema, unspecified type Pure hypercholesterolemia Muscle cramps at night Cramp of limb Gastroesophageal reflux disease, unspecified whether esophagitis present documented in this encounter Discontinued Medications Medication Sig Discontinue Reason Start Date End Da te methylPREDNISolone (MEDROL DOSEPACK) 4 mg Dosepack Therapy completed 06/30/2024 12/11/2024 penicillin v potassium (VEETID) 500 mg tablet TAKE 2 TABLETS RIGHT NOW. THEN TAKE 1 TABLET EVERY 6 HOURS UNTIL GONE. Therapy completed 04/18/2024 12/11/2024 triamcinolone (KENALOG) 0.1 % ointmentIndications:ski n rash Apply topically 2 (two) times a day 08/03/2024 12/11/2024 documented as of this encounter Care Teams Cna Pct Relationship Specialty Start Date End Date Pascual Whittington MD [address] [facility] [address] [place] [address] PCP - General Family Medicine 08/03/24 Carter Celaya MD [facility] [address] Referring Physician Infectious Diseases 10/23/21 Pawel Juárez MD [address] [id number] Referring Physician Obstetrics and Gynecology 11/30/23 documented as of this encounter
--- OUTSIDE RECORDS SUMMARY | 2024-12-11 12:18 | XMS_ITS | Clinical Summary ---
Author Organization [facility] Address [address] [place] [address] Care Team Providers Care Technical Architect Name Role Phone Unavailable Primary Care Provider [...] 2017 Dexa Scan (General) 2017 COVID-19 Vaccine (1 - 2023-2 5 season) 2024 RSV Immunization or 60+ Years (1 - [...]
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
--- OUTSIDE RECORDS SUMMARY | 2024-12-11 12:18 | XMS_ITS ---
Author Name Zay Castillo DO Address [address] [facility] [place] [address] Phone [phone] Organization [facility] [facility] Care Team Providers Care Wet Finisher Name Role Phone Zay Castillo Unavailable [phone] [facility] CHW ([facility]), Cora Vela Unavailable Unavailable ROBBI MARIN Unavailable [phone] [facility] Tier 1 RN ([facility]), Janet banerjeeailbk Unavailable Reason for Referral Not Available Allergies, adverse reactions, alerts No known allergies History of medication use Medication Class Instructions Start Date End Date Ritonavir 100 mg Tab 1 tablet orally fredy ly with a meal 2024-07-20 No Data Available Descovy 200/25 mg Tab 1 tablet orally daily 2024-07-20 No Data Available Prezista 800 mg Tab 1 tablet orally stuart y with a meal 2024-07-20 No Data Available VITAMIN D3 25 MCG TABLET TAKE 1 TABLET B Y MOUTH EVERY DAY 2023-10-20 No Data Available Atorvastatin Calcium 80 mg Tab No Data Available 2024-01-15 No Data Available Escitalopram Oxalate 10 mg Tab TAKE 1 TABLET BY MOUTH DAILY 2024-06-05 2024-07-20 Memantine 5 mg Tab TAKE 1 TABLET BY DION TH TWICE A DAY 2023-11-30 No Data Available Fluticasone Propionate 50 MCG/ACT Suspension SPRAY 2 SPRAYS INTO EACH NOSTRIL EVERY DAY 2023-08-02 No Data Available Ibandronate Sodium 150 mg Tab TAKE 1 TABLET BY MOUTH MONTHLY DIRECTED 2024-04-12 No Data Available amLODIPine Besylate 5 mg Tab 0.5 tablet orally daily 2 No Data Available Aspirin EC 81 mg Tab delayed rel 1 tablet orally daily 2024-07-20 No Data Available Escitalopram Oxalate 10 mg Tab TAKE 1 TABLET BY MOUTH DAILY 2024-06-05 No Data Loreta ilable Problem List Problem Status Onset Date Resolved Date Synopsis HIV positive Active 2024-07-20 N/A on Descovy, Norvir, and Prezista; viral load undetectable; following up with infectious disease Hyperlipidemia Active 2024-07-20 N/A on atorvas tatin; 08/03/24 ldl 86 Cognitive impairment Active 2024-07-20 N/A foll owing up with neurology at [place]; currently on Memantine Vitamin D deficiency Active 2024-07-20 N/A N/A Osteoporosis Active 2024-07-20 N/A N/A Noncompliance Active 2024-07-20 N/A N/A Hemiplegia and hemiparesis following cerebral infarction affecting right dominant side Active 2024-07-20 N/A history of CVA 2 023 with right sided hemiparesis; has some nerve pain in right leg which she uses gabapentin for; follows up with neurology at [place]; on atorvastatin and aspirin Frailty Active 2024-07-20 N/A N/A Mild depression Active 2024-07-20 N/A N/A Unspecified atrial fibrillation Active 2024-07-20 N/A N/A Oropharyngeal dysphagia Active 2024-09-24 N/A a symptomatic today; continue PPI Oropharyngeal dysphagia Active 2024-11-20 N/A e valuated by ENT and had recommended barium swallow, but has not been done yet Prediabetes Active 2024-11-20 N/A 08/03/24 hgba1 c 5.8 Eczema Active 2024-11-20 N/A tried clobetas ol, but caused burning; pcp recently sent triamcinolone Generalized anxiety disorder Active 2024-11-20 N/A Has anxiety rela randi to financial stress and medication management; on escitalopram Chronic kidney disease, stage 2 (mild) Active 2024-11-20 N/A 08/03/24 gfr 88 Hypertensive chronic kidney disease with stage 1 through stage 4 chronic kidney disease, or unspecified chronic kidney disease Active 2024-11-20 N/A on amlodipine; c omplicated by CKD Encounters Encounters Type Facility Date of Service Diagnosis/Co mplaint Home visit for evaluation and management of new patient requiring medically appropriate examination and moderate level of medical decision making. If using time, at least 60 minutes total time on enco [facility] [place] 07/20/2024 Asymptomatic human immunodeficiency virus [hiv] infection statusEssential (primary) hypertensionHyperlipidemia, unspecifiedOther symptoms and signs involving cognitive functions and awarenessVitamin D deficiency, unspecifiedAge-related osteoporosis without current pathological fracturePatient's noncompliance with other medical treatment and regimen due to unspecified reasonHemiplga following cerebral infrc aff right dominant sideDepression, unspecifiedUnspecified atrial fibrillationBody mass index (BMI) 22.0-22.9, adult Home visit for evaluation and management of new patient requiring medically appropriate examination and moderate level of medical decision making. If using time, at least 60 minutes total time on enco [facility] [place] 07/20/2024 Asymptomatic human immunodeficiency virus [hiv] infection status Home visit for evaluation and management of established patient requiring medically appropriate examination and moderate level of medical decision making. If using time, at least 40 minutes total time [facility] [place] 09/19/2024 Essential (primary) hypertensionPatient's noncompliance with other medical treatment and regimen due to unspecified reasonHyperlipidemia, unspecifiedOther symptoms and signs involving cognitive functions and awarenessVitamin D deficiency, unspecifiedAge-related osteoporosis without current pathological fractureHemiplga following cerebral infrc aff right dominant sideDysphagia, oropharyngeal phase Home visit for evaluation and management of established patient requiring medically appropriate examination and moderate level of medical decision making. If using time, at least 40 minutes total time [facility] [place] 09/19/2024 Essential (primary) hypertension Home visit for evaluation and management of established patient requiring medically appropriate examination and moderate level of medical decision making. If using time, at least 40 minutes total time [facility] [place] 09/19/2024 Asymptomatic human immunodeficiency virus [hiv] infection status Vital Signs Date of Collection Vitals 2024-07-20 13:15:00 Height - 165.1 cmWei ght - 59.97 kgBody Mass Index (BMI) - 22.0 kg/m2BP Diastolic - 80.0 mm[Hg]BP Systolic - 147.0 mm[Hg]Heart Rate - 53.0 /minRespiratory Rate - 16.0 /minO2 % BldC Oximetry - 99.0 % 2024-09-19 07:45:00 BP Diastolic - 64.0 mm[Hg]BP Systolic - 112.0 mm[Hg]Heart Rate - 67.0 /minRespiratory Rate - 16.0 /minO2 % BldC Oximetry - 98.0 %Pain Scale - 9.0 {score} Social History Sex Female History of Procedures Procedures Service Procedure code Service date Servicing provider Phone# Home visit for evaluation and management of new patient requiring medically appropriate examination and moderate level of medical decision making. If using time, at least 60 minutes total time on enco [address] 2024-07-20 No Data Available No Data Availa ble Patient screened for fall risk; no falls in the last year or 1 fall with no injury in the last year 1100F 2024-07-20 No Data Available No Data Avail able Home visit for evaluation and management of established patient requiring medically appropriate examination and moderate level of medical decision making. If using time, at least 40 minutes total time [address]10 2024-09-19 No Data Available No Data Loreta ilable Most recent dystolic blood pressure <80 mm Hg 3078F 2024-09-19 No Data Available No Data Availa ble Advanced care planning discussed and documented, patient did not wish or was not able to to name a surrogate decision maker or provide an advance care plan [id number] 2024-09-19 No Data Available No Data Availa ble Functional Status Functional Category Effective Dates walks with no assistive devices Mental Status No Information Assessments Date of Service Assessments 2024-07-20 13:15:00 HIV positive - poorl y controlledEssential hypertension - poorly controlledHyperlipidemia - poorly controlledCognitive impairment - poorly controlledVitamin D deficiency - poorly controlledOsteoporosis - poorly controlledNoncompliance - poorly controlledHemiplegia and hemiparesis following cerebral infarction affecting right dominant sideFrailtyMild depressionUnspecified atrial fibrillation 2024-09-19 07:45:00 Noncompliance [Z91.1 99]:most of visit was spent reviewing medication, organizing pill assortment planner. A handwritten list of her meds and the timing was completed as patient does not have access to electronic records or AVS from most recent visit. All pill bottles were labeled AM or PM or AM and PM if BID. we wrote reason for use on each label. [employer] loaded for two weeks. Patient verbalizes understanding on need for these medications. Will plan for phone follow up in two weeks to assist in loading pill assortment planner again. Essential hypertension [I10]:2.5mg dose of amlodipine loaded in pill assortment planner. BP WNL today, stable. Hyperlipidemia [E78.5]:continue atorvastatin 80mg, discussed need for aspirin 81mg refill; encouraged HH dietCognitive impairment [R41.89]:loaded pill assortment planner with BID memantine. Vitamin D deficiency [E55.9]:loaded pill assortment planner with 2000IU vitamin d3 daily. Osteoporosis [M81.0]:compliant with ibandronate. discussed importance of thisHemiplegia and hemiparesis following cerebral infarction affecting right dominant side [I69.351]:patient shows very little residual from stroke, she was gardening upon arrival. and walking up and down a few steps to get into her home several times to get medications. she did this without AD and without signs of unsteadiness. Oropharyngeal dysphagia [R13.12]> asymptomatic today; continue PPI Plan of Care Date of Service Plans 2024-07-20 13:15:00 6 week telephoniccon Mono Beck ritonavirFollows Dr. Ajaoencouraged compliancecontinue amlodipine 5 - refilledcontinue atorvastatin and ezetimibereviewed lipid draw from recentcontinue memantineSLUMS at next visitcontinue vitamin D supplementcontinue vitamin D and Ibandronatediscussed need for compliancefilled pill assortment planner for her for 1 weekRN visit next weekcontinue aspirin and ezetimibedenies recent falls but questionable reliance on answerscontinue lexapro 10per chart history, currently bradycardic and continue to monitor 2024-09-19 07:45:00 Phone follow up in t wo weeks to assist with pill assortment planner. Medications reviewed and updated today per most recent AVS with PCP on 09/17SW for AD paperwork Health Concerns Date Concern 2024-09-19 Patient agrees to at tend her follow-up appointment today.Follow-up recommended to help organize her medications.Most recently PCP visit on 09/17. Prior encounters with patient per our team report confusion and noncompliance with medications. This was explained to her PCP as well and was discussed there. She reports feeling well today, only complaint is itching legs. Eczema:showed patches of dry itching skin along both legs. No open skin or wounds. Darker pigmentation. Previous trial with clobetasol was causing side effects. Older Rx for triamcinolone has been used some. Reports still itching. She was concerned about worm infectionEssential HTN:does not check BP at home, some confusion with medication indicated for this. She is taking amlodipine, confusion with dose of this as she has 5mg tablets and 2.5mg tablets. Most recent Rx for 2.5mg but was loading 5mg. Reports her BP was getting too low. Denies recent lightheadedness, reports intermittent dizziness. Anxiety:taking escitalopram. Denies anxiety symptoms outside of medications. Her confusion with the list of meds does cause her some anxiety. Declining memory:she was not taking memantine correctly, only taking once daily. She does understand what this is for. HIV positive:on multiple medications for this, confusion with generic vs brand name changes. Taking ritonavir, prezista and Descovy. Most recent AVS has these as morning meds but this was causing N/V. These have since been move to night. She also wakes up very early in the morning for work (around 4am) so her compliance is better with night meds, especially those needing food when taking. Denies recent illness or fever. Osteopenia:She is compliant with once weekly ibandronate. Not taking Vitamin D, she does have these on hand however. GERD:denies symptoms, taking pantoprazole most of the time. HLD and hx of CVA:she is eating a heart healthy diet, has own garden. compliant with 80mg atorvastatin and daily 81mg aspirin per her reports. She does need more of this from store.
[2024-12-11 12:50] LABS: Cholesterol 239 mg/dL (0-200); HDL Direct 64 mg/dL; Triglycerides 100 mg/dL (<150)
[2024-12-11 14:02] LABS: Vitamin B12 394.0 pg/mL (239-931)
== END 2024-12-11 11:06 | disposition home or self-care (01) ==
PROVIDERS: Visit Provider Psychiatry & Neurology Neurology
DX: I63.9 Cerebral infarction, unspecified (principal); R41.3 Other amnesia; E78.5 Hyperlipidemia, unspecified; I10 Essential (primary) hypertension; Z21 Asymptomatic human immunodeficiency virus [HIV] infection status
CPT/HCPCS: 36415; 80061; 82607; 82746

== ENCOUNTER 2025-01-31 17:24 | Emergency (ER) | payer OTHER, SELFPAY ==
--- NOTE | 2025-01-31 17:30 | ED.GENADULT ---
HPI - General Adult General Chief complaint: Skin/Abscess/Foreign Body Stated complaint: Rash Source: patient Mode of arrival: ambulatory Limitations: no limitations History of Present Illness HPI narrative: Pt is a 74 y/o female presenting with her with c/o rash. She reports widespread pruritic rash x > 1 month. Reports previous evaluation and dx of eczema, was Rx medication (name unknown to her). States she has been applying Rx medication without improvement. Has appt with derm on Wednesday. Also noted BRBPR x 2 days, initially had abdominal pain which has resolved. No contitutional sx. NO additional complaints. Related Data Home Medications ?Medication ?Instructions ?Recorded ?Confirmed ?Last Taken ?Type ritonavir 100 mg tablet (Norvir) 100 mg PO DAILY 04/20/19 12/26/24 12/26/23 History emtricitabine 200 mg-tenofovir 1 tablet PO DAILY 06/07/22 12/26/24 12/26/23 History alafenamide fumarate 25 mg tablet (Descovy) cyclobenzaprine 5 mg tablet 5 mg PO TID PRN Muscle spasms 08/14/23 12/26/24 12/26/23 History darunavir 800 mg tablet 800 mg PO DAILY 08/14/23 12/26/24 12/26/23 History fluticasone propionate 50 2 spray intranasal DAILY 08/14/23 12/26/24 12/26/23 History mcg/actuation nasal spray,suspension ibandronate 150 mg tablet 150 mg PO MONTHLY 08/14/23 12/26/24 Unknown History amlodipine 5 mg tablet (Norvasc) 2.5 mg PO QAM 12/20/23 12/26/24 12/26/23 History aspirin 325 mg tablet 81 mg PO DAILY@0800 12/20/23 12/26/24 12/26/23 History Allergies Allergy/AdvReac Type Severity Reaction Status Date / Time No Known Allergies Allergy Verified 01/31/25 17:30 Review of Systems Review of Systems: CONSTITUTIONAL: Denies body aches, fever, chills, or sweats. EYES: Denies visual changes, redness, or discharge. ENT: Denies rhinorrhea, congestion, sore throat, or otalgia. CARDIOVASCULAR: Denies chest pain, palpitations, or edema. RESPIRATORY: Denies cough or dyspnea. GASTROINTESTINAL: Reports bright red blood per rectum Denies abdominal pain, nausea, vomiting, or diarrhea. GENITOURINARY: Denies dysuria or hematuria. SKIN: reports rash, itching MUSCULOSKELETAL: Denies back pain, joint pain, or myalgia. NEUROLOGIC: Denies headache, numbness, tingling, or weakness. PSYCH: Denies depression or anxiety. All systems reviewed & are unremarkable except as noted in HPI and below PMFSH Past Medical History Medical History (Updated 01/31/25 @ 18:24 by Pacheco Parekh, JOAN) Alzheimer's dementia Colon cancer screening Pain in right shoulder Left-sided cerebrovascular accident (CVA) History of CVA (cerebrovascular accident) (05/2022) Acute left lacunar infarct posterior limb of internal capsule with residual right-sided hand and leg weakness without residual sensation deficit ASCUS with positive high risk HPV High cholesterol HIV (human immunodeficiency virus infection) Surgical History Surgical History History of colposcopy with cervical biopsy Family History Family History Other Unknown family medical history Social History Social History Social History: The patient is from [facility] originally. [place] but she is not sure exactly when. She moved after she met her who was a [employer] missionary and moved here to be with him. She raised 6 children and had a 7th child that young. She reports that some of her children her living here in some of them are in [place]. It is unclear if she still has 1 child living in [facility] or if she is referring to her child at had previously . 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 She is a lifelong nonsmoker and never drink alcohol. She denies illicit substance use. Code status: Full code Second hand tobacco smoke exposure: No Alcohol intake: never Substance use: never Substance use type: does not use Current Housing: Decline to Answer Concerned About Future Housing: Decline to Answer Difficulty Paying Gas/Electric Bills: Decline to Answer Difficulty Paying for Meds: Decline to Answer Currently Unemployed: Decline to Answer Education: Decline to Answer Difficulty w/ Childcare or Family Care: Decline to Answer Living arrangements: with family Spiritual care concerns: No Exam Narrative: GENERAL: Well-appearing, well-nourished, and in no acute distress. HEAD: Normocephalic, atraumatic. EYES: EOMI. No redness or drainage. Conjunctivae normal. ENT: Mucous membranes pink and moist. Nares clear. No rhinorrhea. TMs normal bilaterally. Throat normal. Uvula midline. NECK: Normal AROM. Supple. CHEST: No respiratory distress. HEART: Regular rate ABDOMEN: Soft, nontender, nondistended, normal active bowel sounds. MUSCULOSKELETAL: No bony tenderness. EXTREMITIES: Normal range of motion. No edema. SKIN: Warm, dry. Widespread Erythroderma with lichenified plaques and crusting (torso affected the greatest)- no obvious signs of secondary bacterial skin infecction NEURO: No focal deficits. Alert and oriented x2-3. Gait steady. PSYCH: Normal affect. No signs of depression or anxiety. Course Course Emergency Course: Given the patient's reported BRBPR and concomitant aspirin/aleve use, I recommended pt be transferred to ER for GIB work up. Aware of NPO status, go straight to ER. Level of Care: Express Care Visit Vital Signs Vital signs: Vital Signs Temperature 98 F 01/31/25 17:42 Pulse Rate 79 01/31/25 17:42 Respiratory Rate 16 01/31/25 17:42 Blood Pressure 192/68 H 01/31/25 17:42 Pulse Oximetry 100 01/31/25 17:42 Temperature 98 F 01/31/25 17:42 Pulse Rate 79 01/31/25 17:42 Respiratory Rate 16 01/31/25 17:42 Blood Pressure 192/68 H 01/31/25 17:42 Pulse Oximetry 100 01/31/25 17:42 Transfer Transfered to: [facility] Transportation: Other (POV) Transfer rationale: access to higher level of care/further diagnostic work up Accepting physician: Miki Medina comments: Aware of NPO status, go straight to ER. Medical Decision Making Vital Signs Vital Signs: Vital Signs Temperature 98 F 01/31/25 17:42 Pulse Rate 79 01/31/25 17:42 Respiratory Rate 16 01/31/25 17:42 Blood Pressure 192/68 H 01/31/25 17:42 Pulse Oximetry 100 01/31/25 17:42 Temperature 98 F 01/31/25 17:42 Pulse Rate 79 01/31/25 17:42 Respiratory Rate 16 01/31/25 17:42 Blood Pressure 192/68 H 01/31/25 17:42 Pulse Oximetry 100 01/31/25 17:42 Discharge Plan Discharge Clinical Impression: BRBPR (bright red blood per rectum) Atopic dermatitis Qualifiers: Atopic dermatitis type: other Qualified Code(s): L20.89 - Other atopic dermatitis Hypertension Qualifiers: Hypertension type: primary hypertension Qualified Code(s): I10 - Essential (primary) hypertension Patient Disposition: Acute Care Hospital Condition: Stable Patient Language: Yakut Prescriptions: No Action memantine 28 mg capsule,sprinkle,ER 24hr 28 mg PO DAILY Qty: 30 6RF Rx Instructions: to start after 4 weeks of dose escalation with titration pack Namenda XR 7-14-21-28 mg cap,sprinkle,ER 24hr dose pack See Rx Instructions PO PER PKG DIR Qty: 1 0RF Rx Instructions: PO PER PKG DIR start with 7 mg for 1 week and increase gradually to 28 mg to continue thereafter continue the 28 mg daily galantamine 8 mg capsule,ext rel. pellets 24 hr 8 mg PO QAM Qty: 30 3RF Rx Instructions: administer with breakfast ritonavir [Norvir] 100 mg tablet 100 mg PO DAILY escitalopram oxalate [Lexapro] 10 mg tablet 10 mg PO DAILY Qty: 90 2RF ibandronate 150 mg tablet 150 mg PO MONTHLY fluticasone propionate 50 mcg/actuation spray,suspension 2 spray INTRANASAL DAILY cyclobenzaprine 5 mg tablet 5 mg PO TID PRN (Reason: Muscle spasms) darunavir 800 mg tablet 800 mg PO DAILY cholecalciferol (vitamin D3) [Vitamin D3] 25 mcg (1,000 unit) Tablet 1,000 unit PO DAILY Qty: 30 1RF gabapentin [Neurontin] 300 mg Capsule 300 mg PO Q8HR Qty: 90 1RF ezetimibe [Zetia] 10 mg Tablet 10 mg PO QAM Qty: 30 1RF pantoprazole [Protonix] [address] for susp in packet 40 mg PO DAILY Qty: 30 0RF Descovy 200-25 mg tablet 1 tablet PO DAILY aspirin 325 mg tablet 81 mg PO DAILY@0800 amlodipine [Norvasc] 5 mg tablet 2.5 mg PO QAM ondansetron 4 mg tablet,disintegrating 4 mg PO Q8H PRN (Reason: nausea and vomiting) Qty: 10 0RF atorvastatin 80 mg Tablet 80 mg PO HS Qty: 30 0RF Follow-up/Referrals: Pk,Pascual Jefferson MD [Primary Care Provider, Unknown] Time of Disposition: 18:23
[2025-01-31 17:42] VITALS: BP 192/68; PULSE 79; RESP 16; TEMP 36.6; O2SAT 100
== END 2025-01-31 18:20 | disposition short-term general hospital (02) ==
PROVIDERS: Emergency Provider Registered Nurse; PCP Family Medicine
DX: K62.5 Hemorrhage of anus and rectum (principal); L20.89 Other atopic dermatitis; I10 Essential (primary) hypertension; G30.9 Alzheimer's disease, unspecified; F02.80 Dementia in other diseases classified elsewhere, unspecified severity, without behavioral disturbance, psychotic disturbance, mood disturbance, and anxiety; Z86.73 Personal history of transient ischemic attack (TIA), and cerebral infarction without residual deficits
CPT/HCPCS: 99212; G0463

== ENCOUNTER 2025-01-31 18:45 | Emergency (ER) | payer OTHER, SELFPAY ==
--- NOTE | ~2025-01-31 | CT_ITS ---
EXAM/PROCEDURE: CT abdomen pelvis w con HISTORY: abd pain; epigastric suprapubic COMPARISON: July 19, 2024 TECHNIQUE: IV contrast enhanced CT of the abdomen and pelvis performed. FINDINGS: Nonobstructive bowel gas pattern with no free air free fluid or pneumatosis. Normal size appendix aorta and gallbladder. No bulky lymphadenopathy or masses. No gross CT evidence of acute cholecystitis or pancreatitis. Pancreatic duct is somewhat prominent but not significantly change compared to the July 19 exam. Moderate amount of stool extends to the cecum. Spleen stomach and adrenal glands and liver stable. 3 mm nonobstructing mid pole right kidney stone. No obstructing ureteral stones or urinary bladder stones. Uterus and adnexal regions appear stable. Lung bases clear. Bones intact. Soft tissues unremarkable. IMPRESSION: No focal acute process seen to explain source of patient's symptoms. Slight dilatation of the proximal pancreatic duct of uncertain significance not grossly changed. If there is concern for subtle pancreatic pathology, correlation with MRI/MRCP may provide additional useful information. NOTE: Preliminary radiologist/physician report provided by [facility] radiologist. Reviewed, dictated and finalized at location A. [facility] IMPRESSION: No focal acute process seen to explain source of patient's symptoms . Slight dilatation of the proximal pancreatic duct of uncertain significance n ot grossly changed. If there is concern for subtle pancreatic pathology, correl ation with MRI/MRCP may provide additional useful information. NOTE: Preliminary radiologist/physician report provided by [facility] radiologist .
[2025-01-31 18:59] VITALS: BP 162/82; PULSE 78; RESP 16; TEMP 36.3; O2SAT 100
[2025-01-31 21:59] LABS: Hematocrit 41.2 % (37.0-47.0); Hemoglobin 13.3 g/dL (12.0-15.0); Immature Granulocyte Percent A 0.4 % (0-0.5); Lymphocytes Absolute Auto 1.81 K/mm3 (0.9-3.2); Mean Corpuscular HGB Conc 32.3 g/dl (32-36); Mean Corpuscular Hemoglobin 26.4 pg (26-34); Mean Corpuscular Volume 81.9 fl (80-100); Nucleated Red Blood Cells Absolute Auto 0.000 K/mm3 (0.0-0.012); Nucleated Red Blood Cells Perc 0.0 % (0.0-0.2); Platelet Count Result 299 k/mm3 (150-375); Red Blood Count 5.03 M/mm3 (4.2-5.4); White Blood Count 5.3 K/mm3 (4.5-10.0)
[2025-01-31 22:10] LABS: Alanine Aminotransferase 25 U/L (6-35); Albumin Level 4.3 g/dL (3.5-5.1); Alkaline Phosphatase 84 U/L (38-126); Anion Gap 5 mmol/L (4-12); Aspartate Amino Transferase 49 U/L (14-36); Bilirubin,Total 0.6 mg/dL (0.2-1.3); Blood Urea Nitrogen 17 mg/dL (7-17); Calcium 9.2 mg/dL (8.4-10.2); Carbon Dioxide 31 mmol/L (22-30); Chloride 105 mmol/L (98-107); Estimated Glomerular Filt Rate > 60; Glucose 102 mg/dL (65-110); Lipase 232 U/L (23-300); Potassium 3.9 mmol/L (3.4-5.0); Sodium 141 mmol/L (137-145); Total Protein 8.0 g/dL (6.3-8.2)
[2025-01-31 22:12] VITALS: BP 180/73; PULSE 84; TEMP 36.9; O2SAT 100
[2025-01-31 23:43] VITALS: BP 160/75; PULSE 80; RESP 18; O2SAT 100
--- OUTSIDE RECORDS SUMMARY | 2025-02-01 00:26 | XMS_ITS ---
Author Name Zay Castilol DO Address [address] [place] [address] Phone [phone] Organization [facility] Care Team Providers Care Plant Protection Guard Name Role Phone Zay Castillo Unavailable [phone] Primarily Home CHW ([facility]), Cora Vela Unavailable Unavailable ROBBI MARIN Unavailable Prim[facility] Home Tier 1 RN ([facility]), Janet [email or web address] Unavailable Reason for [...] N/A foll owing up with neurology at [place]; currently on Memantine Vitamin D deficiency Active 2024-07-20 N/A N/A Osteoporosis Active 2024-07-20 N/A N/A Noncompliance Active 2024-07-20 N/A N/A Hemiplegia and hemiparesis following cerebral infarction affecting right dominant side Active 2024-07-20 N/A history of CVA 2 023 with right sided hemiparesis; has some nerve pain in right leg which she uses gabapentin for; follows up with neurology at [place]; on atorvastatin and aspirin Frailty Active 2024-07-20 [...] minutes total time on enco [facility] [place] 07/20/2024 Asymptomatic human immunodeficiency virus [hiv] infection status Home visit for evaluation and management of established patient requiring medically appropriate examination and moderate level of medical decision making. If using time, at least 40 minutes total time [facility] [place] 09/19/2024 Essential (primary) hypertensionPatient's noncompliance with other [...] least 40 minutes total time [facility] [place] 09/19/2024 Essential (primary) hypertension Home visit for evaluation and management of established patient requiring medically appropriate examination and moderate level of medical decision making. If using time, at least 40 minutes total time [facility] [place] 09/19/2024 Asymptomatic human immunodeficiency virus [hiv] infection [...] least 60 minutes [place] time [place] enco [id number] 2024-07-20 No Data Available No Data Availa [...] time, at least 40 minutes total time [id number] 2024-09-19 No Data Available No Data Loreta [...] visit was spent reviewing medication, organizing pill mission planner. A handwritten list of her meds and the timing was completed as patient does not have access to electronic records or AVS from most recent visit. All pill bottles were labeled AM or PM or AM and PM if BID. we wrote reason for use on each label. Coordinate Measuring Machine Technician loaded for two weeks. Patient verbalizes understanding on need for these medications. Will plan for phone follow up in two weeks to assist in loading pill mission planner again. Essential hypertension [I10]:2.5mg dose of amlodipine loaded in pill mission planner. BP WNL today, stable. Hyperlipidemia [E78.5]:continue atorvastatin 80mg, discussed need for aspirin 81mg refill; encouraged HH dietCognitive impairment [R41.89]:loaded pill mission planner with BID memantine. Vitamin D deficiency [E55.9]:loaded pill mission planner with 2000IU vitamin d3 daily. Osteoporosis [...] D and Ibandronatediscussed need for compliancefilled pill mission planner for her for 1 weekRN visit next weekcontinue aspirin and ezetimibedenies recent falls but questionable reliance on answerscontinue lexapro 10per chart history, currently bradycardic and continue to monitor 2024-09-19 07:45:00 Phone follow up in t wo weeks to assist with pill mission planner. Medications reviewed and updated today per most recent AVS with PCP on for AD paperwork Health Concerns Date Concern [...]
--- OUTSIDE RECORDS SUMMARY | 2025-02-01 00:26 | XMS_ITS | Clinical Summary ---
Author Organization [facility] Address [address] [place] [address] Care Team Providers Care Lumber Racker Name Role Phone Unavailable Primary Care Provider [...] Scan (General) 2017 COVID-19 Vaccine (1 - 2024-2 6 season) 2024 Influenza Adult (#1) 2024 RSV Immunization or 60+ Years (1 - 1-dose 75+ series) 12/30/2027 Hepatitis A Vaccines Aged Out No long er eligible based on patient's age to complete this topic Meningococcal B Vaccine Aged Out No l onger eligible based on patient's age to complete this topic Meningococcal Vaccine Aged Out No caleb pascual eligible based on patient's age to complete this topic RSV Immunizations Under 20 Months Aged Out No longer eligible based on patient's age to complete this topic Insurance [employer]
--- OUTSIDE RECORDS SUMMARY | 2025-02-01 00:26 | XMS_ITS | Encounter Summary ---
Author Organization [facility] Address [address] [place] [address] Care Team Providers Care School Bus Driver/Teacher Assistant Name Role Phone Carter Celaya MD Unavailable [phone] Pawel Juárez MD Unavailable [phone] Pascual Whittington MD Primary Care Provider Reason for Visit * Reason Onset Date Comments Referral Request 01/30/2025 Encounter Details Date Type Department Care Team (Late st Contact Info) Description 01/30/2025 Telephone [facility] Primary Care at [address] [address] Pascual Whittington MD [address] [place] [address] [address] [place] [address] Referral Request Social History Tobacco [...] How often do you attend chur or buddhism services? Never 06/25/2022 Do you belong to any clubs o r organizations such as cheondoism groups, unions, fraternal or athletic groups, or [...] points, staff should administer the PHQ-9) 0 01/09/2025 PRAPARE - Transportation Answer Date Re corded [...] place to sleep or slept in a alf (including now)? No 06/25/2022 PHQ-9 Answer Date [...] on file Legal Sex Female 12:40 PM SUPERVISOR GROUNDS Gender Identity Not on file Sexual Orientation Not on file documented as of this encounter Functional Status * In the past year, patient experienced: Question Answer Date of Assessment Author One or more falls in the las t year 0 01/30/2025 11:39 AM SUPERVISOR GROUNDS Mackenzie Case MA * BP Location Answer Date of Assessment Author Left arm 01/30/2025 11:40 AM SUPERVISOR GROUNDS Mackenzie Case MA * BP Location Answer Date of Assessment Author Left arm 01/30/2025 11:40 AM SUPERVISOR GROUNDS Mackenzie Case MA documented as of this encounter Miscellaneous Notes * Telephone Encounter - Angelina Tinoco MA - 01/31/2025 8:54 AM SUPERVISOR GROUNDS Referral was completed on 01/10. Referral has been re-faxed. [employer] * Telephone Encounter - Francisca Garcia - 01/30/2025 1:37 PM CST Referral Provider Name: MISTY GREENE Specialty: Dermatology Address: [address] [place] [address] [address] [facility], Zip: [place] [address] Diagnosis Code/Symptom/Reason Patient is being seen: (L30.8) Date of Appointment: 02/02/2025 NPI#: na Tax ID#: [id number] Is insurance in chart up to date? yes Additional Comments: [employer] Insurance referral requested Does message need to be routed? Yes-Action Needed [employer]OUNDS documented in this encounter Plan of Treatment Not on file documented as of this encounter Visit Diagnoses Not on filedocumented in this encounter Care Teams School Bus Driver/Teacher Assistant Relationship Specialty Start Date End Date Pascual Whittington MD [address] [address] PCP - General Family Medicine 08/03/24 Carter Celaya MD [address] [address] Referring Physician Infectious Diseases 10/23/21 Pawel Juárez MD [address] [facility] [address] [place] [address] Referring Physician Obstetrics and Gynecology 11/30/23 documented as of this encounter
--- NOTE | 2025-02-01 00:33 | ED.GENADULT ---
HPI - General Adult General Chief complaint: Unspecified Stated complaint: ignacia cabrera Time Seen by Provider: 02/01/25 00:15 Source: patient Mode of arrival: ambulatory History of Present Illness HPI narrative: Patient presents to the emergency department with multiple complaints. She had been at urgent care. Patient is concern for an eczema flare particularly along her left neck and chest the rash exists along the majority of her body with dry thickened pruritic skin. She describes it as a burning and itching. 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 She reports that she has an appointment to see Dermatology on Wednesday but it is getting worse. She reports subjective fevers as well as chills. There has also been report of bloody stool for 2 days but when asked patient seems to indicate that this occasionally happens but she was here for this before and it is unclear on the timing if this remains an issue presently. She is on aspirin but denies being on other anticoagulation. She has a history of CVA reports being on medication for this as well as other issues although she does not know the names her medications. She has a history of HIV reports being on Descovy for this. Her PCP is Dr Wood/Pk (?). She reports having a colonoscopy here approximately 1-2 years ago. She does take NSAIDs for pain but denies any steroids. Denies any recent travel. She took meds for constipation. Patient does not know if she has ever had any abdominal surgeries including When asked in particular about some of the organs that she may or may not still have. She reports that her diarrhea has been foul smelling and started last month and then she seemed to develop upper abdominal swelling. She initially had reported epigastric abdominal pain but now points to her suprapubic area. Not on iron supplementation. Does not know if she has been using Pepto-Bismol. Related Data Home Medications ?Medication ?Instructions ?Recorded ?Confirmed ?Last Taken ?Type ritonavir 100 mg tablet (Norvir) 100 mg PO DAILY 04/20/19 12/26/24 12/26/23 History emtricitabine 200 mg-tenofovir 1 tablet PO DAILY 06/07/22 12/26/24 12/26/23 History alafenamide fumarate 25 mg tablet (Descovy) cyclobenzaprine 5 mg tablet 5 mg PO TID PRN Muscle spasms 08/14/23 12/26/24 12/26/23 History darunavir 800 mg tablet 800 mg PO DAILY 08/14/23 12/26/24 12/26/23 History fluticasone propionate 50 2 spray intranasal DAILY 08/14/23 12/26/24 12/26/23 History mcg/actuation nasal spray,suspension ibandronate 150 mg tablet 150 mg PO MONTHLY 08/14/23 12/26/24 Unknown History amlodipine 5 mg tablet (Norvasc) 2.5 mg PO QAM 12/20/23 12/26/24 12/26/23 History aspirin 325 mg tablet 81 mg PO DAILY@0800 12/20/23 12/26/24 12/26/23 History Allergies Allergy/AdvReac Type Severity Reaction Status Date / Time No Known Allergies Allergy Verified 01/31/25 17:30 [facility] Past Medical History Medical History Alzheimer's dementia Pain in right shoulder History of CVA (cerebrovascular accident) (05/2022) Acute left lacunar infarct posterior limb of internal capsule with residual right-sided hand and leg weakness without residual sensation deficit ASCUS with positive high risk HPV High cholesterol HIV (human immunodeficiency virus infection) Surgical History Surgical History History of colonoscopy 12/28/23; Dr Richard Love; for colon cancer screening History of colposcopy with cervical biopsy Family History Family History Other Unknown family medical history Social History Social History Social History: The patient is from [facility] originally. [place] but she is not sure exactly when. She moved after she met her who was a [employer] missionary and moved here to be with him. She raised 6 children and had a 7th child that young. She reports that some of her children her living here in some of them are in [place]. It is unclear if she still has 1 child living in [place] or if she is referring to her child at had previously . 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 She is a lifelong nonsmoker and never drink alcohol. She denies illicit substance use. Code status: Full code Smoking status: Never smoker Second hand tobacco smoke exposure: No Alcohol intake: never Substance use: never Substance use type: does not use Current Housing: Decline to Answer Concerned About Future Housing: Decline to Answer Difficulty Paying Gas/Electric Bills: Decline to Answer Difficulty Paying for Meds: Decline to Answer Currently Unemployed: Decline to Answer Education: Decline to Answer Difficulty w/ Childcare or Family Care: Decline to Answer Living arrangements: with family Spiritual care concerns: No Exam Narrative: GENERAL: well-nourished, and in no acute distress. HEAD: Normocephalic, atraumatic. EYES: Non injected, non icteric ENT: Nares clear, no rhinorrhea or epistaxis. Gross auditory acuity intact. NECK: Supple. No meningismus. CHEST: Speaking in full sentences. No respiratory distress. HEART: Regular rate and rhythm. . ABDOMEN: Soft, nondistended. No rigidity or guarding. Not peritoneal MEGHAN: Normal rectal tone. Normal colored stool on gloved lubricated finger. FOBT/guiaic negative. EXTREMITIES: Normal range of motion. No lower extremity edema. SKIN: Warm, dry Extensive rash along much of body, particularly left neck and left upper chest but also throughout chest and abdomen including involvement of breast tissue. Also along lateral aspect of bilateral thighs and along the entirety of her back, occasional areas of excoriation with some scant faint areas of bleeding. Appears eczematous but also potentially with some areas of scaly plaques. NEURO: No focal deficits. Alert and oriented. Answering questions although full history difficult to ascertain at times. Following commands. Normal speech without aphasia or dysarthria. PSYCH: Normal mood and affect. Course Vital Signs Vital signs: Vital Signs Temperature 97.4 F L 01/31/25 18:59 Pulse Rate 78 01/31/25 18:59 Respiratory Rate 16 01/31/25 18:59 Blood Pressure 162/82 H 01/31/25 18:59 Pulse Oximetry 100 01/31/25 18:59 Temperature 98.4 F 01/31/25 22:12 Pulse Rate 75 02/01/25 05:20 Respiratory Rate 18 02/01/25 05:20 Blood Pressure 134/58 L 02/01/25 05:20 Pulse Oximetry 98 02/01/25 05:20 Medical Decision Making MDM Narrative Medical decision making narrative: Patient presents urgent care with multiple complaints. She is concerned about an eczema flare particularly across her neck left upper chest but with from lesions cross a significant part of her body described as burning and itching. She also reports foul-smelling diarrhea that started last month associated with some abdominal swelling. There had been some questionable report of bloody stool for the past 2 days by initial report though patient seems to indicate that this occurs occasionally and she has been seen here previously for this before and it is unclear whether this remains an issue presently. In the emergency department she is afebrile with signs notable for hypertension. My differential diagnosis for chronic diarrhea includes, but not limited to: Infectious (giardia, E histolytica, C difficile), medications (antibiotics, antacids, lactulose, sorbitol, chemotherapy, colchicine, gold), inflammatory etiology (such as IBD, radiation enteritis, ischemic colitis, diverticulitis). Also possible are malabsorption issues due to bile salt deficiency (cirrhosis, cholestasis, ileal disease, bacterial overgrowth), pancreatic insufficiency, mucosal abnormalities (celiac sprue, tropical sprue, Whipple disease), or lactose intolerance. They are also secretory causes such as hormonal (VIP, carcinoid tumor, medullary cancer of thyroid, a linear Hassan, glucagon, thyroxine), laxative abuse, neoplasm; finally motility issues may be the cause (IBS, scleroderma, hyperthyroidism, diabetic autonomic neuropathy). Also considered dermatologic diagnoses associated with HIV/AIDS: Kaposi sarcoma, lymphoma, VZV, HSV, HPV, molluscum contagiosum, eosinophilic folliculitis Also considered GI complications of HIV/AIDS: Oral Katalina, hairy leukoplakia, esophagitis, enterocolitis, GI bleed (CMV, Kaposi, lymphoma); proctitis, hepatitis, diarrhea (CRyptospordium, Isopora) Isolated AST elevation intermittently seen before. Urinalysis with microscopic hematuria and leukocyte esterase positive. Urine culture pending. She does complain of suprapubic pain and for this reason, will treat. Given first dose of antibiotic in the ED with rest of course prescribed. No previous culture to guide therapy. ESR normal. CRP normal. Patient unable to give stool sample thus less likely C diff. Discharged with prescriptions for eczema treatment as well as Bentyl gastrointestinal symptoms. I did discuss with patient her workup and that we would be treating for urinary tract infection based on her symptoms but urine culture in process. I discussed the importance of keeping her upcoming dermatology appointment given the extensive body surface area involved as well as her complex history and encouraged her to taken up-to-date medication list to this appointment as given their expertise they may have thoughts on the medication she is on for her stroke as well as for her HIV and if these might be contributing/exacerbating verses if there thoughts of treatment that take these factors into account. Also encouraged her to discuss the chemicals that she uses at work with them. She verifies understanding. She expresses gratitude and that she is feeling better and feels that her abdominal pain and distension is markedly improved.. Differential Diagnosis Differential Diagnosis: Eczema flare. Considered various GI bleed etiologies including infectious diarrhea, IBD. Enteritis, colitis. Considered C difficile. Vital Signs Vital Signs: Vital Signs Temperature 97.4 F L 01/31/25 18:59 Pulse Rate 78 01/31/25 18:59 Respiratory Rate 16 01/31/25 18:59 Blood Pressure 162/82 H 01/31/25 18:59 Pulse Oximetry 100 01/31/25 18:59 Temperature 98.4 F 01/31/25 22:12 Pulse Rate 75 02/01/25 05:20 Respiratory Rate 18 02/01/25 05:20 Blood Pressure 134/58 L 02/01/25 05:20 Pulse Oximetry 98 02/01/25 05:20 Lab Data Lab results reviewed: Yes I reviewed the patient's lab results. 01/31/25 21:50 01/31/25 21:50 Labs: Lab Results 01/31/25 02/01/25 02/01/25 Range/Units 21:50 00:52 01:36 WBC 5.3 (4.5-10.0) K/mm3 RBC 5.03 (4.2-5.4) M/mm3 Hgb 13.3 (12.0-15.0) g/dL Hct 41.2 (37.0-47.0) % MCV 81.9 (80-100) fl MCH 26.4 (26-34) pg MCHC 32.3 (32-36) g/dl RDW 13.7 (11.5-14.5) % Plt Count 299 (150-375) k/mm3 MPV 9.4 (7.4-10.4) fl Immature Gran % (Auto) 0.4 (0-0.5) % Neut % (Auto) 39.8 L (45.5-73.1) % Lymph % (Auto) 34.5 (18.3-44.2) % Ransom % (Auto) 5.5 (2.6-8.5) % Eos % (Auto) 19.0 H (0-4.4) % Baso % (Auto) 0.8 (0.2-1.2) % Lymph # (Auto) 1.81 (0.9-3.2) K/mm3 Ransom # (Auto) 0.3 (0.1-0.6) K/mm3 Eos # (Auto) 1.0 H (0-0.3) K/mm3 Baso # (Auto) 0.0 (0.0-0.1) K/mm3 Abs Immat Gran (auto) 0.02 (0.00-0.031) K/mm3 Absolute Neuts (auto) 2.1 (1.3-6.7) K/mm3 Absolute Nucleated RBC 0.000 (0.0-0.012) K/mm3 Nucleated RBC % 0.0 (0.0-0.2) % Lymphocytes # Pending ESR 18 (0-20) mm/hr Sodium 141 (137-145) mmol/L Potassium 3.9 (3.4-5.0) mmol/L Chloride 105 (98-107) mmol/L Carbon Dioxide 31 H (22-30) mmol/L Anion Gap 5 (4-12) mmol/L BUN 17 (7-17) mg/dL Creatinine 0.85 (0.7-1.0) mg/dL Estim Creat Clear Calc Not Reportable Estimated GFR > 60 (59 - ) Glucose 102 (65-110) mg/dL Calcium 9.2 (8.4-10.2) mg/dL Total Bilirubin 0.6 (0.2-1.3) mg/dL AST 49 H (14-36) U/L ALT 25 (6-35) U/L Alkaline Phosphatase 84 (38-126) U/L C-Reactive Protein 0.6 (<1.0) mg/dL Total Protein 8.0 (6.3-8.2) g/dL Albumin 4.3 (3.5-5.1) g/dL Lipase 232 (23-300) U/L Urine Color Yellow (Yellow) Urine Appearance Clear (Clear) Urine pH 6.5 (5.0-9.0) Ur Specific [place] 1.022 (1.001-1.035) Urine Protein Trace (Negative) mg/dL Urine Glucose (UA) Negative (Negative) mg/dL Urine Ketones Trace H (Negative) mg/dL Ur Blood (Man) Negative (Negative) Urine Nitrate Negative (Negative) Urine Bilirubin Negative (Negative) Urine Urobilinogen 1.0 (<2.0) mg/dL Add Ur Microanalysis Reviewed Leukocyte Esterase Rfl 1+ H (Negative) ALANNAH/UL Urine RBC 3-5 H (0-2) /hpf Urine WBC 0-5 (0-3) /hpf Ur Squamous Epith Cells Few (Few) /hpf Urine Bacteria Rare /hpf Urine Casts 0-2 Hyaline Casts Present (None) /lpf Absolute CD4 [place] Pending % CD4+ Lymphocyte Pending Imaging Data Radiologist's impression: CT stat rad: Punctate nonobstructing right renal calculus. No hydronephrosis. The remaining solid organs are within normal limits. No bowel obstruction. Nonvisualized appendix. No fracture. No incidental findings. Discharge Plan Discharge Clinical Impression: Abnormal urinalysis, Eczema, Abdominal pain Patient Disposition: Home Condition: Stable Instructions: Antibiotic Form, Eczema (ED), Abdominal Pain (ED), Urinary Tract Infection in Older Adults (ED) Additional Instructions: You received your 1st dose of antibiotic in the emergency department and the rest of the course is prescribed. The Bentyl/dicyclomine may help with the abdominal cramping that you experience. It is very important that you keep your upcoming appointment with the hardwood sawyer on Wednesday. Taking a bath and moisturizing immediately can help. Take a 5-10 minutes lukewarm bath with a gentle cleanser, pat the skin lightly to leave it damp, and apply the moisturizer. The anti-itch cream may help with this flare. Follow up with your primary care physician. Return if new/worsening symptoms. Patient Language: Guyanese Prescriptions: New dicyclomine 10 mg capsule 10 mg PO BID PRN (Reason: abdominal pain) Qty: 20 0RF nitrofurantoin monohyd/m-cryst [Macrobid] 100 mg capsule 100 mg PO Q12H 5 Days Qty: 9 0RF Rx Instructions: must administer with a meal/food; rec'd first dose in ED CeraVe Itch Relief 1 % cream See Rx Instructions .ROUTE .COMPLEX Qty: 340 0RF Rx Instructions: Use as directed Aveeno Moisturizing 1 % cream See Rx Instructions .ROUTE .COMPLEX Qty: 141 0RF Rx Instructions: use as directed on label No Action memantine 28 mg capsule,sprinkle,ER 24hr 28 mg PO DAILY Qty: 30 6RF Rx Instructions: to start after 4 weeks of dose escalation with titration pack Namenda XR 7-14-21-28 mg cap,sprinkle,ER 24hr dose pack See Rx Instructions PO PER PKG DIR Qty: 1 0RF Rx Instructions: PO PER PKG DIR start with 7 mg for 1 week and increase gradually to 28 mg to continue thereafter continue the 28 mg daily galantamine 8 mg capsule,ext rel. pellets 24 hr 8 mg PO QAM Qty: 30 3RF Rx Instructions: administer with breakfast ritonavir [Norvir] 100 mg tablet 100 mg PO DAILY escitalopram oxalate [Lexapro] 10 mg tablet 10 mg PO DAILY Qty: 90 2RF ibandronate 150 mg tablet 150 mg PO MONTHLY fluticasone propionate 50 mcg/actuation spray,suspension 2 spray INTRANASAL DAILY cyclobenzaprine 5 mg tablet 5 mg PO TID PRN (Reason: Muscle spasms) darunavir 800 mg tablet 800 mg PO DAILY cholecalciferol (vitamin D3) [Vitamin D3] 25 mcg (1,000 unit) Tablet 1,000 unit PO DAILY Qty: 30 1RF gabapentin [Neurontin] 300 mg Capsule 300 mg PO Q8HR Qty: 90 1RF ezetimibe [Zetia] 10 mg Tablet 10 mg PO QAM Qty: 30 1RF pantoprazole [Protonix] [address] for susp in packet 40 mg PO DAILY Qty: 30 0RF Descovy 200-25 mg tablet 1 tablet PO DAILY aspirin 325 mg tablet 81 mg PO DAILY@0800 amlodipine [Norvasc] 5 mg tablet 2.5 mg PO QAM ondansetron 4 mg tablet,disintegrating 4 mg PO Q8H PRN (Reason: nausea and vomiting) Qty: 10 0RF atorvastatin 80 mg Tablet 80 mg PO HS Qty: 30 0RF Follow-up/Referrals: Pk,Pascual Jefferson MD [Primary Care Provider, Unknown] Stand Alone Forms: Work/School Release IP Time of Disposition: 04:53
[2025-02-01] MEDS: diphenhydrAMINE HCl CAP 25 MG CAPSULE PO (01:18)
[2025-02-01 01:22] LABS: Add Urine Microscopic? YES; Appearance Urine Clear (Clear); Glucose Urine UA Negative (Negative); Leukocyte Esterase Ur 1+ LEU/UL (Negative); Need Manual Microscopic Reviewed; Nitrate Urine Negative (Negative); Non Pathogenic Casts 0-2; Specific Grav Ur 1.022 (1.001-1.035)
[2025-02-01] MEDS: MORPHINE SULFATE (*CRX) 4 MG/ML INJ 2 MG IV PUSH (01:32)
[2025-02-01 01:54] LABS: CRP 0.6 mg/dL (<1.0)
[2025-02-01] MEDS: NITROFURANTOIN MONOHYD MACROCR 100 MG CAP PO (05:07)
[2025-02-01] MEDS: DICYCLOMINE HCL 10 MG CAPSULE PO (05:07)
[2025-02-01 05:20] VITALS: BP 134/58; PULSE 75; RESP 18; O2SAT 98
== END 2025-02-01 05:24 | disposition home or self-care (01) ==
PROVIDERS: Physician Assistant; Emergency Provider Student in an Organized Health Care Education/Training Program; PCP Family Medicine
DX: L30.9 Dermatitis, unspecified (principal); R10.9 Unspecified abdominal pain; R82.90 Unspecified abnormal findings in urine; G30.9 Alzheimer's disease, unspecified; F02.80 Dementia in other diseases classified elsewhere, unspecified severity, without behavioral disturbance, psychotic disturbance, mood disturbance, and anxiety; I69.951 Hemiplegia and hemiparesis following unspecified cerebrovascular disease affecting right dominant side; E78.00 Pure hypercholesterolemia, unspecified; Z21 Asymptomatic human immunodeficiency virus [HIV] infection status; Z79.82 Long term (current) use of aspirin; Z79.899 Other long term (current) drug therapy
CPT/HCPCS: 36415; 74177; 80053; 81001; 83690; 85025; 85652; 86140; 86361; 87086; 87147; 87186; 96374; 99284; A9270; J2270; Q9967